=== PATIENT | female | born 1965 | race Asian ===

== ENCOUNTER 2020-08-02 04:48 | Emergency (ER) | payer OTHER, SELFPAY ==
[2020-08-02 05:10] VITALS: BP 95/52; PULSE 69; RESP 16; TEMP 36.6; O2SAT 94; BMI 30.3
--- NOTE | 2020-08-02 05:38 | XR_ITS ---
EXAMINATION: XR SHOULDER, LEFT XR HUMERUS, LEFT CLINICAL INFORMATION: Pain COMPARISON: None TECHNIQUE: Four views of the left shoulder. 2 views of the left humerus. FINDINGS: Left shoulder: No fracture or dislocation. The glenohumeral joint is well aligned. The joint space is maintained. Small osteophyte at the inferior glenoid. The acromioclavicular joint is intact. The visualized ribs are intact. The visualized lung is clear. Left humerus: No fracture or cortical disruption. Alignment is maintained at the elbow. The soft tissues are unremarkable. XR/XR humerus LT IMPRESSION: No acute osseous abnormality. Mild degenerative change of the glenohumeral joint.
--- NOTE | 2020-08-02 05:38 | XR_ITS ---
EXAMINATION: XR SHOULDER, LEFT XR HUMERUS, LEFT CLINICAL INFORMATION: Pain COMPARISON: None TECHNIQUE: Four views of the left shoulder. 2 views of the left humerus. FINDINGS: Left shoulder: No fracture or dislocation. The glenohumeral joint is well aligned. The joint space is maintained. Small osteophyte at the inferior glenoid. The acromioclavicular joint is intact. The visualized ribs are intact. The visualized lung is clear. Left humerus: No fracture or cortical disruption. Alignment is maintained at the elbow. The soft tissues are unremarkable. XR/XR shoulder LT min 2V IMPRESSION: No acute osseous abnormality. Mild degenerative change of the glenohumeral joint.
--- NOTE | 2020-08-02 05:46 | PC.NURSE ---
PT HAS INCREASED PAIN UPON PALPATION AND WHEN LEFT ARM IS LIFTED BY PROVIDER. PT HAS GOOD RADIAL PULSE AND TEMPERATURE TO LEFT UPPER EXTREMITY. PAIN TO LATERAT UPPER LEFT ARM AND LEFT SHOULDER.
--- NOTE | 2020-08-02 06:03 | ED.EXTPRO ---
HPI - Extremity Problem General Chief complaint: Extremity Injury, Upper Stated complaint: ARM PAIN PINCHED NERVE? Time Seen by Provider: 08/02/20 04:57 Source: patient Mode of arrival: ambulatory History of Present Illness HPI Narrative: This is a 54-year-old female who presents with stated that her left arm ?feels like it is broken?. She states that there was an acute onset of left arm pain that started at 4:00 p.m. yesterday without associated trauma, fevers, chills, overuse, or poor position while sleeping. When asked how the patient was able to get dressed into her pajamas she stated that she had helped, but then states that she has been wearing her pajamas for several days now. This left arm pain is not associated with any history of diabetes or thyroid condition and is not associated with redness, swelling, numbness or tingling in the distal extremity. Patient denies any chest pain, cough, difficulty breathing. She states that she is currently in a wheelchair for bilateral plantar fasciitis has right-sided cervical radiculopathy. Related Data Allergies Allergy/AdvReac Type Severity Reaction Status Date / Time pineapple [Pineapple] Allergy Intermediate THROAT Verified 08/02/20 05:09 ITCHES latex [Latex] Allergy Mild RASH Verified 08/02/20 05:09 diphenhydramine Allergy Unknown UNKNOWN Verified 08/02/20 05:09 [From BENADRYL] ayanna Allergy Unknown HIVES Verified 08/02/20 05:09 shellfish Allergy Unknown rash Verified 08/02/20 05:09 Shellfish Allergy Intermediate THROAT Uncoded 04/13/20 17:09 ITCHES Benadryl Allergy Unknown Hives Uncoded 08/02/20 05:09 Latex Allergy Unknown rash Uncoded 10/19/13 00:00 Latex Gloves Allergy Unknown Hives Uncoded 08/02/20 05:09 Ayanna Flavor Allergy Unknown itching Uncoded 10/19/13 00:00 Review of Systems Review of Systems: Pertinent positives and negatives as stated in HPI 10 point review systems is otherwise negative. FOR[facility]LY [facility], [facility] Past Medical History Source: nursing notes reviewed Medical History Asthma Early satiety Social History Social History Advance Directives: No Physical Exam Vital Signs: Vital Signs: Last Vital Signs Temp 97.9 F 08/02/20 05:10 Pulse 69 08/02/20 05:10 Resp 16 08/02/20 05:10 BP 95/52 L 08/02/20 05:10 Pulse Ox 94 08/02/20 05:10 Body Mass Index 30.3 VITAL SIGNS: Reviewed. GENERAL: Well developed, well nourished, in no acute distress. NOSE: Nares patent bilateral OROPHARYNX: no oral lesions noted, posterior pharynx clear NECK: Supple, no adenopathy LUNGS: Normal breath sounds. No adventitious sounds or accessory muscle use. SpO2<94> CARDIOVASCULAR: Regular rate and rhythm without noted murmurs, no JVD or lower extremity edema. ABDOMEN: Soft, non-tender, non-distended with bowel sounds. No rigidity. No guarding. No palpable masses or hernias noted LEFT UPPER EXTREMITY: No pain in palpation from the left paraspinal cervical region across the trapezius, no noted pain on palpation of the AC or biceps tendon insertion point, however patient has significant pain on active as well as passive range of motion at that shoulder in every direction. 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 Patient complains primarily of pain in the humeral region. SKIN: Inspection of the skin reveals no rashes NEUROLOGIC: Alert and oriented x 4. Course Course Course Narrative: This is a 54-year-old female with unclear etiology of left humerus pain will evaluate for inflammatory markers, bony abnormalities and likely finish with ultrasound to evaluate for underlying venous insufficiency although this is highly unlikely. Sign out to Dr. Montaño. MDM - Extremity (Nontraumatic) Lab Data Result diagrams: 08/02/20 06:37 08/02/20 06:37 Labs: Lab Results 08/02/20 Range/Units 06:37 WBC 6.3 (4.8-10.8) X10*3/uL RBC 3.92 L (4.20-5.50) X10*6/uL Hgb 11.7 L (12.0-16.0) g/dl Hct 36.1 L (37-47) % MCV 92.1 (80-98) fL MCH 29.8 (27.0-33.0) pg MCHC 32.4 (31.0-35.0) g/dl RDW 12.9 (11.0-16.0) % Plt Count 218 (160-400) X10*3/uL MPV 9.8 (9.4-12.3) fL Immature Gran % (Auto) 0.5 H (0.0-0.4) % Neut % (Auto) 76.6 H (45-73) % Lymph % (Auto) 15.6 L (20-40) % [place] % (Auto) 6.2 (2-11) % Eos % (Auto) 0.8 (0-4) % Baso % (Auto) 0.3 (0-2) % Lymph # (Auto) 1.0 L (1.2-4.9) X10*3/uL [place] # (Auto) 0.4 (0.1-1.2) X10*3/uL Eos # (Auto) 0.1 (0.0-0.4) X10*3/uL Baso # (Auto) 0.0 (0.0-0.2) X10*3/uL Abs Immat Gran (auto) 0.03 (0.00-0.03) X10*3/uL Absolute Neuts (auto) 4.8 (2.0-8.3) X10*3/uL Absolute Nucleated RBC 0.000 (0.0-0.012) X10*3/uL Nucleated RBC % (auto) 0.0 (0.0-0.2) /100WBC
[2020-08-02] MEDS: Acetaminophen 325 MG TABLET 975 MG PO (06:15)
[2020-08-02] MEDS: Ketorolac Tromethamine 15 MG/ML VIAL IM (06:15)
[2020-08-02] MEDS: Lidocaine 4 % Patch ADH..PATCH 1 PATCH TRANSDERMA (06:15)
[2020-08-02 06:45] LABS: Basophils Percent Auto 0.3 % (0-2); Eosinophils Absolute Auto 0.1 X10*3/uL (0.0-0.4); Eosinophils Percent Auto 0.8 % (0-4); Hematocrit 36.1 % (37-47); Hemoglobin 11.7 g/dl (12.0-16.0); Imm Gran Abs Auto 0.03 X10*3/uL (0.00-0.03); Imm Gran Pct Auto 0.5 % (0.0-0.4); Lymphocytes Percent Auto 15.6 % (20-40); MANUAL DIFF FLAG NO; Mean Corpuscular HGB Conc 32.4 g/dl (31.0-35.0); Mean Corpuscular Hemoglobin 29.8 pg (27.0-33.0); Mean Corpuscular Volume 92.1 fL (80-98); Mean Platelet Volume 9.8 fL (9.4-12.3); Monocytes Absolute Auto 0.4 X10*3/uL (0.1-1.2); Monocytes Percent Auto 6.2 % (2-11); Neutrophils Absolute Auto 4.8 X10*3/uL (2.0-8.3); Neutrophils Percent Auto 76.6 % (45-73); Platelet Count 218 X10*3/uL (160-400); Red Blood Count 3.92 X10*6/uL (4.20-5.50); Red Cell Distribution Width 12.9 % (11.0-16.0); White Blood Count 6.3 X10*3/uL (4.8-10.8)
--- NOTE | 2020-08-02 07:04 | US_ITS ---
EXAMINATION: US VENOUS WITH DOPPLER UPPER EXTREMITY, LEFT CLINICAL INFORMATION: Pain left upper extremity with decreased range of motion and shoulder. Assess for occult DVT. COMPARISON: Radiographs left shoulder and left humerus 08/02/2020; mammography 12/31/2013 TECHNIQUE: Ultrasound of the upper extremity is performed using compression sonography and color and pulse Doppler flow with assessment of augmentation of flow. There is also imaging and Doppler assessment of the jugular and subclavian veins. Spectral analysis with color-flow imaging is performed. FINDINGS: Respiratory variation, normal compression, and augmented flow are noted throughout the upper extremity including the axillary, brachial, cubital, and radial and ulnar veins. There is normal flow in the internal jugular and subclavian veins. There is no visible deep or superficial thrombophlebitis. As expected, there are nodes seen in the left axilla with normal nata architecture and color flow pattern. Largest node measures 1.0 x 2.4 cm. No hyperemia. No cystic nodes. There is no skin thickening or edema tracking in the soft tissue planes. US/US venous duplex UE LT IMPRESSION: No DVT demonstrated in the left upper extremity.
[2020-08-02 07:17] LABS: Alanine Aminotransferase 11 U/L (0-31); Alkaline Phosphatase 69 U/L (39-117); Anion Gap 13 (12-20); Aspartate Amino Transferase 13 U/L (5-31); Bilirubin Total 0.3 mg/dL (0.0-1.0); Blood Urea Nitrogen 18 mg/dL (9-16); Calcium 8.4 mg/dL (8.4-10.2); Carbon Dioxide 28 mmol/L (22-29); Chloride 106 mmol/L (96-108); Creatinine Clr Calc Pharmacy 86.8; Estimated Glomerular Filt Rate > 60; Glucose Random 98 mg/dL (60-115); Magnesium 2.2 mg/dL (1.6-2.6); Potassium 4.5 mmol/l (3.3-5.1); Sodium 142 mmol/L (135-145); Total Protein 6.9 g/dL (6.5-8.0)
[2020-08-02 07:50] LABS: Erythrocyte Sedimentation Rate 25 MM/HR (0-20)
--- NOTE | 2020-08-02 08:48 | PC.NURSE ---
pt returns from [place]. negative findings for dvt she is tolerating po intake awaiting d/c
== END 2020-08-02 09:04 | disposition home or self-care (01) ==
PROVIDERS: Emergency Provider Student in an Organized Health Care Education/Training Program; PCP Internal Medicine
DX: M72.2 Plantar fascial fibromatosis (principal); M79.602 Pain in left arm; R60.0 Localized edema; Z79.899 Other long term (current) drug therapy
CPT/HCPCS: 36415; 73030; 73060; 80053; 82550; 83735; 85025; 85652; 93971; 96372; 99283; 99284; J1885

== ENCOUNTER 2021-04-19 03:15 | Emergency (ER) | payer OTHER, SELFPAY ==
--- NOTE | ~2021-04-19 | XR_ITS ---
EXAMINATION: XR FOOT, RIGHT CLINICAL INFORMATION: Right foot pain COMPARISON: None TECHNIQUE: AP, lateral, and oblique views of the right foot. FINDINGS: There is mild loss of first MTP joint space with periarticular spurring. No visible acute fracture, dislocation or subluxation seen. The ankle mortise and 6 subtalar joints are normal. There is dorsal talonavicular moderate spurring. Moderate-sized calcaneal heel and a small retrocalcaneal enthesophytes are seen. XR/XR foot RT min 3V IMPRESSION: No acute fracture or dislocation. Moderate size calcaneal heel and dorsal talonavicular enthesophytes. There is a small retrocalcaneal right as well.
--- NOTE | 2021-04-19 07:37 | ED.GENADULT ---
HPI - General Adult General Chief complaint: Extremity Injury, Upper Time Seen by Provider: 04/19/21 07:11 Source: patient and old records reviewed Mode of arrival: ambulatory Limitations: no limitations History of Present Illness MD complaint: R foot pain, R neck strain Onset (ago): day(s) (3) Location: neck, right and lower extremity Radiation: non-radiation Severity: mild and moderate Quality: aching Pain Consistency: constant Relieving factors: none Exacerbating factors: movement Associated symptoms: denies other symptoms Treatments prior to arrival: other (tried gabapentin, flexeril without relief) Related Data Previous Rx's Medication Instructions Recorded cyclobenzaprine 10 mg tablet 10 mg PO TID PRN #14 tab 08/02/20 lidocaine 4 % topical patch 1 patch TOPICAL DAILY PRN #10 ea 08/02/20 amoxicillin 875 mg-potassium 1 tab PO BID #20 tab 03/02/21 clavulanate 125 mg tablet (Augmentin) dexamethasone 4 mg tablet 4 mg PO .COMPLEX #18 tab 03/02/21 fluconazole 150 mg tablet 150 mg PO Q OTHER DAY 3 Days #2 tab 03/02/21 hydrocodone 5 mg-acetaminophen 325 1 tab PO Q6H PRN #8 tab 04/19/21 mg tablet Allergies Allergy/AdvReac Type Severity Reaction Status Date / Time pineapple [Pineapple] Allergy Intermediate THROAT Verified 04/19/21 07:56 ITCHES latex [Latex] Allergy Mild RASH Verified 04/19/21 07:56 diphenhydramine Allergy Unknown UNKNOWN Verified 04/19/21 07:56 [From BENADRYL] ayanna Allergy Unknown HIVES Verified 04/19/21 07:56 shellfish Allergy Unknown rash Verified 04/19/21 07:56 Shellfish Allergy Intermediate THROAT Uncoded 04/13/20 17:09 ITCHES Benadryl Allergy Unknown Hives Uncoded 08/02/20 05:09 Latex Allergy Unknown rash Uncoded 10/19/13 00:00 Latex Gloves Allergy Unknown Hives Uncoded 08/02/20 05:09 [place] Flavor Allergy Unknown itching Uncoded 10/19/13 00:00 Review of Systems Review of Systems: Constitutional : No Fever, No Chills ENT/Mouth : No Ear Pain, No Hoarseness, No sore throat, pos neck pain Eyes: No Eye Pain, No Swelling, No Redness, No Foreign Body Cardiovascular : No Chest Pain, No SOB Respiratory : No Cough, No Dyspnea Gastrointestinal : No Nausea, No Vomiting, No Diarrhea, No abdominal Pain Genitourinary : No Dysuria, No Hematuria Musculoskeletal : positive joint pain, No Myalgias, No Joint Swelling Skin : No Skin lacerations, No rash Neuro : No Weakness, No Numbness, No Loss of Consciousness, No Dizziness, No Headache Psych : No Anxiety/Panic, No Depression Heme/Lymph: no easy bruising, no Lymphadenopathy Endocrine : No Polyuria, No Polydipsia All other systems reviewed and are negative [facility] Past Medical History Medical History Asthma Cervical radiculopathy DVT (deep venous thrombosis) Early satiety Social History Social History (Updated 04/19/21 @ 07:40 by Stacey Montaño DO) Patient Tobacco Use Status: Never used Tobacco Use of substances other than those prescribed or required for medical reasons: No Advance Directives: No Advance Directives Information Provided: No Physical Exam Vital Signs: Vital Signs: Last Vital Signs Temp 98.4 F 04/19/21 07:58 Pulse 99 04/19/21 07:58 Resp 18 04/19/21 07:58 BP 166/74 H 04/19/21 07:58 Pulse Ox 96 04/19/21 07:58 Body Mass Index 33.6 Appearance: Alert. Oriented X3. No acute distress. Eyes: Pupils equal, round and reactive to light. ENT: Pharynx normal. Neck: Normal inspection. R trapezius ttp along muscle - distal NV intact, no midline ttp CVS: Normal heart rate and rhythm. Pulses normal. Respiratory: No respiratory distress. Breath sounds normal. Abdomen: Soft and nontender. Skin: Skin warm and dry. Normal skin color. Normal skin turgor. Extremities: No lower extremity edema. R foot on plantar surface c/o pain distal NV intact, no swelling, no erythema no signs of infection, pain is on plantar surface along 1st and 2nd MTPs Neuro: Oriented X 3. No motor deficit. No sensory deficit. Medical Decision Making MDM Narrative Medical decision making narrative: 55 yo female with hx of cervical radiculopathy, recent DVT 1 month ago on eliquis comes in with atraumatic R foot pain - seems like MSK no signs of infection NV intact - xray ordered, also c/o R neck pain after moving and feeling a pop - there is no swelling no mass no fevers suspect trapezius spasm - PO pain control Discharge Plan Discharge Clinical Impression: Trapezius muscle spasm Acute foot pain Qualifiers: Laterality: right Qualified Code(s): M79.671 - Pain in right foot Patient Disposition: Home, Self-Care Instructions: Arthralgia (ED), Muscle Spasm (ED) Additional Instructions: return to ED for any worsening symptoms or concerns BONY SPURS causing pain No acute fracture or dislocation. ? Moderate size calcaneal heel and dorsal talonavicular enthesophytes. There is a small retrocalcaneal right as well. Prescriptions: New hydrocodone-acetaminophen 5-325 mg tablet 1 tab PO Q6H PRN (Reason: pain) Qty: 8 RF: 0 No Action cyclobenzaprine 10 mg tablet 10 mg PO TID PRN (Reason: muscle spasm) Qty: 14 RF: 0 lidocaine 4 % adhesive patch,medicated 1 patch topical DAILY PRN (Reason: pain) Qty: 10 RF: 0 amoxicillin-pot clavulanate [Augmentin] 875-125 mg tablet 1 tab PO BID Qty: 20 RF: 0 dexamethasone 4 mg tablet 4 mg PO .COMPLEX Qty: 18 RF: 0 fluconazole 150 mg tablet 150 mg PO Q OTHER DAY 3 Days Qty: 2 RF: 0 Referrals: Physician,Unknown [Primary Care Provider] - 2 days (if not better)
[2021-04-19 07:58] VITALS: BP 166/74; PULSE 99; RESP 18; TEMP 36.9; O2SAT 96; BMI 33.6
[2021-04-19] MEDS: HYDROcodone Bit/Acetam 5/325 TABLET 1 TAB PO (08:46)
== END 2021-04-19 08:52 | disposition home or self-care (01) ==
PROVIDERS: Emergency Provider Emergency Medicine
DX: M79.671 Pain in right foot (principal); M62.831 Muscle spasm of calf; Z86.718 Personal history of other venous thrombosis and embolism; Z79.01 Long term (current) use of anticoagulants; Z79.899 Other long term (current) drug therapy
CPT/HCPCS: 73630; 99283

== ENCOUNTER 2022-05-29 15:40 | Emergency (ER) | payer OTHER, SELFPAY ==
[2022-05-29 16:19] VITALS: BP 145/91; PULSE 96; RESP 18; TEMP 36.8; O2SAT 96; BMI 27.4
[2022-05-29 16:36] LABS: MANUAL DIFF FLAG NO
[2022-05-29 16:37] LABS: Basophils Percent Auto 0.3 % (0-2); Hematocrit 36.9 % (37.0-47.0); Hemoglobin 12.3 g/dl (12.0-16.0); Imm Gran Abs Auto 0.01 X10*3/uL (0.00-0.03); Imm Gran Pct Auto 0.3 % (0.0-0.4); Lymphocytes Absolute Auto 0.4 X10*3/uL (1.2-4.9); Lymphocytes Percent Auto 10.8 % (20-40); Mean Corpuscular HGB Conc 33.3 g/dl (31.0-35.0); Mean Corpuscular Hemoglobin 29.9 pg (27.0-33.0); Mean Corpuscular Volume 89.6 fL (80.0-98.0); Mean Platelet Volume 9.9 fL (9.4-12.3); Monocytes Absolute Auto 0.5 X10*3/uL (0.1-1.2); Monocytes Percent Auto 13.7 % (2-11); Neutrophils Absolute Auto 2.6 x10*3/uL (2.0-8.3); Neutrophils Percent Auto 74.9 % (45-73); Platelet Count 203 X10*3/uL (160-400); Red Blood Count 4.12 X10*6/uL (4.20-5.50); Red Cell Distribution Width 12.6 % (11.0-16.0); White Blood Count 3.5 X10*3/uL (4.8-10.8)
[2022-05-29 16:51] LABS: Alanine Aminotransferase 12 U/L (0-31); Albumin Level 3.8 g/dL (3.5-5.0); Alkaline Phosphatase 71 U/L (39-117); Anion Gap 14 (12-20); Aspartate Amino Transferase 16 U/L (5-31); Bilirubin Total 0.3 mg/dL (0.0-1.0); Blood Urea Nitrogen 15 mg/dL (9-16); Calcium 8.9 mg/dL (8.4-10.2); Carbon Dioxide 26 mmol/L (22-29); Chloride 108 mmol/L (96-108); Creatinine Clr Calc Pharmacy 61.2; Estimated Glomerular Filt Rate > 60; Glucose Random 89 mg/dL (60-115); Potassium 3.8 mmol/L (3.3-5.1); Sodium 144 mmol/L (135-145)
[2022-05-29 16:55] LABS: Appearance Urine Clear; Color Urine Yellow; Glucose Urine UA Negative (Negative); Leukocyte Esterase Urine Moderate (2+) (Negative); Nitrite Urine Negative (Negative); PH 5.5 (5.0-9.0); UMIC TRIGGER UACC YES; Urine Blood Negative (Negative); Urine Ketones Trace mg/dL (Negative); Urine Protein Trace mg/dL (Neg-Trace)
[2022-05-29 17:03] LABS: Bacteria Urine Trace (None Seen); Granular Casts Urine Present; Hyaline Casts Urine >20 /LPF (0-2); WBC Urine 0-5 /HPF (0-5)
== END 2022-05-29 23:05 | disposition left against medical advice (07) ==
LOC: HO.ED 22:39
PROVIDERS: Emergency Provider Emergency Medicine; PCP Pediatrics
DX: R42 Dizziness and giddiness (principal); Z79.899 Other long term (current) drug therapy
CPT/HCPCS: 36415; 80053; 81001; 85025; 99282; 99283

== ENCOUNTER 2022-08-05 18:00 | Emergency (ER) | payer OTHER, SELFPAY ==
[2022-08-05 18:08] VITALS: BP 131/78; PULSE 82; RESP 18; TEMP 37.1; O2SAT 97; BMI 26.3
--- NOTE | 2022-08-05 18:18 | ED.GENADULT ---
HPI - General Adult General Chief complaint: Allergic Reaction Stated complaint: From home, allergic reac to Toradol per EMS Time Seen by Provider: 08/05/22 18:07 Source: patient and EMS Mode of arrival: EMS Limitations: no limitations History of Present Illness HPI narrative: Patient comes to the emergency room via EMS. Patient had a home visit today, she was given IM injection for the 1st time for pain, indicated by patient's physician and visiting nurse. Patient states that shortly after she thought she was going to pass out. Patient did not have any chest pain or shortness of breath, no rash, no breathing difficulty. EMS gave the patient 0.3 mg of epinephrine, Zofran, and Benadryl IV. On arrival to the emergency room, patient is asymptomatic. Related Data Previous Rx's Medication Instructions Recorded cyclobenzaprine 10 mg tablet 10 mg PO TID PRN muscle spasm #14 08/02/20 tabs lidocaine 4 % topical patch 1 patch topical DAILY PRN pain #10 08/02/20 ea amoxicillin 875 mg-potassium 1 tab PO BID #20 tabs 03/02/21 clavulanate 125 mg tablet (Augmentin) dexamethasone 4 mg tablet 4 mg PO .COMPLEX #18 tabs 03/02/21 fluconazole 150 mg tablet 150 mg PO Q OTHER DAY 3 days #2 03/02/21 tabs hydrocodone 5 mg-acetaminophen 325 1 tab PO Q6H PRN pain #8 tabs 04/19/21 mg tablet Allergies Allergy/AdvReac Type Severity Reaction Status Date / Time pineapple [Pineapple] Allergy Intermediate THROAT Verified 04/19/21 07:56 ITCHES latex [Latex] Allergy Mild RASH Verified 04/19/21 07:56 diphenhydramine Allergy Unknown UNKNOWN Verified 04/19/21 07:56 [From BENADRYL] ayanna Allergy Unknown HIVES Verified 04/19/21 07:56 shellfish Allergy Unknown rash Verified 04/19/21 07:56 Shellfish Allergy Intermediate THROAT Uncoded 04/13/20 17:09 ITCHES Benadryl Allergy Unknown Hives Uncoded 08/02/20 05:09 Latex Allergy Unknown rash Uncoded 10/19/13 00:00 Latex Gloves Allergy Unknown Hives Uncoded 08/02/20 05:09 [place] Flavor Allergy Unknown itching Uncoded 10/19/13 00:00 Review of Systems Review of Systems: Constitutional : No Weight loss, No Fever, No Chills, No Night Sweats, No Fatigue, No Malaise ENT/Mouth : No Hearing loss, No Ear Pain, No Nasal Congestion, No Sinus Pain, No Hoarseness, No sore throat, No Rhinorrhea, No Swallowing Difficulty Eyes: No Eye Pain, No Swelling, No Redness, No Foreign Body, No Discharge, No Vision Changes Cardiovascular : No Chest Pain, No SOB, No Dyspnea on Exertion, No Orthopnea, No Edema, No Palpitations Respiratory : No Cough, No Sputum, No Wheezing, No Smoke Exposure, No Dyspnea Gastrointestinal : No Nausea, No Vomiting, No Diarrhea, No Constipation, No abdominal Pain, No Hematochezia, No Melena Genitourinary : no irregular bleeding, No Dysuria, No Urinary Frequency, No Hematuria, No Urinary Incontinence, No Urgency, No Flank Pain, No Urinary Flow Changes, No Hesitancy Musculoskeletal : No joint pain, No Myalgias, No Joint Swelling Skin : No Skin Lesions, No rash Neuro : No Weakness, No Numbness, No Paresthesias, No Loss of Consciousness, No Dizziness, No Headache, near syncopal episode after an IM injection Psych : No Anxiety/Panic, No Depression, No SI/HI/AH/VH, No Social Issues, Heme/Lymph: No Bruising, No Bleeding,No Lymphadenopathy Endocrine : No Polyuria, No Polydipsia, No Temperature Intolerance PMFSH Past Medical History Medical History Asthma Cervical radiculopathy DVT (deep venous thrombosis) Early satiety Social History Social History (Updated 04/19/21 @ 07:40 by Dulce Montaño DO) Patient Tobacco Use Status: Never used Tobacco Advance Directives: No Advance Directives Information Provided: Yes Patient : No Physical Exam ED Vital Signs: Vital Signs - 24 hr 08/05/22 18:08 Temperature 98.8 F Pulse Rate 82 Respiratory Rate 18 Blood Pressure 131/78 Pulse Oximetry 97 Oxygen Delivery Method Room Air BMI result Body Mass Index 26.3 Course Course Course Narrative: In the emergency room, patient asymptomatic Medical Decision Making Medical Decision Making MDM Narrative: It is likely that patient had a vasovagal reaction to the IM injection, patient did not have any other symptoms that would suggest allergic reaction. However, we will keep patient under observation for the next couple of hours, since she was given IM per paramedics. At this time, on arrival blood pressure 131/78, heart rate 82, respirations 17, temperature 98.8 degrees, oxygen saturation 97% on room air with a normal physical exam. Physician supervision started at 18:30, initial dose of epinephrine was given at 17:45 19:40 patient remains asymptomatic Differential Diagnosis Differential Diagnoses: The differential diagnosis associated with the presentation includes (Allergic reaction, vasovagal near syncope) Admission/Observation Consideration of admission/observation: Escalation of care including admission/observation considered Patient was under observation for 2 hours, patient remains asymptomatic with normal vitals. Unlikely that patient had an allergic reaction, most likely patient had a vasovagal near-syncope secondary to the IM injection Discharge Plan Discharge Clinical Impression: Vasovagal near syncope Patient Disposition: Home, Self-Care Instructions: Syncope (ED) Additional Instructions: Please follow-up with your primary care physician tomorrow. If you have any worsening or new symptoms, please return to the emergency room or call 911 Prescriptions: No Action cyclobenzaprine 10 mg tablet 10 mg PO TID PRN (Reason: muscle spasm) Qty: 14 0RF lidocaine 4 % adhesive patch,medicated 1 patch topical DAILY PRN (Reason: pain) Qty: 10 0RF Rx Instructions: may leave on for up to 12 hrs hydrocodone-acetaminophen 5-325 mg tablet 1 tab PO Q6H PRN (Reason: pain) Qty: 8 0RF amoxicillin-pot clavulanate [Augmentin] 875-125 mg tablet 1 tab PO BID Qty: 20 0RF dexamethasone 4 mg tablet 4 mg PO .COMPLEX Qty: 18 0RF Rx Instructions: 4 mg PO; 1 p.o. t.i.d. x3 days, 1 p.o. b.i.d. x3 days, 1 p.o. daily x3 days fluconazole 150 mg tablet 150 mg PO Q OTHER DAY 3 Days Qty: 2 0RF Rx Instructions: administer on day 1 of therapy
--- NOTE | 2022-08-05 18:27 | MHC.EDTECH ---
Brought patient warm blanket.
--- NOTE | 2022-08-05 19:37 | ECG_ITS ---
Test Reason : POST EPI Blood Pressure : / mmHG Vent. Rate : 086 BPM Atrial Rate : 086 BPM P-R Int : 156 ms QRS Dur : 076 ms QT Int : 374 ms P-R-T Axes : 062 051 052 degrees QTc Int : 447 ms Normal sinus rhythm Normal ECG No previous ECGs available Referred By: Megan Linton Electronically Signed By:Norman Carr
== END 2022-08-05 20:11 | disposition home or self-care (01) ==
PROVIDERS: Emergency Provider Emergency Medicine
DX: R55 Syncope and collapse (principal)
CPT/HCPCS: 93005; 99283; 99284

== ENCOUNTER 2024-04-27 12:37 | Emergency (ER) | payer OTHER, SELFPAY ==
--- NOTE | ~2024-04-27 | XR_ITS ---
EXAMINATION: XR HAND, RIGHT CLINICAL INFORMATION: Pain. Crushed hand moving boxes. COMPARISON: None available. TECHNIQUE: PA, lateral, and oblique views of the right hand. FINDINGS: The clinical history provided does not state exactly where in the right hand pathology is suspected, limiting the study. In addition, the fingers overlap one another on lateral view, further limiting the study. Therefore, clinical correlation is advised. No acute fracture or dislocation is identified. Alignment appears anatomic. Joint spaces appear maintained. No erosions identified. Small vessel arterial calcification suggests diabetic and/or renal calcific atherosclerosis. XR/XR hand RT min 3V IMPRESSION: Findings as above. Electronically signed by: Noe Bal MD 04/27/2024 03:34 PM EDT RP
[2024-04-27 13:08] VITALS: BP 158/74; PULSE 80; RESP 18; TEMP 36.3; O2SAT 96; BMI 24.5
--- NOTE | 2024-04-27 13:09 | ED_ITS ---
HPI - General Adult General Chief complaint: Extremity Injury, Upper Stated complaint: Finger injury Time Seen by Provider: 04/27/24 15:54 Source: patient, RN notes reviewed and old records reviewed Mode of arrival: ambulatory Limitations: no limitations History of Present Illness ED Provider: Juan Carlos GARAY narrative: 58-year-old female presents for evaluation of right hand pain. Patient reports that a few days ago she was moving heavy boxes and furniture. She accidentally dropped a box onto her right hand. The pain goes into her fingertips. The pain is worse with movement. Denies any pain going into the wrist or upper arm She reports her pain is 8/10, stabbing Denies any other injuries Related Data Previous Rx's ?Medication ?Instructions ?Recorded cyclobenzaprine 10 mg tablet 10 mg PO TID PRN muscle spasm #14 08/02/20 tabs lidocaine 4 % topical patch 1 patch topical DAILY PRN pain #10 08/02/20 ea amoxicillin 875 mg-potassium 1 tab PO BID #20 tabs 03/02/21 clavulanate 125 mg tablet (Augmentin) dexamethasone 4 mg tablet 4 mg PO .COMPLEX #18 tabs 03/02/21 fluconazole 150 mg tablet 150 mg PO Q OTHER DAY 3 days #2 03/02/21 tabs hydrocodone 5 mg-acetaminophen 325 1 tab PO Q6H PRN pain #8 tabs 04/19/21 mg tablet Allergies Allergy/AdvReac Type Severity Reaction Status Date / Time pineapple [Pineapple] Allergy Intermediate THROAT Verified 04/27/24 13:10 ITCHES latex [Latex] Allergy Mild Rash, Hives Verified 04/27/24 13:10 diphenhydramine Allergy Unknown UNKNOWN Verified 04/27/24 13:10 [From BENADRYL] ayanna Allergy Unknown HIVES Verified 04/27/24 13:10 ayanna flavor Allergy Unknown Itching Verified 04/27/24 13:10 shellfish derived Allergy Unknown Rash, Verified 04/27/24 13:10 throat itches Review of Systems Musculoskeletal: Musculoskeletal: Reports arthralgias, Reports joint swelling and Reports limited range of motion PMFSH Past Medical History Medical History Asthma Cervical radiculopathy DVT (deep venous thrombosis) Early satiety Social History Social History (Updated 04/19/21 @ 07:40 by Dulce Motnaño DO) Patient Tobacco Use Status: Never used Tobacco Advance Directives: No Advance Directives Information Provided: No Do you have a plan to hurt others: No Plan Physical Exam ED Vital Signs: Vital Signs - 24 hr 04/27/24 13:08 04/27/24 16:14 Temperature 97.4 F 97.4 F Pulse Rate 80 80 Respiratory Rate 18 18 Blood Pressure 158/74 H 158/74 H Pulse Oximetry 96 96 Oxygen Delivery Method Room Air Room Air BMI result Body Mass Index 24.5 Const General: healthy appearing, comfortable, no acute distress, alert and awake Nutritional Appearance: well nourished Orientation/consciousness: patient oriented x3 HENMT Head: Yes normocephalic and Yes atraumatic Eyes Eyelids: Yes eyelids normal Conjunctivae: conjunctivae normal Sclerae: sclerae normal Corneas: corneas normal Pupils: Equal, round and reactive pupils present EOM: EOMs intact bilaterally Neck Neck: Yes full ROM Resp Effort & Inspection: normal respiratory effort, able to speak in complete sentences and not labored Skin General skin exam: elasticity normal Neuro General: patient oriented x3 Cranial nerves: Yes Equal, round and reactive pupils present and Yes Bilaterally intact EOM present Cognition (Neuro): normal cognition Extrem Other: Moving all extremities well without any obvious deformities. The patient is tender to palpation to the 2nd 3rd and 4th metacarpals. There is no significant visual or palpable deformity. Good range of motion to the right hand. No scaphoid tenderness or right wrist tenderness. Course Course Course Narrative: RME, this is a rapid medical exam performed by Masood Rangel please refer to primary provider for complete H&P- 58-year-old female presents for evaluation of right hand pain. She was moving boxes when a box fell onto her right hand. Plan for x-rays. Medical Decision Making Medical Decision Making MDM Narrative: 58-year-old female presents for evaluation of right hand pain. She has a fairly reassuring exam, no obvious deformities. X-ray shows no evidence of fracture. Will discharge the patient is symptomatic care Differential Diagnosis Differential Diagnoses: The differential diagnosis associated with the presentation includes Hand sprain Fracture Dislocation Contusion Independent Interpretation I performed an independent interpretation of an: Plain X-Ray Interpretation: No fracture of the right hand Radiology Impression Discussion of test interpretation with radiology: I have reviewed the r adiologist's reading. Radiologist Impression: FINDINGS: The clinical history provided does not state exactly where in the right hand pathology is suspected, limiting the study. In addition, the fingers overlap one another on lateral view, further limiting the study. Therefore, clinical correlation is advised. No acute fracture or dislocation is identified. Alignment appears anatomic. Joint spaces appear maintained. No erosions identified. Small vessel arterial calcification suggests diabetic and/or renal calcific atherosclerosis. XR/XR hand RT min 3V IMPRESSION: Findings as above. Electronically signed by: Noe Bal MD 04/27/2024 03:34 PM EDT RP Discharge Plan Discharge Clinical Impression: Sprain of hand, right Patient Disposition: Home, Self-Care Instructions: Sprain (ED) Additional Instructions: Your x-ray did not show any evidence of fracture. You have a sprain of your right hand. Use ibuprofen/Tylenol for pain Follow-up with your primary doctor, return for new or worsening symptoms Prescriptions: No Action cyclobenzaprine 10 mg tablet 10 mg PO TID PRN (Reason: muscle spasm) Qty: 14 0RF lidocaine 4 % adhesive patch,medicated 1 patch topical DAILY PRN (Reason: pain) Qty: 10 0RF Rx Instructions: may leave on for up to 12 hrs hydrocodone-acetaminophen 5-325 mg tablet 1 tab PO Q6H PRN (Reason: pain) Qty: 8 0RF amoxicillin-pot clavulanate [Augmentin] 875-125 mg tablet 1 tab PO BID Qty: 20 0RF dexamethasone 4 mg tablet 4 mg PO .COMPLEX Qty: 18 0RF Rx Instructions: 4 mg PO; 1 p.o. t.i.d. x3 days, 1 p.o. b.i.d. x3 days, 1 p.o. daily x3 days fluconazole 150 mg tablet 150 mg PO Q OTHER DAY 3 Days Qty: 2 0RF Rx Instructions: administer on day 1 of therapy Interventions: ED Discharge Assessment Last Done: 04/27/24 16:14 Discharge Date/Time: 04/27/24 16:14 Print Language: Belarusian
[2024-04-27 16:14] VITALS: BP 158/74; PULSE 80; RESP 18; TEMP 36.3; O2SAT 96
== END 2024-04-27 16:14 | disposition home or self-care (01) ==
PROVIDERS: Emergency Provider Emergency Medicine; PCP Student in an Organized Health Care Education/Training Program
DX: S63.91XA Sprain of unspecified part of right wrist and hand, initial encounter (principal); W20.8XXA Other cause of strike by thrown, projected or falling object, initial encounter; Y93.89 Activity, other specified; Y92.009 Unspecified place in unspecified non-institutional (private) residence as the place of occurrence of the external cause; Y99.9 Unspecified external cause status
CPT/HCPCS: 73130; 99282; 99283

== ENCOUNTER 2024-11-25 13:03 | Emergency (ER) | payer MEDICARE, SELFPAY ==
--- NOTE | ~2024-11-25 | XR_ITS ---
EXAMINATION: XR CHEST 1 VIEW HISTORY: fever, coughing, pneumonia? COMPARISON: There are no prior studies for comparison. FINDINGS: A single AP portable view of the chest performed at 2:56 PM is submitted. The lungs are expanded and clear. There is no pleural effusion, pneumothorax, or pulmonary vascular congestion. The heart is normal in size. There is mild degenerative disc disease of the spine. A portion of the fusion plate is seen in the lower cervical spine. XR/XR chest 1V IMPRESSION: Clear lungs. Electronically signed by: Gurvinder Rosenthal MD 11/25/2024 03:07 PM EDT
--- NOTE | 2024-11-25 13:04 | ECG_ITS ---
Test Reason : cp Blood Pressure : */* mmHG Vent. Rate : 94 BPM Atrial Rate : 94 BPM P-R Int : 130 ms QRS Dur : 70 ms QT Int : 348 ms P-R-T Axes : 61 41 50 degrees QTcB Int : 435 ms Sinus rhythm with Premature atrial complexes Cannot rule out Anterior infarct , age undetermined Abnormal ECG When compared with ECG of 05-Aug-2022 19:59, Premature atrial complexes are now Present T wave inversion no longer evident in Anterior leads Referred By: Generic ED Physician Electronically Signed By: Norman Carr
[2024-11-25 13:34] VITALS: BP 146/85; PULSE 99; RESP 16; TEMP 38; O2SAT 98; BMI 24.4
--- NOTE | 2024-11-25 13:43 | ED_ITS ---
HPI - General Adult General Chief complaint: Chest Pain Stated complaint: CP, pain rad down L arm Time Seen by Provider: 11/25/24 17:13 History of Present Illness ED Provider: Domingo Trinidad MD HPI narrative: 59-year-old female who awoke this morning with atraumatic left chest discomfort mostly reports it as pleuritic in directly under the left breast. No bruising in the chest wall no hemoptysis she feels the discomfort even with moving including some radiation in the left arm. Related Data Previous Rx's ?Medication ?Instructions ?Recorded cyclobenzaprine 10 mg tablet 10 mg PO TID PRN muscle spasm #14 08/02/20 tabs lidocaine 4 % topical patch 1 patch topical DAILY PRN pain #10 08/02/20 ea amoxicillin 875 mg-potassium 1 tab PO BID #20 tabs 03/02/21 clavulanate 125 mg tablet (Augmentin) dexamethasone 4 mg tablet 4 mg PO .COMPLEX #18 tabs 03/02/21 fluconazole 150 mg tablet 150 mg PO Q OTHER DAY 3 days #2 03/02/21 tabs hydrocodone 5 mg-acetaminophen 325 1 tab PO Q6H PRN pain #8 tabs 04/19/21 mg tablet doxycycline hyclate 100 mg capsule 100 mg PO BID #19 caps 11/25/24 Allergies Allergy/AdvReac Type Severity Reaction Status Date / Time pineapple [Pineapple] Allergy Intermediate THROAT Verified 11/25/24 13:34 ITCHES latex [Latex] Allergy Mild Rash, Hives Verified 04/27/24 13:10 diphenhydramine Allergy Unknown UNKNOWN Verified 04/27/24 13:10 [From BENADRYL] ayanna Allergy Unknown HIVES Verified 04/27/24 13:10 ayanna flavor Allergy Unknown Itching Verified 04/27/24 13:10 shellfish derived Allergy Unknown Rash, Verified 04/27/24 13:10 throat itches PMFSH Past Medical History Medical History Asthma Cervical radiculopathy DVT (deep venous thrombosis) Early satiety Social History Social History (Updated 04/19/21 @ 07:40 by Dulce Montaño DO) Patient Tobacco Use Status: Never used Tobacco Smoked in Last 30 Days: No Use of substances other than those prescribed or required for medical reasons: No Advance Directives: No Advance Directives Information Provided: Yes Patient : No Physical Exam ED Vital Signs: Vital Signs - 24 hr 11/25/24 13:34 11/25/24 18:52 11/25/24 19:28 Temperature 100.4 F 100.6 F H 100 F Pulse Rate 99 100 100 Respiratory Rate 16 16 16 Blood Pressure 146/85 H 135/68 135/68 Pulse Oximetry 98 97 97 Oxygen Delivery Method Room Air Room Air Room Air BMI result Body Mass Index 24.4 Const Other: EXAM: Gen: Alert, awake, appears uncomfortable from pain Head: Atraumatic Eyes: Anicteric, Normal conjunctiva. ENT: Moist mucosa, no pallor. ? Neck: Supple. Chest wall: No bruising or skin changes no vesicles or rash. Tenderness just in the left anterior axillary line breast margin Respiratory: Breathing comfortably, No distress.Clear to auscultation bilaterally, symmetric chest expansion, No wheeze, rales, ronchi. Splinting with deep inspiration Cardiovascular: Regular rate and rhythm. No murmurs or rub. Well perfused periphery, warm extremities. No edema. ? Abdominal: Soft, no objective distension. No palpable masses or obvious organomegaly. No focal tenderness, no guarding, no rebound tenderness or other peritoneal findings. : No flank tenderness. MSK: No leg edema she reports striking the right knee about a week ago with a fall but there is no bruising she has full range of motion no swelling redness or calf tenderness Neuro: Alert. Gross movement of all extremities intact. ? Vital signs: See flowsheet Course Course Course Narrative: RME: 59 yold female with pmh of asthma and pnuemonia presents to the ED For chest pain, Coughing, fever, chills, and night sweats. Patient states last year she had pneumonia with a similar presentation. Patient states some relief with nebulizer. Negative for lower extremity swelling or calf pain. Lungs are clear. Labs EKG chest x-ray ordered Medications Administered Discontinued Medications Generic Name Dose Route Start Last Admin Trade Name Freq PRN Reason Stop Dose Admin Doxycycline Monohydrate 100 mg 11/25/24 19:20 11/25/24 19:27 Doxycycline Monohydrate 100 Mg Capsule PO 11/25/24 19:21 100 mg ONCE ONE Administration Ketorolac Tromethamine 15 mg 11/25/24 17:55 11/25/24 18:15 Ketorolac Tromethamine 15 Mg/Ml Vial IVPUSH 11/25/24 17:56 15 mg ONCE ONE Administration Lidocaine 1 patch 11/25/24 17:55 11/25/24 18:15 Lidocaine 4 % Patch Adh..Patch TRANSDERMA 11/25/24 17:56 1 patch ONCE ONE Administration Protocol Procedures Procedure Narrative Procedure Narrative: EMERGENCY ULTRASOUND INTERPRETATION-Limited Echocardiography [This study was ordered, performed, and interpreted by myself. The study reveals: Impression: NORMAL LV FUNCTION, NO RV DYSFUNCTION, NO PERICARDIAL EFFUSION] [Emergent Cardiac for Indication: Views Used: PLAX, PSSA, A4, SX, IVC Pericardial Effusion/Tamponade Findings: NONE RV Dilation (> LV diam in 4ch apical): NONE Global LV Fxn: NORMAL IVC Dilation and Resp Variation: NORMAL Performed by: MD Amos CPT:[id number]] Medical Decision Making Medical Decision Making [facility] [place] Narrative: 59-year-old female fall about a week ago no clinical signs of DVT or other injury the presenting complaint just started this morning without trauma no hemoptysis, cough, clinical signs of DVT or history of DVT PE. She has not been ill recently or coughing and is not dyspneic. D-dimer negative Low suspicion P but this was considered a now at this time excluded given low moderate risk presentation. Her pruritus and chest wall pain is most likely musculoskeletal could be pleuritis either way she is not hypoxic ill toxic stable vital signs. We will discharge home. ___ Upon being discharged home the patient expresses concern about ?Lyme disease ?now she tells me that she had a rash of the proximal right thigh and that she hikes a lot. She is worried about ?sepsis?. When she had pneumonia she previously was septic. I tried to reassure her that at this time and we have nothing by reassuring workup and examined her left proximal thigh where she said there was a rash I do not see any certainly nothing suggestive or at the pneumonic of Lyme disease. Patient and I had a shared decision-making discussion to begin doxycycline Lab Data [facility] [place] Lab Attestation statement: I reviewed the patient's lab results. 11/25/24 14:06 11/25/24 14:06 Labs: Lab Results 11/25/24 11/25/24 Range/Units 14:06 18:16 WBC 12.9 H (4.8-10.8) X10*3/uL RBC 3.97 L (4.20-5.50) X10*6/uL Hgb 12.1 (12.0-16.0) g/dl Hct 35.9 L (37.0-47.0) % MCV 90.4 (80.0-98.0) fL MCH 30.5 (27.0-33.0) pg MCHC 33.7 (31.0-35.0) g/dl RDW 13.2 (11.0-16.0) % Plt Count 215 (160-400) X10*3/uL MPV 9.7 (9.4-12.3) fL Immature Gran % (Auto) Cancelled Neut % (Auto) Cancelled Lymph % (Auto) Cancelled Lewis % (Auto) Cancelled Eos % (Auto) Cancelled Baso % (Auto) Cancelled Lymph # (Auto) Cancelled Lewis # (Auto) Cancelled Eos # (Auto) Cancelled Baso # (Auto) Cancelled Abs Immat Gran (auto) Cancelled Absolute Neuts (auto) Cancelled Absolute Nucleated RBC 0.000 (0.0-0.012) X10*3/uL Nucleated RBC % (auto) 0.0 (0.0-0.2) /100WBC Neutrophils % (Manual) 89 H (45-73) % Band Neutrophils % 6 H (3-5) % Lymphocytes % (Manual) 1 L (20-40) % Monocytes % (Manual) 3 (2-11) % Metamyelocytes % 1 % Abs Neuts (Manual) 12.3 H (2.0-8.3) X10*3/uL Lymphocytes # (Manual) 0.1 L (1.2-4.9) X10*3/uL Monocytes # (Manual) 0.4 (0.1-1.2) X10*3/uL Metamyelocytes # 0.1 X10*3/uL Platelet Estimate NORMAL (NORMAL) Plt Morphology Comment NORMAL RBC Morphology NORMAL Smear Tech's Comments MANUAL DIFF D-Dimer High Sensitivty 174 NG/ML Sodium 138 (135-145) mmol/L Potassium 4.0 (3.3-5.1) mmol/L Chloride 104 (96-108) mmol/L Carbon Dioxide 25 (22-29) mmol/L Anion Gap 13 (12-20) BUN 16 (9-16) mg/dL Creatinine 0.60 (0.5-1.4) mg/dL Estim Creat Clear Calc 88.6 Estimated GFR > 60 Random Glucose 87 (60-115) mg/dL Lactic Acid 0.8 (0.5-2.0) mmol/L Calcium 8.9 (8.4-10.2) mg/dL Total Bilirubin 0.5 (0.0-1.0) mg/dL AST 25 (5-31) U/L ALT 16 (0-31) U/L Alkaline Phosphatase 85 (39-117) U/L Troponin I High Sens < 2.7 (<3.5-17.0) ng/L Total Protein 7.4 (6.5-8.0) g/dL Albumin 3.9 (3.5-5.0) g/dL Influenza Type A (PCR) NEGATIVE (Negative) Influenza Type B (PCR) NEGATIVE (Negative) RSV RNA Qual (PCR) NEGATIVE (Negative) SARS-CoV-2 RNA (RT-PCR) NEGATIVE (Negative) S. pyogenes GrpA ABRAHAM Negative (Negative) Independent Interpretation I performed an independent interpretation of an: EKG Interpretation: ECG sinus rhythm rate 94 QTC 435. No RV strain. No acute ischemic changes. Normal intervals and axis Radiology Impression Discussion of test interpretation with radiology: I have reviewed the radiologist's reading. Radiologist Impression: Chest x-ray without pneumothorax obvious rib fractures or chest trauma Discharge Plan Discharge Clinical Impression: Chest pain, Pleuritis Patient Disposition: Home, Self-Care Instructions: Chest Pain (ED), Pleurisy (ED) Additional Instructions: _ DISCHARGE DIAGNOSES: Pleuritic chest pain No evidence of collapsed lung, pneumonia, rib fracture or other serious findings as a cause of your pain this is reassuring HISTORY OF PRESENTATION: ?Pain upon waking this morning in the left lower anterior chest EMERGENCY DEPARTMENT COURSE,TESTS, TREATMENTS: While in the ED today you had blood work that was reassuring we have excluded heart attack, collapsed lung or other serious cardiac or pulmonary causes of your pain DISCHARGE MEDICATIONS: ?[We have made no changes to your regular medication regimen] FOLLOW-UP: ?Call your primary or general physician soon as possible to discuss your symptoms, your ED visit and to discuss follow up plans Call your primary doctor for follow up INSTRUCTIONS ?& RETURN PRECAUTIONS: If any symptoms change first call your primary physician, if it is after-hours your primary doctors office should have a provider auction block clerk you can speak with. If the symptoms are severe or very concerning to you then call 911 or return to the ED. We recommend trying oral [id number] pain medications such as ibuprofen you can take up to 800 mg every 6 hours as needed for severe pain you can try topical analgesics to your chest wall where it hurts such as [id number] lidocaine patches or eudg-nla-iratyty diclofenac gel if you develop severe pain that is worsening or shortness of breath coughing up blood swelling in her legs return Domingo Trinidad MD Emergency Physician [facility] Prescriptions: New doxycycline hyclate 100 mg capsule 100 mg PO BID Qty: 19 0RF No Action cyclobenzaprine 10 mg tablet 10 mg PO TID PRN (Reason: muscle spasm) Qty: 14 0RF lidocaine 4 % adhesive patch,medicated 1 patch topical DAILY PRN (Reason: pain) Qty: 10 0RF Rx Instructions: may leave on for up to 12 hrs hydrocodone-acetaminophen 5-325 mg tablet 1 tab PO Q6H PRN (Reason: pain) Qty: 8 0RF amoxicillin-pot clavulanate [Augmentin] 875-125 mg tablet 1 tab PO BID Qty: 20 0RF dexamethasone 4 mg tablet 4 mg PO .COMPLEX Qty: 18 0RF Rx Instructions: 4 mg PO; 1 p.o. t.i.d. x3 days, 1 p.o. b.i.d. x3 days, 1 p.o. daily x3 days fluconazole 150 mg tablet 150 mg PO Q OTHER DAY 3 Days Qty: 2 0RF Rx Instructions: administer on day 1 of therapy Interventions: ED Discharge Assessment Last Done: 11/25/24 19:28 Discharge Date/Time: 11/25/24 19:38 Print Language: Armenian
[2024-11-25 14:20] LABS: Hematocrit 35.9 % (37.0-47.0); Hemoglobin 12.1 g/dl (12.0-16.0); Mean Corpuscular HGB Conc 33.7 g/dl (31.0-35.0); Mean Corpuscular Hemoglobin 30.5 pg (27.0-33.0); Mean Corpuscular Volume 90.4 fL (80.0-98.0); Mean Platelet Volume 9.7 fL (9.4-12.3); Platelet Count 215 X10*3/uL (160-400); Red Blood Count 3.97 X10*6/uL (4.20-5.50); Red Cell Distribution Width 13.2 % (11.0-16.0); White Blood Count 12.9 X10*3/uL (4.8-10.8)
[2024-11-25 14:27] LABS: IDNOW Serial# 55D5AD1C; Strep A Nucleic Acid Negative (Negative)
[2024-11-25 14:36] LABS: Alanine Aminotransferase 16 U/L (0-31); Albumin Level 3.9 g/dL (3.5-5.0); Alkaline Phosphatase 85 U/L (39-117); Anion Gap 13 (12-20); Aspartate Amino Transferase 25 U/L (5-31); Bilirubin Total 0.5 mg/dL (0.0-1.0); Blood Urea Nitrogen 16 mg/dL (9-16); Calcium 8.9 mg/dL (8.4-10.2); Carbon Dioxide 25 mmol/L (22-29); Chloride 104 mmol/L (96-108); Creatinine Clr Calc Pharmacy 88.6; Estimated Glomerular Filt Rate > 60; Glucose Random 87 mg/dL (60-115); Sodium 138 mmol/L (135-145); Total Protein 7.4 g/dL (6.5-8.0)
[2024-11-25 14:38] LABS: Lactic Acid 0.8 mmol/L (0.5-2.0)
[2024-11-25 14:40] LABS: SLIDE REVIEW MANUAL DIFF
[2024-11-25 14:45] LABS: Troponin-I High Sensitivity < 2.7 ng/L (<3.5-17.0)
[2024-11-25 14:54] LABS: Influenza A PCR NEGATIVE (Negative); Influenza B PCR NEGATIVE (Negative); Resp Syncy Virus RNA Qual PCR NEGATIVE (Negative); SARS COV2 PCR INHOUSE NEGATIVE (Negative)
[2024-11-25 15:01] LABS: Band Neutrophils Percent 6 % (3-5); Lymphocytes Absolute Manual 0.1 X10*3/uL (1.2-4.9); Lymphocytes Percent Manual 1 % (20-40); Metamyelocytes Absolute 0.1 X10*3/uL; Metamyelocytes Percent 1 %; Monocytes Absolute Manual 0.4 X10*3/uL (0.1-1.2); Monocytes Percent Manual 3 % (2-11); Neutrophils Absolute Manual 12.3 X10*3/uL (2.0-8.3); Neutrophils Percent Manual 89 % (45-73); Platelet Estimate NORMAL (NORMAL); Platelet Morphology Comment NORMAL; RBC Morphology NORMAL
[2024-11-25] MEDS: Lidocaine 4 % Patch ADH..PATCH 1 PATCH TRANSDERMA (18:15)
[2024-11-25] MEDS: Ketorolac Tromethamine 15 MG/ML VIAL IVPUSH (18:15)
[2024-11-25 18:28] LABS: D Dimer High Sensitivity 174 NG/ML
[2024-11-25 18:52] VITALS: BP 135/68; PULSE 100; RESP 16; TEMP 38.1; O2SAT 97
[2024-11-25] MEDS: Doxycycline Monohydrate 100 MG CAPSULE PO (19:27)
[2024-11-25 19:28] VITALS: BP 135/68; PULSE 100; RESP 16; TEMP 37.7; O2SAT 97
== END 2024-11-25 19:38 | disposition home or self-care (01) ==
PROVIDERS: Physician Assistant; Emergency Provider Emergency Medicine; PCP Internal Medicine
DX: R07.89 Other chest pain (principal); M79.602 Pain in left arm; R09.1 Pleurisy; R50.9 Fever, unspecified; Z03.818 Encounter for observation for suspected exposure to other biological agents ruled out; Z79.899 Other long term (current) drug therapy
CPT/HCPCS: 0241U; 36415; 71045; 80053; 83605; 84484; 85007; 85027; 85379; 87040; 87651; 93005; 99284; 99285; J1885

== ENCOUNTER → 2024-11-25 13:04 | Outpatient (BNV) | payer OTHER, SELFPAY | PROVIDERS: Emergency Provider Emergency Medicine; PCP Internal Medicine; Visit Provider Internal Medicine Cardiovascular Disease | DX: I49.1 Atrial premature depolarization (principal) | CPT/HCPCS: 93010 ==

== ENCOUNTER → 2024-11-25 13:40 | Outpatient (BNV) | payer OTHER, SELFPAY | PROVIDERS: PCP Internal Medicine; Visit Provider Radiology Diagnostic Radiology | DX: R05.9 Cough, unspecified (principal); R50.9 Fever, unspecified | CPT/HCPCS: 71045 ==

== ENCOUNTER 2024-12-01 12:44 | Outpatient (REF) | payer MEDICARE, SELFPAY ==
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
--- OUTSIDE RECORDS SUMMARY | 2024-12-01 13:46 | XMS_ITS | Clinical Summary ---
Author Organization Patient Business Ser [facility] Address [address] [place] [address] Care Team Providers Care Community Relations Advisor Name Role Phone Marisol Pablo MD Primary Care Prov ider Allergies Active Allergy Reactions Criticality Noted Date Comments Diphenhydramine Hcl Hives 07/14/2024 Reaction: Urticaria Diphenhydramine Hives Medium 03/15/2015 Capsules (ok to take liquid) No capsules. ??Can take Liquid Capsules (ok to take liquid) Latex Itching Medium 03/17/2014 Lind Flavor 03/15/2015 Oral itching with fresh form Any tropical fruit Pineapple Itching 03/17/2014 Oral itching with fresh form Shellfish Derived 02/14/2020 Itching, rash, worsening eczema Medications predniSONE (DELTASONE) 50 mg tablet Take 1 tablet (50 mg total) by mouth 1 (one) time each day. 4 Active mirabegron (Myrbetriq) 50 mg tablet extended release 24 hr 24 hr tablet Take 1 tablet (50 mg total) by mouth 1 (one) time each day. 3 Active mirabegron (MYRBETRIQ) 25 mg 24 hr tablet Take by mouth. Active hydrocortisone 1 % topical cream 4 Active fluconazole (DIFLUCAN) 150 mg tablet Take by mouth. 3 Active cyclobenzaprine (FLEXERIL) 10 mg tablet 4 Active cyanocobalamin (VITAMIN B-12) 500 mcg tablet 4 Active benzonatate (TESSALON) 100 mg capsule Take 1 capsule (100 mg total) by mouth. Active albuterol HFA (PROAIR HFA ; PROVENTIL HFA ; VENTOLIN HFA) 90 mcg/actuation inhaler 3 Active fluticasone propionate (Flovent Diskus) 50 mcg/actuation diskus inhaler TAKE 1 INHALATION 2 TIMES DAILY 3 Active peg 400-hypromellos e-glycerin 1-0.2-0.2 % drops 3 Active ketotifen fumarate (ZADITOR) 0.035 % ophthalmic solution 3 Active multivitamin with iron Take by mouth 1 (one) time each day. 3 Active triamcinolone (KENALOG) 0.025 % cream 3 Active omeprazole (PriLOSEC) [address] capsule TAKE 1 CAPSULE BY MOUTH ONCE A DAY^1R1 3 Active cholecalciferol (VITAMIN D-3) 50 mcg (2,000 unit) tablet 3 Active montelukast (SINGULAIR) 10 mg tablet TAKE 1 TABLET BY MOUTH AT BEDTIME^1R1 3 Active cetirizine (ZyrTEC) 10 mg tablet Take 1 tablet (10 mg total) by mouth 1 (one) time each day. 3 Active azelastine (ASTELIN) 137 mcg (0.1 %) nasal spray Administer 1 spray into affected nostril(s). Active EPINEPHrine (EpiPen 2-Reynaldo) 0.3 mg/0.3 mL injection 0.3 mL (0.3 mg total). 2 Active nystatin, bulk, 10 billion unit powder Apply daily to affected 2 Active trospium 60 mg capsule,extende d release 24hr 1 Active Active Problems Problem Noted Date Diagnosed Date Stress response 05/22/2023 Fatigue 05/22/2023 Dizziness 05/22/2023 Nausea 05/22/2023 Syncope 08/14/2022 Overview (07/13/2024): Last Assessment & Plan: The patient has now reported approximately 4 episodes of syncope, at least 2 of which appear to be vasovagal in nature. Her most recent episode in January and this new episode in early April appear little different from the previous 2. He does report that just prior to the episode in January, she started to undergo a lot of stress regarding the end of a romantic relationship and the need to relocate; she is still having issues with finding stable housing and is working on this. She does have a history of anxiety and depression, and is tearful during today's visit when talking about this. Reports a history of vertigo with a head injury in the past. She reports that with the episode in January and in the episode in April she had a lot of dizziness, weakness and feeling like she could not keep her eyes open because it would just make the dizziness worse, nausea, and generalized feeling of malaise; with the episode in April she was unable to get out of bed for about 3 days. During these episodes she adamantly denies any chest pain or pressure, shortness of breath, palpitations, headaches, peripheral edema, orthopnea or PND. There is also lack of clarity as to whether she may have simply fallen asleep with her most recent episode versus actually having a syncopal episode. I sense that these episodes of syncope are real in nature. She declines repeat labs stating she has had normal CBC, TSH, lipid panel, and metabolic panel. It does appear that she has had some vasovagal responses, and with an exacerbation in her recent stress level this may have contributed. Asked her to speak with her PCP regarding improved management of her stress, and possibly obtaining a therapist. I will also have her wear a 30-day ROCT monitor to evaluate for any underlying arrhythmias, but I have low suspicion for this. During her exam, she did have a positive Fukuda step test indicating that there may be some vestibular function involved in this as well; she did describe having a feeling as though she was being pulled to the left, and her step test showed a 45 degree turn to the left indicating left-sided vestibular involvement. For this I will refer her to ENT for further evaluation which she is agreeable with. I advised her to remain very well-hydrated, well rested wearing her CPAP with sleep, change positions slowly, avoid too hot showers, and contain proper self-care. We will see her back in 3 months when she has completed her 30-day ROCT. 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 02/2021 Polysomnogram did not reveal sleep apnea or nocturnal hypoxia. Ocular migraine 08/21/2020 [facility]07/13/2024[facility] with sandeep toconjunctivitis sicca ([facility] V24) 07/05/2020 Chronic rhinitis 02/14/2020 Osteoarthritis of spine with radiculopathy, cerv ical region 03/23/2019 Overview (07/13/2024): Last Assessment & Plan: Ms. Garnett is here for 1 year follow-up since her C4-5, C5-6 ACDF with plating on 11/21/2022. She says that her neck is fine though she is still limited in rotation and turns her whole body to avoid a blind spot when driving. She is followed by orthopedics for her right shoulder and residual arm symptoms. She describes spasms in the right arm if lifting and overhead and will experience numbness and tingling in all fingers of the right hand. She underwent an EMG at [facility] on 05/20/2023 which showed chronic denervation changes in the right arm muscles within the C5-6 myotome . Though the study did not show evidence of median neuropathy, she was told that they felt there is an element of carpal tunnel syndrome. She is not currently wearing wrist splints. Unfortunately, she was recently hospitalized for pneumonia and just completed her second course of antibiotics. She feels tired and rundown. Her incision is well-healed, cervical rotation is 30 degrees to the left, 45 degrees to the right. Strength is 5/5 though she describes radiating right lateral arm pain with resistance testing at the deltoid. Gait is steady. Review of the cervical AP/lateral and flexion/extension x-rays from today shows a solid arthrodesis across C4-5 and C5-6 with an intact plate and screws. There is no instability at the other levels. Ms. Garnett recovered well from the surgery. There are some chronic radicular symptoms and possibly, the double crush phenomenon with carpal tunnel syndrome. She is followed by orthopedics but is welcome to contact us if she has any questions or concerns. There are no restrictions in her activity from my standpoint. Cervical spinal stenosis 03/23/2019 Incontinence of feces 12/03/2018 KIMMY (obstructive sleep apnea) 08/19/2015 Overview (07/13/2024): Last Assessment & Plan: We reviewed the importance of maintaining compliance with CPAP use; the patient reports she uses her CPAP regularly. Endometriosis 08/01/2015 Human papilloma virus 08/01/2015 Asthma 03/22/2014 Allergic conjunctivitis 03/17/2014 Allergic rhinitis 03/17/2014 Anxiety and depression 03/17/2014 Bipolar disorder ([facility] V24, [facility] V28) 02/26 GERD (gastroesophageal reflux disease) 4 DDD (degenerative disc disease), lumbar 03/17/20 14 Insomnia 03/17/2014 Stress incontinence 03/17/2014 Overview (07/13/2024): Since childbirth 1992, had a bad episiotomy Plantar fasciitis 03/17/2014 Panic attacks 03/17/2014 Immunizations Name Administration Dates Next Due Hepatitis B (Zoledxm-E-Zltxk , Recombivax HB-Adult) 19yo and older 11/05/2005,07/02/2005,05/31/2005 MMR, measles mumps and rubel la Live (Priorix; M-M-R II) 12mo and older 11/11/2018 Moderna SARS-CoV-2 COVID-19, mRNA, LNP-S, preservative free 05/08/2021,04/10/2021 Pneumococcal conjugate 13 [facility] (Prevnar 13, PCV13) 2mo and older 02/28/2016 Td Tetanus diptheria (Tdvax) 7yo and older 02/13 Tdap Tetanus diptheria acell ular pertussis (Boostrix; Adacel) 7yo and older 02/28/2016 Zoster recombinant (Shingrix ) 19yo and older 04/14/2018,02/13/2018 Surgical History Surgery Date Site/Laterality Comments VAGINOSCOPY 2003 PROCEDURE: DE COLPOSCOPY CERVIX VAG LOOP ELTRD BX CERVIX OTHER SURGICAL HISTORY 11/07/2010 PROCEDURE: DE OPEN TX METACARPAL FRACTURE SINGLE EA BONE; COMMENT: left 5th metatarsal, treated nonsurgically OTHER SURGICAL HISTORY 01/31/2010 PROCEDURE: DE OPEN TREATMENT RADIAL SHAFT FRACTURE; COMMENT: right dital radial fracture, no surgery, casted/splint OTHER SURGICAL HISTORY 03/07/2011 PROCEDURE: OUTSIDE MAMMO; COMMENT: mammo, US, MRI breast/BI_RADS 3 6 mo f/u BREAST REDUCTION 2012 Bilateral PROCEDURE: DE BREAST REDUCTION NECK SURGERY 11/21/2022 PROCEDURE: HISTORICAL NECK SURGERY; COMMENT: C4-5, C5-6 ACDF, Dr. Delacruz Medical History Medical History Date Comments DDD (degenerative disc disea se), lumbar 03/17/2014 DX:DDD (degenerative disc di sease), lumbar Panic attacks 03/17/2014 DX:Panic attacks ; COMMENT: psychiatric hospital Bipolar disorder ([facility] V2 4, [facility] V28) 03/17/2014 DX:Bipolar disorder ([facility]) Anxiety and depression 03/17/2014 DX:Anxiet y and depression Allergic rhinitis 03/17/2014 DX:Allergic rh initis Insomnia 03/17/2014 DX:Insomnia GERD (gastroesophageal reflu x disease) 03/17/2014 DX:GERD (gastroesophageal re flux disease) Stress incontinence 03/17/2014 DX:Stress in continence; COMMENT: + nocturia Allergic conjunctivitis 03/17/2014 DX:Aller gic conjunctivitis Plantar fasciitis 03/17/2014 DX:Plantar fas ciitis Historical Medical DX 03/22/2014 DX:History of abnormal Pap smear; COMMENT: LEEP LARY III 02/01/04 Asthma 03/22/2014 DX:Asthma Elevated LFTs DX:Elevated LFTs ; COMMENT: pt stopped Tylenol, labs improved. +fatty liver Endometriosis 08/01/2015 DX:Endometriosis Human papilloma virus 08/01/2015 DX:Human p apilloma virus KIMMY (obstructive sleep apnea) 08/19/2015 DX :KIMMY (obstructive sleep apnea) Frequent UTI DX:Frequent UTI; COMMENT: [facility] urogynocology Arthritis DX:Arthritis; CO MMENT: in neck and a pinched nerve H/O endoscopy 04/2019 DX:H/O endoscopy ; COMMENT: taco; dr Luna. mild gastritis HSV-2 infection DX:HSV-2 infecti on History of DVT (deep vein thrombosis) 11/21/2021 DX:History of DVT (deep vein thrombosis); COMMENT: Completed course of anticoagulation Family History Medical History Relation Name Comments Breast cancer Aunt pat aunt paternal, dx i n her late 40s Colon cancer Maternal Grandfather bronchi tis Other: seasonal allergies Maternal Grandfather Pancreatic cancer Mother Cancer of Small Bowel Neg Hx Kidney cancer Neg Hx Ovarian cancer Neg Hx Pancreatic cancer Neg Hx Uterine cancer Neg Hx Relation Name Status Comments Aunt pat aunt Alive Father Maternal Grandfather Mother Social History Tobacco Use Types Packs/Day Years Used Date Smoking Tobacco: Former Cigarettes 0.3 10.7 0 11/09/1981 - 07/28/1992 Smokeless Tobacco: Never Alcohol Use Standard Drinks/Week Comments No 0 (1 standard drink = 0.6 oz pur e alcohol) Comments Unknown Sex and Gender Information Value Date Recorded Sex Assigned at Not on file Legal Sex Female 3:34 PM EDT Gender Identity Not on file Sexual Orientation Not on file Obstetrics History Last Filed Vital Signs Vital Sign Reading Time Taken Comments Blood Pressure 124/70 05/22/2023 9:54 AM EDT Sit ting R Arm Pulse 99 05/22/2023 9:54 AM EDT Temperature - - Respiratory Rate - - Oxygen Saturation - - Inhaled Oxygen Concentration - - Weight 64.9 kg (143 lb) 05/22/2023 9:54 AM EDT Height 157.5 cm (5' 2 ) 12/20/2022 1:42 PM EDT Body Mass Index 26.15 12/20/2022 1:42 PM EDT Plan of Treatment Upcoming Encounters Date Type Department Care Team (Late st Contact Info) Description 12/17/2024 2:20 PM EDT Appointment Radiology [address] [address] Health Maintenance Due Date Last Done Comments Pneumococcal Vaccine: 50+ Years (2 of 2 - PPSV23) 04/24/2016 02/28/2016 Pneumococcal Vaccine: Pediatrics (0 to 5 Years) and At-Risk Patients (6 to 64 Years) (2 of 2 - PPSV23) 04/24/2016 02/28/2016 Depression Screening 04/30/2021 Medicare Annual Wellness Visit 04/30/2021 Social Influencers of Health Screening 04/30/2021 Cervical Cancer Screening: Pap Smear 06/24/2021 06/24/2018, 06/24/2018, 06/24/2018 COVID-19 Vaccine ( season) 2024 05/08/2021, 04/10/2021 Influenza Vaccine (Season Ended) 2025 DTaP,Tdap,and Td Vaccines (3 - Td or Tdap) 02/27/2026 02/28/2016, 02/13/2010 Breast Cancer Screening 04/20/2026 04/20/20, 04/20/2024, 03/18/2023, Additional history exists Cholesterol Screening (Lipid Panel) 07/11/2026 07/11/2021 Colorectal Cancer Screening: Colonoscopy 05/13/2029 05/13/2019 Hepatitis B Vaccines Completed 11/05/2005, 07/02/2005, 05/31/2005 Zoster Vaccines Completed 04/14/2018, 02/13/2018 MMR Vaccines Aged Out 11/11/2018 No longer eligi ble based on patient's age to complete this topic HIV Screening Completed 07/15/2022 Hepatitis C Screening Completed 07/15/2022 HIB Vaccines Aged Out No longer eligi ble based on patient's age to complete this topic HPV Vaccines Aged Out No longer eligi ble based on patient's age to complete this topic Hepatitis A Vaccines Aged Out No long er eligible based on patient's age to complete this topic IPV Vaccines Aged Out No longer eligi ble based on patient's age to complete this topic Meningococcal ACWY Vaccine Aged Out N o longer eligible based on patient's age to complete this topic Meningococcal B Vaccine Aged Out No l onger eligible based on patient's age to complete this topic RSV Immunization Patients Under 20 months Aged Out No longer eligible based on patient's age to complete this topic Varicella Vaccines Aged Out No longer eligible based on patient's age to complete this topic Procedures Procedure Name Priority Date/Time Associated Diagnosis Comments SCREENING MAMMOGRAPHY BI 2-VIEW BREAST INC CAD Routine 04/20/2024 2:50 PM EDT Encounter for screening mammogram for malignant neoplasm of breast HEPATITIS C SCREENING Routine 07/15/2022 HIV SCREENING Routine 07/15/2022 LIPID PANEL Routine 07/11/2021 COLONOSCOPY Routine 05/13/2019 PAP SMEAR Routine 06/24/2018 from Last 3 Months or Most Recently Relevant to Health Maintenance Results * SCREENING MAMMOGRAPHY BI 2-VIEW BREAST INC CAD (04/20/2024 2:50 PM EDT) Anatomical Region Laterality Modality Radiographic Jennifer ging 03/18/2023 2:21 PM EDT Narrative 04/21/2024 11:14 AM EDT This is a summary report. The complete report is available in the patient's medical record. If you cannot access the medical record, please contact the sending organization for a detailed fax or copy. BILATERAL 3D DIGITAL SCREENING MAMMOGRAM History: Routine screening. ??No current breast complaints. ??Family history of breast cancer in aunt Comparison: Multiple priors dating back to 03/08/2020 Technique: Bilateral full-field digital 3D mammography was performed using standard CC and MLO projections CAD was used to evaluate this mammogram. Findings: Density: ??There are scattered areas of fibroglandular density-B RIGHT: No suspicious masses, groups of microcalcification or areas of architectural distortion identified. Stable typically benign parenchymal asymmetries LEFT: No suspicious masses, groups of microcalcifications or areas of architectural distortion identified. Stable typically benign parenchymal asymmetries IMPRESSION: : 1. ??No mammographic evidence of malignancy. BI-RADS Category 2 benign findings Recommendation: Routine annual screening mammography is recommended [facility] [address] [address] Procedure Note Juliana Stevenson MD - 05/12/2024 This is a summary report. The complete report is available in thepatient's medical record. If you cannot access the medical record, pleasecontact the sending organization for a detailed fax or copy. BILATERAL 3D DIGITAL SCREENING MAMMOGRAM History: Routine screening. No current breast complaints. Family historyof breast cancer in aunt Comparison: Multiple priors dating back to 03/08/2020 Technique: Bilateral full-field digital 3D mammography was performed usingstandard CC and MLO projections CAD was used to evaluate this mammogram. Findings: Density: There are scattered areas of fibroglandular density-B RIGHT: No suspicious masses, groups of microcalcification or areas ofarchitectural distortion identified. Stable typically benign parenchymalasymmetries LEFT: No suspicious masses, groups of microcalcifications or areas ofarchitectural distortion identified. Stable typically benign parenchymalasymmetries IMPRESSION: : 1. No mammographic evidence of malignancy. BI-RADS Category 2 benign findings Recommendation: Routine annual screening mammography is recommended [facility] [address] [place] [address] Lindsey Dyer MD IMG XR PROCEDURES Final Result * HIV Screening (07/15/2022) Pathologist [facility] HIV Screening abstracted Historical Provider HEALTH MAINTENANCE Final Result * Hepatitis C Screening (07/15/2022) Pathologist [facility] Hepatitis C Screening abstracted Historical Provider HEALTH MAINTENANCE Final Result * (ABNORMAL) Lipid panel (07/11/2021) Pathologist [facility] LDL/HDL Ratio 3 0 - 4 Triglycerides 73 0 - 150 mg/dL Cholesterol 171 0 - 200 mg/dL HDL 56 >=39 mg/dL LDL Cholesterol 101(A) 0 - 100 mg/dL Blood Venous blood specimen / Unknown Result [facility] Historical Provider LAB BLOOD ORDERABLES Edit ed Result - Final * Colonoscopy (05/13/2019) Colonoscopy no interpretation , abstracted Anatomical Region Laterality Modality Other us Historical Provider HEALTH MAINTENANCE Final Result * Pap smear (06/24/2018) 06/24/2018 Narrative HISTORICAL TESTING LAB RESULTING AGENCY - 07/02/2018 1:06 PM EST [id number] THINPREP PAP, IMAGED: NEGATIVE FOR SQUAMOUS INTRAEPITHELIAL LESION AND MALIGNANCY . REACTIVE CELLULAR CHANGES. JONNATHAN BACK , YON(ASCP) (CASE SCREENED 06 26 2018) NOAM BURROUGHS M.D. , PATHOLOGIST (CASE ELECTRONICALLY SIGNED 06 30 2018) RESULT OF APTIMA HIGH RISK HPV ASSAY: HIGH RISK HPV: ??NEGATIVE (SEROTYPES 16,18,31,33,35,39,45,51,52,56,58,59,66,68) COMPLETED ON 2018-06-26 ADEQUACY: SATISFACTORY ENDOCERVICAL/TRANSFORMATION ZONE COMPONENT PRESENT. SOURCE: THINPREP PAP HPV ANY DX: ??REFLEX 16 AND 18, CERVICAL, IMAGED: CLINICAL INFORMATION: HPV ANY DIAGNOSIS. Z12.4, Z01.419, PAP HX:NEGATIVE Ela VALDEZ LAB CYTOLOGY ORDERABLES Final R esult HISTORICAL TESTING LAB RESULTING AGENCY from Last 3 Months or Most Recently Relevant to Health Maintenance Insurance [employer] MEDICARE [employer]ICAID Advance Directives Documents on File Type Date Recorded Patient Car Sander Expl anation Health Care Decision (hx) 11/27/2022 BRIDGETTE ROLAND DIRECTIVE Care Teams Community Relations Advisor Relationship Specialty Start Date End Date Marisol Pablo MD PCP - General Internal Medicine 05/06/22
--- OUTSIDE RECORDS SUMMARY | 2024-12-01 13:46 | XMS_ITS | Data Portability ---
Author Organization [employer] [employer] Address [address] [place] [id number] Care Team Providers Care Tobacco Cloth Reclaimer Name Role Phone [facility] Referring Provider Assessment No assessment recorded. Plan of Treatment Reminders Order Date Submit Date Provider Last Modified By Organization Details Last Modified Time Details Appointments None recorded. Lab None recorded. Referral None recorded. Procedures None recorded. Surgeries None recorded. Imaging None recorded. Medication Orders ketorolac 30 mg/mL (1 mL) injection solution 2022 023 atilhou Not available 3 17:15:49 lactated Ringers intravenous solution 2022 023 atilhou Not available 3 17:39:09 epinephrine 0.3 mg/0.3 mL injection, auto-inject or 2022 023 atil[facility] Not available 3 17:39:09 diphenhydra mine 50 mg/mL injection solution 2022 023 atil[facility] Not available 3 17:39:09 ondansetron 4 mg disintegrat ing tablet 2022 023 at[facility] Not available 3 17:39:44 Patient TargetsNo targets recorded. Patient InstructionsNo instructions recorded. Reason for Referral None Reported. Medical Equipment None Reported. Allergies Allergen ID Allergen Name Allergen Category Reaction Reaction Severity Criticality Documentation Date Start Date Code Code System Note Provider Name and Address Organization Details Recorded Time 1735 ketorolac medicatio n anaphylax is severe high 08/05/20222022 53101 RxNorm Josey perez MTPV JEREMIAH 3 17:33:38 Medications Name Sig Start Date Stop Date Status Note LastModified by Organization Details LastModified Time amoxicillin 500 mg capsule TAKE 1 CAPSULE BY MOUTH EVERY 6 HOURS UNTIL GONE active Not Available Not Available N ot Available cetirizine 10 mg tablet TAKE 1 TABLET BY MOUTH EVERY DAY active Not Available Not Available No t Available ibuprofen 800 mg tablet TAKE 1 TABLET BY MOUTH EVERY 8 HOURS NEEDED FOR PAIN active Not Available Not Available No t Available fluconazole 150 mg tablet TAKE 1 TABLET BY MOUTH 1 TIME FOR 1 DOSE active Not Available Not Available No t Available spironolacto ne 100 mg tablet TAKE 1 TABLET BY MOUTH TWICE DAILY active Not Available Not Available No t Available metronidazol e 500 mg tablet TAKE 1 TABLET BY MOUTH TWICE A DAY FOR 7 DAYS active Not Available Not Available No t Available acetaminophe n 300 mg-codeine 30 mg tablet TAKE 1 TABLET BY MOUTH EVERY 6 HOURS NEEDED FOR PAIN active Not Available Not Available No t Available minoxidil 2.5 mg tablet TAKE 1 TABLET BY MOUTH DAILY FOR HAIR LOSS active Not Available Not Available No t Available phenazopyrid ine 100 mg tablet TAKE 2 TABLETS BY MOUTH 3 TIMES DAILY NEEDED FOR PAIN FOR UP TO 3 DAYS. TAKE WITH FOOD. active Not Available Not Available N ot Available nystatin 100,000 unit/gram topical cream APPLY TOPICALLY TO THE AFFECTED AREA TWICE DAILY active Not Available Not Available No t Available clotrimazole -betamethaso ne 1 %-0.05 % topical cream APPLY TOPICALLY TO THE AFFECTED AREA TWICE DAILY SPARINGLY FOR UP TO 2 WEEKS active Not Available Not Available No t Available omeprazole 20 mg capsule,roman yed release TAKE 1 CAPSULE BY MOUTH DAILY active Not Available Not Available Not Available montelukast 10 mg tablet TAKE 1 TABLET BY MOUTH EVERY DAY active Not Available Not Available No t Available nystatin 100,000 unit/gram topical powder APPLY TOPICALLY TO TO THE AFFECTED AREA DAILY active Not Available Not Available N ot Available azelastine 137 mcg (0.1 %) nasal spray USE 1 TO 2 SPRAYS IN EACH NOSTRIL TWICE DAILY DIRECTED active Not Available Not Available Not Available doxycycline hyclate 100 mg tablet TAKE 1 TABLET BY MOUTH TWICE DAILY FOR 7 DAYS active Not Available Not Available No t Available spironolacto ne 50 mg tablet TAKE 1 TABLET BY MOUTH TWICE DAILY active Not Available Not Available No t Available azithromycin 500 mg tablet TAKE 2 TABLETS BY MOUTH 1 TIME FOR 1 DOSE active Not Available Not Available No t Available Vitamin D3 25 mcg (1,000 unit) capsule TAKE 2 CAPSULES BY MOUTH EVERY DAY active Not Available Not Available No t Available clobetasol 0.05 % shampoo APPLY EXTERNALLY 3 TIMES A WEEK active Not Available Not Available No t Available nitrofuranto in monohydrate/ macrocrystal s 100 mg capsule TAKE 1 CAPSULE BY MOUTH TWICE A DAY FOR 5 DAYS active Not Available Not Available No t Available trospium ER 60 mg capsule,exte nded release 24 hr TAKE 1 CAPSULE BY MOUTH DAILY IN THE MORNING active Not Available Not Available No t Available cholecalcife rol (vitamin D3) 50 mcg (2,000 unit) capsule TAKE 1 CAPSULE BY MOUTH DAILY active Not Available Not Available Not Available Myrbetriq 25 mg tablet,exten ded release TAKE 1 TABLET BY MOUTH DAILY active Not Available Not Available Not Available Vitals Date Recorded Body weight Body temperature Oxygen saturation Oxygen saturation in Arterial blood by Pulse oximetry Respiratory rate Heart rate Systolic blood pressure Diastolic blood pressure Provider Name and Address Organization Details Last Updated DateTime 3 71610.2 48 g 98.9 [degF] 95 % 95 % 16 /min 98 /min 147 mm[Hg] 96 mm[Hg] Not Available [facility] - production 3 17:09:40 Social History None recorded. Functional Status None recorded. Mental Status None recorded. Family History Nothing Reported. Medical History No medical history recorded. Gynecological HistoryNo gynecological history recorded. Obstetrics History GPAL:G 0 P 0 0 0 0 Past Encounters Encounter ID Performer Location Encounter Start Date Encounter Closed Date Diagnosis/Indication Diagnosis SNOMED-CT Code Diagnosis ICD10 Code Diagnosis Note [id number] Yenny Jansen MD [facility] - [facility] [address] [place] [phone] 08/05/2022 17:09:38 08/07/2022 10:33:29 Neck pain 24556941 M54.2 56y F with chornic neck pain and recent flare without red flag sxs. Interested in pain management . Cannot take APAP. Will order ketorolac 30mg (she reports normal kidney function and regularly recommende d use of nsaids by her care team). Encourage f/u with neurosurge on and return to PT. ADDENDUM:P atient developed diaphoresi s, nausea, hypotensio n within minutes after receiving IM ketorolac. Anaphylact ic reaction immediatel y noted. IM epinephrin e administer ed. BP improved from 70/44 to 99/50 and then to 111/67. No respirator y distress. Peripheral line started with LR. 25mg benadryl and 4mg of zofran administer ed. Patient stabilized . Able to speak in complete sentences without any respirator y distress. Transferre d via ambulance to [facility] Anaphylaxis [id number] T78 .2XXA Health Concerns Section Related Observation LastModified by Organization Detai ls LastModified Time None Recorded Concern Status LastModified by Organization Details LastModified Time None Recorded Advance Directives Directive None Recorded Payers Insurance Date Sequence Insurance Name Policy Number Policy Sarabia Covered Member ID Sarabia Member ID Guarantor Name 08/05/2022 1 [facility] - DOS PRIOR TO 2022 - DUAL ELIGIBLE (MEDICARE REPLACEMENT/ADV ANTAGE - HMO) Phoebe Garnett [id number] Phoebe Garnett Notes Date Note Type Note Provider Name and Address Organization Details Recorded Time 08/05/2022 text/html [facility] Nursing Assessment: Reason For Request: Pain radiating back of neck to right shoulder due to pinched nerve. Sharp pain, 1-10 scale is 12. Using soft collar, not alleviating any pain. Going on a week. Chief Complaints: Pain PMH: COPD/Asthma Allergies: No Known Comments: Member with years of ongoing neck and shoulder pain. Member is awaiting a PCP. No ortho involved at this time. Member received a cortisone injection 2 years ago and an epidural last year. Seen by a neurosurg, rec a fusion, but member trying nonsurgical intervention, has had PT, accupuncture and chiropractics. She used to take gabapentin but didn't help, was on pain medication but it was damaging her kidneys, member use to be prescribed 800mg of IBU. Member currently wearing a soft collar, would like a hard collar, [employer] working on getting an approval for collar to be covered. Member looking for pain management. [facility] HPI: long standing neck and should erpain s/p various interventions interested in pain management. takes ibuprofen without issues. reports no kidney issues, rather has liver issues and has been told not to take acetaminophen. reports no issues with new onset weakness, numbness, urinary issues, fever or chlils. Yenny Jansen MD [address] [facility],[address], [place], [phone], [employer] 08/05/2022 17:58:17 OBGyn Episode No OBEpisode recorded.
--- OUTSIDE RECORDS SUMMARY | 2024-12-01 13:47 | XMS_ITS | Encounter Summary ---
Author Organization [employer] Address [address] [place] [address] Care Team Providers Care Fixed Wing Aircraft Flight Engineer Name Role Phone Harsha Wang MD Primary Care Prov ider Reason for Visit * Reason Onset Date Comments med request 11/26/2024 Encounter Details Date Type Department Care Team (Late st Contact Info) Description 11/26/2024 Telephone [facility] [address] [place] [address] Harsha Wang MD [address] [place] [address] med request Social History Tobacco Use Types Packs/Day Years Used Date Smoking Tobacco: Never Smokeless Tobacco: Never Alcohol Use Standard Drinks/Week Comments Never 0 (1 standard drink = 0.6 oz pur e alcohol) Depression Answer Date Recorded Patient Health Questionnaire-9 Score 0 11/05/2024 Patient Health Questionnaire-9 Score 0 11/05/2024 Last PHQ-9: Questionnaire Data Not on file 0 11/05/2024 Depression Answer Date Recorded Patient Health Questionnaire-2 Score 0 11/05/2024 Comments Unknown Sex and Gender Information Value Date Recorded Sex Assigned at Female 05/27/2022 10:17 AM EDT Legal Sex Female 10:17 AM EDT Gender Identity Female 09/28/2024 2:43 PM EST Sexual Orientation Straight 11/04/2024 2: 39 PM EDT documented as of this encounter Miscellaneous Notes * Telephone Encounter - Marah Hernandez RN - 11/26/2024 10:53 AM EDT Request sent ot provider to renew prescription. * Telephone Encounter - Alfonso Liz - 11/26/2024 10:38 AM EDT Tc from pt requesting medication ibuprofen 400 MG tablet , pt inform RX as needs medicationto be sent to preferred pharmacy. documented in this encounter Plan of Treatment Upcoming Encounters Date Type Department Care Team (Late st Contact Info) Description 02/28/2025 1:45 PM EDT Office Visit [facility] [address] [place] [address] Harsha Wang MD [address] [place] [address] documented as of this encounter Visit Diagnoses Diagnosis Mild pain documented in this encounter Additional Health Concerns Assessment Noted Time PHQ-9 Depression Total Score: 0 11/06/19 9:58 AM EDT documented as of this encounter Care Teams Fixed Wing Aircraft Flight Engineer Relationship Specialty Start Date End Date Harsha Wang MD [address] [place] [address] PCP - General Internal Medicine 11/11/24 documented as of this encounter
--- OUTSIDE RECORDS SUMMARY | 2024-12-01 13:47 | XMS_ITS | Encounter Summary ---
Author Organization [employer] Address [address] [place] [address] Care Team Providers Care Poultry Trimmer Name Role Phone Harsha Wang MD Primary Care Prov ider Reason for Visit * Reason Onset Date Comments Nurse Triage 11/26/2024 Encounter Details Date Type Department Care Team (Late st Contact Info) Description 11/26/2024 Telephone [facility] [address] [place] [address] Harsha Wang MD [address] [place], [place] [phone] Nurse Triage Social History Tobacco Use Types Packs/Day Years [...] encounter Miscellaneous Notes * Telephone Encounter - Munira Gonzalez RN - 11/26/2024 11:17 AM EDT called pt to triage, spoke to pt. pt states seen ER at [facility] yesterday and diagnosed with Pleurisy. reviewed the notes that are already scanned into the chart. pt put on antibiotics and advised to follow up with PCP. pt states chest pain that radiates into the left arm and mild sob with mild congestion and cough. pt tested in ER for RSV, Covid, and Flu, all negative. pt denies severe or sustained sob, severe pain, vomiting, or other associated symptoms. pt states fever to 101.6 and advised Tylenol or Motrin, but pt states has neither and asked for script. advised no current script to refill andadvised can purchase for now in the drug store. pt also requesting Lidocaine patches as the ER did n ot send these to the pharmacy. advised to call the pharmacy later to check if it was received, and if not to speak to provider at time of her follow up appt. given appt Thursday 11/30 with [facility] provider at 3:15 for exam. advised home care: rest, fluids, ice, heat, OTC pain reliever as needed, and call back if worsening or new concerns. pt understands and agrees with plan. insurance verified. Protocol Used: Chest Pain (Adult) Protocol-Based Disposition: See in Office for follow up appt. Video visit offer not recorded Positive Triage Question: * Patient wants to be seen * All higher-acuity triage questions were negative Care Advice Discussed: * Reasons To Call Back - You become worse * Telephone Encounter - Alfonso Liz - 11/26/2024 10:35 AM EDT Patient calling to report ED visit on : Date: 11/25/2024 Hospital: [facility] Seen for: Pleurisy Symptomatic Yes *if yes message should go to Triage Patient advised will forward to team nurse for follow up Symptom: Cough Outcome: Talk to a nurse or provider within 15 minutes Reason: Any trouble breathing through the mouth The caller accepted this outcome. documented in this encounter Plan of Treatment Upcoming Encounters Date Type Department Care Team ([facility] st Contact Info) Description 02/28/2025 1:45 PM EDT Office Visit [facility] [address] [place] [address] Harsha Wang MD [address] [place] [address] documented as of this encounter Visit Diagnoses Not on filedocumented in this encounter Additional Health Concerns Assessment Noted Time PHQ-9 Depression Total Score: 0 11/06/19 9:58 AM EDT documented as of this encounter Care Teams Poultry Trimmer Relationship Specialty Start Date End Date Levy Harsha Peace MD [address] [place] [address] PCP - General Internal Medicine 11/11/24 documented as of this encounter
--- OUTSIDE RECORDS SUMMARY | 2024-12-01 13:47 | XMS_ITS | Clinical Summary ---
Author Organization [facility] Address [address] [place] [address] Care Team Providers Care Corporate Legal Secretary Name Role Phone Rey Galvan MD Primary Care Provider [phone] Allergies Active Allergy Reactions Criticality Noted Date Comments Diphenhydramine 07/18/2021 Capsules (ok to take liquid) Latex 07/18/2021 Medications Medication Sig Dispensed Refills Start Date End Date Status cetirizine (ZyrTEC) 10 MG tablet Take 10 mg by mouth daily. 0 Active nystatin (MYCOSTATIN) powder Apply topically 4 (four) times a day. 0 Active Albuterol Sulfate 108 (90 Base) MCG/ACT AEPB Inhale into the lungs. 0 Active clonazePAM (KlonoPIN) 0.25 mg split tablet Take 0.5 mg by mouth 2 (two) times a day as needed for anxiety. 0 Active gabapentin (NEURONTIN) 600 MG tablet Take 600 mg by mouth 3 (three) times a day. 0 Active Cholecalciferol (Vitamin D3) 50 MCG (2000 UT) capsule Take 2,000 Units by mouth daily. 0 Active fluticasone (FLONASE) 50 MCG/ACT nasal spray spray/apply 1 spray in each nostril daily. 0 Active ketotifen (KP Ketotifen Fumarate) 0.025 % ophthalmic solution Place 1 drop into both eyes 2 (two) times a day. 0 Active norethindrone (MICRONOR) 0.35 MG tablet Take 1 tablet by mouth daily. 0 Active Mirabegron ER (Myrbetriq) 25 MG TB24 24 hr tablet Take 25 mg by mouth daily. 0 Active minoxidil (LONITEN) 2.5 MG tablet Take 2.5 mg by mouth daily. 0 Active omeprazole (PriLOSEC) 20 MG capsule Take 20 mg by mouth daily. 0 Active hydrOXYzine (ATARAX) 10 MG tablet Take 10 mg by mouth 3 (three) times a day as needed for itching. 0 Active Clobetasol Propionate 0.05 % shampoo Apply topically 2 (two) times a day. 0 Active betamethasone dipropionate (DIPROSONE) 0.05 % lotion Apply topically 2 (two) times a day. 0 Active EPINEPHrine (EpiPen Jr 2-Reynaldo) 0.15 MG/0.3ML SOAJ Auto-injector Inject 0.15 mg into the muscle once. 0 Active trospium ER (SANTURA XR) 60 MG CP24 Take 60 mg by mouth daily. 0 Active FLUoxetine (PROzac) 20 MG capsule Take 20 mg by mouth daily. 0 Active montelukast (SINGULAIR) 10 MG tablet Take 10 mg by mouth every night at bedtime. 0 Active fluconazole (DIFLUCAN) 150 MG tablet Take 150 mg by mouth once. 0 Active Apixaban Starter Pack 5 MG TBPK Take by mouth. 0 Active QUEtiapine (SEROquel) 400 MG tablet Take 400 mg by mouth every night at bedtime. 0 Active azelastine (ASTELIN) 0.1 % nasal spray spray or apply 1 spray inside Nose 2 (two) times a day. Use in each nostril as directed 0 Active lidocaine (LIDODERM) 5 % Place 1 patch onto the skin daily. Remove & Discard patch within 12 hours or as directed by MD 0 Active Active Problems No known active problems Family History Medical History Relation Name Comments Cancer Mother Cancer Paternal Aunt Relation Name Status Comments Mother Paternal Aunt Social History Tobacco Use Types Packs/Day Years Used Date Smoking Tobacco: Former Cigarettes Smokeless Tobacco: Never Comments:quit 1999 Alcohol Use Standard Drinks/Week Comments Yes 1 (1 standard drink = 0.6 oz pur e alcohol) Sex and Gender Information Value Date Recorded Sex Assigned at Not on file Gender Identity Not on file Sexual Orientation Not on file Job Start Date Occupation Industry Not on file Not on file Not on file Last Filed Vital Signs Vital Sign Reading Time Taken Comments Blood Pressure 131/74 07/18/2021 2:58 PM EST Pulse 92 07/18/2021 2:58 PM EST Temperature 36.8 ??C (98.3 ??F) 07/18/2021 2:58 PM ES T Respiratory Rate - - Oxygen Saturation 98% 07/18/2021 2:58 PM EST Inhaled Oxygen Concentration - - Weight 83.3 kg (183 lb 9.6 oz) 07/18/2021 2:58 P M EST Height 160 cm (5' 3 ) 07/18/2021 2:58 PM EST Body Mass Index 32.52 07/18/2021 2:58 PM EST Plan of Treatment Health Maintenance Due Date Last Done Comments Hepatitis B Vaccines (1 of 3 - 3-dose series) 1967 Hepatitis C Screening 1965 COVID-19 Vaccine (#1) 05/11/1968 Depression Screening 1979 Preventative Health Evaluation 11/09/1985 Cervical Cancer Screening (Pap Smear) 11/09/1988 Colon Cancer Screening (Colonoscopy) 11/09/2012 Breast Cancer Screening (Mammogram) 11/09/2017 Influenza Vaccine (#1) 2024 DTap / Tdap / Td (2 - Td or Tdap) 02/27/2026 02/28/2016 Pneumococcal Vaccine Aged Out 02/28/2016 No long er eligible based on patient's age to complete this topic Shingrix-Zoster Vaccine Completed 04/14/20 18, 02/13/2018 RSV Ped < 20 months Aged Out No longe r eligible based on patient's age to complete this topic Care Teams Corporate Legal Secretary Relationship Specialty Start Date End Date Rey Galvan MD PCP - General Internal Medicine 06/04/21
--- OUTSIDE RECORDS SUMMARY | 2024-12-01 13:47 | XMS_ITS | Clinical Summary ---
Author Organization [employer] Address [address] [facility] [address] [place] [address] Care Team Providers Care Salon Sales Consultant Name Role Phone Harsha Wang MD Primary Care Prov ider Allergies Active Allergy Reactions Criticality Noted Date Comments Latex Rash Low 11/05/2024 Shellfish Allergy 11/05/2024 Medications multivitamin with minerals (Centrum) 9-200 mg-mcg tablet split tablet Take 1 tablet by mouth Once per day. Active albuterol 108 (90 Base) MCG/ACT inhaler Inhale 1 puff every 6 (six) hours if needed for shortness of breath or wheezing. 01/03/20 23 Active Azelastine HCl 137 MCG/SPRAY solution Administer 1 spray into affected nostril(s) Once per day. Active calcium citrate 315 mg + D2 6.25 mcg tablet Take 2 tablets by mouth 2 times daily. Active cetirizine (ZyrTEC) 10 MG tablet Take 1 tablet by mouth Once per day. 10/30/19 23 Active cholecalcifero l (Vitamin D-3) 125 MCG (5000 UT) capsule Take 1 capsule by mouth Once per day. Active cyclobenzaprin e (Flexeril) 10 MG tablet Take 10 mg by mouth if needed in the morning, at noon, and at bedtime for muscle spasms. 09/18/19 24 Active cyclobenzaprin e (Flexeril) 5 MG tablet Take 5 mg by mouth at bedtime. Active Fluticasone Propionate, Inhal, (Flovent Diskus) 50 MCG/ACT aerosol powder Inhale 1 Act 2 times daily. 01/01/20 23 Active montelukast (Singulair) 10 MG tablet Take 1 tablet by mouth Once per day. 11/05/19 23 Active omeprazole (PriLOSEC) [address] capsule Take 20 mg by mouth Once per day. Active pilocarpine (Salagen) 5 MG tablet Take 1 tablet by mouth 2 times daily. Active mirabegron ER (Myrbetriq) 50 MG 24 hr tablet Take 1 tablet (50 mg) by mouth Once per day. 90 tablet 3 11/06/19 25 026 Active Vibegron (Gemtesa) 75 MG tablet Take 1 tablet (75 mg) by mouth Once per day. 90 tablet 3 11/06/19 25 026 Active ibuprofen 400 MG tabletIndicati ons:Mild pain Take 1 tablet (400 mg) by mouth every 4 (four) hours if needed for mild pain or moderate pain. 60 tablet 3 11/27/19 25 Active benzonatate (Tessalon Perles) 100 MG capsuleIndicat ions:Acute cough,Viral syndrome Take 1 capsule (100 mg) by mouth if needed in the morning, at noon, and at bedtime for cough for up to 7 days. Do not crush or chew. 20 capsule 12/01/19 25 025 Active lidocaine (Lidoderm) 5 % patchIndicatio ns:Chest wall pain Apply 1 patch topically Once per day. Remove & discard patch within 12 hours or as directed by MD. 30 patch 2 12/01/19 25 Active benzonatate (Tessalon Perles) 100 MG capsuleIndicat ions:Acute cough Take 1 capsule (100 mg) by mouth if needed in the morning, at noon, and at bedtime for cough for up to 7 days. Do not crush or chew. 20 capsule 12/02/19 25 025 Active ibuprofen 400 MG tablet Take 1 tablet by mouth every 4 (four) hours if needed. 025 Discontinued(Re order (will not trigger notification to Pharmacy)) mirabegron ER (Myrbetriq) 50 MG 24 hr tablet Take 1 tablet by mouth Once per day. 05/08/20 23 025 Discontinued(Re order (will not trigger notification to Pharmacy)) Vibegron (Gemtesa) 75 MG tablet Take 1 tablet by mouth Once per day. 025 Discontinued(Re order (will not trigger notification to Pharmacy)) Active Problems Problem Noted Date Diagnosed Date Encounter for medical examination to establish c are 11/05/2024 Assessment & Plan (11/05/2024 10:25 AM EDT): Last pcp visit 1 year ER: pneumonia/sepsis October 2023 Hospitalization: October 2023 PMHX: sjrogren, SLE( followed at [facility]), asthma, bipolar disorder, RA, GERD PSHX: cervical neck surgery 2021, breast reduction 2012, LIP 2004, bowel obstruction 2017 All: Latex, Crustacean, Fruits Meds: aztelacin, cetirizine, multivitamin, ibuprofen 400mg PRN, cyclobenzaprine 5mg/10mg, montelukast, myrbectic, omeprazole, pilocarpine, vitamin d3, A0 LMP 10/2023 Sjogren's syndrome with keratoconjunctivitis sic ca 11/05/2024 Assessment & Plan (11/05/2024 10:36 AM EDT): Patient refer used to be followed by rheumatology , will place consult, she is n pilocarpine SLE (systemic lupus erythematosus related syndro me) 11/05/2024 Assessment & Plan (11/05/2024 10:36 AM EDT): Refers used to be followed by rheumatology, not on treatment, will place referral Rectal bleeding 11/05/2024 Assessment & Plan (11/05/2024 10:37 AM EDT): Had colonoscopy on 2018, refers having bright blood when wiping, most likely hemorrhoids,will plce referral Seasonal allergic rhinitis due to pollen 025 Assessment & Plan (11/05/2024 10:39 AM EDT): Patient wants to see cook fry, she is on multiple medications without improvement in symptoms Flexural eczema 11/05/2024 Assessment & Plan (11/05/2024 10:40 AM EDT): Hx of eczema, wants to see a research nurse, will place referral 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 11/05/2024 Assessment & Plan (11/05/2024 10:41 AM EDT): With left side imbalance, saw a ENT that recommended MRI, but since she changed insurance process was not completed Screening for colon cancer 11/05/2024 Assessment & Plan (11/05/2024 10:41 AM EDT): Colonoscopy done on 2018, no polyps were resected as per patient Encounter for screening mamm ogram for malignant neoplasm of breast 11/05/2024 Assessment & Plan (11/05/2024 10:42 AM EDT): Will place order for mammogram Screening for cervical cancer 11/05/2024 Assessment & Plan (11/05/2024 10:43 AM EDT): Done on 2023, refers study was normal to be repeated in 5 years Mixed stress and urge urinary incontinence 11/05 Assessment & Plan (11/05/2024 10:43 AM EDT): Will refer to urology, Encounters Date Type Department Care Team Description 12/01/2024 Orders Only [facility] [address] [place] [address] Nikolas Frost MD Sjogren's syndrome with keratoconjunctivitis sicca (CMS/HCC) (Primary Dx); Seasonal allergic rhinitis due to other allergic trigger; Other specified glaucoma, unspecified laterality; Decreased hearing of left ear; Acute cough 11/30/2024 3:15 PM EDT Office Visit [facility] [address] [place] [address] Nikolas Frost MD Acute cough (Primary Dx); Viral syndrome; Chest wall pain 11/30/2024 Travel 11/26/2024 Telephone [facility] [address] [place] [phone] Harsha Wang MD med request 11/26/[address] [address] Harsha Wang MD Nurse Triage 11/25/2024 Orders Only GENERIC EXTERNAL DATA DEPARTMENT Provider, Generic External Data 11/12/2024 Telephone [facility] [address] [place] [address] Harsha Wang MD DERM RECALL APPT 11/05/2024 10:45 AM EDT Telemedicine [facility] [address] [place] [address] Harsha Wang MD Encounter for medical examination to establish care (Primary Dx); Sjogren's syndrome with keratoconjunctivitis sicca (CMS/HCC); SLE (systemic lupus erythematosus related syndrome) (CMS/HCC); Rectal bleeding; Seasonal allergic rhinitis due to pollen; Flexural eczema; Mixed conductive and sensorineural hearing loss of left ear with unrestricted hearing of right ear; Screening for colon cancer; Encounter for screening mammogram for malignant neoplasm of breast; Screening for cervical cancer; Mixed stress and urge urinary incontinence 11/05/2024 Travel 11/03/2024 Travel 10/26/2024 Telephone [facility] [address] [place] [phone] Harshil Fields MD new pt appt 09/28/2024 Telephone [facility] [address] [place] [address] Harsha Wang MD New patient appointment from Last 3 Months Family History Medical History Relation Name Comments Pancreatic cancer Mother Schizophrenia Mother Relation Name Status Comments Mother Social History Tobacco Use Types Packs/Day Years Used Date Smoking Tobacco: Never Smokeless Tobacco: Never Tobacco Cessation:Counseling Given: Not Answered Alcohol Use Standard Drinks/Week Comments Never 0 [...] Orientation Straight 11/04/2024 2: 39 PM EDT Last Filed Vital Signs Vital Sign Reading Time Taken Comments Blood Pressure 124/70 11/30/2024 3:28 PM EDT Pulse 86 11/30/2024 3:28 PM EDT Temperature 36.7 ??C (98 ??F) 11/30/2024 3:28 PM EDT Respiratory Rate 20 11/30/2024 3:28 PM EDT Oxygen Saturation 97% 11/30/2024 3:28 PM EDT Inhaled Oxygen Concentration - - Weight 60.3 kg (133 lb) 11/30/2024 3:28 PM EDT Height - - Body Mass Index - - Plan of Treatment Upcoming Encounters Date Type Department Care Team (Late st Contact Info) Description 02/28/2025 1:45 PM EDT Office Visit [facility] [address], [place] [phone] Harsha Wang MD [address] [place], [place] [phone] Health Maintenance Due Date Last Done Comments CT Colonography 1967 Colonoscopy 1967 Colorectal Cancer Screening 1967 FIT DNA/Cologuard 1967 FIT 1965 FOBT 1965 HIV Screening 1965 SDOH Screening 1965 Sigmoidoscopy 1965 Alcohol/Substance Use Screening 1979 Hepatitis C Screening 11/09/1985 Pap Smear 11/09/1988 Cervical Cancer Screening 11/09/1997 HPV/Cotest 11/09/1997 Mammogram 2007 Pneumococcal Vaccine: 50+ Years (2 of 2 - PPSV23) 04/24/2016 02/28/2016 COVID-19 Vaccine (3 - 2023-2 5 season) 2024 05/08/2021, 04/10/2021 Influenza Vaccine (#1) 2024 Depression Screening 11/05/2025 11/05/2024, 11/05/2024 Tobacco Screening 12/01/2025 12/01/2024 DTaP/Tdap/Td Vaccines (2 - T d or Tdap) 02/27/2026 02/28/2016, 02/13/2010 RSV Patients and Patients Aged 60 years or older (1 - 1-dose 75+ series) 11/09/2042 Hepatitis B Vaccines Completed 11/05/2005, 07/02/2005, 05/31/2005 Zoster Vaccines Completed 04/14/2018, 02/13/2018 HIB Vaccines Aged Out No longer eligi [...] patient's age to complete this topic Meningococcal Vaccine Aged Out No nadia awa eligible based on patient's age to complete this topic RSV under 20 months Aged Out No longe r eligible based on patient's age to complete this topic Rotavirus Vaccines Aged Out No longer eligible based on patient's age to complete this topic Procedures Procedure Name Priority Date/Time Associated Diagnosis Comments D DIMER HIGH SENSITIVITY Routine 11/25/2024 6:16 PM EDT BLOOD CULTURE (SECOND) Routine 2:08 PM EDT COMPLETE BLOOD COUNT MAN DIF Routine 11/25/2024 2:06 PM EDT HIGH SENSITIVITY TROPONIN I Routine 11/25/2024 2:06 PM EDT SLIDE REVIEW Routine 11/25/2024 2:06 PM EDT LACTIC ACID Routine 11/25/2024 2:06 PM EDT COMPREHENSIVE METABOLIC PANEL Routine 11/25/2024 2:06 PM EDT CBC WITH AUTO DIFFERENTIAL Routine 11/25/2024 2:06 PM EDT BLOOD CULTURE (FIRST) Routine 11/25/2024 2:06 PM EDT SARS COV2/INFLUENZA A/B AND RSV RNA QL NAAT Routine 11/25/2024 2:06 PM EDT STREP A NUCLEIC ACID Routine 11/25/2024 2:06 PM EDT XR CHEST 1 VIEW Routine 11/25/2024 1:40 PM EDT from Last 3 Months Results * D Dimer High Sensitivity (11/25/2024 6:16 PM EDT) D Dimer High Sensitivity 174 NG/ML [facility] Comment:D-DIMER HS REFERENCE RANGENote: Our assay reports D-Dimer Units (D- DU).The cut-off value for venous thromboembolic (VTE) disease is230 ng/mL. This value has a very high negative predictivevalue when the patient has a low to moderate clinicalprobability of VTE.The upper limit of normal is 243 ng/mL. 11/25/2024 6:16 PM EDT 11/25/2024 6:19 PM EDT Generic External Data Provider LAB BLOOD ORDERAB LES Final Result Performing Organization Address [facility]/ZIP Co de Phone Number [facility] [address] [place] [address] [phone] * Blood Culture (Second) (11/25/2024 2:08 PM EDT) Blood Venous blood specimen / Unknown 11/25/2024 2:08 PM EDT 11/25/2024 2:14 PM EDT Comment:Blood Narrative [facility] - 11/30/2024 2:48 PM EDT Blood Culture (Second) No growth after 5 days. Specimen Source: Blood Generic External Data Provider LAB MICROBIOLOGY - GENERAL ORDERABLES Final Result Performing Organization Address [facility] Co de Phone Number [facility] [address] [place] [phone] * Slide Review (11/25/2024 2:06 PM EDT) Slide Review MANUAL DIFF [facility] 11/25/2024 2:06 PM EDT 11/25/2024 2:14 PM EDT Generic External Data Provider LAB BLOOD ORDERAB LES Final Result Performing Organization Address [facility]/ZIP Co de Phone Number [facility] [address] [place] [phone] * Blood Culture (First) (11/25/2024 2:06 PM EDT) Blood Venous blood specimen / Unknown 11/25/2024 2:06 PM EDT 11/25/2024 2:14 PM EDT Comment:Blood Narrative [facility] - 11/30/2024 2:48 PM EDT Blood Culture (First) No growth after 5 days. Specimen Source: Blood Generic External Data Provider LAB MICROBIOLOGY - GENERAL ORDERABLES Final Result Performing Organization Address [facility] Phone Number [facility] [address] [place] [phone] * Strep A Nucleic Acid (11/25/2024 2:06 PM EDT) Pathologist [facility] IDNOW SERIAL# [id number] [facility] Strep A Nucleic Acid Negative Negative [facility] Comment:All test results mus t be correlated with clinical findings.This test has not been evaluated for monitoring treatment ofinfection.Additional follow-up testing using the culture method isrequired if the result is negative and clinical symptomspersist, or in the event of an acute rheumatic feveroutbreak. 11/25/2024 2:06 PM EDT 11/25/2024 2:14 PM EDT Generic External Data Provider LAB MICROBIOLOGY - GENERAL ORDERABLES Final Result Performing Organization Address [facility] Co de Phone Number [facility] [address] [place] [phone] * High Sensitivity Troponin I (11/25/2024 2:06 PM EDT) [facility] TROPONIN I HIGH SENSITIVITY <2.7 <3.5 - 17.0 ng/L [facility] Comment:The [place] high sens itivity Troponin-I results should beused in conjunction with other diagnostic information suchas ECG, clinical observations and information, and patientsymptoms to aid in the diagnosis of [place]. 11/25/2024 2:06 PM EDT 11/25/2024 2:14 PM EDT us Generic External Data Provider LAB BLOOD ORDERAB LES Final Result [facility] [address] [place] [phone] * (ABNORMAL) Complete Blood Count Manual Diff (11/25/2024 2:06 PM EDT) [facility] White Blood Count 12.9(H) 4.8 - 10.8 X10*3/uL [facility] Red Blood Count 3.97(L) 4.20 - 5.50 X10*6/uL [facility] Hemoglobin 12.1 12.0 - 16.0 g/dl [facility] Hematocrit 35.9(L) 37.0 - 47.0 % [facility] Mean Corpuscular Volume 90.4 80.0 - 98.0 fL [facility] Mean Corpuscular Hemoglobin 30.5 27.0 - 33.0 pg [facility] Mean Corpuscular HGB Conc 33.7 31.0 - 35.0 g/dl [facility] Red Cell Distribution Width 13.2 11.0 - 16.0 % [facility] Platelet Count 215 160 - 400 X10*3/uL [facility] Mean Platelet Volume 9.7 9.4 - 12.3 fL [facility] NRBC Pct Auto 0.0 0.0 - 0.2 /100WBC [facility] NRBC Abs Auto 0.000 0.0 - 0.012 X10*3/uL [facility] Neutrophils % Manual 89(H) 45 - 73 % [facility] Band Neutrophils Percent 6(H) 3 - 5 % [facility] Lymphocytes Percent Manual 1(L) 20 - 40 % [facility] Monocytes Percent Manual 3 2 - 11 % [facility] Metamyelocytes % (Manual) 1 % [facility] NEUTROPHILS ABSOLUTE MANUAL 12.3(H) 2.0 - 8.3 X10*3/uL [facility] LYMPHOCYTES ABSOLUTE MANUAL 0.1(L) 1.2 - 4.9 X10*3/uL [facility] MONOCYTES ABSOLUTE MANUAL 0.4 0.1 - 1.2 X10*3/uL [facility] Absolute Metamyelocytes 0.1 X10*3/uL [facility] Platelet Estimate NORMAL NORMAL [facility] Platelet Morphology Comment NORMAL [facility] RBC Morphology NORMAL [facility] 11/25/2024 2:06 PM EDT 11/25/2024 2:14 PM EDT us Generic External Data Provider LAB BLOOD ORDERAB LES Final Result [facility] [address] [place] [phone] * SARS-CoV-2 RNA, Influenza A/B, and RSV RNA, Ql NAAT (11/25/2024 2:06 PM EDT) Influenza A PCR NEGATIVE Negative [facility] Influenza B PCR NEGATIVE Negative [facility] Resp Syncy Virus RNA Qual PCR NEGATIVE Negative [facility] SARS COV2 PCR NEGATIVE Negative [facility] Comment:All test results mus t be correlated with clinical findings.Negative results do not preclude SARS-CoV2, influenza Avirus, influenza B virus and/or RSV infectionand should not be used as the sole basis for treatment orother patient management decisions. Negative results must becombined with clinical observations, patient history, andepidemiological information.This test has not been evaluated for monitoring treatment ofinfection.This test has been authorized by the FDA under an EmergencyUse Authorization (EUA) for use by authorized laboratories.Testing performed on the Cepheid GeneXpert utilizingreal-time RT-PCR.All SARS CoV2 and positive influenza A/B results arereported to [facility]. 11/25/2024 2:06 PM EDT 11/25/2024 2:14 PM EDT us Generic External Data Provider LAB MICROBIOLOGY - GENERAL ORDERABLES Final Result [facility] [address] [place] [phone] * (ABNORMAL) CBC auto differential (11/25/2024 2:06 PM EDT) White Blood Count 12.9(H) 4.8 - 10.8 X10*3/uL [facility] Red Blood Count 3.97(L) 4.20 - 5.50 X10*6/uL [facility] Hemoglobin 12.1 12.0 - 16.0 g/dl [facility] Hematocrit 35.9(L) 37.0 - 47.0 % [facility] Mean Corpuscular Volume 90.4 80.0 - 98.0 fL [facility] Mean Corpuscular Hemoglobin 30.5 27.0 - 33.0 pg [facility] Mean Corpuscular HGB Conc 33.7 31.0 - 35.0 g/dl [facility] Red Cell Distribution Width 13.2 11.0 - 16.0 % [facility] Platelet Count 215 160 - 400 X10*3/uL [facility] Mean Platelet Volume 9.7 9.4 - 12.3 fL [facility] Neutrophils Percent Auto 90.7(H) 45 - 73 % [facility] Imm Gran Pct Auto 0.4 0.0 - 0.4 % [facility] Lymphocytes Percent Auto 3.6(L) 20 - 40 % [facility] Monocytes Percent Auto 5.0 2 - 11 % [facility] Eosinophils Percent Auto 0.1 0 - 4 % [facility] Basophils Percent Auto 0.2 0 - 2 % [facility] NRBC Pct Auto 0.0 0.0 - 0.2 /100WBC [facility] Neutrophils Absolute Auto 11.7(H) 2.0 - 8.3 x10*3/uL [facility] Imm Gran Abs Auto 0.05(H) 0.00 - 0.03 X10*3/uL [facility] Lymphocytes Absolute Auto 0.5(L) 1.2 - 4.9 X10*3/uL [facility] Monocytes Absolute Auto 0.6 0.1 - 1.2 X10*3/uL [facility] Eosinophils Absolute Auto 0.0 0.0 - 0.4 X10*3/uL [facility] Basophils Absolute Auto 0.0 0.0 - 0.2 X10*3/uL [facility] NRBC Abs Auto 0.000 0.0 - 0.012 X10*3/uL [facility] 11/25/2024 2:06 PM EDT 11/25/2024 2:14 PM EDT Generic External Data Provider LAB BLOOD ORDERAB LES Edited Result - Final Performing Organization Address [facility] Co de Phone Number [facility] [address] [place] [phone] * Lactic Acid (11/25/2024 2:06 PM EDT) Lactic Acid 0.8 0.5 - 2.0 mmol/L [facility] 11/25/2024 2:06 PM EDT 11/25/2024 2:14 PM EDT Generic External Data Provider LAB BLOOD ORDERAB LES Final Result Performing Organization Address [facility] Co de Phone Number [facility] [address] [place] [phone] * Comprehensive Metabolic Panel (11/25/2024 2:06 PM EDT) Sodium 138 135 - 145 mmol/L [facility] Potassium 4.0 3.3 - 5.1 mmol/L [facility] Chloride 104 96 - 108 mmol/L [facility] Carbon Dioxide 25 22 - 29 mmol/L [facility] Anion Gap 13 12 - 20 [facility] Urea Nitrogen (BUN) 16 9 - 16 mg/dL [facility] Creatinine, Serum 0.60 0.5 - 1.4 mg/dL [facility] Creatinine Clr Calc Pharmacy 88.6 [facility] Comment:Provided height and weight: 157.48 cm,60.5 kg.eGFR (calculated from the MDRD study equation) and eCrCl(calculated from the Cockcroft-Gault equation) are based ondifferent parameters and may not yield comparable results.If eCrCl result is absurd, please check patient'sheight/weight. Estimated Glomerular Filt Rate >60 [facility] Comment:Chronic Kidney Disea se: Estimated GFR < 60 mL/min/1.82n6Rncehm Kidney Disease: Estimated GFR < 15 mL/min/1.73m2 Glucose 87 60 - 115 mg/dL [facility] Calcium 8.9 8.4 - 10.2 mg/dL [facility] Bilirubin, Total 0.5 0.0 - 1.0 mg/dL [facility] Aspartate Amino Transferase 25 5 - 31 U/L [facility] Alanine Aminotransferase 16 0 - 31 U/L [facility] Total Protein 7.4 6.5 - 8.0 g/dL [facility] Albumin Level 3.9 3.5 - 5.0 g/dL [facility] Alkaline Phosphatase 85 39 - 117 U/L [facility] 11/25/2024 2:06 PM EDT 11/25/2024 2:14 PM EDT us Generic External Data Provider LAB BLOOD ORDERAB LES Final Result [facility] [address] [place] [phone] * XR Chest 1 View (11/25/2024 1:40 PM EDT) Anatomical Region Laterality Modality Chest Radiographic Jennifer ging 11/25/2024 1:40 PM EDT Narrative 11/25/2024 3:10 PM EDT ? [facility] ?[address] ?[place] [address] ?XRay Report ? Signed ? Patient: Dygon,Phoebe ?MR#: [id number] ? : 1965 ?Acct:[id number] ? Age/Sex: 59 / F ?ADM Date: 11/25/24 ? Loc: HO.ED ? Attending Dr: ? Ordering Physician: Ko Manuel ?? Date of Service: 11/25/24 ?? Procedure(s): XR chest 1V ?? Accession Number(s): [id number] ? cc: Ko Manuel; Harsha Wang MD ? EXAMINATION: ??XR CHEST 1 VIEW ? HISTORY: fever, coughing, pneumonia? COMPARISON: There are no prior studies for comparison. ? FINDINGS: ??A single AP portable view of the chest performed at 2:56 PM ?? is submitted. The lungs are expanded and clear. ??There is no pleural ?? effusion, pneumothorax, or pulmonary vascular congestion. ??The heart is ?? normal in size. ??There is mild degenerative disc disease of the spine. ?? A portion of the fusion plate is seen in the lower cervical spine. ? XR/XR chest 1V ?? IMPRESSION: ?? Clear lungs. ? Electronically signed by: ??Gurvinder Rosenthal MD ??11/25/2024 03:07 PM EDT ? Dictated By: ?Gurvinder Rosenthal MD ? Signed By: ?<Electronically signed by Gurvinder Rosenthal MD in OV> ?11/25/24 1507 ? DD/ 1340 ? TD/TT: 11/25/24 1500 ? Photocopy Operator: ? Procedure Note Coretta Chaves - 11/25/[address] [address] XRay Report Signed Patient: Noemi GarnettClaudia#: [id number] : 1965Acct:[id number] Age/Sex: 59 / FADM Date: 11/25/24 Loc: HO.ED Attending Dr: Ordering Physician: Ko Manuel Date of Service: 11/25/24 Procedure(s): XR chest 1V Accession Number(s): [id number] cc: Ko Manuel; Harsha Wang MD EXAMINATION: XR CHEST 1 VIEW HISTORY: fever, coughing, pneumonia? COMPARISON: There are no prior studies for comparison. FINDINGS: A single AP portable view of the chest performed at 2:56 PM is submitted. The lungs are expanded and clear. There is no pleural effusion, pneumothorax, or pulmonary vascular congestion. The heart is normal in size. There is mild degenerative disc disease of the spine. A portion of the fusion plate is seen in the lower cervical spine. XR/XR chest 1V IMPRESSION: Clear lungs. Electronically signed by: Gurvinder Rosenthal MD 11/25/2024 03:07 PM EDT Dictated By: Gurvinder Rosenthal MD Signed By: <Electronically signed by Gurvinder Rosenthal MD in OV> 11/25/24 1507 DD/ 1340 TD/TT: 11/25/24 1500 Photocopy Operator: [facility] External Provider IMG XR PROCEDURES Final Result from Last 3 Months Insurance [facility] DUAL COMPLETE Care Teams Salon Sales Consultant Relationship Specialty Start Date End Date Harsha Wang MD [address] [place] [id number] PCP - General Internal Medicine 11/11/24
--- OUTSIDE RECORDS SUMMARY | 2024-12-01 13:47 | XMS_ITS | Encounter Summary ---
Author Organization [employer] Address [address] [facility] [address] [place] [address] Care Team Providers Care Operation Supervisor Name Role Phone Harsha Wang MD Primary Care Prov ider Encounter Details Date Type Department Care Team (Latest Contact Info) Description 11/30/2024 Travel Social History Tobacco Use Types Packs/Day Years [...] PM EDT documented as of this encounter Plan of Treatment Upcoming Encounters Date Type Department Care Team (Late st Contact Info) Description 02/28/2025 1:45 PM EDT Office Visit [facility] MED & PEDS [address] [place] [address] Harsha Wang MD [address] [place] [address] documented as of this encounter Visit Diagnoses Not on filedocumented in this encounter Additional Health Concerns Assessment Noted Time PHQ-9 Depression Total Score: 0 11/06/19 25 9:58 AM EDT documented as of this encounter Care Teams Operation Supervisor Relationship Specialty Start Date End Date Harsha Wang MD [address] [place] [phone] PCP - General Internal Medicine 11/11/24 documented as of this encounter
--- OUTSIDE RECORDS SUMMARY | 2024-12-01 13:47 | XMS_ITS | Encounter Summary ---
Author Organization [employer] Address [address] [facility] 7[address] [place] [address] Care Team Providers Care Broker Assistant Name Role Phone Harsha Wang MD Primary Care Prov ider Reason for Referral * Medications - Closed Specialty Diagnoses / Procedures Referred By Contac t Referred To Contact Diagnoses Chest wall pain Nikolas Frost MD [address] [place] [address] Phone: tel: fax: Referral ID Status Reason Start Date Expiration Date Visits Re quested Visits Authorized [id number] Closed 11/30/2024 11/30/2025 1 1 Encounter Details Date Type Department Care Team (Late st Contact Info) Description 11/30/2024 3:15 PM EDT Office Visit [facility] CH[facility] MED & PEDS [address] [place] [address] Nikolas Frost MD [address] [place] [address] [phone] Acute cough (Primary Dx); Viral syndrome; Chest wall pain Social History Tobacco Use Types Packs/Day Years [...] PM EDT documented as of this encounter Last Filed Vital Signs Vital Sign Reading [...] - - Body Mass Index - - documented in this encounter Plan of Treatment Upcoming Encounters Date Type Department Care Team (Late st Contact Info) Description 02/28/2025 1:45 PM EDT Office Visit [facility] MED & PEDS [address] [place] [address] Harsha Wang MD [address] [place] [address] documented as of this encounter Visit Diagnoses Diagnosis Acute cough- Primary Viral syndrome Unspecified viral infection, in conditions classified elsewhere and of unspecified site Chest wall pain Painful respiration documented in this encounter Additional Health Concerns Assessment Noted Time PHQ-9 Depression Total Score: 0 11/06/19 9:58 AM EDT documented as of this encounter Care Teams Broker Assistant Relationship Specialty Start Date End Date Harsha Wang MD [address] [place] [address] PCP - General Internal Medicine 11/11/24 documented as of this encounter
--- OUTSIDE RECORDS SUMMARY | 2024-12-01 13:47 | XMS_ITS | Encounter Summary ---
Author Organization [employer] Address [address] [facility] [address] [place] [address] Care Team Providers Care User Support Analyst Name Role Phone Harsha Wang MD Primary Care Prov ider Reason for Referral * Consultation (Routine) - Pending Review Specialty Diagnoses / Procedures Referred By Jayla aragon Referred To Contact Ophthalmology Diagnoses Other specified glaucoma, unspecified laterality Nikolas Frost MD [address] [place] [address] Phone: tel: fax: Referral ID Status Reason Start Date Expiration Date Visits Requested Visits Authorized [id number] Pending Review Specialty Services Required 12/01/2024 12/01/2025 1 1 * Consultation (Routine) - Canceled Specialty Diagnoses / Procedures Referred By Jayla aragon Referred To Contact Otolaryngology Diagnoses Decreased hearing of left ear Nikolas Frost MD [address] [place] [address] Phone: tel: fax: Referral ID Status Reason Start Date Expiration Date Visits Requested Visits Authorized [id number] Canceled Specialty Services Required 12/01/2024 12/01/2025 1 1 * Consultation (Routine) - Canceled Specialty Diagnoses / Procedures Referred By Jayla aragon Referred To Contact Allergy Diagnoses Seasonal allergic rhinitis due to other allergic trigger Nikolas Frost MD [address] [place] [address] Phone: tel: fax: Referral ID Status Reason Start Date Expiration Date Visits Requested Visits Authorized [id number] Canceled Specialty Services Required 12/01/2024 12/01/2025 1 1 Encounter Details Date Type Department Care Team (Latest Contact Info) Description 12/01/2024 Orders Only [facility] MED & PEDS [address] [place] [address] Nikolas Frost MD [address] [place] [address] Sjogren's syndrome with keratoconjunctivitis sicca (CMS/HCC) (Primary Dx); Seasonal allergic rhinitis due to other allergic trigger; Other specified glaucoma, unspecified laterality; Decreased hearing of left ear; Acute cough Social History Tobacco Use Types Packs/Day Years [...] PM EDT documented as of this encounter Progress Notes * Nikolas Frost MD - 12/01/2024 12:42 PM EDT aSUBJECTIVE Phoebe Garnett is a 59 y.o. female who presents for No chief complaint on file.. HPI Patient is here for hospital discharge follow-up. Was evaluated at [facility] emergencydepartment on November 25, 2024 for an atraumatic left chest discomfort. D-dimer was negative Chest x-ray: Clear lungs. Discharge with the impression of pleuritis on doxycycline. Since discharge patient has been feeling mildly better. Denies any fever. Still coughing.. Mrs. Phoebe Garnett also came with a list of request: 1) history of residual brain syndrome. Patient was diagnosed at some point with lupus and rheumatoid arthritis. Diagnosis made at [facility]. She reports no joint pain at the present time. She would like to get some blood test to confirm if she has lupus and or rheumatoid arthritis.Her BMI was 44 when she was diagnosed and she has lost weight since then. Her weight was 249 and now it is 133. Only on pilocarpine for her dry eye. 2) history of glaucoma. Patient is requesting a referral to ophthalmology. 3) history of allergic rhinitis. Patient is requesting a referral to plant specialist. 4) history of decreased hearing of the left ear. Patient is requesting a referral to ENT. Allergies Allergen Reactions Seafood [Shellfish Allergy] Latex Rash Current Outpatient Medications on File Prior to Visit Medication Sig Dispense Refill albuterol 108 (90 Base) MCG/ACT inhaler Inhale 1 puff every 6 (six) hours if needed for shortness of breath or wheezing. Azelastine HCl 137 MCG/SPRAY solution Administer 1 spray into affected nostril(s) Once per day. benzonatate (Tessalon Perles) 100 MG capsule Take 1 capsule (100 mg) by mouth if needed in the morning, at noon, and at bedtime for cough for up to 7 days. Do not crush or chew. 20 capsule 0 calcium citrate 315 mg + D2 6.25 mcg tablet Take 2 tablets by mouth 2 times daily. cetirizine (ZyrTEC) 10 MG tablet Take 1 tablet by mouth Once per day. cholecalciferol (Vitamin D-3) 125 MCG (5000 UT) capsule Take 1 capsule by mouth Once per day. cyclobenzaprine (Flexeril) 10 MG tablet Take 10 mg by mouth if needed in the morning, at noon, and at bedtime for muscle spasms. cyclobenzaprine (Flexeril) 5 MG tablet Take 5 mg by mouth at bedtime. Fluticasone Propionate, Inhal, (Flovent Diskus) 50 MCG/ACT aerosol powder Inhale 1 Act 2 times daily. ibuprofen 400 MG tablet Take 1 tablet (400 mg) by mouth every 4 (four) hours if needed for mild pain or moderate pain. 60 tablet 3 lidocaine (Lidoderm) 5 % patch Apply 1 patch topically Once per day. Remove & discard patch within 12 hours or as directed by MD. 30 patch 2 mirabegron ER (Myrbetriq) 50 MG 24 hr tablet Take 1 tablet (50 mg) by mouth Once per day. 90 tablet3 montelukast (Singulair) 10 MG tablet Take 1 tablet by mouth Once per day. multivitamin with minerals (Centrum) 9-200 mg-mcg tablet split tablet Take 1 tablet by mouth Once per day. omeprazole (PriLOSEC) [address] capsule Take 20 mg by mouth Once per day. pilocarpine (Salagen) 5 MG tablet Take 1 tablet by mouth 2 times daily. Vibegron (Gemtesa) 75 MG tablet Take 1 tablet (75 mg) by mouth Once per day. 90 tablet 3 [DISCONTINUED] ibuprofen 400 MG tablet Take 1 tablet by mouth every 4 (four) hours if needed. No current facility-administered medications on file prior to visit. Review of Systems Constitutional: Positive for unexpected weight change. Negative for activity change, appetite change, chills and fever. Respiratory: Positive for cough. Cardiovascular: Negative for palpitations and leg swelling. Musculoskeletal: Negative for arthralgias and joint swelling. Skin: Negative for rash. OBJECTIVE There were no vitals filed for this visit. Physical Exam Constitutional: General: She is not in acute distress. Appearance: Normal appearance. She is not ill-appearing, toxic-appearing or diaphoretic. Cardiovascular: Rate and Rhythm: Normal rate. Heart sounds: No murmur heard. Pulmonary: Effort: Pulmonary effort is normal. No respiratory distress. Breath sounds: No stridor. No wheezing. Neurological: General: No focal deficit present. Mental Status: She is alert. Psychiatric: Mood and Affect: Mood normal. Assessment/Plan Assessment/Plan Diagnoses and all orders for this visit: Sjogren's syndrome with keratoconjunctivitis sicca (CMS/HCC) - KEITH Screen,IFA, with Reflex to Titer and Pattern; Future - Rheumatoid Factor; Future - Sed Rate by Modified Westergren; Future - C-reactive Protein; Future - SCL-70 Antibody; Future - Cyclic Citrullinated Peptide (CCP) Antibody (IgG); Future - Comprehensive Metabolic Panel; Future - Lipid Panel, Standard; Future - CBC auto differential; Future - TSH W/Reflex to FT4; Future Seasonal allergic rhinitis due to other allergic trigger - Referral to Allergy; Future Other specified glaucoma, unspecified laterality - Referral to Ophthalmology; Future Decreased hearing of left ear Comments: All requested referrals generated. Orders: - Referral to ENT; Future Acute cough Comments: Improving Symptomatic treatment recommended for now documented in this encounter Plan of Treatment Upcoming Encounters Date Type Department Care Team (Late st Contact Info) Description 02/28/2025 1:45 PM EDT Office Visit [facility] CHC MED & PEDS [address] [place], [place] [phone] Harsha Wang MD [address] [place], [place] [phone] Scheduled Orders Name Type Priority Associated Diagnoses Orde r Schedule KEITH Screen,IFA, with Reflex to Titer and Pattern Lab Routine Sjogren's syndrome with keratoconjunctivitis sicca ([facility]) Expected: 12/01/2024 (Approximate), Expires: 12/01/2025 Rheumatoid Factor Lab Routine Sjogren's syndrome with keratoconjunctivitis sicca ([facility]) Expected: 12/01/2024, Expires: 12/01/2025 Sed Rate by Modified Westergren Lab Routine Sjogren's syndrome with keratoconjunctivitis sicca ([facility]) Expected: 12/01/2024, Expires: 12/01/2025 C-reactive Protein Lab Routine Sjogren's syndrome with keratoconjunctivitis sicca ([facility]) Expected: 12/01/2024 (Approximate), Expires: 12/01/2025 SCL-70 Antibody Lab Routine Sjogren's syndrome with keratoconjunctivitis sicca ([facility]) Expected: 12/01/2024 (Approximate), Expires: 12/01/2025 Cyclic Citrullinated Peptide (CCP) Antibody (IgG) Lab Routine Sjogren's syndrome with keratoconjunctivitis sicca ([facility]) Expected: 12/01/2024 (Approximate), Expires: 12/01/2025 Comprehensive Metabolic Panel Lab Routine Sjogren's syndrome with keratoconjunctivitis sicca ([facility]) Expected: 12/01/2024 (Approximate), Expires: 12/01/2025 Lipid Panel, Standard Lab Routine Sjogren's syndrome with keratoconjunctivitis sicca ([facility]/HCC) Expected: 12/01/2024 (Approximate), Expires: 12/01/2025 CBC auto differential Lab Routine Sjogren's syndrome with keratoconjunctivitis sicca ([facility]) Expected: 12/01/2024 (Approximate), Expires: 12/01/2025 TSH W/Reflex to FT4 Lab Routine Sjogren's syndrome with keratoconjunctivitis sicca ([facility]) Expected: 12/01/2024 (Approximate), Expires: 12/01/2025 Scheduled Referrals Name Type Priority Associated Diagnoses Order Schedule Referral to Allergy Outpatient Referral Routine Seasonal allergic rhinitis due to other allergic trigger Expected: 12/01/2024 (Approximate), Expires: 12/01/2025 Referral to ENT Outpatient Referral Routine Decreased hearing of left ear Expected: 12/01/2024 (Approximate), Expires: 12/01/2025 Referral to Ophthalmology Outpatient Referral Routine Other specified glaucoma, unspecified laterality Expected: 12/01/2024 (Approximate), Expires: 12/01/2025 documented as of this encounter Visit Diagnoses Diagnosis Sjogren's syndrome with keratoconjunctivitis sicca ([facility])- Primary Seasonal allergic rhinitis due to other allergic trigger Other specified glaucoma, unspecified laterality Decreased hearing of left ear Acute cough documented in this encounter Additional Health Concerns Assessment Noted Time PHQ-9 Depression Total Score: 0 11/06/19 9:58 AM EDT documented as of this encounter Care Teams User Support Analyst Relationship Specialty Start Date End Date Harsha Wang MD [address] [place] [phone] PCP - General Internal Medicine 11/11/24 documented as of this encounter
[2024-12-01 14:23] LABS: Rheumatoid Factor 16.5 IU/mL (<15.0)
[2024-12-01 15:32] LABS: Erythrocyte Sedimentation Rate 86 MM/HR (0-20)
[2024-12-02 13:58] LABS: Scleroderma 70 Antibody <1.0 NEG AI (<1.0 NEG)
[2024-12-02 21:54] LABS: Cyclic Citrullinated Peptide <16 UNITS
[2024-12-03 08:28] LABS: Anti Nuclear Antibody Screen POSITIVE (NEGATIVE)
== END 2024-12-01 12:45 | disposition home or self-care (01) ==
LOC: HO.CHCLDS 12:44
PROVIDERS: Visit Provider Internal Medicine
DX: M35.01 Sjogren syndrome with keratoconjunctivitis (principal)
CPT/HCPCS: 36415; 85652; 86038; 86039; 86140; 86200; 86235; 86431

== ENCOUNTER 2025-02-21 09:29 | Outpatient (REF) | payer MEDICARE, SELFPAY ==
--- NOTE | ~2025-02-21 | XR_ITS ---
EXAMINATION: XR CHEST CLINICAL INFORMATION: Chronic cough COMPARISON: November 25, 2024 TECHNIQUE: 2 views of the chest were obtained. FINDINGS: No significant abnormality is noted involving the heart, lungs, mediastinum, bony thorax or soft tissues. XR/XR chest 2V IMPRESSION: No acute disease Electronically signed by: Abimael Hicks MD 02/21/2025 10:00 AM EDT
--- NOTE | ~2025-02-21 | XR_ITS ---
EXAMINATION: XR SHOULDER, RIGHT CLINICAL INFORMATION: right shoulder pain COMPARISON: None available. TECHNIQUE: AP external rotation, Grashey, scapular Y, and axillary views of the right shoulder. FINDINGS: Somewhat linear low density calcification is present in the supraspinatus tendon at the footprint likely representing hydroxyapatite deposition. There is subtle elevation of distal clavicle. There is no dislocation. XR/XR shoulder RT min 2V IMPRESSION: Calcific tendinitis involving supraspinatus tendon. 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 Electronically signed by: Abimael Hicks MD 02/21/2025 09:58 AM EDT
--- OUTSIDE RECORDS SUMMARY | 2025-02-21 10:18 | XMS_ITS | Encounter Summary ---
Author Organization [employer] Address [address] [facility] [address] [place] [address] Care Team Providers Care Director Regulatory Agency Name Role Phone Harsha Wang MD Primary Care Prov ider Reason for Referral * Consultation (Routine) - Closed Specialty Diagnoses / Procedures Referred By Jayla aragon Referred To Contact Rheumatology Diagnoses SLE (systemic lupus erythematosus related syndrome) (CMS/HCC) Nikolas Frost MD [address] [place] [address] Phone: tel: fax: [facility] [address] [place] [address] Phone: tel: fax: Referral ID Status Reason Start Date Expiration Date V isits Requested Visits Authorized [id number] Closed Specialty Services Required 12/03/2024 12/03/2025 1 1 Encounter Details Date Type Department Care Team ([facility] st Contact Info) Description 12/03/2024 Orders Only [facility] CH[facility] MED & PEDS [address] [place] [address] Nikolas Frost MD [address] [place] [address] SLE (systemic lupus erythematosus related syndrome) (CMS/HCC) (Primary Dx) Social History Tobacco Use Types Packs/Day Years [...] Description 02/28/2025 1:45 PM EDT Office Visit [facility] MED & PEDS [address] [place] [address] Harsha Wang MD [address] [place] [address] Scheduled Referrals Name Type Priority Associated Diagnoses Orde r Schedule Referral to Rheumatology Outpatient Referral Routine SLE (systemic lupus erythematosus related syndrome) (CMS/HCC) Expected: 12/03/2024 (Approximate), Expires: 12/03/2025 documented as of this encounter Visit Diagnoses Diagnosis SLE (systemic lupus erythematosus related syndrome) (CMS/HCC)- Primary Systemic lupus erythematosus documented in this encounter Additional Health Concerns Assessment Noted Time PHQ-9 Depression Total Score: 0 11/06/19 9:58 AM EDT documented as of this encounter Care Teams Director Regulatory Agency Relationship Specialty Start Date End Date Harsha Wang MD [address] [place] [address] PCP - General Internal Medicine 11/11/24 documented as of this encounter
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
--- OUTSIDE RECORDS SUMMARY | 2025-02-21 10:19 | XMS_ITS | Data Portability ---
Author Organization [place] - [facility], Allergy Address [address] [place] [id number] Care Team Providers Care Wet End Helper Name Role Phone CHERI JARA Primary Care Provider [phone] Assessment Encounter Date Assessment Date Assessment LastModified by Organization Details LastModified Time 12/27/2024 12/27/2024 59-year-old female presents for follow-up of asymmetric hearing loss. On exam, bilateral tympanic membranes are intact with well aerated middle ear spaces. Audiometric testing demonstrates an essentially stable high-frequency sensorineural hearing loss on the left and normal hearing on the right. MRI brain without contrast 12/09/2024 at [facility] demonstrated nonspecific white matter likely sequela of mild chronic microvascular ischemic disease and unremarkable internal auditory canals. As symptoms have resolved and auditory thresholds are stable, we discussed observation. We discussed the risk of missing a small tumor with lack contrast. Patient is highly motivated to proceed with imaging and would like to proceed with a contrasted MRI. She will follow-up to review the results. [email or web address] Not available 12/27/2024 15:16:48 Plan of Treatment Reminders Order Date Submit Date Provider Last Modified By Organization Details Last Modified Time Details Appointments None recorded. Lab None recorded. Referral None recorded. Procedures None recorded. Surgeries None recorded. Imaging MRI, brain + internal auditory canal, w/wo contrast - next available ....IAC protocol 2024 025 [facility] Mri Department, [address] [place] [address], [place], [address], 16:14:50 Medication Orders None recorded. Patient TargetsNo targets recorded. Patient InstructionsNo instructions recorded. Reason for Referral None Reported. Results Created Date Observation Date Name Description Value Unit Range Abnormal Flag Note LastModifiedBy Organization Detail LastModifiedTime 12/28/19 audio gram No observ ation record ed. BARCODE Not Available 2024 15:53:43 12/28/19 25 11/17/2023 audio gram No observ ation record ed. [email or web address] Not Available 2024 15:45:19 12/29/19 25 12/09/2024 MRI, brain , w/o contr ast No observ ation record ed. [email or web address] Not Available 09/2024 13:58:53 01/25/20 25 01/24/2025 MR brain wo and W contr ast See Note [facility] , a [facility] of [facility] Name: CHRIS QUINN Date of : 1965 Reason for Exam: snhl Exam Date: 2024 [id number] EST Report Status : Final Orderi ng Provid er: PETE CARABALLO PCP: DO HOLLIS PROCED URE: Brain MRI INDICA TION: Mat e ureal hearin g loss TECHNI QUE: Multip lanar, multis equenc e MRI of the brain withou t and with contra st. 12 mL Dotare m inject ed intrav enousl y from a 15 mL vial with the remain yung discar ded. COMPAR STACI: 2024 FINDIN GS: No acute infarc t, mass effect , or intrac ranial hemorr abran. Mild chroni c small vessel ischem ic change throug hout the suprat entori al white matter is simila r compar ed to the prior exam. No abnorm al intrac ranial enhanc ement or suscep tibili ty artifa ct. Thin images perfor med throug h the software intern al audito ry canals bilate rally demons trate no mass or abnorm al enhanc ement along the 7th or 8th crania l nerves . T2 signal of the inner ear struct ures is normal . Sella and forame n magnum are normal . Ventri cles, sulci, and cister ns are normal in size and config uratio n. No hydroc ephalu s. Major intrac ranial arteri al flow voids are normal . Scatte red mucosa l thicke filiberto seen throug hout the sinuse s. Mastoi d air cells are clear. Orbits and extra crania l soft tissue s are normal . Calvar ium is normal . IMPRES MINDY: No acute findin gs or abnorm al intrac ranial enhanc ement. No mass or abnorm al enhanc ement along the 7th or 8th crania l nerves . ------ -- FINAL REPORT ------ -- Dictat ed By: JYOTI LEROY Dictat ed Date: 2024 15:21 ET Assign ed Physic brandi: JYOTI ELROY Review ed and Electr onical ly Signed By: JYOTI LEROY Signed Date: 2024 15:33 ET Workst ation ID: [id number] Transc ribed By: Self Edit Transc ribed Date: 2024 15:21 ET [id number] [facility]/S Dept [address] [place], [address], 01/24/2025 15:56:59 Result Notes None recorded. Problems Name Problem SNOMED Code Status Onset Date Resolution Date Notes Provider Name and Address Organization Details Recorded Time Hypertrop hy of nasal turbinate s 43819952 Active 2016 Hypertrop hy of nasal turbinate s; Note: Date Diagnosed : 12/25/2016 9:15 AM (J34.3) Not Available [facility] 4 02:48:53 Bleeding from nose 737328288 Active 2016 Epistaxis ; Note: Date Diagnosed : 12/25/2016 8:59 AM (R04.0) Not Available [facility] 4 02:48:55 Mild intermitt ent asthma 295394301 Active 2016 Mild intermitt ent asthma, uncomplic ated; Note: Date Diagnosed : 12/25/2016 9:27 AM (J45.20) Not Available [facility] 4 02:48:56 Deviated nasal septum 024713002 Active 2016 Deviated nasal septum; Note: Date Diagnosed : 12/25/2016 9:15 AM (J34.2) Not Available [facility] 4 02:48:57 Allergic rhinitis 12070911 Active 2016 Other allergic rhinitis; Note: Date Diagnosed : 12/25/2016 9:12 AM (J30.89) Erica tobias allergic rhinitis; Note: Date Diagnosed : 12/25/2016 9:12 AM (J30.89) Not Available [facility] 4 02:48:56 Bilateral disorder of Eustachia n tubes 07400993158 39050 Active 2019 Other specified disorders of Eustachia n tube, bilateral ; Note: Date Diagnosed : 09/20/2019 1:57 PM (H69.83) Not Available [facility] 4 02:48:57 Abnormal auditory perceptio n 23807342 Active 2019 Other abnormal auditory perceptio ns, bilateral ; Note: Date Diagnosed : 09/20/2019 5:10 PM (H93.293) Not Available [facility] 4 02:48:55 Sj gren's syndrome 97056469 Active 2019 Sicca syndrome [Sjogren] ; Note: Date Diagnosed : 03/01/2020 2:13 PM (M35.0) Not Available [facility] 4 02:48:52 Sensorine ural hearing loss 06941214 Active 2023 Sensorine ural hearing loss, unilatera l, left ear, with unrestric everardo hearing on the contralat eral side; Note: Date Diagnosed : 11/17/2023 12:47 PM (H90.42) Not Available [facility] 4 02:48:54 Dizziness and giddiness 902259249 Active 2023 Dizziness and giddiness ; Note: Date Diagnosed : 11/17/2023 12:49 PM (R42) Not Available [facility] 4 02:48:57 Bilateral tinnitus 85094337138 02 Active 2024 PETE LARA PA-C [address] [place] [address], [place], [address] , [facility] - [facility] 5 15:15:08 Problem Notes None recorded. Procedures Surgical History Date Name Laterality Status Provider Name and Address Organization Details Recorded Time 12/27/2024 Air & Speech Audio with Tymps - 14726, 01092 & 47732 completed CINDY MEJÍA, AUD [address] [facility],[place] [address], [place], [address], [facility] - [facility] 12/27/2024 14:05:20 Imaging Results None recorded. Procedure Notes None recorded. Medical Equipment None Reported. Allergies Allergen ID Allergen Name Allergen Category Reaction Reaction Severity Criticality Documentation Date Start Date Code Code System Note Provider Name and Address Organization Details Recorded Time 936653 Benadryl medicatio n hives Not available Not available 02/27/2024 25170 7 RxNorm React ion: hives ; Not Available [facility] 4 00:31:35 01655 latex environme nt,medica tion other Not available Not available 12/09/2023 87998 91 RxNorm React ion: unkno wn, unspe cifie d;; Not Available [facility] 4 01:04:17 Medications Name Sig Start Date Stop Date Status Note LastModified by Organization Details LastModified Time cyclobenz aprine 10 mg tablet 1 TABLET BY MOUTH 3 TIMES A DAY, NEEDED SPASM FOR SPASM 12/27 completed Not Available Not Available Not Available pilocarpi ne 5 mg tablet TAKE 1 TABLET BY MOUTH TWICE A DAY active Not Available Not Available No t Available doxycycli ne hyclate 100 mg capsule TAKE 1 CAPSULE BY MOUTH 2 TIMES A DAY *NEED INSURANC E* 12/27 completed Not Available Not Available Not Available quetiapin e 300 mg tablet 11/16 completed Medicati on ID: [id number] D uration Value: 30 Brand Name: quetiapi ne Send Method: E-Prescr ibed Sub s Allowed: subs OK Speci al Instruct ion: TK 1 T PO Q NIGHT Me dication GenericN anay: quetiapi ne Not Available Not Available Not Available cetirizin e 10 mg tablet TAKE 1 TABLET BY MOUTH EVERY DAY active Not Available Not Available No t Available ketotifen 0.025 % (0.035 %) eye drops PLACE 1 DROP IN BOTH EYES 4 TIMES DAILY NEEDED FOR ITCH active Not Available Not Available No t Available quetiapin e 100 mg tablet 03/01 completed Medicati on ID: [id number] D uration Value: 30 Reason: () Brand Name: quetiapi ne Send Method: E-Prescr ibed Sub s Allowed: subs OK Speci al Instruct ion: TK 1 T PO Q NIGHT Me dication GenericN anay: quetiapi ne Not Available Not Available Not Available Nortrel (28) 1 mg-35 mcg tablet 03/01 completed Medicati on ID: [id number] D uration Value: 28 Reason: () Brand Name: Nortrel 35 (28) Sen d Method: E-Prescr ibed Sub s Allowed: subs OK Speci al Instruct ion: TK 1 T PO D Medica tionGene ricName: Nortrel (28) Not Available Not Available Not Available trazodone 100 mg tablet 03/01 completed Medicati on ID: [id number] D uration Value: 30 Reason: () Brand Name: trazodon e Send Method: E-Prescr ibed Sub s Allowed: subs OK Speci al Instruct ion: TK 3 TS PO QHS Medi cationGe nericNam e: trazodon e Not Available Not Available Not Available benzonata te 100 mg capsule 12/27 completed Medicati on ID: [id number] B rand Name: benzonat ate Send Method: E-Prescr ibed Sub s Allowed: subs OK Speci al Instruct ion: TAKE 1 CAPSULE BY MOUTH THREE TIMES A DAY FOR 7 DAYS NEEDED FOR COUGH Me dication GenericN anay: benzonat ate Not Available Not Available Not Available lansopraz ole 30 mg capsule,d elayed release 03/01 completed Medicati on ID: [id number] D uration Value: 30 Reason: () Brand Name: lansopra zole Sen d Method: E-Prescr ibed Sub s Allowed: subs OK Speci al Instruct ion: TK 1 C PO D Medica tionGene ricName: lansopra zole Not Available Not Available Not Available prednison e 50 mg tablet 12/27 completed Medicati on ID: [id number] B rand Name: predniso ne Send Method: E-Prescr ibed Sub s Allowed: subs OK Medic ationGen ericName : predniso ne Not Available Not Available Not Available lidocaine 5 % topical patch APPLY 1 PATCH TOPICALL Y ONCE PER DAY. REMOVE & DISCARD PATCH WITHIN 12 HOURS OR DIRECTED BY . active Not Available Not Available No t Available ibuprofen 400 mg tablet TAKE 1 TABLET BY MOUTH EVERY 4 HOURS NEEDED FOR PAIN active Not Available Not Available No t Available gabapenti n 300 mg capsule 11/16 completed Medicati on ID: [id number] D uration Value: 35 Brand Name: gabapent in Send Method: E-Prescr ibed Sub s Allowed: subs OK Medic ationGen ericName : gabapent in Not Available Not Available Not Available omeprazol e 20 mg capsule,d elayed release TAKE 1 CAPSULE BY MOUTH EVERY DAY active Not Available Not Available No t Available hydrocort isone 2.5 % topical cream APPLY TO SKIN FOLDS TWICE A DAY NEEDED FOR FLARES, DECREASE USE SYMPTOMS IMPROVE active Not Available Not Available No t Available monteluka st 10 mg tablet TAKE 1 TABLET BY MOUTH EVERY DAY active Not Available Not Available No t Available cyanocoba kathryn (vit B-12) ER 2,000 mcg tablet,ex tended release 11/16 completed Medicati on ID: [id number] D uration Value: 30 Brand Name: cyanocob alamin (vitamin B-12) Se nd Method: E-Prescr ibed Sub s Allowed: subs OK Medic ationGen ericName : cyanocob alamin (vitamin B-12) Not Available Not Available Not Available azelastin e 137 mcg (0.1 %) nasal spray TAKE 2 SPRAYS INTO EACH NOSTRIL EVERY DAY NEEDED active Not Available Not Available No t Available epinephri ne 0.3 mg/0.3 mL injection , auto-inje ctor 11/16 completed Medicati on ID: [id number] D uration Value: 2 Brand Name: epinephr ine Send Method: E-Prescr ibed Sub s Allowed: subs OK Medic ationGen ericName : epinephr ine Not Available Not Available Not Available levofloxa eve 750 mg tablet 12/27 completed Medicati on ID: [id number] B rand Name: levoflox acin Sen d Method: E-Prescr ibed Sub s Allowed: subs OK Medic ationGen ericName : levoflox acin Not Available Not Available Not Available norethind james (contrace ptive) 0.35 mg tablet 11/16 completed Medicati on ID: [id number] D uration Value: 28 Brand Name: norethin drone (contrac eptive) Send Method: E-Prescr ibed Sub s Allowed: subs OK Speci al Instruct ion: TK 1 T PO AT THE SAME TIME QD Medic ationGen ericName : norethin drone (contrac eptive) Not Available Not Available Not Available fluoxetin e 20 mg capsule 03/01 completed Medicati on ID: [id number] D uration Value: 30 Reason: () Brand Name: fluoxeti ne Send Method: E-Prescr ibed Sub s Allowed: subs OK Speci al Instruct ion: TK 3 CS PO QAM Medi cationGe nericNam e: fluoxeti ne Not Available Not Available Not Available fluticaso ne propionat e 50 mcg/actua tion nasal spray,mana pension 11/16 completed Medicati on ID: [id number] D uration Value: 90 Brand Name: fluticas one propiona te Send Method: E-Prescr ibed Sub s Allowed: subs OK Speci al Instruct ion: SHAKE LQ AND U 2 SPRAYS IEN D PRN Medi cationGe nericNam e: fluticas one propiona te Not Available Not Available Not Available cholecalc iferol (vitamin D3) 125 mcg (5,000 unit) capsule TAKE 1 CAPSULE BY MOUTH EVERY DAY WITH FOOD active Not Available Not Available No t Available loratadin e 10 mg tablet 11/16 completed Medicati on ID: [id number] D uration Value: 30 Brand Name: loratadi ne Send Method: E-Prescr ibed Sub s Allowed: subs OK Speci al Instruct ion: TK 1 T PO D Medica tionGene ricName: loratadi ne Not Available Not Available Not Available Daily-Vit e tablet TAKE 1 TABLET BY MOUTH EVERY DAY active Not Available Not Available No t Available Vitamin D3 25 mcg (1,000 unit) capsule 11/16 completed Medicati on ID: [id number] D uration Value: 30 Brand Name: Vitamin D3 Send Method: E-Prescr ibed Sub s Allowed: subs OK Speci al Instruct ion: TK 2 CS PO QD Medic ationGen ericName : Vitamin D3 Not Available Not Available Not Available cyclobenz aprine 5 mg tablet TAKE 1 TABLET BY MOUTH 3 TIMES A DAY NEEDED FOR SEVERE PAIN FOR 14 DAYS 12/27 completed Not Available Not Available Not Available Vesicare 5 mg tablet 03/01 completed Medicati on ID: [id number] D uration Value: 30 Reason: () Brand Name: Vesicare Send Method: E-Prescr ibed Sub s Allowed: subs OK Speci al Instruct ion: TK 1 T PO D Medica tionGene ricName: Vesicare Not Available Not Available Not Available Vesicare 10 mg tablet 03/01 completed Medicati on ID: [id number] D uration Value: 30 Reason: () Brand Name: Vesicare Send Method: E-Prescr ibed Sub s Allowed: subs OK Speci al Instruct ion: TK 1 T PO D Medica tionGene ricName: Vesicare Not Available Not Available Not Available ProAir HFA 90 mcg/actua tion aerosol inhaler 2016 active Medicati on ID: [id number] D uration Value: 16 Brand Name: ProAir HFA Send Method: E-Prescr ibed Sub s Allowed: subs OK Speci al Instruct ion: INL 2 PUFFS PO Q 4 H PRF COUGH OR WHEEZING Medicat ionGener icName: ProAir HFA Medi cation ID: [id number] D uration Value: 16 Brand Name: ProAir HFA Send Method: E-Prescr ibed Sub s Allowed: subs OK Speci al Instruct ion: INL 2 PUFFS PO Q 4 H PRF COUGH OR WHEEZING Medicat ionGener icName: ProAir HFA Not Available Not Available Not Available quetiapin e 400 mg tablet 03/01 completed Medicati on ID: [id number] D uration Value: 30 Reason: () Brand Name: quetiapi ne Send Method: E-Prescr ibed Sub s Allowed: subs OK Speci al Instruct ion: TK 1 T PO Q NIGHT Me dication GenericN anay: quetiapi ne Not Available Not Available Not Available ProAir HFA 11/16 completed Medicati on ID: [id number] D uration Value: 16 Brand Name: Rivera HFA Send Method: E-Prescr ibed Sub s Allowed: subs OK Speci al Instruct ion: INL 2 PUFFS PO Q 4 H PRF COUGH OR WHEEZING Medicat ionGener icName: ProAir HFA Not Available Not Available Not Available trospium ER 60 mg capsule,e xtended release 24 hr TAKE 1 CAPSULE BY MOUTH EVERY DAY active Not Available Not Available No t Available Myrbetriq 50 mg tablet,ex tended release TAKE 1 TABLET BY MOUTH EVERY DAY active Not Available Not Available No t Available Digestive Advantage Probiotic 2 billion cell-140 mg capsule TAKE 1 CAPSULE BY MOUTH EVERY DAY active Not Available Not Available No t Available Gemtesa 75 mg tablet TAKE 1 TABLET (75 MG) BY MOUTH ONCE PER DAY. active Not Available Not Available No t Available Vitals Date Recorded Body height Body mass index (BMI) Body weight Provider Name and Address Organization Details Last Updated DateTime 12/27/2024 157.48 cm 24.5 kg/m2 02071.38 g Bridget Tinoco [place] - [facility] 12/27/2024 14:17:39 Social History None recorded. Functional Status None recorded. Mental Status None recorded. Family History Nothing Reported. Medical History No medical history recorded. Gynecological HistoryNo gynecological history recorded. Obstetrics History GPAL:G 0 P 0 0 0 0 Past Encounters Encounter ID Performer Location Encounter Start Date Encounter Closed Date Diagnosis/Indication Diagnosis SNOMED-CT Code Diagnosis ICD10 Code Diagnosis Note [id number] PETE LARA PA-C [facility] [address] [address] 12/27/2024 13:37:11 12/27/2024 15:46:54 Sensorineural hearing loss 48925091 H90.42 Audiologic al evaluation results: Right ear: Normal hearing with excellent word recognitio n. Left ear: Normal hearing with the exception of a moderate SNHL at 8000Hz with excellent word recognitio n. Tympanomet ry: Right Ear:Type A Left Ear:Type As Bilateral tinnitus 25515 98647 102 H93.13 Health Concerns Section Related Observation LastModified by Organization Detai ls LastModified Time None Recorded Concern Status LastModified by Organization Details LastModified Time None Recorded Advance Directives Directive None Recorded Payers Insurance Date Sequence Insurance Name Policy Number Policy Sarabia Covered Member ID Sarabia Member ID Guarantor Name 12/27/2024 1 [facility] (MEDICARE REPLACEMENT/A DVANTAGE - HMO) [employer] Chris Dygon [id number] Chris Dygon 12/27/2024 1 [facility] (MEDICARE REPLACEMENT/A DVANTAGE - POS) [employer]AM[employer] Chris Dygon [id number] Chris Dygon OBGyn Episode No OBEpisode recorded.
--- OUTSIDE RECORDS SUMMARY | 2025-02-21 10:19 | XMS_ITS | Clinical Summary ---
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 Name Role Phone Rey Galvan MD Primary Care Provider [phone] Allergies Active Allergy Reactions Criticality Noted Date [...] 92 07/18/2021 2:58 PM EST Temperature 36.8 C (98.3 F) 07/18/2021 2:58 PM EST Respiratory Rate - - Oxygen Saturation 98% [...] Cancer Screening (Mammogram) 11/09/2017 Influenza Vaccine (#1) 2025 DTap / Tdap / Td (2 - Td or Tdap) 02/27/2026 02/28/2016 Pneumococcal Vaccine Aged Out 02/28/2016 No long er eligible based on patient's age to complete this topic Shingrix-Zoster Vaccine Completed 04/14/20 18, 02/13/2018 RSV Ped < 20 months Aged Out No longe r eligible based on patient's age to complete this topic Care Teams Reinforcing Steel Machine Operator Relationship Specialty Start Date End Date Rey Galvan MD PCP - General Internal Medicine 06/04/21
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
== END 2025-02-21 09:30 | disposition home or self-care (01) ==
LOC: HO.HHCX 09:29
PROVIDERS: PCP Family Medicine; Visit Provider Family Medicine
DX: M25.511 Pain in right shoulder (principal); R05.3 Chronic cough; G89.29 Other chronic pain
CPT/HCPCS: 71046; 73030

== ENCOUNTER → 2025-02-21 09:35 | Outpatient (BNV) | payer MEDICARE, SELFPAY | PROVIDERS: PCP Family Medicine; Visit Provider Radiology Diagnostic Radiology | DX: R05.3 Chronic cough (principal); M75.31 Calcific tendinitis of right shoulder | CPT/HCPCS: 71046; 73030 ==

== ENCOUNTER 2025-04-19 13:16 | Outpatient (AMB) | payer MEDICARE, SELFPAY ==
--- NOTE | 2025-04-19 13:20 | MHC.OFFVIS ---
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 The patient states that her symptoms began approximately 2 years ago after she underwent cervical spine surgery in [place]. She has failed the last 6 weeks of conservative treatment which has included Tylenol, anti-inflammatory medicines, a home exercise program and physical therapy exercises. The patient states that she is due to have an nerve conduction study of her right upper extremity in the near future. She has not had an MRI of her right shoulder. She reports weakness when lifting her right hand above shoulder height. Know: No HX: Yes Allergies pineapple (Pineapple) Allergy (Intermediate, Verified 04/19/25 13:25) THROAT ITCHES latex (Latex) Allergy (Mild, Verified 04/19/25 13:25) Rash, Hives diphenhydramine (From BENADRYL) Allergy (Unknown, Verified 04/19/25 13:25) UNKNOWN ayanna Allergy (Unknown, Verified 04/19/25 13:25) HIVES ayanna flavor Allergy (Unknown, Verified 04/19/25 13:25) Itching shellfish derived Allergy (Unknown, Verified 04/19/25 13:25) Rash, throat itches Medication List - Last Reconciled 04/19/25 by Michael Huang MD amoxicillin-pot clavulanate 875-125 mg (Augmentin) 1 tab PO BID cyclobenzaprine 10 mg PO TID PRN dexamethasone 4 mg PO; 1 p.o. t.i.d. x3 days, 1 p.o. b.i.d. x3 days, 1 p.o. daily x3 days doxycycline hyclate 100 mg PO BID fluconazole 150 mg PO Q OTHER DAY 3 days hydrocodone-acetaminophen 5-325 mg 1 tab PO Q6H PRN lidocaine 4% 1 patch topical DAILY PRN PFSH Medical History Asthma Cervical radiculopathy DVT (deep venous thrombosis) Early satiety Social History (Updated 04/19/21 @ 07:40 by Dulce Montaño DO) Patient Tobacco Use Status: Never used Tobacco Physical Exam Const Other: Well-nourished well-developed very friendly female awake alert and oriented x3 in no acute distress Extrem Other: Right shoulder examination shows slightly decreased range of motion when compared to her left shoulder, 4+ out of 5 strength with supraspinatus testing, positive impingement signs, tenderness over her acromioclavicular joint, no instability Results Reviewed Results Reviewed: X-rays of the patient's right shoulder show severe acromioclavicular joint narrowing, a type 2 acromion, no acute bony abnormalities Assessment & Plan Assessment & Plan (1) Rotator cuff insufficiency of right shoulder: Code(s): M25.311 - Other instability, right shoulder Category: Medical Plan Ms. Garnett presents with right shoulder pain and weakness due to impingement syndrome and possible rotator cuff tearing. Thus, I will send the patient for an MRI of her right shoulder for further evaluation. I will see her back once the MRI is completed to discuss the findings and treatment options. Feel free to call me at any time should questions regarding her orthopedic management arise. Thank you very much for asking me to see this very friendly patient. I spent 21 minutes in reviewing the patient's records and imaging studies, seeing the patient and documenting in the medical record. Orders: Orders MR shoulder RT wo con 04/20/25 M25.311 - Other instability, right shoulder Coding Level of Care Code New Pt Level 3 (43725) Complex EM visit Add On G2211 Diagnoses Rotator cuff insufficiency of right shoulder M25.311
[2025-04-19 13:25] VITALS: BMI 23.8
--- OUTSIDE RECORDS SUMMARY | 2025-04-19 16:19 | XMS_ITS | Clinical Summary ---
Author Organization [facility] Address [address] [place] [address] Care Team Providers Care Stationary Boiler Fireman Name Role Phone Rey Galvan MD Primary Care Provider [phone] Allergies Active Allergy Reactions Criticality Noted Date [...] age to complete this topic Care Teams Stationary Boiler Fireman Relationship Specialty Start Date End Date Rey Galvan MD PCP - General Internal Medicine 06/04/21
--- OUTSIDE RECORDS SUMMARY | 2025-04-19 16:19 | XMS_ITS | Encounter Summary ---
Author Organization Address [address] [place] [address] Care Team Providers Care Supervisor Concrete Pipe Plant Name Role Phone Marisol Pablo MD Primary Care Prov ider Encounter Details Date Type Department Care Team (Late Contact Info) Description 03/14/2025 Lab Requisition [facility] - Main Lab [address] [facility] [place] [address] Patrick Basilio MD [address] [facility] [address] [place] [phone] Urinary tract infection, site not specified Social History Tobacco Use Types Packs/Day Years [...] on file Sexual Orientation Not on file documented as of this encounter Plan of Treatment Upcoming Encounters Date Type Department Care Team (Late st Contact Info) Description 05/13/2025 9:00 AM EDT Ancillary Procedure [facility] - [address] [place] [phone] 12/20/2025 4:00 PM EDT Appointment Radiology Department - [address] [address] documented as of this encounter Procedures Procedure Name Priority Date/Time Associated Diagnosis Comments URINALYSIS WITH REFLEX MICROSCOPIC Routine 03/14/2025 1:42 PM EDT Urinary tract infection, site not specified URINALYSIS WITH REFLEX MICROSCOPIC Routine 03/14/2025 1:42 PM EDT Urinary tract infection, site not specified CULTURE URINE Routine 03/14/2025 1:42 PM EDT Urinary tract infection, site not specified documented in this encounter Results * Urinalysis with reflex microscopic (03/14/2025 1:42 PM EDT) Specific [place] Urine 1.029 1.003 - 1.030 LAB URINALYSIS - AUTOMATED METHOD 03/14/2025 6:26 PM [facility] pH, Urine 5.5 5.0 - 8.0 pH LAB URINALYSIS - AUTOMATED METHOD 03/14/2025 6:26 PM [facility] Leukocytes, Urine Negative Negative LAB URINALYSIS - AUTOMATED METHOD 03/14/2025 6:26 PM [facility] Nitrite, Urine Negative Negative LAB URINALYSIS - AUTOMATED METHOD 03/14/2025 6:26 PM [facility] Protein, Urine Negative <=Trace mg/dL LAB URINALYSIS - AUTOMATED METHOD 03/14/2025 6:26 PM [facility] Glucose, Urine Negative Negative mg/dL LAB URINALYSIS - AUTOMATED METHOD 03/14/2025 6:26 PM [facility] Ketones, Urine Negative Negative mg/dL LAB URINALYSIS - AUTOMATED METHOD 03/14/2025 6:26 PM [facility] Urobilinogen, Urine 1.0 0.2 - 1.0 mg/dL LAB URINALYSIS - AUTOMATED METHOD 03/14/2025 6:26 PM [facility] Bilirubin, Urine Negative Negative LAB URINALYSIS - AUTOMATED METHOD 03/14/2025 6:26 PM [facility] Blood, Urine Negative Negative LAB URINALYSIS - AUTOMATED METHOD 03/14/2025 6:26 PM EDT [facility] Urine Urine specimen from urethra / Unknown 03/14/2025 1:42 PM EDT 03/14/2025 6:02 PM EDT Patrick Basilio MD LAB URINE ORDERABLES Sybil l Result Performing Organization Address [facility] Co de Phone Number [facility] [address] [place] [address], [place] [phone] * Culture urine (03/14/2025 1:42 PM EDT) Culture, Urine 10,000-49,000 CFU/mL Mixed urogenital marilynn, no uropathogens present. Suggest repeat specimen if clinically indicated. 03/15/2025 1:14 PM EDT [facility] Urine Urine specimen from urethra / Unknown 03/14/2025 1:42 PM EDT 03/14/2025 6:02 PM EDT Patrick Basilio MD LAB MICROBIOLOGY - GENERA L ORDERABLES Final Result Performing Organization Address [facility] Co de Phone Number [facility] [address] [place] [address], [place] [phone] documented in this encounter Visit Diagnoses Diagnosis Urinary tract infection, site not specified documented in this encounter Care Teams Supervisor Concrete Pipe Plant Relationship Specialty Start Date End Date Marisol Pablo MD [address] [place] [phone] PCP - General Internal Medicine 05/06/22 documented as of this encounter
--- OUTSIDE RECORDS SUMMARY | 2025-04-19 16:19 | XMS_ITS | Encounter Summary ---
Author Organization [employer] Address [address] [facility] 7t [place] [address] Care Team Providers Care Tender Coordinator Name Role Phone Harsha Wang MD Primary Care Prov ider Nikolas Frost MD Primary Care Provider [phone]- [phone] Reason for Referral * Consultation (Routine) - Closed Specialty Diagnoses / Procedures Referred By Contac t Referred To Contact Rheumatology Diagnoses SLE (systemic lupus erythematosus related syndrome) (CMS/HCC) Nikolas Frost MD [address] [place] [address] Phone: tel: fax: [facility] [address] [facility] 1st Floor [place], [place] Phone: tel: fax: Referral ID Status Reason Start Date Expiration Date V isits Requested Visits Authorized [id number] Closed Specialty Services Required 12/03/2024 12/03/2025 1 1 Encounter Details Date Type Department Care Team ([facility] st Contact Info) Description 12/03/2024 Orders Only [facility] [address] [place], [place] [phone] Nikolas Frost MD [address] [place], [place] [phone] SLE (systemic lupus erythematosus related syndrome) (CMS/HCC) [...] as of this encounter Plan of Treatment Scheduled Referrals Name Type Priority Associated Diagnoses Orde r Schedule Referral to Rheumatology Outpatient Referral Routine SLE (systemic lupus erythematosus related syndrome) ([facility]) Expected: 12/03/2024 (Approximate), Expires: 12/03/2025 documented as of this encounter Visit Diagnoses Diagnosis SLE (systemic lupus erythematosus related syndrome) ([facility])- Primary Systemic lupus erythematosus documented in this encounter Additional Health Concerns Assessment Noted Time PHQ-9 Depression Total Score: 0 11/06/19 9:58 AM EDT documented as of this encounter Care Teams Tender Coordinator Relationship Specialty Start Date End Date Harsha Wang MD [address] [place] [address] PCP - General Internal Medicine 11/11/24 04/10/25 Nikolas Frost MD [address] [place] [address] PCP - General Internal Medicine 04/11/25 documented as of this encounter
--- OUTSIDE RECORDS SUMMARY | 2025-04-19 16:19 | XMS_ITS | Encounter Summary ---
Author Organization [facility] Address [address] [place] [address] Care Team Providers Care Carpenter Helper Hardwood Flooring Name Role Phone Marisol Pablo MD Primary Care Prov ider Encounter Details Date Type Department Care Team (Late Contact Info) Description 03/17/2025 Lab Requisition [facility] - Main Lab [address] [facility] [place] [phone] Soto Reddy, JOANNE [address] [place] [phone] Urge incontinence Social History Tobacco Use Types Packs/Day Years [...] Description 05/13/2025 9:00 AM EDT Ancillary Procedure [facility] - [address] [place] [phone] 12/20/2025 4:00 PM EDT Appointment Radiology Department - [address] [address] documented as of this encounter Procedures Procedure Name Priority Date/Time Associated Diagnosis Comments CULTURE URINE Routine 03/17/2025 12:00 AM EDT Urge incontinence documented in this encounter Results * Culture urine (03/17/2025 12:00 AM EDT) Culture, Urine 10,000-49,000 CFU/mL Mixed urogenital marilynn, no uropathogens present. Suggest repeat specimen if clinically indicated. 03/18/2025 1:24 PM EDT [facility] Urine Urine specimen obtained by clean catch procedure / Unknown 03/17/2025 03/17/2025 6:09 PM EDT us Soto R Barry RUBIO LAB MICROBIOLOGY - GENERAL ORD ERABLES Final Result [facility] [address] [place] [address], documented in this encounter Visit Diagnoses Diagnosis Urge incontinence documented in this encounter Care Teams Carpenter Helper [employer]wood Flooring Relationship Specialty Start Date End Date Marisol Pablo MD [address] [place] [address] PCP - General Internal Medicine 05/06/22 documented as of this encounter
--- OUTSIDE RECORDS SUMMARY | 2025-04-19 16:19 | XMS_ITS | Encounter Summary ---
Author Organization [employer] Address [address] [facility] 7t [place] [address] Care Team Providers Care Ocean Forwarder Name Role Phone Harsha Wang MD Primary Care Prov ider Nikolas Frost MD Primary Care Provider [phone]- [phone] Reason for Visit * Reason Onset Date Comments Results 12/23/2024 Encounter Details Date Type Department Care Team (Late st Contact Info) Description 12/23/2024 Telephone [facility] [address] [place] [address] Harsha Wang MD [address] [place] [address] Results Social History Tobacco Use Types Packs/Day Years [...] encounter Miscellaneous Notes * Telephone Encounter - Ray Sundeep - 12/23/2024 10:04 AM EDT Jose from [facility] with [facility] calling in regards to MR Brain results. She was informed pt is unable to receive results until February. Emmy is requesting a call back with results to clearher for TMS and or to deny if pcp feels necessary. Please contact Emmy at [phone]. documented in this encounter Plan of Treatment Not on file documented as of this encounter Visit Diagnoses Not on filedocumented in this encounter Additional Health Concerns Assessment Noted Time PHQ-9 Depression Total Score: 0 11/06/19 9:58 AM EDT documented as of this encounter Care Teams Ocean Forwarder Relationship Specialty Start Date End Date Harsha Wang MD [address] [place] [address] PCP - General Internal Medicine 11/11/24 04/10/25 Nikolas Frost MD [address] [place] [address] PCP - General Internal Medicine 04/11/25 documented as of this encounter
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
--- OUTSIDE RECORDS SUMMARY | 2025-04-19 16:19 | XMS_ITS | Encounter Summary ---
Author Organization [employer] Address [address] [place] [address] 7t [place] [address] Care Team Providers Care R D Manager Name Role Phone Harsha Wang MD Primary Care Prov ider Nikolas Frost MD Primary Care Provider [phone] Encounter Details Date Type Department Care Team ([facility] Contact Info) Description 02/10/2025 Orders Only [facility] [address] [place] [address] Provider, Julianne, Social History Tobacco Use Types Packs/Day Years [...] as of this encounter Plan of Treatment Not on file documented as of this encounter Procedures Procedure Name Priority Date/Time Associated Diagnosis Comments HM MAMMOGRAPHY Routine 12/17/2024 4:03 PM EDT documented in this encounter Results * Hm Mammography (12/17/2024 4:03 PM EDT) Anatomical Region Laterality Modality Other Historical Provider HEALTH MAINTENANCE Final Result documented in this encounter Visit Diagnoses Not on filedocumented in this encounter Additional Health Concerns Assessment Noted Time PHQ-9 Depression Total Score: 0 11/06/19 9:58 AM EDT documented as of this encounter Care Teams R D Manager Relationship Specialty Start Date End Date Harsha Wang MD [address] [place] [address] PCP - General Internal Medicine 11/11/24 04/10/25 Nikolas Frost MD [address] [place] [address] PCP - General Internal Medicine 04/11/25 documented as of this encounter
--- OUTSIDE RECORDS SUMMARY | 2025-04-19 16:19 | XMS_ITS | Encounter Summary ---
Author Organization [employer] Address [address] [facility] 7 [place] [address] Care Team Providers Care Group Home Manager Name Role Phone Harsha Wang MD Primary Care Prov ider Nikolas Frost MD Primary Care Provider [phone] Reason for Visit * Reason Comments Med Refill Encounter Details Date Type Department Care Team ([facility] Contact Info) Description 02/21/[address] [facility] [address] [place], [place] [id number] Harsha Wang MD [address] [place] [address] Social History Tobacco Use Types Packs/Day Years Used Date Smoking Tobacco: Never Smokeless Tobacco: Never Alcohol Use Standard Drinks/Week Comments Never 0 (1 standard drink = 0.6 oz pur e alcohol) Depression Answer Date Recorded Patient Health Questionnaire-9 Score 0 11/05/2024 Patient Health Questionnaire-9 Score 0 11/05/2024 Last PHQ-9: Questionnaire Data Not on file 0 11/05/2024 Housing Stability Answer Date Recorded What is your housing situation today? I do not have housing (Staying with others, in a hotel, in a detention, living outside on the street, on a beach, in a car, or in a park 02/21/[address] you li ve. Do you have problems with any of the following? None of the above 02/21/2025 Food Insecurity Answer Date Recorded Within the past 12 months, y ou worried that your food would run out before you got money to buy more: Sometimes True 2024 Within the past 12 months,th e food you bought just didn't last and you didn't have enough money to get more: Sometimes True 02/21/2025 Transportation Answer Date Recorded In the past 12 months, has l ack of transportation kept you from medical appts, meetings, work or from getting things needed for daily living? No 02/21/2025 Utilities Answer Date Recorded In the past 12 months, has t he electric, gas, oil or water company threatened to shut off services in your home? No 02/21/2025 Depression Answer Date Recorded Patient Health Questionnaire-2 Score 0 11/05/2024 Internet Access Answer Date Recorded Internet Access Q1 Yes 02/21/2025 Internet Access Q2 Not on file 02/21/2025 Comments Unknown Sex and Gender Information Value [...] documented as of this encounter Care Teams Group Home Manager Relationship Specialty Start Date End Date Harsha Wang MD [address] [place] [address] PCP - General Internal Medicine 11/11/24 04/10/25 Nikolas Frost MD [address] [place] [address] PCP - General Internal Medicine 04/11/25 documented as of this encounter
--- OUTSIDE RECORDS SUMMARY | 2025-04-19 16:19 | XMS_ITS | Encounter Summary ---
Author Organization [employer] Address [address] [place] [address] 7t [place] [address] Care Team Providers Care Executive Director Sheltered Workshop Name Role Phone Harsha Wang MD Primary Care Prov ider Nikolas Frost MD Primary Care Provider [phone] Encounter Details Date Type Department Care Team (Late Contact Info) Description 01/24/2025 Orders Only [facility] [address] [place] [address] Provider, MD Julianne Social History Tobacco Use Types Packs/Day Years [...] Name Priority Date/Time Associated Diagnosis Comments MR CERVICAL SPINE WO CONTRAST Routine 08/21/2022 4:02 PM EST MR SHOULDER WO CONTRAST RIGHT Routine 08/21/2022 3:59 PM EST MR CERVICAL SPINE WO CONTRAST Routine 08/21/2022 11:52 AM EST documented in this encounter Results * MR Cervical Spine w/o Contrast (08/21/2022 4:02 PM EST) Anatomical Region Laterality Modality Spine, C-spine Magnetic Resonan ce us Historical Provider MD DIXON MRI PROCEDURES Final Result * MR Shoulder w/o Contrast Right (08/21/2022 3:59 PM EST) Anatomical Region Laterality Modality Upper Extremities, Shoulder Right Magn etic Resonance us Historical Provider MD [facility]ON MRI PROCEDURES Final Result * MR Cervical Spine w/o Contrast (08/21/2022 11:52 AM EST) Anatomical Region Laterality Modality Spine, C-spine Magnetic Resonan ce Historical Provider MD [facility]ON MRI PROCEDURES Final Result documented in this encounter Visit Diagnoses Not on filedocumented in this encounter Additional Health Concerns Assessment Noted Time PHQ-9 Depression Total Score: 0 11/06/19 9:58 AM EDT documented as of this encounter Care Teams Executive Director Sheltered Workshop Relationship Specialty Start Date End Date Harsha Wang MD [address] [place] [address] PCP - General Internal Medicine 11/11/24 04/10/25 Nikolas Frost MD [address] [place] [address] PCP - General Internal Medicine 04/11/25 documented as of this encounter
--- OUTSIDE RECORDS SUMMARY | 2025-04-19 16:19 | XMS_ITS | Clinical Summary ---
Author Organization [employer] Address [address] [facility] 7t [place] [address] Care Team Providers Care Photo Lab Manager Name Role Phone Nikolas Frost MD Primary Care Provider Allergies Active Allergy Reactions Criticality Noted Date Comments Latex Rash Low 11/05/2024 Shellfish Allergy 11/05/2024 Medications albuterol 108 (90 Base) MCG/ACT inhaler Inhale 1 puff every 6 (six) hours if needed for shortness of breath or wheezing. 3 Active calcium citrate 315 mg + D2 6.25 mcg tablet Take 2 tablets by mouth 2 times daily. Active cyclobenzaprine (Flexeril) 10 MG tablet Take 10 mg by mouth if needed in the morning, at noon, and at bedtime for muscle spasms. 4 Active cyclobenzaprine (Flexeril) 5 MG tablet Take 5 mg by mouth at bedtime. Active Fluticasone Propionate, Inhal, (Flovent Diskus) 50 MCG/ACT aerosol powder Inhale 1 Act 2 times daily. 3 Active pilocarpine (Salagen) 5 MG tablet Take 1 tablet by mouth 2 times daily. Active mirabegron ER (Myrbetriq) 50 MG 24 hr tablet Take 1 tablet (50 mg) by mouth Once per day. 90 tablet 3 5 11/06/19 26 Active Vibegron (Gemtesa) 75 MG tablet Take 1 tablet (75 mg) by mouth Once per day. 90 tablet 3 5 11/06/19 26 Active ibuprofen 400 MG tabletIndication s:Mild pain Take 1 tablet (400 mg) by mouth every 4 (four) hours if needed for mild pain or moderate pain. 60 tablet 3 5 Active lidocaine (Lidoderm) 5 % patchIndications :Chest wall pain Apply 1 patch topically Once per day. Remove & discard patch within 12 hours or as directed by MD. 30 patch 2 5 Active guaiFENesin-dext romethorphan (Robitussin DM) 100-10 MG/5ML syrupIndications :Cough, unspecified type Take 5ml po at bedtime prn cough 118 mL 5 Active Azelastine HCl 137 MCG/SPRAY solution SPRAY 1 SPRAY INTO THE AFFECTED NOSTRIL(S) ONCE A DAY 30 mL 5 Active cetirizine (ZyrTEC) 10 MG tablet Take 1 tablet (10 mg) by mouth Once per day. 90 tablet 3 5 Active Multiple Vitamin (multivitamin) tablet TAKE 1 TABLET BY MOUTH EVERY DAY 90 tablet 3 5 Active montelukast (Singulair) 10 MG tablet TAKE 1 TABLET BY MOUTH EVERY DAY 90 tablet 3 5 Active cholecalciferol (Vitamin D-3) 125 MCG (5000 UT) capsule Take 1 capsule (125 mcg) by mouth Once per day. 90 capsule 3 5 03/18/20 26 Active omeprazole (PriLOSEC) [address] capsule TAKE 1 CAPSULE BY MOUTH EVERY DAY 90 capsule 3 5 Active Ketotifen Fumarate 0.035 % solution Administer 1 drop into affected eye(s) 2 times daily. 10 mL 3 5 Active Active Problems Problem Noted Date Diagnosed Date Chronic cough 03/31/2025 Assessment & Plan (03/31/2025 10:31 AM EDT): Patient complains of a chronic dry cough, denied currently having shortness of breath, will order pft for evaluation Heart murmur 03/31/2025 Assessment & Plan (03/31/2025 10:32 AM EDT): Will order a echocardiogram, denied chest pain, Abdominal panniculus 03/31/2025 Assessment & Plan (03/31/2025 10:32 AM EDT): Will refer to plastic surgery for evaluation Sjogren's syndrome with keratoconjunctivitis sic ca 11/05/2024 [...] 10:39 AM EDT): Patient wants to see blueprinting and photocopy supervisor, she is on multiple medications without improvement in symptoms Flexural eczema 11/05/2024 Assessment & Plan (11/05/2024 10:40 AM EDT): Hx of eczema, wants to see a hr shared services consultant, will place referral 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 11/05/2024 Assessment & Plan (11/05/2024 10:41 AM EDT): With left side imbalance, saw a ENT that recommended MRI, but since she changed insurance process was not completed Mixed stress and urge urinary incontinence 11/05 Assessment & Plan (11/05/2024 10:43 AM EDT): Will refer to urology, Resolved Problems Problem Noted Date Diagnosed Date Resolved Date [facility] 11/05/2024 02/19/2025 Assessment & Plan (11/05/2024 10:25 AM EDT): Last pcp visit 1 year ER: pneumonia/sepsis October 2023 Hospitalization: October 2023 PMHX: sjrogren, SLE( followed at [facility]), asthma, bipolar disorder, RA, GERD PSHX: cervical neck surgery 2021, breast reduction 2012, LIP 2004, bowel obstruction 2017 All: Latex, Crustacean, Fruits Meds: aztelacin, cetirizine, multivitamin, ibuprofen 400mg PRN, cyclobenzaprine 5mg/10mg, montelukast, myrbectic, omeprazole, pilocarpine, vitamin d3, A0 LMP 10/2023 Screening for colon cancer 11/05/2024 0 02/19/2025 Assessment & Plan (11/05/2024 10:41 AM EDT): Colonoscopy done on 2018, no polyps were resected as per patient Encounter for screening mamm ogram for malignant neoplasm of breast 11/05/2024 02/19/2025 Assessment & Plan (11/05/2024 10:42 AM EDT): Will place order for mammogram Screening for cervical cancer 11/05/2024 02/19/2025 Assessment & Plan (11/05/2024 10:43 AM EDT): Done on 2023, refers study was normal to be repeated in 5 years Encounters Date Type Department Care Team Description 04/08/2025 Telephone [facility] [address] [place] [address] Harsha Wang MD Chart Prep 04/04/2025 Patient Outreach [facility] [address] [place] [address] Harsha Wang MD Pre-visit Planning (Pre visit planning unable to LVM ) 03/18/2025 Orders Only [facility] [address] [place] [address] Harsha Wang MD 02/28/2025 1:45 PM EDT Office Visit [facility] [address] [place] [address] Harsha Wang MD Chronic cough (Primary Dx); Heart murmur; Abdominal panniculus 02/28/2025 Travel 02/21/2025 Patient Outreach [facility] [address] [place] [address] Harsha Wang MD Care Coordination (CHW outreach for SDOH housing search-referral completed ) 02/21/2025 Patient Outreach [facility] [address] [place] [address] Harsha Wang MD Pre-visit Planning (SDOH screening positive and Tobacco screening negative) 02/21/2025 Results Follow-Up [facility] [address] [place] [address] Carline Fregoso MD XR Shoulder 2+ Views Right 02/21/2025 Refill [facility] [address] [place] [address] Harsha Wang MD 02/19/2025 9:00 AM EDT Office Visit [facility] [address] [place] [address] Carline Fregoso MD Cough, unspecified type (Primary Dx); Chronic right shoulder pain; Costochondritis 02/19/2025 Travel 02/18/2025 Telephone [facility] [address] [place] [address] Harsha Wang MD Change PCP 02/11/2025 Telephone [facility] [address] [place] [address] Harsha Wang MD LAB inccomplete? 02/11/2025 Refill [facility] [address] [place] [address] Harsha Wang MD 02/10/2025 Orders Only [facility] [address] [place] [address] Julianne Oconnell MD 02/02/2025 Telephone [facility] [address] [place] [address] Harsha Wang MD Referral 01/24/2025 Orders Only [facility] [address] [place] [address] Julianne Oconnell MD 01/24/2025 Telephone [facility] [address] [place] [address] Harsha Wang MD Referral from Last 3 Months Immunizations Immunization Administration Dates Next Due Hep B, adult 11/05/2005,07/02/2005,05/31/2005 MMR 11/11/2018 Pneumococcal Conjugate PCV 13 02/28/2016 TD (adult), 2 Lf tetanus tox oid, preservative free, adsorbed 02/13/2010 Tdap 02/28/2016 Zoster, Recombinant 04/14/2018,02/13/2018 Family History Medical History Relation Name Comments [...] with others, in a hotel, in a long-term, living outside on the street, on a [...] Sign Reading Time Taken Comments Blood Pressure 114/68 02/28/2025 1:50 PM EDT Pulse 68 02/28/2025 1:50 PM EDT Temperature 37.1 C (98.7 F) 02/28/2025 1:50 PM EDT Respiratory Rate 16 02/28/2025 1:50 PM EDT Oxygen Saturation 98% 02/19/2025 8:57 AM EDT Inhaled Oxygen Concentration - - Weight 63 kg (139 lb) 02/28/2025 1:50 PM EDT Height 157.5 cm (5' 2 ) 02/28/2025 1:50 PM EDT Body Mass Index 25.42 02/28/2025 1:50 PM EDT Plan of Treatment Health Maintenance Due Date Last Done Comments CT Colonography 1967 Colonoscopy 1967 Colorectal Cancer Screening 1967 FIT DNA/Cologuard 1967 FIT 1967 FOBT 1967 HIV Screening 1967 Lipid Panel 1967 Sigmoidoscopy 1967 Disability Screening 1967 Alcohol/Substance Use Screening 1979 Hepatitis C Screening 11/09/1985 Pap Smear 11/09/1988 Cervical Cancer Screening 11/09/1997 HPV/Cotest 11/09/1997 Pneumococcal Vaccine: 50+ Years (2 of 2 - PPSV23) 04/24/2016 02/28/2016 COVID-19 Vaccine ( - 2024-2 6 season) 2025 05/08/2021, 04/10/2021 Influenza Vaccine (#1) 2025 Depression Screening 11/05/2025 11/05/2024, 11/05/2024 Mammogram 12/17/2025 12/17/2024, 12/17/2024, 12/17/2024 Tobacco Screening 02/19/2026 02/19/2025 SDOH Screening 02/21/2026 02/21/2025 DTaP/Tdap/Td Vaccines (2 - T d or [...] Procedure Name Priority Date/Time Associated Diagnosis Comments AMB REFERRAL TO ORTHOPAEDIC SURGERY Routine 04/01/2025 Chronic right shoulder pain PULMONARY FUNCTION TESTING Routine 03/17/2025 Chronic cough XR SHOULDER 2+ VIEWS RIGHT Routine 02/21/2025 9:01 AM EDT Chronic right shoulder pain XR CHEST 2 VIEWS Routine 02/21/2025 8:58 AM EDT Cough, unspecified type HM MAMMOGRAPHY Routine 12/17/2024 4:03 PM EDT from Last 3 Months or Most Recently Relevant to Health Maintenance Results * Referral to Orthopaedic Surgery (04/01/2025) Carline Fregoso MD OUTPATIENT REFERRAL ORDERA BLES Final Result * Pulmonary Function Test (03/17/2025) Harsha Peaec MD PFT ORDERABLES Fi nal Result * XR Shoulder 2+ Views Right (02/21/2025 9:01 AM EDT) Anatomical Region Laterality Modality Upper Extremities, Shoulder Right Radi ographic Imaging 02/21/2025 9:01 AM EDT Narrative 02/21/2025 10:01 AM EDT [address] [address] XRay Report Signed Patient: Phoebe Garnett MR#: [id number] : 1965 Acct:[id number] Age/Sex: 59 / F ADM Date: 02/21/25 Loc: HO.HHCX Attending Dr: Carline Fregoso MD Ordering Physician: Carline Fregoso MD Date of Service: 02/21/25 Procedure(s): XR shoulder RT min 2V Accession Number(s): [id number] cc: Carline Fregoso MD EXAMINATION: XR SHOULDER, RIGHT CLINICAL INFORMATION: right shoulder pain COMPARISON: None available. TECHNIQUE: AP external rotation, Grashey, scapular Y, and axillary views of the right shoulder. FINDINGS: Somewhat linear low density calcification is present in the supraspinatus tendon at the footprint likely representing hydroxyapatite deposition. There is subtle elevation of distal clavicle. There is no dislocation. XR/XR shoulder RT min 2V IMPRESSION: Calcific tendinitis involving supraspinatus tendon. 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 Electronically signed by: Abimael Hicks MD 02/21/2025 09:58 AM EDT Dictated By: Abimael Hicks MD Signed By: <Electronically signed by Abimael Hicks MD in OV> 02/21/25 0958 DD/ 09 TD/TT: 02/21/25 0953 Chemical Processing Equipment Repairer: Procedure Note Donotuseinterpreter, Image - 02/21/[address] [address] XRay Report Signed Patient: Noemi GarnettR#: [id number] : 1965Acct:[id number] Age/Sex: 59 / FADM Date: 02/21/25 Loc: DANI Attending Dr: Carline Fregoso MD Ordering Physician: Carline Fregoso MD Date of Service: 02/21/25 Procedure(s): XR shoulder RT min 2V Accession Number(s): [id number] cc: Carline Fregoso MD EXAMINATION: XR SHOULDER, RIGHT CLINICAL INFORMATION: right shoulder pain COMPARISON: None available. TECHNIQUE: AP external rotation, Grashey, scapular Y, and axillary views of the right shoulder. FINDINGS: Somewhat linear low density calcification is present in the supraspinatus tendon at the footprint likely representing hydroxyapatite deposition. There is subtle elevation of distal clavicle. There is no dislocation. XR/XR shoulder RT min 2V IMPRESSION: Calcific tendinitis involving supraspinatus tendon. 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 Electronically signed by: Abimael Hciks MD 02/21/2025 09:58 AM EDT Dictated By: Abimael Hicks MD Signed By: <Electronically signed by Abimael Hicks MD in OV> 02/21/25 0958 DD/ 0901 TD/TT: 02/21/25 0953 Chemical Processing Equipment Repairer: Carline Fregoso MD IMG XR PROCEDURES Final Re sult * XR Chest 2 Views (02/21/2025 8:58 AM EDT) Anatomical Region Laterality Modality Chest Radiographic Jennifer ging 02/21/2025 8:58 AM EDT Narrative 02/21/2025 10:03 AM EDT [address] [address] XRay Report Signed Patient: Phoebe Garnett MR#: [id number] : 1965 Acct:[id number] Age/Sex: 59 / F ADM Date: 02/21/25 Loc: DANI Attending Dr: Carline Fregoso MD Ordering Physician: Carline Fregoso MD Date of Service: 02/21/25 Procedure(s): XR chest 2V Accession Number(s): [id number] cc: Carline Fregoso MD EXAMINATION: XR CHEST CLINICAL INFORMATION: Chronic cough COMPARISON: November 25, 2024 TECHNIQUE: 2 views of the chest were obtained. FINDINGS: No significant abnormality is noted involving the heart, lungs, mediastinum, bony thorax or soft tissues. XR/XR chest 2V IMPRESSION: No acute disease Electronically signed by: Abimael Hicks MD 02/21/2025 10:00 AM EDT RP Dictated By: Abimael Hicks MD Signed By: <Electronically signed by Abimael Hicks MD in OV> 02/21/25 1000 DD/ 0858 TD/TT: 02/21/25 0900 Chemical Processing Equipment Repairer: Procedure Note Donotuseinterpreter, Image - 02/21/[address] [address] XRay Report Signed Patient: Sage Garnett#: [id number] : 1965Acct:[id number] Age/Sex: 59 / FADM Date: 02/21/25 Loc: ANAHIX Attending Dr: Carline Fregoso MD Ordering Physician: Carline Fregoso MD Date of Service: 02/21/25 Procedure(s): XR chest 2V Accession Number(s): [id number] cc: Carline Fregoso MD EXAMINATION: XR CHEST CLINICAL INFORMATION: Chronic cough COMPARISON: November 25, 2024 TECHNIQUE: 2 views of the chest were obtained. FINDINGS: No significant abnormality is noted involving the heart, lungs, mediastinum, bony thorax or soft tissues. XR/XR chest 2V IMPRESSION: No acute disease Electronically signed by: Abimael Hicks MD 02/21/2025 10:00 AM EDT RP Dictated By: Abimael Hicks MD Signed By: <Electronically signed by Abimael Hicks MD in OV> 02/21/25 1000 DD/ 0858 TD/TT: 02/21/25 0900 Chemical Processing Equipment Repairer: Carline Fregoso MD IMG XR PROCEDURES Final Re sult * Hm Mammography (12/17/2024 4:03 PM EDT) Anatomical Region Laterality Modality Other Historical Provider HEALTH MAINTENANCE Final Result from Last 3 Months or Most Recently Relevant to Health Maintenance Insurance [facility] [employer] [place] [id number] Care Teams Photo Lab Manager Relationship Specialty Start Date End Date Nikolas Frost MD [address] [place] [address] [place] [id number] PCP - General Internal Medicine 04/11/25
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
== END 2025-04-19 13:35 | disposition home or self-care (01) ==
LOC: HO.HOS 13:17
PROVIDERS: PCP Family Medicine; Visit Provider Orthopaedic Surgery
DX: M25.311 Other instability, right shoulder (principal)
CPT/HCPCS: 99203; G2211

== ENCOUNTER → 2025-04-19 13:16 | Outpatient (BNVA) | payer MEDICARE, SELFPAY | PROVIDERS: PCP Family Medicine; Visit Provider Orthopaedic Surgery | DX: M25.311 Other instability, right shoulder (principal) | CPT/HCPCS: 99202 ==

== ENCOUNTER 2025-05-11 13:23 | Outpatient (AMB) | payer MEDICARE, SELFPAY ==
--- NOTE | 2025-05-11 13:30 | MHC.OFFVIS ---
Vital Signs 05/11/25 13:34 Height 5 ft 2 in Weight 138 lb 14.259 oz BMI 25.4 BP not taken reason Patient Refused Intake Visit Reasons: Rectal Bleeding Intake Note: Phoebe presents in the office as a new patient for rectal bleeding. CC: States that her hemorrhoids are off and on and states that she is not sure what is causing it. Photoresist Contact Printer Required: No Allergies pineapple (Pineapple) Allergy (Intermediate, Verified 05/11/25 13:35) THROAT ITCHES latex (Latex) Allergy (Mild, Verified 05/11/25 13:35) Rash, Hives diphenhydramine (From BENADRYL) Allergy (Unknown, Verified 05/11/25 13:35) UNKNOWN ayanna Allergy (Unknown, Verified 05/11/25 13:35) HIVES ayanna flavor Allergy (Unknown, Verified 05/11/25 13:35) Itching shellfish derived Allergy (Unknown, Verified 05/11/25 13:35) Rash, throat itches HPI Comments Details: The patient is a 59-year-old female presenting with rectal bleeding. She reports a history of longstanding hemorrhoidal bleeding, initially occurring in 1992, and has occured a few times since then intermittently. The rectal bleeding began a few months ago and has been intermittent. The patient notes the presence of blood on stool and toilet tissue, often associated with bowel movements that are either too hard or due to a sense of constipation. Pain and discomfort sometimes accompany these bowel movements. She reports a history of sigmoid colitis in 2019 when she presented with LLQ pain and LGIB. Follow up colonoscopy done (Dr Luna) was normal. (Likely had self limiting infectious colitis). An EGD was also done at the same time: mild gastritis. Pt has been on PPI since then. Of note - pt also reports being diagnosed with emphysema recently as well as a heart murmur she is awaiting an echo - krystle for next month. --- Pt was informed and consented to the use of ambient scribe for this encounter. --- [facility] Medical History (Updated 05/11/25 @ 15:51 by Carla Hernandez MD) DVT (deep venous thrombosis) Cervical radiculopathy Early satiety Asthma Surgical History (Updated 05/11/25 @ 13:34 by BRADLEY Ware) Hx of colonoscopy History of esophagogastroduodenoscopy (EGD) Family History (Updated 05/11/25 @ 13:35 by BRADLEY Ware) Mother Pancreatic cancer Social History Patient Tobacco Use Status: Never used Tobacco Review of Systems Const All systems reviewed & are unremarkable except as noted in HPI and below Physical Exam Exam Exam: No apparent distress Nonicteric Abdomen soft, nondistended Anorectal Estrella Soares MA present to change control analyst - small ext hemorrhoids, no anal tag or fissure noted. Small internal hemorrhoids on digital exam. Good pelvic descent on bear down. Limited anal sphincter squeeze. Alert and oriented x3, normal gait Vital Signs: BMI result Body Mass Index 25.4 Assessment & Plan Assessment & Plan (1) Bright red rectal bleeding: Code(s): K62.5 - Hemorrhage of anus and rectum Category: Medical (2) Change in bowel habit: Code(s): R19.4 - Change in bowel habit Category: Medical Plan Has fluctuating bowels with intermittent rectal bleeding. Needs diagnostic colo. However this will be krystle after echocardiogram results. Plan: - PEG prep given and instructions reviewed - Handout provided as well - Pt aware that will need to a ride to and from the procedure which she will arrange Orders: Referrals GI Procedure Notification K62.5 - Hemorrhage of anus and rectum Medications: New peg 3350-electrolytes 236-22.74-6.74 -5.86 gram (Golytely) as per split prep instructions, until fecal effluent is clear 240 mL PO Q10M 4,000 mL 0RF colonoscopy Coding Level of Care Code New Pt Level 4 (35735) Complex EM visit Add On G2211 Diagnoses Bright red rectal bleeding K62.5 Change in bowel habit R19.4
[2025-05-11 13:34] VITALS: BMI 25.4
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
--- OUTSIDE RECORDS SUMMARY | 2025-05-11 17:03 | XMS_ITS | Clinical Summary ---
Author Organization [employer] Address [address] [facility] 7t [place] [address] Care Team Providers Care Blankbook Stitching Machine Operator Name Role Phone Nikolas Frost MD Primary [...] she is n pilocarpine SLE (systemic lupus erythema tosus related syndrome) ([facility]) 11/05/2024 Assessment & Plan (11/05/2024 10:36 AM [...] 10:39 AM EDT): Patient wants to see yarn bleaching machine operator, she is on multiple medications without improvement in symptoms Flexural eczema 11/05/2024 Assessment & Plan (11/05/2024 10:40 AM EDT): Hx of eczema, wants to see a visiting housekeeper, will place referral Mixed conductive and sensori [...] Date Resolved Date Encounter for medical examin [facility] to establish care 11/05/2024 02/19/2025 Assessment & Plan (11/05/2024 10:25 AM EDT): Last pcp visit 1 year ER: pneumonia/sepsis October 2023 Hospitalization: October 2023 PMHX: sjrogren, SLE( followed at [facility]), asthma, bipolar disorder, RA, GERD PSHX: cervical [...] Type Department Care Team Description 04/08/2025 Telephone [facility] MED & PEDS [address] [place] [address] Harsha Wang MD Chart Prep 04/04/2025 Patient Outreach [facility] MEDICINE [address] [place], [place] [phone] Harsha Wang MD Pre-visit Planning (Pre visit planning unable to LVM ) 03/18/2025 Orders Only [facility] MED & PEDS [address] [place] [address] Harsha Wang MD 02/28/2025 1:45 PM EDT Office Visit [facility] [address] [place] [address] Harsha Wang MD Chronic cough (Primary Dx); Heart murmur; Abdominal panniculus 02/28/2025 Travel 02/21/2025 Patient Outreach [facility] MEDICINE [address] [place] [address] Harsha Wang MD Care Coordination (CHW outreach for SDOH housing search-referral completed ) 02/21/2025 Patient Outreach [facility] MEDICINE [address] [place] [address] Harsha Wang MD Pre-visit Planning (SDOH screening positive and Tobacco screening negative) 02/21/2025 Results Follow-Up [facility] MEDICINE [address] [place] [address] Carline Fregoso MD XR Shoulder 2+ Views Right 02/21/2025 Refill [facility] MED & PEDS [address] [place], [place] [phone] Harsha Wang MD 02/19/2025 9:00 AM EDT Office Visit [facility] [address] [place] [address] Carline Fregoso MD Cough, unspecified type (Primary Dx); Chronic right shoulder pain; Costochondritis 02/19/2025 Travel 02/18/2025 Telephone [facility] MED & PEDS [address] [place], [place] [phone] Harsha Wang MD Change PCP 02/11/2025 Telephone [facility] MEDICINE [address] [place] [address] Harsha Wang MD LAB inccomplete? 02/11/2025 Refill [facility]INE [address] [place] [phone] Harsha Wang MD 02/10/2025 Orders Only [facility] [address] [place] [address] Provider, MD Julianne from Last 3 Months Immunizations Immunization Administration [...] with others, in a hotel, in a fci, living outside on the street, on a [...] 02/28/2025 1:50 PM EDT Plan of Treatment Upcoming Encounters Date Type Department Care Team ([facility] st Contact Info) Description 05/24/2025 10:15 AM EDT Office Visit [facility]C MED & PEDS [address] [place], [place] [phone] Nikolas Frost MD [address] [place], [place] [phone] Health Maintenance Due Date Last Done Comments CT Colonography 1967 Colonoscopy 1967 Colorectal Cancer Screening 1967 FIT DNA/Cologuard 1967 FIT 1967 FOBT 1967 HIV Screening 1967 Lipid Panel 1967 Sigmoidoscopy 1967 Disability Screening 1967 Alcohol/Substance Use Screening 1979 Hepatitis C Screening 11/09/1985 Pneumococcal Vaccine: 50+ Years (2 of 2 - PPSV23) 04/24/2016 02/28/2016 Cervical Cancer Screening 03/18/2024 HPV/Cotest 03/18/2024 03/18/2023 Pap Smear 03/18/2024 03/18/2023 COVID-19 Vaccine (3 - 2024-2 6 season) 2025 05/08/2021, 04/10/2021 [...] HM MAMMOGRAPHY Routine 12/17/2024 4:03 PM EDT HM PAP/HPV Routine 03/18/2023 from Last 3 Months or Most Recently Relevant to Health Maintenance Results * Referral to Orthopaedic Surgery (04/01/2025) Carline Fregoso MD OUTPATIENT REFERRAL ORDERA BLES Final Result * Pulmonary Function Test (03/17/2025) Harsha Peace MD PFT ORDERABLES Fi nal Result * XR Shoulder 2+ Views Right (02/21/2025 9:01 AM EDT) Anatomical Region Laterality Modality Upper Extremities, Shoulder Right Radi ographic Imaging 02/21/2025 9:01 AM EDT Narrative 02/21/2025 10:01 AM EDT [address] [address] XRay Report Signed Patient: Phoebe Garnett MR#: [id number] : 1965 Acct:[id number] Age/Sex: 59 / F ADM Date: 02/21/25 Loc: HO.HHCX Attending Dr: Carline Fregoso MD Ordering Physician: Carline Fregoso MD Date of Service: 02/21/25 Procedure(s): XR shoulder RT min 2V Accession Number(s): [id number] cc: Carline Fregoso MD EXAMINATION: XR SHOULDER, [...] Hicks MD in OV> 02/21/25 0958 DD/ 0 TD/TT: 02/21/25 0953 Delinquent Tax Collector Assistant: Procedure Note Donotuseinterpreter, Image - 02/21/[address] [place] [address] XRay Report Signed Patient: Noemi GarnettR#: [id number] : 1965Acct:[id number] Age/Sex: 59 / FADM Date: 02/21/25 Loc: HO.HHCX Attending Dr: Carline Fregoso MD Ordering Physician: Carline Fregoso MD Date of Service: 02/21/25 Procedure(s): XR shoulder RT min 2V Accession Number(s): [id number] cc: Carline Fregoso MD EXAMINATION: XR SHOULDER, [...] MD Signed By: <Electronically signed by Abimael Hicsk MD in OV> 02/21/25 0958 DD/ 0901 TD/TT: 02/21/25 0953 Delinquent Tax Collector Assistant: Carline Fregoso MD IMG XR PROCEDURES Final Re sult * XR Chest 2 Views (02/21/2025 8:58 AM EDT) Anatomical Region Laterality Modality Chest Radiographic Jennifer ging 02/21/2025 8:5 8 AM EDT Narrative 02/21/2025 10:03 AM EDT [address] [address] XRay Report Signed Patient: Phoebe Garnett MR#: [id number] : 1965 Acct:[id number] Age/Sex: 59 / F ADM Date: 02/21/25 Loc: ANAHIX Attending Dr: Carline Fregoso MD Ordering Physician: Carline Fregoso MD Date of Service: 02/21/25 Procedure(s): XR chest 2V Accession Number(s): [id number] cc: Carline Fregoso MD EXAMINATION: XR CHEST [...] 02/21/25 1000 DD/ 0858 TD/TT: 02/21/25 0900 Delinquent Tax Collector Assistant: Procedure Note Donotuseinterpreter, Image - 02/21/2025 [place] [address] XRay Report Signed Patient: Sage Garnett#: [id number] : 1965Acct:[id number] Age/Sex: 59 / FADM Date: 02/21/25 Loc: ANAHIX Attending Dr: Carline Fregoso MD Ordering Physician: Carline Fregoso MD Date of Service: 02/21/25 Procedure(s): XR chest 2V Accession Number(s): [id number] cc: Carline Fregoso MD EXAMINATION: XR CHEST [...] 02/21/25 1000 DD/ 0858 TD/TT: 02/21/25 0900 Delinquent Tax Collector Assistant: Carline Fregoso MD IMG XR PROCEDURES Final Re sult * Hm Mammography (12/17/2024 4:03 PM EDT) Anatomical Region Laterality Modality Other Historical Provider HEALTH MAINTENANCE Final Result * (ABNORMAL) PAP/HPV (03/18/2023) Pap Smear 1. NILM 1. NILM HPV Detected(A ) Undetected, Indeterminate , Quantitative, Not Detected Historical Provider HEALTH MAINTENANCE Final Result from Last 3 Months or Most Recently Relevant to Health Maintenance Insurance ([place]) [address] [address] [facility] DUAL COMPLETE Care Teams Blankbook Stitching Machine Operator Relationship Specialty Start Date End Date Nikolas Frost MD [address] [place], [place] [address] [address] PCP - General Internal Medicine 04/11/25
--- OUTSIDE RECORDS SUMMARY | 2025-05-11 17:03 | XMS_ITS | Encounter Summary ---
Author Organization [employer] Address [address] [facility] 7 [place] [address] Care Team Providers Care Human Capital Analyst Name Role Phone Harsha Wang MD Primary Care Prov ider Nikolas Frost MD Primary Care Provider [phone] Reason for Visit * Reason Comments Med Refill Encounter Details Date Type Department Care Team ([facility] Contact Info) Description 02/21/2025 Refill [facility] MED & PEDS [address] [place], [place] [phone] Harsha Wang MD [address] [place] [address] Social History Tobacco Use Types Packs/Day Years [...] with others, in a hotel, in a prison, living outside on the street, on a [...] Care Team (Late st Contact Info) Description 05/24/2025 10:15 AM EDT Office Visit [facility] MED & PEDS [address] [place] [address] Nikolas Frost MD [address] [place] [address] documented as of this encounter Visit Diagnoses Not on filedocumented in this encounter Additional Health Concerns Assessment Noted Time PHQ-9 Depression Total Score: 0 11/06/19 9:58 AM EDT documented as of this encounter Care Teams Human Capital Analyst Relationship Specialty Start Date End Date Harsha Wang MD [address] [place] [address] PCP - General Internal Medicine 11/11/24 04/10/25 Nikolas Frost MD [address] [place] [address] PCP - General Internal Medicine 04/11/25 documented as of this encounter
--- OUTSIDE RECORDS SUMMARY | 2025-05-11 17:03 | XMS_ITS | Encounter Summary ---
Author Organization [employer] Address [address] [facility] [address], [place] [address] Care Team Providers Care Asbestos Surveyor Name Role Phone Harsha Wang MD Primary Care Prov ider Nikolas Frost MD Primary Care Provider [phone]- [phone] Reason for Referral * Consultation (Routine) - Closed Specialty Diagnoses / Procedures Referred By Contac t Referred To Contact Rheumatology Diagnoses SLE (systemic lupus erythematosus related syndrome) (CMS/HCC) (HCC) Nikolas Frost MD [address] [place] [address] Phone: tel: fax: [facility] [address] [facility] [address] [place], [place] Phone: tel: fax: Referral ID Status Reason Start Date Expiration Date V isits Requested Visits Authorized [id number] Closed Specialty Services Required 12/03/2024 12/03/2025 1 1 Encounter Details Date Type Department Care Team (Late st Contact Info) Description 12/03/2024 Orders Only [facility] CH[facility] MED & PEDS [address] [place], [place] [phone] Nikolas Frost MD [address] [place], [place] [phone] SLE (systemic lupus erythematosus related syndrome) (CMS/HCC) [...] Upcoming Encounters Date Type Department Care Team ([facility] st Contact Info) Description 05/24/2025 10:15 AM EDT Office Visit [facility] MED & PEDS [address] [place] [address] Nikolas Frost MD [address] [place] [address] Scheduled Referrals Name Type Priority Associated Diagnoses Orde r Schedule Referral to Rheumatology Outpatient Referral Routine SLE (systemic lupus erythematosus related syndrome) ([facility]) Expected: 12/03/2024 (Approximate), Expires: 12/03/2025 documented as of this encounter Visit Diagnoses Diagnosis SLE (systemic lupus erythematosus related syndrome) (CMS/HCC) (HCC)- Primary Systemic lupus erythematosus documented in this encounter Additional Health Concerns Assessment Noted Time PHQ-9 Depression Total Score: 0 11/06/19 25 9:58 AM EDT documented as of this encounter Care Teams Asbestos Surveyor Relationship Specialty Start Date End Date Harsha Wang MD [address] [place] [address] PCP - General Internal Medicine 11/11/24 04/10/25 Nikolas Frost MD [address] [place] [address] PCP - General Internal Medicine 04/11/25 documented as of this encounter
--- OUTSIDE RECORDS SUMMARY | 2025-05-11 17:03 | XMS_ITS | Encounter Summary ---
Author Organization [employer] Address [address] [place] [address] Care Team Providers Care It Solutions Architect Name Role Phone Harsha Wang MD Primary Care Prov ider Nikolas Frost MD Primary Care Provider [phone]- [phone] Encounter Details Date Type Department Care Team (Late Contact Info) Description 02/10/2025 Orders Only [facility] [address] [place] [address] Provider, MD Julianne Social History Tobacco Use [...] Upcoming Encounters Date Type Department Care Team ([facility] Contact Info) Description 05/24/2025 10:15 AM EDT Office Visit [facility] CHC MED & PEDS [address] [place], [place] [phone] Nikolas Frost MD [address] [place], [place] [phone] documented as of this encounter Procedures Procedure Name Priority Date/Time Associated Diagnosis Comments MAMMOGRAPHY Routine 12/17/2024 4:03 PM EDT documented in this encounter Results * Hm Mammography (12/17/2024 4:03 PM EDT) Anatomical Region Laterality Modality Other us Historical Provider HEALTH MAINTENANCE Final Result documented in this encounter Visit Diagnoses Not on filedocumented in this encounter Additional Health Concerns Assessment Noted Time PHQ-9 Depression Total Score: 0 11/06/19 9:58 AM EDT documented as of this encounter Care Teams It Solutions Architect Relationship Specialty Start Date End Date Levy Harsha Peace MD [address] [place] [id number] PCP - General Internal Medicine 11/11/24 04/10/25 Nikolas Frost MD [address] [place] [id number] PCP - General Internal Medicine 04/11/25 documented as of this encounter
--- OUTSIDE RECORDS SUMMARY | 2025-05-11 17:03 | XMS_ITS | Encounter Summary ---
Author Organization [employer] Address [address] [facility] 7t [place] [address] Care Team Providers Care Water Conservation Specialist Name Role Phone Harsha Wang MD Primary Care Prov ider Nikolas Frost MD Primary Care Provider [phone] Reason for Visit * Reason Onset Date Comments Results 12/23/2024 Encounter Details Date Type Department Care Team (Late st Contact Info) Description 12/23/2024 Telephone [facility] MEDICINE [address] [place] [address] Harsha Wang MD [address] [place] [address] Results Social History Tobacco Use Types Packs/Day [...] Miscellaneous Notes * Telephone Encounter - Ray Urbano - 12/23/2024 10:04 AM EDT Jose from [facility] with [facility] calling in regards to MR Brain results. She was informed pt is unable to receive results until February. Emmy is requesting a call back with results to clearher for TMS and or to deny if pcp feels necessary. Please contact Emmy at [phone]. documented in this encounter Plan of Treatment Upcoming Encounters Date Type Department Care Team ([facility] st Contact Info) Description 05/24/2025 10:15 AM EDT Office Visit [facility] MED & PEDS [address] [place] [address] Nikolas Frost MD [address] [place] [address] documented as of this encounter Visit Diagnoses Not on filedocumented in this encounter Additional Health Concerns Assessment Noted Time PHQ-9 Depression Total Score: 0 11/06/19 9:58 AM EDT documented as of this encounter Care Teams Water Conservation Specialist Relationship Specialty Start Date End Date Harsha Wang MD [address] [place] [address] PCP - General Internal Medicine 11/11/24 04/10/25 Nikolas Frost MD [address] [place] [address] PCP - General Internal Medicine 04/11/25 documented as of this encounter
--- OUTSIDE RECORDS SUMMARY | 2025-05-11 17:03 | XMS_ITS | Encounter Summary ---
Author Organization [employer] Address [address] [place] [address] Care Team Providers Care Blister Pack Operator Name Role Phone Harsha Wang MD Primary Care Prov ider Nikolas Frost MD Primary Care Provider [phone] Encounter Details Date Type Department Care Team ([facility] Contact Info) Description 01/24/2025 Orders Only [facility] [address] [place] [address] Provider, MD Julianne Social History Tobacco Use [...] Upcoming Encounters Date Type Department Care Team ([facility] Contact Info) Description 05/24/2025 10:15 AM EDT Office Visit [facility] CHC MED & PEDS [address] [place], [place] [phone] Nikolas Frost MD [address] [place], [place] [phone] documented as of this encounter Procedures Procedure [...] Upper Extremities, Shoulder Right Magn etic Resonance Historical Provider MD [facility] MRI PROCEDURES Final [...] documented as of this encounter Care Teams Blister Pack Operator Relationship Specialty Start Date End Date Harsha Wang MD [address] [place] [address] PCP - General Internal Medicine 11/11/24 04/10/25 Nikolas Frost MD [address] [place] [address] PCP - General Internal Medicine 04/11/25 documented as of this encounter
--- OUTSIDE RECORDS SUMMARY | 2025-05-11 17:04 | XMS_ITS | Clinical Summary ---
Author Organization [facility] Address [address] [place] [address] Care Team Providers Care Torpedo Shooter Name Role Phone Rey Galvan MD Primary Care Provider [phone] Allergies Active Allergy Reactions Criticality Noted Date [...] age to complete this topic Care Teams Torpedo Shooter Relationship Specialty Start Date End Date Rey Galvan MD PCP - General Internal Medicine 06/04/21
--- OUTSIDE RECORDS SUMMARY | 2025-05-11 17:04 | XMS_ITS | Data Portability ---
Author Organization [place] - [facility], Allergy Address [address] [place] [address] Care Team Providers Care Roofing Laborer Name Role Phone CHERI JARA Primary Care Provider Assessment Encounter Date Assessment Date Assessment LastModified by Organization Details LastModified Time 12/27/2024 12/27/2024 59-year-old female presents for follow-up of asymmetric hearing loss. On exam, bilateral tympanic membranes are intact with well aerated middle ear spaces. Audiometric testing demonstrates an essentially stable high-frequency sensorineural hearing loss on the left and normal hearing on the right. MRI brain without contrast 12/09/2024 at [facility] demonstrated nonspecific white matter likely sequela of [...] She will follow-up to review the results. matt Not available 12/27/2024 15:16:48 Plan of Treatment Reminders Order Date Submit Date Provider Last Modified By Organization Details Last Modified Time Details Appointments None recorded. Lab None recorded. Referral None recorded. Procedures None recorded. Surgeries None recorded. Imaging MRI, brain + internal auditory canal, w/wo contrast - next available ....IAC protocol 2024 025 [facility] Mri Department, [address] [place] [address], [place], [address], 16:14:50 Medication Orders None recorded. Patient TargetsNo targets recorded. Patient InstructionsNo instructions recorded. Reason for Referral None Reported. Results Created Date Observation Date Name Description Value Unit Range Abnormal Flag Note LastModifiedBy Organization Detail LastModifiedTime 12/28/19 audio gram No observ ation record ed. BARCODE Not Available 2024 15:53:43 12/28/19 25 11/17/2023 audio gram No observ ation record ed. [email or web address] Not Available 2024 15:45:19 12/29/19 25 12/09/2024 MRI, brain , w/o contr ast No observ ation record ed. [email or web address] Not Available 09/2024 13:58:53 01/25/20 25 01/24/2025 MR brain wo and W contr ast See Note [facility] , a member of [employer] [facility] Name: CHRIS QUINN Date of : 1965 Reason for Exam: snhl Exam Date: 2024 [id number] EST Report Status : Final Orderi ng [...] Thin images perfor med throug h the industrial design intern al audito ry canals bilate rally [...] 15:21 ET Assign ed Physic brandi: JYOTI LEROY Review ed and Electr onical ly Signed By: JYOTI LEROY Signed Date: 2024 15:33 ET Workst ation ID: [id number] Transc ribed By: Self Edit Transc ribed Date: 2024 15:21 ET [email or web address] [facility] U/S Dept [address] [place], [address], 01/24/2025 15:56:59 Result Notes None recorded. Problems Name Problem SNOMED Code Status Onset Date Resolution Date Notes Provider Name and Address Organization Details Recorded Time Hypertrop hy of nasal turbinate s 63637400 Active 2016 Hypertrop hy of nasal turbinate s; Note: Date Diagnosed : 12/25/2016 9:15 AM (J34.3) Not Available [facility] 4 02:48:53 Bleeding from nose 466875315 Active 2016 Epistaxis ; Note: Date Diagnosed : 12/25/2016 8:59 AM (R04.0) Not Available [facility] 4 02:48:55 Mild intermitt ent asthma 533818616 Active 2016 Mild intermitt ent asthma, uncomplic ated; Note: Date Diagnosed : 12/25/2016 9:27 AM (J45.20) Not Available [facility] 4 02:48:56 Deviated nasal septum 072981334 Active 2016 Deviated nasal septum; Note: Date Diagnosed : 12/25/2016 9:15 AM (J34.2) Not Available [facility] 4 02:48:57 Allergic rhinitis 99991493 Active 2016 Other allergic rhinitis; Note: Date Diagnosed : 12/25/2016 9:12 AM (J30.89) Erica tobias allergic rhinitis; Note: Date Diagnosed : 12/25/2016 9:12 AM (J30.89) Not Available [facility] 4 02:48:56 Bilateral disorder of Eustachia n tubes 19820632793 61979 Active 2019 Other specified disorders of Eustachia n tube, bilateral ; Note: Date Diagnosed : 09/20/2019 1:57 PM (H69.83) Not Available [facility] 4 02:48:57 Abnormal auditory perceptio n 88024336 Active 2019 Other abnormal auditory perceptio ns, bilateral ; Note: Date Diagnosed : 09/20/2019 5:10 PM (H93.293) Not Available [facility] 4 02:48:55 Sj gren's syndrome 69835654 Active 2019 Sicca syndrome [Sjogren] ; Note: Date Diagnosed : 03/01/2020 2:13 PM (M35.0) Not Available [facility] 4 02:48:52 Sensorine ural hearing loss 85933574 Active 2023 Sensorine ural hearing loss, unilatera l, left ear, with unrestric everardo hearing on the contralat eral side; Note: Date Diagnosed : 11/17/2023 12:47 PM (H90.42) Not Available [facility] 4 02:48:54 Dizziness and giddiness 594867795 Active 2023 Dizziness and giddiness ; Note: Date Diagnosed : 11/17/2023 12:49 PM (R42) Not Available [facility] 4 02:48:57 Bilateral tinnitus 82601650507 02 Active 2024 PETE LARA PA-C [address] [place] [address], [place], [address] , [facility] - [facility] 5 15:15:08 Problem Notes None recorded. Procedures Surgical History Date Name Laterality Status Provider Name and Address Organization Details Recorded Time 12/27/2024 Air & Speech Audio with Tymps - 41415, 23311 & 07922 completed CINDY EMJÍA, AUD [address] [facility],[place] [address], [place], [address], [facility] - [facility] 12/27/2024 14:05:20 Imaging Results None recorded. Procedure Notes None recorded. Medical Equipment None Reported. Allergies Allergen ID Allergen Name Allergen Category Reaction Reaction Severity Criticality Documentation Date Start Date Code Code System Note Provider Name and Address Organization Details Recorded Time 153272 Benadryl medicatio n hives Not available Not available 02/27/2024 69764 7 RxNorm React ion: hives ; Not Available [facility] 4 00:31:35 43934 latex environme nt,medica tion other Not available Not available 12/09/2023 66462 91 RxNorm React ion: unkno wn, unspe cifie d;; Not Available [facility] 4 01:04:17 Medications Name Sig Start Date [...] mg tablet 11/16 completed Medicati on ID: [id number] D uration Value: 30 Brand Name: quetiapi ne Send Method: E-Prescr ibed Sub s Allowed: subs OK Speci al Instruct ion: TK 1 T PO Q NIGHT Me dication GenericN aany: quetiapi ne Not Available Not Available Not [...] mg tablet 03/01 completed Medicati on ID: [id number] D uration Value: 30 Reason: () Brand Name: quetiapi ne Send Method: E-Prescr ibed Sub s Allowed: subs OK Speci al Instruct ion: TK 1 T PO Q NIGHT Me dication GenericN anay: quetiapi ne Not Available Not Available Not Available Nortrel (28) 1 mg-35 mcg tablet 03/01 completed Medicati on ID: [id number] D uration Value: 28 Reason: () Brand Name: Nortrel 35 (28) Sen d Method: E-Prescr ibed Sub s Allowed: subs OK Speci al Instruct ion: TK 1 T PO D Medica tionGene ricName: Nortrel (28) Not Available Not Available Not Available trazodone 100 mg tablet 03/01 completed Medicati on ID: [id number] D uration Value: 30 Reason: () Brand Name: trazodon e Send Method: E-Prescr ibed Sub s Allowed: subs OK Speci al Instruct ion: TK 3 TS PO QHS Medi cationGe nericNam e: trazodon e Not Available Not Available Not Available benzonata te 100 mg capsule 12/27 completed Medicati on ID: [id number] B rand Name: benzonat ate Send Method: E-Prescr ibed Sub s Allowed: subs OK Speci al Instruct ion: TAKE 1 CAPSULE BY MOUTH THREE TIMES A DAY FOR 7 DAYS NEEDED FOR COUGH Me dication GenericN anay: benzonat ate Not Available Not Available Not Available lansopraz ole 30 mg capsule,d elayed release 03/01 completed Medicati on ID: [id number] D uration Value: 30 Reason: () Brand Name: lansopra zole Sen d Method: E-Prescr ibed Sub s Allowed: subs OK Speci al Instruct ion: TK 1 C PO D Medica tionGene ricName: lansopra zole Not Available Not Available Not Available prednison e 50 mg tablet 12/27 completed Medicati on ID: [id number] B rand Name: predniso ne Send Method: [...] mg capsule 11/16 completed Medicati on ID: [id number] D uration Value: 35 Brand Name: gabapent [...] tended release 11/16 completed Medicati on ID: [id number] D uration Value: 30 Brand Name: cyanocob [...] auto-inje ctor 11/16 completed Medicati on ID: [id number] D uration Value: 2 Brand Name: epinephr ine Send Method: E-Prescr ibed Sub s Allowed: subs OK Medic ationGen ericName : epinephr ine Not Available Not Available Not Available levofloxa eve 750 mg tablet 12/27 completed Medicati on ID: [id number] B rand Name: levoflox acin Sen d Method: E-Prescr ibed Sub s Allowed: subs OK Medic ationGen ericName : levoflox acin Not Available Not Available Not Available norethind james (contrace ptive) 0.35 mg tablet 11/16 completed Medicati on ID: [id number] D uration Value: 28 Brand Name: norethin drone (contrac eptive) Send Method: E-Prescr ibed Sub s Allowed: subs OK Speci al Instruct ion: TK 1 T PO AT THE SAME TIME QD Medic ationGen ericName : norethin drone (contrac eptive) Not Available Not Available Not Available fluoxetin e 20 mg capsule 03/01 completed Medicati on ID: [id number] D uration Value: 30 Reason: () Brand Name: fluoxeti ne Send Method: E-Prescr ibed Sub s Allowed: subs OK Speci al Instruct ion: TK 3 CS PO QAM Medi cationGe nericNam e: fluoxeti ne Not Available Not Available Not Available fluticaso ne propionat e 50 mcg/actua tion nasal spray,mana pension 11/16 completed Medicati on ID: [id number] D uration Value: 90 Brand Name: fluticas [...] mg tablet 11/16 completed Medicati on ID: [id number] D uration Value: 30 Brand Name: loratadi [...] unit) capsule 11/16 completed Medicati on ID: [id number] D uration Value: 30 Brand Name: Vitamin [...] mg tablet 03/01 completed Medicati on ID: [id number] D uration Value: 30 Reason: () Brand Name: Vesicare Send Method: E-Prescr ibed Sub s Allowed: subs OK Speci al Instruct ion: TK 1 T PO D Medica tionGene ricName: Vesicare Not Available Not Available Not Available Vesicare 10 mg tablet 03/01 completed Medicati on ID: [id number] D uration Value: 30 Reason: () Brand Name: Vesicare Send Method: E-Prescr ibed Sub s Allowed: subs OK Speci al Instruct ion: TK 1 T PO D Medica tionGene ricName: Vesicare Not Available Not Available Not Available ProAir HFA 90 mcg/actua tion aerosol inhaler 2016 active Medicati on ID: [id number] D uration Value: 16 Brand Name: ProAir HFA Send Method: E-Prescr ibed Sub s Allowed: subs OK Speci al Instruct ion: INL 2 PUFFS PO Q 4 H PRF COUGH OR WHEEZING Medicat ionGener icName: ProAir HFA Medi cation ID: [id number] D uration Value: 16 Brand Name: ProAir HFA Send Method: E-Prescr ibed Sub s Allowed: subs OK Speci al Instruct ion: INL 2 PUFFS PO Q 4 H PRF COUGH OR WHEEZING Medicat ionGener icName: ProAir HFA Not Available Not Available Not Available quetiapin e 400 mg tablet 03/01 completed Medicati on ID: [id number] D uration Value: 30 Reason: () Brand Name: quetiapi ne Send Method: E-Prescr ibed Sub s Allowed: subs OK Speci al Instruct ion: TK 1 T PO Q NIGHT Me dication GenericN anay: quetiapi ne Not Available Not Available Not Available ProAir HFA 11/16 completed Medicati on ID: [id number] D uration Value: 16 Brand Name: Rivera [...] Updated DateTime 12/27/2024 157.48 cm 24.5 kg/m2 53548.38 g Bridget Tinoco [place] - [facility] 12/27/2024 14:17:39 Social History None recorded. Functional Status None recorded. Mental Status None recorded. Family History Nothing Reported. Medical History No medical history recorded. Gynecological HistoryNo gynecological history recorded. Obstetrics History GPAL:G 0 P 0 0 0 0 Past Encounters Encounter ID Performer Location Encounter Start Date Encounter Closed Date Diagnosis/Indication Diagnosis SNOMED-CT Code Diagnosis ICD10 Code Diagnosis IMO Codes Diagnosis Note [id number] PETE LARA PA-C [facility] [address] [address] 12/27/2024 13:37:11 12/27/2024 15:46:54 Sensorineural hearing loss 49013841 H90.42 Audiologic al evaluation results: Right ear: Normal hearing with excellent word recognitio n. Left ear: Normal hearing with the exception of a moderate SNHL at 8000Hz with excellent word recognitio n. Tympanomet ry: Right Ear:Type A Left Ear:Type As Bilateral tinnitus 19967 58198 102 H93.13 192880 Health Concerns Section Related Observation LastModified by Organization Detai ls LastModified Time None Recorded Concern Status LastModified by Organization Details LastModified Time None Recorded Advance Directives Directive None Recorded Payers Insurance Date Sequence Insurance Name Policy Number Policy Sarabia Covered Member ID Sarabia Member ID Guarantor Name 12/27/2024 1 [facility] (MEDICARE REPLACEMENT/A DVANTAGE - HMO) MAMMP Chris Dygon [id number] Chris Dygon 12/27/2024 1 [facility] (MEDICARE REPLACEMENT/A DVANTAGE - POS) MAMMP Chris Dygon [id number] Chris Dygon Notes Date Note Type Note Provider Name and Address Organization Details Recorded Time 12/27/2024 text/html ROS as noted in the HPI 59-year-old female presents for reevaluation of left sided hearing loss. She was last evaluated a year ago for intermittent episodes of lightheadedness and syncope. She was following up with cardiology, neurology, and ophthalmology. Otologic exam was benign. Audiometric testing demonstrated a mild asymmetric hearing loss on the left. MRI was discussed given asymmetric hearing loss and episodes of dizziness. Patient had MRI brain without contrast ordered by her PCP as the original order from our office . Reports syncope and lightheadedness resolved. Denies otalgia, otorrhea, vertigo, and changes in her hearing. Reports intermittent tinnitus. ADELINA SENA MD [address] [place] [address], [place], [address], [facility] - [facility] 12/27/2024 15:30:27 OBGyn Episode No OBEpisode recorded.
== END 2025-05-11 14:47 | disposition home or self-care (01) ==
LOC: HO.HGI 13:23
PROVIDERS: PCP Internal Medicine; Visit Provider Internal Medicine
DX: K62.5 Hemorrhage of anus and rectum (principal); R19.4 Change in bowel habit
CPT/HCPCS: 99204; G2211

== ENCOUNTER → 2025-05-11 13:23 | Outpatient (BNVA) | payer MEDICARE, SELFPAY | PROVIDERS: PCP Internal Medicine; Visit Provider Internal Medicine | DX: K62.5 Hemorrhage of anus and rectum (principal); R19.4 Change in bowel habit | CPT/HCPCS: 99202 ==

== ENCOUNTER 2025-05-14 08:46 | Outpatient (REF) | payer MEDICARE, SELFPAY ==
--- OUTSIDE RECORDS SUMMARY | 2025-05-13 09:00 | XMS_ITS | Encounter Summary ---
Author Organization [facility] Address [address] [place] [address] Care Team Providers Care Sales And Marketing Manager Name Role Phone Harsha Wang Primary Care Provide r Reason for Visit * Imaging (Routine) - Authorized Specialty Diagnoses / Procedures Referred By Contac t Referred To Contact Cardiology Diagnoses Heart murmur Procedures Transthoracic echocardiogram (TTE) complete with PRN contrast, bubble, strain, and 3D order panel TN TTE W 2D IMAGE COMPLETE W DOPPLER ECHO & COLOR FLOW DOPPLER ECHO TN JAKY 2D COMPLETE W/CONTRAST OR W & WO CONTRAST WITH DOPPLER Harsha Wang [address] [place], [place] Phone: tel: fax: [facility] Referral ID Status Reason Start Date Expiration Date V isits Requested Visits Authorized [id number] Authorized 03/02/2025 03/02/2026 1 1 Encounter Details Date Type Department Care Team (Late st Contact Info) Description 05/13/2025 9:00 AM EDT Ancillary Procedure [facility] - [address] [place] [address] Heart murmur Social History Tobacco Use Types Packs/Day Years [...] on file documented as of this encounter Last Filed Vital Signs Vital Sign Reading Time Taken Comments Blood Pressure 160/95 05/13/2025 9:10 AM EDT Pulse - - Temperature - - Respiratory Rate - - Oxygen Saturation - - Inhaled Oxygen Concentration - - Weight 65.3 kg (144 lb) 05/13/2025 9:10 AM EDT Height 157.5 cm (5' 2 ) 05/13/2025 9:10 AM EDT Body Mass Index 26.34 05/13/2025 9:10 AM EDT documented in this encounter Plan of Treatment Upcoming Encounters Date Type Department Care Team (Late st Contact Info) Description 12/20/2025 4:00 PM EDT Appointment Radiology Department [address] [address] documented as of this encounter Procedures Procedure Name Priority Date/Time Associated Diagnosis Comments TRANSTHORACIC ECHOCARDIOGRAM (TTE) COMPLETE Routine 05/13/2025 9:44 AM EDT Heart murmur documented in this encounter Results * TRANSTHORACIC ECHOCARDIOGRAM (TTE) COMPLETE (05/13/2025 9:44 AM EDT) Left Atrium Minor [place] 5.2 cm CV PACS Left Atrium Major [place] 5.1 cm CV PACS LA Area Sys (A2C) 16 cm2 CV PACS LA Area Sys (A4C) 11 cm2 CV PACS LA Volume (BP) 28 mL CV PACS LA Size 4.3 cm CV PACS RA Area 10.3 cm2 CV PACS RA 2D Volume 19 mL CV PACS AV Mean Gradient 4 mmHg CV PACS Ao VTI 29.1 cm CV PACS AV Peak Vivek 1.4 m/s CV PACS AV Peak Gradient 7 mmHg CV PACS AV Area Continuity Equation 1.8 cm2 CV PACS AV Area Peak Velocity 1.9 cm2 CV PACS Aortic Arch 2.3 cm CV PACS Ascending Aorta 3.0 cm CV PACS Aortic Sinus Valsalva 2.8 cm CV PACS IVC Proximal 1.7 cm CV PACS IVSD 0.9 0.6 - 0.9 cm CV PACS LVIDD 4.3 3.8 - 5.2 cm CV PACS LVIDS 3.1 2.2 - 3.5 cm CV PACS LVOT Diameter 1.8 cm CV PACS LVOT Mean Vivek 0.6 m/s CV PACS LVOT Mean Grad 2 mmHg CV PACS LVOT Mean Grad 2 mmHg CV PACS LVOT Peak VTI 20.7 cm CV PACS LVOT Peak Vivek 1.0 m/s CV PACS LVOT Peak Gradient 4 mmHg CV PACS LVPWD 0.9 0.6 - 0.9 cm CV PACS MV E' Tissue Velocity Lateral 11 cm/s CV PACS MV E' Tissue Velocity Septal 8 cm/s CV PACS LVOT Area 2.5 cm2 CV PACS LVOT Stroke Volume 53 mL CV PACS MV Deceleration [place] 5.5 m/s2 CV PACS E Wave Deceleration Time 178 119 - 242 ms CV PACS MV PHT 52 ms CV PACS MV Peak A Vivek 1.03 m/s CV PACS MV Peak E Vivek 0.89 m/s CV PACS MV Mean Gradient 2 mmHg CV PACS MV Mean Gradient 2 mmHg CV PACS MV VTI 28.7 cm CV PACS Mitral Valve Max Velocity 1.2 m/s CV PACS MV Peak Gradient 6 mmHg CV PACS MV Area PHT 4.2 cm2 CV PACS MV Area Continuity Equation 1.8 cm2 CV PACS PV Acceleration Time 204 ms CV PACS PV Acceleration Time 204 ms CV PACS PV Mean Gradient 1 mmHg CV PACS PV VTI 18.2 cm CV PACS PV Peak Velocity 0.8 m/s CV PACS PV Peak Gradient 3 mmHg CV PACS RV Diastolic Basal Dimension 3.2 2.5 - 4.1 cm CV PACS RV S' 10 cm/s CV PACS TAPSE 30 mm CV PACS E/E' Ratio Septal 11 CV PACS E/E' Ratio Averaged 10 CV PACS LVOT Stroke Index 32 mL/m2 CV PACS LA Dimension Index 2D 2.6 cm/m2 CV PACS Relative Wall Thickness ratio 0.42 CV PACS LVOT:AV VTI Index 0.71 CV PACS FS 28 % CV PACS LV Mass 2D 123 g CV PACS Ascending Aorta Index 1.81 cm/m2 CV PACS MV VTI:LVOT VTI ratio 1.4 CV PACS LVOT flow 153 mL/s CV PACS RA 2D Volume Index 11 mL/m2 CV PACS SWAPNIL Index (VTI) 1.09 cm2/m2 CV PACS SWAPNIL Index (Pk Vivek) 1.14 cm2/m2 CV PACS LVIDD Index 2.59 cm/m2 CV PACS LVIDS Index 1.87 cm/m2 CV PACS AV Velocity Ratio 0.71 CV PACS E/A Ratio 0.9 CV PACS E/E' Ratio Lateral 8 CV PACS LA Volume Index (BP) 17 mL/m2 CV PACS LV Mass Index 2D 74 g/m2 CV PACS BSA 1.69 m2 CV PACS Est. RA Pressure 3 mmHg CV PACS Anatomical Region Laterality Modality Ultrasound Narrative 05/13/2025 2:24 PM EDT Left ventricle cavity size is normal. Wall thickness is normal. Systolic function is normal with an ejection fraction of 55-60%. There are no regional LV wall motion abnormalities. There is no diastolic dysfunction. Right ventricle cavity is normal. Right ventricular systolic function is normal. No hemodynamically significant valvular abnormalities. There are no significant changes compared to the previous study of 06/19/2022. Left Ventricle Left ventricle cavity size is normal. Wall thickness is normal. Systolic function is normal with an ejection fraction of 55-60%. There are no regional LV wall motion abnormalities. There is no diastolic dysfunction. Right Ventricle Right ventricle cavity appears normal. Systolic function is normal. Left Atrium Left atrium cavity size is normal. Right Atrium Right atrium cavity is normal. IVC/SVC Inferior vena cava structure is normal. RA pressures is estimated to be 3 mmHg (IVC diameter <21 mm and decreases >50% during inspiration). Mitral Valve The leaflets are mildly thickened. There is mild annular calcification. There is no significant mitral valve regurgitation. There is no evidence of mitral valve stenosis. Tricuspid Valve Tricuspid valve structure is normal. There is no regurgitation or stenosis. Cannot assess RVSP. Aortic Valve The aortic valve is trileaflet. The leaflets are mildly thickened. There is no regurgitation or stenosis. Pulmonic Valve The pulmonic valve was not well visualized. There is no regurgitation or stenosis. Ascending Aorta The aorta appears normal in size. Pericardium Pericardium appears normal. There is no pericardial effusion. Study Details Overall the study quality was adequate. Harsha Peace CV ECHO PROCEDURES Fi nal Result documented in this encounter Visit Diagnoses Diagnosis Heart murmur Undiagnosed cardiac murmurs documented in this encounter Care Teams Sales And Marketing Manager Relationship Specialty Start Date End Date Harsha Wang [address] [place] [address] PCP - General Internal Medicine 05/13/25 documented as of this encounter
--- NOTE | ~2025-05-14 | MR_ITS ---
EXAMINATION: MR SHOULDER WITHOUT CONTRAST, RIGHT CLINICAL INFORMATION: Instability COMPARISON: X-rays 02/21/2025 TECHNIQUE: MRI of the shoulder without contrast was performed on a high-field scanner. FINDINGS: ROTATOR CUFF: Supraspinatus: Mild tendinosis. Low T1/T2 signal focus in the distal anterior fibers measuring 0.7 cm medial-lateral, suspicious for focus of calcific tendinitis, correlating with the prior x-ray findings. Infraspinatus: Mild tendinosis. Possible small linear intrasubstance tear in the distal anterior fibers. Teres minor: Intact. Subscapularis: Mild tendinosis No muscle atrophy or fatty infiltration. BICEPS: Intact CORACOACROMIAL ARCH: The undersurface of the acromion is flat with no subacromial spur. Mild acromioclavicular arthritis. Mild subacromial subdeltoid bursitis. LABRUM/CAPSULE: No displaced labral tear Inferior capsule is intact GLENOHUMERAL JOINT/MARROW: No fracture. No aggressive marrow replacing lesion. No significant effusion. No axillary lymphadenopathy. MR/MR shoulder RT wo con IMPRESSION: * Mild supraspinatus tendinosis. 0.7 cm focus of calcific tendinitis, correlating with the x-ray findings. No transverse tear or retraction.. *Mild subscapularis tendinosis. * Mild infraspinatus tendinosis. Possible small linear intrasubstance tear in the distal anterior fibers. * Mild acromioclavicular arthritis. Mild subacromial subdeltoid bursitis. Electronically signed by: Mason Hill MD 05/16/2025 08:31 AM EDT
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
--- OUTSIDE RECORDS SUMMARY | 2025-05-14 08:51 | XMS_ITS | Data Portability ---
Author Organization [place] [facility], [facility] Address [address] [place] [address] Care Team Providers Care Measurement Psychologist Name Role Phone CHERI JARA Primary Care [...] right. MRI brain without contrast 12/09/2024 at [facility] demonstrated nonspecific white matter likely sequela of [...] - next available ....IAC protocol 2024 025 [facility] Mri Department, [address] [place] [address], [place], [address], 16:14:50 Medication Orders None recorded. Patient TargetsNo targets recorded. Patient InstructionsNo instructions recorded. Reason for Referral None Reported. Results Created Date Observation Date Name Description Value Unit Range Abnormal Flag Note LastModifiedBy Organization Detail LastModifiedTime 12/28/19 audio gram No observ ation record ed. BARCODE Not Available 2024 15:53:43 12/28/19 25 11/17/2023 audio gram No observ ation record ed. [email or web address] Not Available 2024 15:45:19 12/29/19 25 12/09/2024 MRI, brain , w/o contr ast No observ ation record ed. [email or web address] Not Available 09/2024 13:58:53 01/25/20 25 01/24/2025 MR brain wo and W contr ast See Note [facility] , [facility]RIS [facility]INN Date of : 1965 Reason for Exam: snhl Exam Date: 2024 [id number] EST Report Status : Final Orderi ng [...] Thin images perfor med throug h the application support intern al audito ry canals bilate rally [...] Edit Transc ribed Date: 2024 15:21 ET [email or web address] [facility] [address] [place], [address], 01/24/2025 15:56:59 Result Notes None recorded. Problems Name Problem SNOMED Code Status Onset Date Resolution Date Notes Provider Name and Address Organization Details Recorded Time Hypertrop hy of nasal turbinate s 13086374 Active 2016 Hypertrop hy of nasal turbinate s; Note: Date Diagnosed : 12/25/2016 9:15 AM (J34.3) Not Available [facility] 4 02:48:53 Bleeding from nose 433631875 Active 2016 Epistaxis ; Note: Date Diagnosed : 12/25/2016 8:59 AM (R04.0) Not Available [facility] 4 02:48:55 Mild intermitt ent asthma 634768244 Active 2016 Mild intermitt ent asthma, uncomplic ated; Note: Date Diagnosed : 12/25/2016 9:27 AM (J45.20) Not Available [facility] 4 02:48:56 Deviated nasal septum 455715489 Active 2016 Deviated nasal septum; Note: Date Diagnosed : 12/25/2016 9:15 AM (J34.2) Not Available [facility] 4 02:48:57 Allergic rhinitis 98492988 Active 2016 Other allergic rhinitis; Note: Date Diagnosed : 12/25/2016 9:12 AM (J30.89) Erica tobias allergic rhinitis; Note: Date Diagnosed : 12/25/2016 9:12 AM (J30.89) Not Available [facility] 4 02:48:56 Bilateral disorder of Eustachia n tubes 79441382829 72459 Active 2019 Other specified disorders of Eustachia n tube, bilateral ; Note: Date Diagnosed : 09/20/2019 1:57 PM (H69.83) Not Available [facility] 4 02:48:57 Abnormal auditory perceptio n 63862489 Active 2019 Other abnormal auditory perceptio ns, bilateral ; Note: Date Diagnosed : 09/20/2019 5:10 PM (H93.293) Not Available [facility] 4 02:48:55 Sj gren's syndrome 05517491 Active 2019 Sicca syndrome [Sjogren] ; Note: Date Diagnosed : 03/01/2020 2:13 PM (M35.0) Not Available [facility] 4 02:48:52 Sensorine ural hearing loss 35583117 Active 2023 Sensorine ural hearing loss, unilatera l, left ear, with unrestric everardo hearing on the contralat eral side; Note: Date Diagnosed : 11/17/2023 12:47 PM (H90.42) Not Available [facility] 4 02:48:54 Dizziness and giddiness 021236294 Active 2023 Dizziness and giddiness ; Note: Date Diagnosed : 11/17/2023 12:49 PM (R42) Not Available [facility] 4 02:48:57 Bilateral tinnitus 74684474740 02 Active 2024 PETE LARA PA-C [address] [place] [address], [place], [address] , [facility] - [facility] 5 15:15:08 Problem Notes None recorded. Procedures Surgical History Date Name Laterality Status Provider Name and Address Organization Details Recorded Time 12/27/2024 Air & Speech Audio with Tymps - 56828, 20999 & 66360 completed CINDY MEJÍA, AUD [address] [facility],[place] [address], [place], [address], [facility] - [facility] 12/27/2024 14:05:20 Imaging Results None recorded. Procedure Notes None recorded. Medical Equipment None Reported. Allergies Allergen ID Allergen Name Allergen Category Reaction Reaction Severity Criticality Documentation Date Start Date Code Code System Note Provider Name and Address Organization Details Recorded Time 734804 Benadryl medicatio n hives Not available Not available 02/27/2024 91279 7 RxNorm React ion: hives ; Not Available [facility] 4 00:31:35 69514 latex environme nt,medica tion other Not available Not available 12/09/2023 76828 91 RxNorm React ion: unkno wn, unspe cifie d;; Not Available [facility] 4 01:04:17 Medications Name Sig Start Date [...] mg tablet 11/16 completed Medicati on ID: [id number] D uration Value: 30 Brand Name: quetiapi [...] mg tablet 03/01 completed Medicati on ID: [id number] D uration Value: 30 Reason: () Brand Name: quetiapi ne Send Method: E-Prescr ibed Sub s Allowed: subs OK Speci al Instruct ion: TK 1 T PO Q NIGHT Me dication GenericN anay: quetiapi ne Not Available Not Available Not Available Nortrel (28) 1 mg-35 mcg tablet 03/01 completed Medicati on ID: [id number] D uration Value: 28 Reason: () Brand Name: Nortrel 35 (28) Sen d Method: E-Prescr ibed Sub s Allowed: subs OK Speci al Instruct ion: TK 1 T PO D Medica tionGene ricName: Nortrel (28) Not Available Not Available Not Available trazodone 100 mg tablet 03/01 completed Medicati on ID: [id number] D uration Value: 30 Reason: () Brand Name: trazodon e Send Method: E-Prescr ibed Sub s Allowed: subs OK Speci al Instruct ion: TK 3 TS PO QHS Medi cationGe nericNam e: trazodon e Not Available Not Available Not Available benzonata te 100 mg capsule 12/27 completed Medicati on ID: [id number] B rand Name: benzonat ate Send Method: E-Prescr ibed Sub s Allowed: subs OK Speci al Instruct ion: TAKE 1 CAPSULE BY MOUTH THREE TIMES A DAY FOR 7 DAYS NEEDED FOR COUGH Me dication GenericN anay: benzonat ate Not Available Not Available Not Available lansopraz ole 30 mg capsule,d elayed release 03/01 completed Medicati on ID: [id number] D uration Value: 30 Reason: () Brand Name: lansopra zole Sen d Method: E-Prescr ibed Sub s Allowed: subs OK Speci al Instruct ion: TK 1 C PO D Medica tionGene ricName: lansopra zole Not Available Not Available Not Available prednison e 50 mg tablet 12/27 completed Medicati on ID: [id number] B rand Name: predniso ne Send Method: [...] mg capsule 11/16 completed Medicati on ID: [id number] D uration Value: 35 Brand Name: gabapent [...] tended release 11/16 completed Medicati on ID: [id number] D uration Value: 30 Brand Name: cyanocob [...] auto-inje ctor 11/16 completed Medicati on ID: [id number] D uration Value: 2 Brand Name: epinephr ine Send Method: E-Prescr ibed Sub s Allowed: subs OK Medic ationGen ericName : epinephr ine Not Available Not Available Not Available levofloxa eve 750 mg tablet 12/27 completed Medicati on ID: [id number] B rand Name: levoflox acin Sen d Method: E-Prescr ibed Sub s Allowed: subs OK Medic ationGen ericName : levoflox acin Not Available Not Available Not Available norethind james (contrace ptive) 0.35 mg tablet 11/16 completed Medicati on ID: [id number] D uration Value: 28 Brand Name: norethin drone (contrac eptive) Send Method: E-Prescr ibed Sub s Allowed: subs OK Speci al Instruct ion: TK 1 T PO AT THE SAME TIME QD Medic ationGen ericName : norethin drone (contrac eptive) Not Available Not Available Not Available fluoxetin e 20 mg capsule 03/01 completed Medicati on ID: [id number] D uration Value: 30 Reason: () Brand Name: fluoxeti ne Send Method: E-Prescr ibed Sub s Allowed: subs OK Speci al Instruct ion: TK 3 CS PO QAM Medi cationGe nericNam e: fluoxeti ne Not Available Not Available Not Available fluticaso ne propionat e 50 mcg/actua tion nasal spray,mana pension 11/16 completed Medicati on ID: [id number] D uration Value: 90 Brand Name: fluticas [...] mg tablet 11/16 completed Medicati on ID: [id number] D uration Value: 30 Brand Name: loratadi [...] unit) capsule 11/16 completed Medicati on ID: [id number] D uration Value: 30 Brand Name: Vitamin [...] mg tablet 03/01 completed Medicati on ID: [id number] D uration Value: 30 Reason: () Brand Name: Vesicare Send Method: E-Prescr ibed Sub s Allowed: subs OK Speci al Instruct ion: TK 1 T PO D Medica tionGene ricName: Vesicare Not Available Not Available Not Available Vesicare 10 mg tablet 03/01 completed Medicati on ID: [id number] D uration Value: 30 Reason: () Brand Name: Vesicare Send Method: E-Prescr ibed Sub s Allowed: subs OK Speci al Instruct ion: TK 1 T PO D Medica tionGene ricName: Vesicare Not Available Not Available Not Available ProAir HFA 90 mcg/actua tion aerosol inhaler 2016 active Medicati on ID: [id number] D uration Value: 16 Brand Name: ProAir HFA Send Method: E-Prescr ibed Sub s Allowed: subs OK Speci al Instruct ion: INL 2 PUFFS PO Q 4 H PRF COUGH OR WHEEZING Medicat ionGener icName: ProAir HFA Medi cation ID: [id number] D uration Value: 16 Brand Name: ProAir HFA Send Method: E-Prescr ibed Sub s Allowed: subs OK Speci al Instruct ion: INL 2 PUFFS PO Q 4 H PRF COUGH OR WHEEZING Medicat ionGener icName: ProAir HFA Not Available Not Available Not Available quetiapin e 400 mg tablet 03/01 completed Medicati on ID: [id number] D uration Value: 30 Reason: () Brand Name: quetiapi ne Send Method: E-Prescr ibed Sub s Allowed: subs OK Speci al Instruct ion: TK 1 T PO Q NIGHT Me dication GenericN anay: quetiapi ne Not Available Not Available Not Available ProAir HFA 11/16 completed Medicati on ID: [id number] D uration Value: 16 Brand Name: Rivera [...] Updated DateTime 12/27/2024 157.48 cm 24.5 kg/m2 38899.38 g Bridget Tinoco [place] [facility] 12/27/2024 14:17:39 Social History None recorded. Functional Status None recorded. Mental Status None recorded. Family History Nothing Reported. Medical History No medical history recorded. Gynecological HistoryNo gynecological history recorded. Obstetrics History GPAL:G 0 P 0 0 0 0 Past Encounters Encounter ID Performer Location Encounter Start Date Encounter Closed Date Diagnosis/Indication Diagnosis SNOMED-CT Code Diagnosis ICD10 Code Diagnosis IMO Codes Diagnosis Note [id number] PETE LARA PA-C [facility] [address] [address] 12/27/2024 13:37:11 12/27/2024 15:46:54 Sensorineural hearing loss 05717062 H90.42 Audiologic al evaluation results: Right ear: Normal hearing with excellent word recognitio n. Left ear: Normal hearing with the exception of a moderate SNHL at 8000Hz with excellent word recognitio n. Tympanomet ry: Right Ear:Type A Left Ear:Type As Bilateral tinnitus 48889 30259 102 H93.13 021339 Health Concerns Section Related Observation LastModified by Organization Detai ls LastModified Time None Recorded Concern Status LastModified by Organization Details LastModified Time None Recorded Advance Directives Directive None Recorded Payers Insurance Date Sequence Insurance Name Policy Number Policy Sarabia Covered Member ID Sarabia Member ID Guarantor Name 12/27/2024 1 [facility] (MEDICARE REPLACEMENT/A DVANTAGE - HMO) MAMMP Chris Dygon [id number] Chris Dygon 12/27/2024 1 [facility] (MEDICARE REPLACEMENT/A DVANTAGE - POS) MAMMP Chris Dygon [id number] Chris Dygon Notes Date Note Type Note [...] hearing. Reports intermittent tinnitus. ADELINA SENA MD [address] [place] [address], [place], [address], [facility] - [facility] 12/27/2024 15:30:27 OBGyn Episode No OBEpisode recorded.
--- OUTSIDE RECORDS SUMMARY | 2025-05-14 08:51 | XMS_ITS | Clinical Summary ---
Author Organization [employer] Address 75 [facility] 7t [place] [address] Care Team Providers Care Monorail Hooker Name Role Phone Nikolas Frost MD Primary Care Provider [phone] Allergies Active Allergy Reactions Criticality Noted Date [...] SLE (systemic lupus erythema tosus related syndrome) ([facility]) 11/05/2024 Assessment & Plan (11/05/2024 10:36 AM [...] 10:39 AM EDT): Patient wants to see wafer substrate tester, she is on multiple medications without improvement in symptoms Flexural eczema 11/05/2024 Assessment & Plan (11/05/2024 10:40 AM EDT): Hx of eczema, wants to see a campground hand, will place referral Mixed conductive and sensori [...] Date Resolved Date Encounter for medical examin [facility] [place] to establish care 11/05/2024 02/19/2025 Assessment & Plan (11/05/2024 10:25 AM EDT): Last pcp visit 1 year ER: pneumonia/sepsis October 2023 Hospitalization: October 2023 PMHX: sjrogren, SLE( followed at [facility]), asthma, bipolar disorder, RA, GERD PSHX: cervical [...] Encounters Date Type Department Care Team Description 05/13/2025 Patient Outreach [facility] MEDICINE [address] [place] [address] Nikolas Frost MD 04/08/2025 Telephone [facility] MED & PEDS [address] [place] [address] Harsha Wang MD Chart Prep 04/04/2025 Patient Outreach [facility] MEDICINE [address] [place] [address] Harsha Wang MD Pre-visit Planning (Pre visit planning unable to LVM ) 03/18/2025 Orders Only [facility] MED & PEDS [address] [place] [address] Harsha Wang MD 02/28/2025 1:45 PM EDT Office Visit [facility] MED & PEDS [address] [place] [address] Harsha Wang MD Chronic cough (Primary Dx); Heart murmur; Abdominal panniculus 02/28/2025 Travel 02/21/2025 Patient Outreach [facility] MEDICINE [address] [place] [address] Harsha Wang MD Care Coordination (CHW outreach for SDOH housing search-referral completed ) 02/21/2025 Patient Outreach [facility] MEDICINE [address] [place] [address] Harsha Wang MD Pre-visit Planning (SDOH screening positive and Tobacco screening negative) 02/21/2025 Results Follow-Up [address] [address] Carline Fregoso MD XR Shoulder 2+ Views Right 02/21/2025 Refill [facility] MED & PEDS [address] [place] [address] Harsha Wang MD 02/19/2025 9:00 AM EDT Office Visit [facility] WALK-IN CENTER [address] [place] [address] Carline Fregoso MD Cough, unspecified type (Primary Dx); Chronic right shoulder pain; Costochondritis 02/19/2025 Travel 02/18/2025 Telephone [facility] MED & PEDS [address] [place] [address] Harsha Wang MD Change PCP 02/11/2025 Telephone [facility] MEDICINE [address] [place] [address] Harsha Wang MD LAB inccomplete? 02/11/2025 Refill [facility] MEDICINE [address] [place] [address] [phone] Harsha Wang MD from Last 3 Months Immunizations Immunization Administration [...] with others, in a hotel, in a longterm, living outside on the street, on a [...] Upcoming Encounters Date Type Department Care Team ([facility] st Contact Info) Description 05/24/2025 10:15 AM EDT Office Visit [facility] CHC MED & PEDS [address] [place] [address] Nikolas Frost MD [address] [place] [address] Health Maintenance Due Date Last Done Comments [...] AM EDT Narrative 02/21/2025 10:01 AM EDT [address] [address] XRay Report Signed Patient: Phoebe Garnett MR#: [id number] : 1965 Acct:[id number] Age/Sex: 59 / F ADM Date: 02/21/25 Loc: HO.HHCX Attending Dr: Carline Fregoso MD Ordering Physician: Carline Fregoso MD Date of Service: 02/21/25 Procedure(s): XR shoulder RT min 2V Accession Number(s): [id number] cc: Carline Fregoso MD EXAMINATION: XR SHOULDER, [...] 02/21/25 0958 DD/ 0901 TD/TT: 02/21/25 0953 Manager Floor: Procedure Note Donotuseinterpreter, Image - 02/21/[address] [address] XRay Report Signed Patient: Noemi GarnettR#: [id number] : 1965Acct:[id number] Age/Sex: 59 / FADM Date: 02/21/25 Loc: HO.HHCX Attending Dr: Carline Fregoso MD Ordering Physician: Carline Fregoso MD Date of Service: 02/21/25 Procedure(s): XR shoulder RT min 2V Accession Number(s): [id number] cc: Carline Fregoso MD EXAMINATION: XR SHOULDER, [...] 02/21/2025 09:58 AM EDT Dictated By: Abimael iHcks MD Signed By: <Electronically signed by Abimael Hicks MD in OV> 02/21/25 0958 DD/ 0901 TD/TT: 02/21/25 0953 Manager Floor: Carline Fregoso MD IMG XR PROCEDURES Final Re sult * XR Chest 2 Views (02/21/2025 8:58 AM EDT) Anatomical Region Laterality Modality Chest Radiographic Jennifer ging 02/21/2025 8:58 AM EDT Narrative 02/21/2025 10:03 AM EDT [address] [address] XRay Report Signed Patient: Phoebe Garnett MR#: [id number] : 1965 Acct:[id number] Age/Sex: 59 / F ADM Date: 02/21/25 Loc: ANAHIX Attending Dr: Carline Fregoso MD Ordering Physician: Carline Fregoso MD Date of Service: 02/21/25 Procedure(s): XR chest 2V Accession Number(s): [id number] cc: Carline Fregoso MD EXAMINATION: XR CHEST [...] 02/21/25 1000 DD/ 0858 TD/TT: 02/21/25 0900 Manager Floor: Procedure Note Donotuseinterpreter, Image - 02/21/2025 [place] [address] XRay Report Signed Patient: Sage Garnett#: [id number] : 1965Acct:[id number] Age/Sex: 59 / FADM Date: 02/21/25 Loc: ANAHIX Attending Dr: Carline Fregoso MD Ordering Physician: Carline Fregoso MD Date of Service: 02/21/25 Procedure(s): XR chest 2V Accession Number(s): [id number] cc: Carline Fregoso MD EXAMINATION: XR CHEST [...] 02/21/25 1000 DD/ 0858 TD/TT: 02/21/25 0900 Manager Floor: Carline Fregoso MD IMG XR PROCEDURES Final Re sult * Hm Mammography (12/17/2024 4:03 PM EDT) Anatomical Region Laterality Modality Other Historical Provider HEALTH MAINTENANCE Final Result * (ABNORMAL) HM PAP/HPV (03/18/2023) Pap Smear 1. NILM 1. NILM HPV Detected(A ) Undetected, Indeterminate , Quantitative, Not Detected Historical Provider HEALTH MAINTENANCE Final Result from Last 3 Months or Most Recently Relevant to Health Maintenance Insurance [facility] DUAL COMPLETE Care Teams Monorail Hooker Relationship Specialty Start Date End Date Nikolas Frost MD [address] [place] [address] PCP - General Internal Medicine 04/11/25
--- OUTSIDE RECORDS SUMMARY | 2025-05-14 08:51 | XMS_ITS | Encounter Summary ---
Author Organization [employer] Address 75 [facility] [address], [place] [address] Care Team Providers Care Energy Assistant Name Role Phone Harsha Wang MD Primary Care Prov ider Nikolas Frost MD Primary Care Provider [phone] Reason for Referral * Consultation (Routine) - Closed Specialty Diagnoses / Procedures Referred By Contac t Referred To Contact Rheumatology Diagnoses SLE (systemic lupus erythematosus related syndrome) (CMS/HCC) (HCC) Nikolas Frost MD [address] [place] [address] Phone: tel: fax: [facility] [address] [facility] 1st [place], [place] Phone: tel: fax: Referral ID Status Reason Start Date Expiration Date V isits Requested Visits Authorized [id number] Closed Specialty Services Required 12/03/2024 12/03/2025 1 1 Encounter Details Date Type Department Care Team (Late st Contact Info) Description 12/03/2024 Orders Only [facility] CHC MED & PEDS [address] [place], [place] [phone] Nikolas Frost MD [address] [place], [place] [phone] SLE (systemic lupus erythematosus related syndrome) (CMS/HCC) [...] Upcoming Encounters Date Type Department Care Team ([facility] st Contact Info) Description 05/24/2025 10:15 AM EDT Office Visit [facility] MED & PEDS [address] [place] [address] Nikolas Frost MD [address] [place] [address] Scheduled Referrals Name Type Priority Associated Diagnoses Orde r Schedule Referral to Rheumatology Outpatient Referral Routine SLE (systemic lupus erythematosus related syndrome) ([facility]) Expected: 12/03/2024 (Approximate), Expires: 12/03/2025 documented as of this encounter Visit Diagnoses Diagnosis SLE (systemic lupus erythematosus related syndrome) (CMS/HCC) (HCC)- Primary Systemic lupus erythematosus documented in this encounter Additional Health Concerns Assessment Noted Time PHQ-9 Depression Total Score: 0 11/06/19 25 9:58 AM EDT documented as of this encounter Care Teams Energy Assistant Relationship Specialty Start Date End Date Harsha Wang MD [address] [place] [address] PCP - General Internal Medicine 11/11/24 04/10/25 Nikolas Frost MD [address] [place] [address] PCP - General Internal Medicine 04/11/25 documented as of this encounter
--- OUTSIDE RECORDS SUMMARY | 2025-05-14 08:51 | XMS_ITS | Encounter Summary ---
Author Organization [employer] Address [address] [place] [address] Care Team Providers Care Vehicle Technician Name Role Phone Harsha Wang MD Primary Care Prov ider Nikolas Frost MD Primary Care Provider [phone]- [phone] Encounter Details Date Type Department Care Team ([facility] Contact Info) Description 01/24/2025 Orders Only [facility] [address] [place] [address] Provider, MD Julianne Social History Tobacco Use [...] Upcoming Encounters Date Type Department Care Team ([facility] Contact Info) Description 05/24/2025 10:15 AM EDT Office Visit [facility] CHC MED & PEDS [address] [place], [place] [phone] Nikolas Frost MD [address] [place], [place] [phone] documented as of this encounter Procedures Procedure [...] C-spine Magnetic Resonan ce Historical Provider MD DIXNO MRI PROCEDURES Final Result documented in this encounter Visit Diagnoses Not on filedocumented in this encounter Additional Health Concerns Assessment Noted Time PHQ-9 Depression Total Score: 0 11/06/19 9:58 AM EDT documented as of this encounter Care Teams Vehicle Technician Relationship Specialty Start Date End Date Harsha Wang MD [address] [place] [address] PCP - General Internal Medicine 11/11/24 04/10/25 Nikolas Frost MD [address] [place] [address] PCP - General Internal Medicine 04/11/25 documented as of this encounter
--- OUTSIDE RECORDS SUMMARY | 2025-05-14 08:51 | XMS_ITS | Encounter Summary ---
Author Organization [employer] Address 75 [facility] 7t [place] [address] Care Team Providers Care Bounty Trapper Name Role Phone Harsha Wang MD Primary Care Prov ider Nikolas Frost MD Primary Care Provider [phone]- [phone] Reason for Visit * Reason Onset Date Comments Results 12/23/2024 Encounter Details Date Type Department Care Team (Late st Contact Info) Description 12/23/2024 Telephone [facility] MEDICINE [address] [place] [address] Harsha Wang MD [address] [place] [address] Results Social History Tobacco Use Types Packs/Day [...] 10:04 AM EDT Jose from [facility] calling in regards to MR Brain results. She was informed pt is unable to receive results until February. Emmy is requesting a call back with results to clearher for TMS and or to deny if pcp feels necessary. Please contact Emmy at [phone]. documented in this encounter Plan of Treatment Upcoming Encounters Date Type Department Care Team ([facility] st Contact Info) Description 05/24/2025 10:15 AM EDT Office Visit [facility] MED & PEDS [address] [place] [address] Nikolas Frost MD [address] [place] [address] documented as of this encounter Visit Diagnoses Not on filedocumented in this encounter Additional Health Concerns Assessment Noted Time PHQ-9 Depression Total Score: 0 11/06/19 9:58 AM EDT documented as of this encounter Care Teams Bounty Trapper Relationship Specialty Start Date End Date Harsha Wang MD [address] [place] [address] PCP - General Internal Medicine 11/11/24 04/10/25 Nikolas Frost MD [address] [place] [address] PCP - General Internal Medicine 04/11/25 documented as of this encounter
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
--- OUTSIDE RECORDS SUMMARY | 2025-05-14 08:51 | XMS_ITS | Encounter Summary ---
Author Organization [employer] Address 75 [facility] 7 [place] [address] Care Team Providers Care Photo Mask Cleaner Name Role Phone Harsha Wang MD Primary Care Prov ider Nikolas Frost MD Primary Care Provider [phone]- [phone] Reason for Visit * Reason Comments Med Refill Encounter Details Date Type Department Care Team ([facility] Contact Info) Description 02/21/2025 Refill [facility] MED & PEDS [address] [employer], [place] [phone] Harsha Wang MD [address] [place] [address] Social History Tobacco Use Types Packs/Day Years [...] Description 05/24/2025 10:15 AM EDT Office Visit [facility] MED & PEDS [address] [place] [address] Nikolas Frost MD [address] [place] [address] documented as of this encounter Visit Diagnoses Not on filedocumented in this encounter Additional Health Concerns Assessment Noted Time PHQ-9 Depression Total Score: 0 11/06/19 9:58 AM EDT documented as of this encounter Care Teams Photo Mask Cleaner Relationship Specialty Start Date End Date Harsha Wang MD [address] [place] [address] PCP - General Internal Medicine 11/11/24 04/10/25 Nikolas Frost MD [address] [place] [address] PCP - General Internal Medicine 04/11/25 documented as of this encounter
--- OUTSIDE RECORDS SUMMARY | 2025-05-14 08:51 | XMS_ITS | Encounter Summary ---
Author Organization [facility] Address [address] [place] [address] Care Team Providers Care Fermenting Cellars Receiver Name Role Phone Levy Harsha Peace Primary Care Provide r Encounter Details Date Type Department Care Team ([facility] Contact Info) Description 03/17/2025 Lab Requisition [facility] - Main Lab [address] [facility] [place] [address] Soto Reddy PA [address] [place] [address] Urge incontinence Social History Tobacco Use Types [...] Encounters Date Type Department Care Team (Late Contact Info) Description 12/20/2025 4:00 PM EDT Appointment Radiology Department - [address] [phone] documented as of this encounter Procedures Procedure Name Priority Date/Time Associated Diagnosis Comments CULTURE URINE Routine 03/17/2025 12:00 AM EDT Urge incontinence documented in this encounter Results * Culture urine (03/17/2025 12:00 AM EDT) Culture, Urine 10,000-49,000 CFU/mL Mixed urogenital marilynn, no uropathogens present. Suggest repeat specimen if clinically indicated. 03/18/2025 1:[address] [facility] Urine Urine specimen obtained by clean catch procedure / Unknown 03/17/2025 03/17/2025 6:09 PM EDT us Soto RUBIO LAB MICROBIOLOGY - GENERAL ORD ERABLES Final Result [facility] [address] [place] [address], documented in this encounter Visit Diagnoses Diagnosis Urge incontinence documented in this encounter Care Teams Fermenting Cellars Receiver Relationship Specialty Start Date End Date Harsha Wang [address] [place] [address] PCP - General Internal Medicine 05/13/25 documented as of this encounter
--- OUTSIDE RECORDS SUMMARY | 2025-05-14 08:51 | XMS_ITS | Encounter Summary ---
Author Organization [facility] Address [address] [place] [address] Care Team Providers Care Health Informatics Specialist Name Role Phone Levy Harsha Peace Primary Care Provide r Encounter Details Date Type Department Care Team ([facility] Contact Info) Description 03/14/2025 Lab Requisition [facility] - Main Lab 299 [facility] [place] [address] Patrick Basilio MD [address] [place] [address] Urinary tract infection, site not specified Social [...] Upcoming Encounters Date Type Department Care Team ([facility] Contact Info) Description 12/20/2025 4:00 PM EDT Appointment Radiology Department - [address] [phone] documented as of this encounter Procedures Procedure [...] reflex microscopic (03/14/2025 1:42 PM EDT) Specific [place] Urine 1.029 1.003 - 1.030 LAB URINALYSIS - AUTOMATED METHOD 03/14/2025 6:26 PM [facility] pH, Urine 5.5 5.0 - 8.0 pH LAB URINALYSIS - AUTOMATED METHOD 03/14/2025 6:26 PM [facility] Leukocytes, Urine Negative Negative LAB URINALYSIS - AUTOMATED METHOD 03/14/2025 6:26 PM [facility] Nitrite, Urine Negative Negative LAB URINALYSIS - AUTOMATED METHOD 03/14/2025 6:26 PM [facility] Protein, Urine Negative <=Trace mg/dL LAB URINALYSIS - AUTOMATED METHOD 03/14/2025 6:26 PM [facility] Glucose, Urine Negative Negative mg/dL LAB URINALYSIS - AUTOMATED METHOD 03/14/2025 6:26 PM [facility] Ketones, Urine Negative Negative mg/dL LAB URINALYSIS - AUTOMATED METHOD 03/14/2025 6:26 PM [facility] Urobilinogen, Urine 1.0 0.2 - 1.0 mg/dL LAB URINALYSIS - AUTOMATED METHOD 03/14/2025 6:26 PM [facility] Bilirubin, Urine Negative Negative LAB URINALYSIS - AUTOMATED METHOD 03/14/2025 6:26 PM [facility] Blood, Urine Negative Negative LAB URINALYSIS - AUTOMATED METHOD 03/14/2025 6:26 PM [facility] Urine Urine specimen from urethra / Unknown 03/14/2025 1:42 PM EDT 03/14/2025 6:02 PM EDT Patrick Basilio MD LAB URINE ORDERABLES Sybil l Result Performing Organization Address [facility] Co de Phone Number [facility] [address] [place] [address], [place] [phone] * Culture urine (03/14/2025 1:42 PM EDT) Culture, Urine 10,000-49,000 CFU/mL Mixed urogenital marilynn, no uropathogens present. Suggest repeat specimen if clinically indicated. 03/15/2025 1:14 PM EDT [facility] Urine Urine specimen from urethra / Unknown 03/14/2025 1:42 PM EDT 03/14/2025 6:02 PM EDT Patrick Basilio MD LAB MICROBIOLOGY - GENERA L ORDERABLES Final Result Performing Organization Address [facility] Co de Phone Number [facility] [address] [place] [address], [place] [phone] documented in this encounter Visit Diagnoses Diagnosis Urinary tract infection, site not specified documented in this encounter Care Teams Health Informatics Specialist Relationship Specialty Start Date End Date Harsha Wang [address] [place] [address] PCP - General Internal Medicine 05/13/25 documented as of this encounter
--- OUTSIDE RECORDS SUMMARY | 2025-05-14 08:51 | XMS_ITS | Encounter Summary ---
Author Organization [employer] Address [address] [place] [address] Care Team Providers Care Back Tender Paper Machine Name Role Phone Harsha Wang MD Primary Care Prov ider Nikolas Frost MD Primary Care Provider [phone] Encounter Details Date Type Department Care Team ([facility] Contact Info) Description 02/10/2025 Orders Only [facility] [address] [place] [address] Provider, MD Julianne Social History Tobacco Use [...] Upcoming Encounters Date Type Department Care Team ([facility] Contact Info) Description 05/24/2025 10:15 AM EDT Office Visit [facility] CHC MED & PEDS [address] [place], [place] [phone] Nikolas Frost MD [address] [place], [place] [phone] documented as of this encounter Procedures Procedure [...] documented as of this encounter Care Teams Back Tender Paper Machine Relationship Specialty Start Date End Date Levy Harsha Peace MD 505 [facility] [place] [place] [address] PCP - General Internal Medicine 11/11/24 04/10/25 Nikolas Frost MD 505 [facility] [place] [place] [address] PCP - General Internal Medicine 04/11/25 documented as of this encounter
--- OUTSIDE RECORDS SUMMARY | 2025-05-14 08:51 | XMS_ITS | Encounter Summary ---
Author Organization [employer] Address [address] [facility] 7t [place] [address] Care Team Providers Care Lens Blank Gauger Name Role Phone Nikolas Frost MD Primary Care Provider [phone] Encounter Details Date Type Department Care Team (Late st Contact Info) Description 05/13/2025 Patient Outreach [facility] [address] [place] [address] Nikolas Frost MD [address] [place], [place] [phone] Social History Tobacco Use Types Packs/Day Years [...] with others, in a hotel, in a snf, living outside on the street, on a [...] as of this encounter Progress Notes * Dejuan Dao - 05/13/2025 3:04 PM EDT CC Dejuan ortega successful outbound call to patient for pre-visit planning. Patient name and confirmed. Patient confirms appt date and time, and has transportation arrangements. Biggest concern for appointment at this time is no concerns. Patient advised to bring to appointment a photo id and insurance card. Appropriate screenings completed in anticipation of appointment. documented in this encounter Plan of Treatment Upcoming Encounters Date Type Department Care Team ([facility] st Contact Info) Description 05/24/2025 10:15 AM EDT Office Visit [facility] CHC MED & PEDS [address] [place] [address] Nikolas Frost MD [address] [place] [address] documented as of this encounter Visit Diagnoses Not on filedocumented in this encounter Additional Health Concerns Assessment Noted Time PHQ-9 Depression Total Score: 0 11/06/19 25 9:58 AM EDT documented as of this encounter Care Teams Lens Blank Gauger Relationship Specialty Start Date End Date Nikolas Frost MD [address] [place] [address] PCP - General Internal Medicine 04/11/25 documented as of this encounter
--- OUTSIDE RECORDS SUMMARY | 2025-05-14 08:52 | XMS_ITS | Clinical Summary ---
Author Organization [facility] Address [address] [place] [address] Care Team Providers Care Principle Industrial Hygienist Name Role Phone Rey Galvan MD Primary Care Provider [phone] Allergies Active Allergy Reactions Criticality Noted Date [...] age to complete this topic Care Teams Principle Industrial Hygienist Relationship Specialty Start Date End Date Rey Galvan MD PCP - General Internal Medicine 06/04/21
== END 2025-05-14 08:47 | disposition home or self-care (01) ==
LOC: HO.MRI 08:46
PROVIDERS: PCP Internal Medicine; Visit Provider Orthopaedic Surgery
DX: M25.311 Other instability, right shoulder (principal)
CPT/HCPCS: 73221

== ENCOUNTER → 2025-05-14 08:56 | Outpatient (BNV) | payer MEDICARE, SELFPAY | PROVIDERS: PCP Internal Medicine; Visit Provider Radiology Diagnostic Ultrasound | DX: M67.813 Other specified disorders of tendon, right shoulder (principal); M19.011 Primary osteoarthritis, right shoulder; M75.31 Calcific tendinitis of right shoulder | CPT/HCPCS: 73221 ==

== ENCOUNTER 2025-05-16 20:05 | Emergency (ER) | payer MEDICARE, SELFPAY ==
--- OUTSIDE RECORDS SUMMARY | 2025-05-13 09:00 | XMS_ITS | Encounter Summary ---
Author Organization [facility] Address [address] [place] [address] Care Team Providers Care Public Policy Analyst Name Role Phone Harsha Wang Primary Care Provide r Reason for Visit * Imaging (Routine) - Authorized Specialty Diagnoses / Procedures Referred By Contac t Referred To Contact Cardiology Diagnoses Heart murmur Procedures Transthoracic echocardiogram (TTE) complete with PRN contrast, bubble, strain, and 3D order panel RI TTE W 2D IMAGE COMPLETE W DOPPLER ECHO & COLOR FLOW DOPPLER ECHO RI JAKY 2D COMPLETE W/CONTRAST OR W & WO CONTRAST WITH DOPPLER Harsha Wang [address] [place], [place] Phone: tel: fax: [facility] Referral ID Status Reason Start Date Expiration Date V isits Requested Visits Authorized [id number] Authorized 03/02/2025 03/02/2026 1 1 Encounter Details Date Type Department Care Team (Late st Contact Info) Description 05/13/2025 9:00 AM EDT Ancillary Procedure [facility] - [address] [place] [address] Heart murmur Social History Tobacco [...] 12/20/2025 4:00 PM EDT Appointment Radiology Department [address] [address] documented as of this encounter Procedures Procedure Name Priority Date/Time Associated Diagnosis Comments TRANSTHORACIC ECHOCARDIOGRAM (TTE) COMPLETE Routine 05/13/2025 9:44 AM EDT Heart murmur documented in this encounter Results * TRANSTHORACIC ECHOCARDIOGRAM (TTE) COMPLETE (05/13/2025 9:44 AM EDT) Left Atrium Minor [place] 5.2 cm CV PACS Left Atrium Major [place] 5.1 cm CV PACS LA Area Sys [...] Volume 53 mL CV PACS MV Deceleration [place] 5.5 m/s2 CV PACS E Wave Deceleration [...] murmurs documented in this encounter Care Teams Public Policy Analyst Relationship Specialty Start Date End Date Harsha Wang [address] [place] [phone] PCP - General Internal Medicine 05/13/25 documented as of this encounter
--- NOTE | ~2025-05-16 | CT_ITS ---
CLINICAL HISTORY: bloody stools, abd pain, hx colitis CT abdomen and pelvis with contrast Comparison: CT - CT ABDOMEN PELVIS W IV CON - 05/16/25 21:39 EDT Findings: The lung bases are clear. The liver, gallbladder, spleen, adrenal glands and pancreas are unremarkable. Kidneys, ureters and bladder demonstrate no acute process. No bowel obstruction. No free air, free fluid, pneumatosis or abscess. Mild edema involving the descending and sigmoid colon. No acute osseous finding. Impression: Mild colitis involving the descending and sigmoid colon. No pneumatosis, free air or abscess. This document has been electronically signed by: Michael Elizabeth MD on 05/16/2025 22:43:45
[2025-05-16 20:23] VITALS: BP 126/66; PULSE 88; RESP 16; TEMP 36.7; O2SAT 96; BMI 24.8
[2025-05-16 20:49] LABS: MANUAL DIFF FLAG NO
[2025-05-16 20:51] LABS: Hematocrit 36.0 % (37.0-47.0); Hemoglobin 12.0 g/dl (12.0-16.0); Imm Gran Abs Auto 0.01 X10*3/uL (0.00-0.03); Imm Gran Pct Auto 0.2 % (0.0-0.4); Lymphocytes Absolute Auto 1.6 X10*3/uL (1.2-4.9); Mean Corpuscular HGB Conc 33.3 g/dl (31.0-35.0); Mean Corpuscular Hemoglobin 29.6 pg (27.0-33.0); Mean Corpuscular Volume 88.9 fL (80.0-98.0); NRBC Abs Auto 0.000 X10*3/uL (0.0-0.012); NRBC Pct Auto 0.0 /100WBC (0.0-0.2); Platelet Count 204 X10*3/uL (160-400); Red Blood Count 4.05 X10*6/uL (4.20-5.50); White Blood Count 4.6 X10*3/uL (4.8-10.8)
[2025-05-16 20:52] LABS: Appearance Urine Clear; Glucose Urine UA Negative (Negative); PH 5.5 (5.0-9.0); Specific Gravity - Urine 1.025 (1.005-1.025); UMIC TRIGGER UACC YES
[2025-05-16 20:57] LABS: UACC Culture Trigger YES
[2025-05-16 21:03] VITALS: BP 127/92; PULSE 72; RESP 14; TEMP 36.6; O2SAT 98
[2025-05-16 21:05] LABS: Alanine Aminotransferase 13 U/L (0-31); Albumin Level 4.1 g/dL (3.5-5.0); Alkaline Phosphatase 76 U/L (39-117); Anion Gap 11 (12-20); Aspartate Amino Transferase 19 U/L (5-31); Blood Urea Nitrogen 20 mg/dL (9-16); Calcium 8.8 mg/dL (8.4-10.2); Carbon Dioxide 27 mmol/L (22-29); Chloride 110 mmol/L (96-108); Creatinine Clr Calc Pharmacy 96.4; Estimated Glomerular Filt Rate > 60; Lipase 20 U/L (8-78); Magnesium 2.0 mg/dL (1.6-2.6); Potassium 3.7 mmol/L (3.3-5.1); Sodium 144 mmol/L (135-145); Total Protein 7.1 g/dL (6.5-8.0)
--- OUTSIDE RECORDS SUMMARY | 2025-05-16 21:15 | XMS_ITS | Encounter Summary ---
Author Organization [employer] Address [address] [place] [address] Care Team Providers Care Bilingual Teacher Assistant Name Role Phone Harsha Wang MD Primary Care Prov ider Nikolas Frost MD Primary Care Provider [phone] Encounter Details Date Type Department Care Team ([facility] Contact Info) Description 01/24/2025 Orders Only [facility] [address] [place] [address] Provider, MD Julianne Social History Tobacco Use [...] Upcoming Encounters Date Type Department Care Team ([facility] Contact Info) Description 05/24/2025 10:15 AM EDT Office Visit [facility] CHC MED & PEDS [address] [place], [place] [phone] Nikolas Frost MD [address] [place], [place] [phone] documented as of this encounter Procedures Procedure [...] documented as of this encounter Care Teams Bilingual Teacher Assistant Relationship Specialty Start Date End Date Harsha Wang MD [address] [place] [address] PCP - General Internal Medicine 11/11/24 04/10/25 Nikolas Frost MD [address] [place] [address] PCP - General Internal Medicine 04/11/25 documented as of this encounter
--- OUTSIDE RECORDS SUMMARY | 2025-05-16 21:15 | XMS_ITS | Encounter Summary ---
Author Organization [employer] Address [address] [facility] 7 [place] [address] Care Team Providers Care Education Analyst Name Role Phone Nikolas Frost MD Primary Care Provider Encounter Details Date Type Department Care Team (Late Contact Info) Description 05/16/2025 Orders Only GENERIC EXTERNAL DATA DEPARTMENT Provider, Generic External Data Social History Tobacco Use Types Packs/Day Years [...] with others, in a hotel, in a nursing home, living outside on the street, on a [...] Upcoming Encounters Date Type Department Care Team ([facility] st Contact Info) Description 05/24/2025 10:15 AM EDT Office Visit [facility] CHC MED & PEDS [address] [place], [place] [phone] Nikolas Frost MD [address] [place] [address] documented as of this encounter Procedures Procedure Name Priority Date/Time Associated Diagnosis Comments URINALYSIS, COMPLETE, WITH REFLEX TO CULTURE Routine 05/16/2025 8:41 PM EDT CBC WITH AUTO DIFFERENTIAL Routine 05/16/2025 8:41 PM EDT MAGNESIUM Routine 05/16/2025 8:41 PM EDT LIPASE Routine 05/16/2025 8:41 PM EDT COMPREHENSIVE METABOLIC PANEL Routine 05/16/2025 8:41 PM EDT documented in this encounter Results * Lipase (05/16/2025 8:41 PM EDT) Lipase 20 8 - 78 U/L [facility] 05/16/2025 8:41 PM EDT 05/16/2025 8:48 PM EDT us Generic External Data Provider LAB BLOOD ORDERAB LES Final Result [facility] [address] [place] [address] [phone] * Magnesium (05/16/2025 8:41 PM EDT) Magnesium 2.0 1.6 - 2.6 mg/dL [facility] 05/16/2025 8:41 PM EDT 05/16/2025 8:48 PM EDT us Generic External Data Provider LAB BLOOD ORDERAB LES Final Result [facility] [address] [place] [address] [phone] * (ABNORMAL) Comprehensive Metabolic Panel (05/16/2025 8:41 PM EDT) Pathologist [facility] Sodium 144 135 - 145 mmol/L [facility] Potassium 3.7 3.3 - 5.1 mmol/L [facility] Chloride 110(H) 96 - 108 mmol/L [facility] Carbon Dioxide 27 22 - 29 mmol/L [facility] Anion Gap 11(L) 12 - 20 [facility] Urea Nitrogen (BUN) 20(H) 9 - 16 mg/dL [facility] Creatinine, Serum 0.56 0.5 - 1.4 mg/dL [facility] Creatinine Clr Calc Pharmacy 96.4 [facility] Comment:Provided height and weight: 158.75 cm,62.596 kg.eGFR (calculated from the MDRD study equation) and eCrCl(calculated from the Cockcroft-Gault equation) are based ondifferent parameters and may not yield comparable results.If eCrCl result is absurd, please check patient'sheight/weight. Estimated Glomerular Filt Rate >60 [facility] Comment:Chronic Kidney Disea se: Estimated GFR < 60 mL/min/[id number] Kidney Disease: Estimated GFR < 15 mL/min/1.73m2 Glucose 101 60 - 115 mg/dL [facility] Calcium 8.8 8.4 - 10.2 mg/dL [facility] Bilirubin, Total 0.2 0.0 - 1.0 mg/dL [facility] Aspartate Amino Transferase 19 5 - 31 U/L [facility] Alanine Aminotransferase 13 0 - 31 U/L [facility] Total Protein 7.1 6.5 - 8.0 g/dL [facility] Albumin Level 4.1 3.5 - 5.0 g/dL [facility] Alkaline Phosphatase 76 39 - 117 U/L [facility] 05/16/2025 8:41 PM EDT 05/16/2025 8:48 PM EDT us Generic External Data Provider LAB BLOOD ORDERAB LES Final Result [facility] [address] [place] [address] [phone] * (ABNORMAL) Urinalysis, Complete, with Reflex to Culture (05/16/2025 8:41 PM EDT) Color Urine Yellow [facility] Appearance Urine Clear [facility] PH 5.5 5.0 - 9.0 [facility] Glucose Urine UA Negative Negative mg/dL [facility] Urine Blood Negative Negative [facility] Specific [place] - Urine 1.025 1.005 - 1.025 [facility] Urine Protein Negative Neg-Trace mg/dL [facility] Urine Ketones Negative Negative mg/dL [facility] Nitrite Urine Negative Negative [facility] Leukocyte Esterase Urine Small (1+)(A) Negative [facility] RBC Urine 0-2 0 - 2 /HPF [facility] Urine WBC 6-10(A) 0 - 5 /HPF [facility] Urine Squamous Epithelial Cell 0-2 0 - 2 /HPF [facility] Urine Bacteria None Seen None Seen [facility] Hyaline Casts, Urine 0-2 0 - 2 /LPF [facility] 05/16/2025 8:41 PM EDT 05/16/2025 8:48 PM EDT Narrative [facility] - 05/16/2025 8:57 PM EDT 2037Urine, Clean Catch us Generic External Data Provider LAB URINE ORDERAB LES Final Result [facility] [address] [place] [address] [phone] * (ABNORMAL) CBC auto differential (05/16/2025 8:41 PM EDT) White Blood Count 4.6(L) 4.8 - 10.8 X10*3/uL [facility] Red Blood Count 4.05(L) 4.20 - 5.50 X10*6/uL [facility] Hemoglobin 12.0 12.0 - 16.0 g/dl [facility] Hematocrit 36.0(L) 37.0 - 47.0 % [facility] Mean Corpuscular Volume 88.9 80.0 - 98.0 fL [facility] Mean Corpuscular Hemoglobin 29.6 27.0 - 33.0 pg [facility] Mean Corpuscular HGB Conc 33.3 31.0 - 35.0 g/dl [facility] Red Cell Distribution Width 13.3 11.0 - 16.0 % [facility] Platelet Count 204 160 - 400 X10*3/uL [facility] Mean Platelet Volume 9.7 9.4 - 12.3 fL [facility] Neutrophils Percent Auto 54.0 45 - 73 % [facility] Imm Gran Pct Auto 0.2 0.0 - 0.4 % [facility] Lymphocytes Percent Auto 35.0 20 - 40 % [facility] Monocytes Percent Auto 9.2 2 - 11 % [facility] Eosinophils Percent Auto 0.9 0 - 4 % [facility] Basophils Percent Auto 0.7 0 - 2 % [facility] NRBC Pct Auto 0.0 0.0 - 0.2 /100WBC [facility] Neutrophils Absolute Auto 2.5 2.0 - 8.3 x10*3/uL [facility] Imm Gran Abs Auto 0.01 0.00 - 0.03 X10*3/uL [facility] Lymphocytes Absolute Auto 1.6 1.2 - 4.9 X10*3/uL [facility] Monocytes Absolute Auto 0.4 0.1 - 1.2 X10*3/uL [facility] Eosinophils Absolute Auto 0.0 0.0 - 0.4 X10*3/uL [facility] Basophils Absolute Auto 0.0 0.0 - 0.2 X10*3/uL [facility] NRBC Abs Auto 0.000 0.0 - 0.012 X10*3/uL [facility] 05/16/2025 8:41 PM EDT 05/16/2025 8:48 PM EDT us Generic External Data Provider LAB BLOOD ORDERAB LES Final Result [facility] [address] [place] [address] [phone] documented in this encounter Visit Diagnoses Not on filedocumented in this encounter Additional Health Concerns Assessment Noted Time PHQ-9 Depression Total Score: 0 11/06/19 9:58 AM EDT documented as of this encounter Care Teams Education Analyst Relationship Specialty Start Date End Date Nikolas Frost MD [address] [place] [address] PCP - General Internal Medicine 04/11/25 documented as of this encounter
--- OUTSIDE RECORDS SUMMARY | 2025-05-16 21:15 | XMS_ITS | Encounter Summary ---
Author Organization [employer] Address [address] [facility] 7t [place] [address] Care Team Providers Care Waste Recycler Name Role Phone Nikolas Frost MD Primary Care Provider [phone] Encounter Details Date Type Department Care Team (Late st Contact Info) Description 05/13/2025 Patient Outreach [facility] [address] [place] [address] Nikolas Frost MD [address] [place], [place] [phone] Social History Tobacco Use Types Packs/Day Years [...] with others, in a hotel, in a intermediate, living outside on the street, on a [...] Upcoming Encounters Date Type Department Care Team ([facility] st Contact Info) Description 05/24/2025 10:15 AM EDT Office Visit [facility] MED & PEDS [address] [place] [address] Nikolas Frost MD [address] [place] [address] documented as of this encounter Visit Diagnoses Not on filedocumented in this encounter Additional Health Concerns Assessment Noted Time PHQ-9 Depression Total Score: 0 11/06/19 25 9:58 AM EDT documented as of this encounter Care Teams Waste Recycler Relationship Specialty Start Date End Date Nikolas Frost MD [address] [place] [address] PCP - General Internal Medicine 04/11/25 documented as of this encounter
--- OUTSIDE RECORDS SUMMARY | 2025-05-16 21:15 | XMS_ITS | Encounter Summary ---
Author Organization [employer] Address [address] [facility] 7 [place] [address] Care Team Providers Care Precision Dyer Name Role Phone Harsha Wang MD Primary Care Prov ider Nikolas Frost MD Primary Care Provider [phone]- [phone] Reason for Visit * Reason Comments Med Refill Encounter Details Date Type Department Care Team ([facility] Contact Info) Description 02/21/2025 Refill [facility] CHC MED & PEDS [address] [place], [place] [phone] Harsha Wang MD [address] [place] [address] Social History Tobacco Use Types Packs/Day Years [...] Description 05/24/2025 10:15 AM EDT Office Visit [facility] MED & PEDS [address] [place] [address] Nikolas Frost MD [address] [place] [address] documented as of this encounter Visit Diagnoses Not on filedocumented in this encounter Additional Health Concerns Assessment Noted Time PHQ-9 Depression Total Score: 0 11/06/19 9:58 AM EDT documented as of this encounter Care Teams Precision Dyer Relationship Specialty Start Date End Date Harsha Wang MD [address] [place] [address] PCP - General Internal Medicine 11/11/24 04/10/25 Nikolas Frost MD [address] [place] [address] PCP - General Internal Medicine 04/11/25 documented as of this encounter
--- OUTSIDE RECORDS SUMMARY | 2025-05-16 21:15 | XMS_ITS | Encounter Summary ---
Author Organization [employer] Address [address] [facility] 7t [place] [address] Care Team Providers Care Automobile Racer Name Role Phone Harsha Wang MD Primary Care Prov ider Nikolas Frost MD Primary Care Provider [phone] Reason for Visit * Reason Onset Date Comments Results 12/23/2024 Encounter Details Date Type Department Care Team (Late st Contact Info) Description 12/23/2024 Telephone [facility] [address] [place] [address] Harsha Wang MD [address] [place] [address] Results Social History Tobacco Use Types Packs/Day [...] - 12/23/2024 10:04 AM EDT Jose from [facility] calling in regards to MR Brain results. She was informed pt is unable to receive results until February. Emmy is requesting a call back with results to clearher for TMS and or to deny if pcp feels necessary. Please contact Emmy at [phone]. documented in this encounter Plan of Treatment Upcoming Encounters Date Type Department Care Team ([facility] st Contact Info) Description 05/24/2025 10:15 AM EDT Office Visit [facility] MED & PEDS [address] [place] [address] Nikolas Frost MD [address] [place] [address] documented as of this encounter Visit Diagnoses Not on filedocumented in this encounter Additional Health Concerns Assessment Noted Time PHQ-9 Depression Total Score: 0 11/06/19 9:58 AM EDT documented as of this encounter Care Teams Automobile Racer Relationship Specialty Start Date End Date Harsha Wang MD [address] [place] [address] PCP - General Internal Medicine 11/11/24 04/10/25 Nikolas Frost MD [address] [place] [address] PCP - General Internal Medicine 04/11/25 documented as of this encounter
--- OUTSIDE RECORDS SUMMARY | 2025-05-16 21:15 | XMS_ITS | Encounter Summary ---
Author Organization [employer] Address [address] [facility] [address], [place] [address] Care Team Providers Care Odd Jobs Day Worker Name Role Phone Harsha Wang MD Primary Care Prov ider Nikolas Frost MD Primary Care Provider [phone] Reason for Referral * Consultation (Routine) - Closed Specialty Diagnoses / Procedures Referred By Contac t Referred To Contact Rheumatology Diagnoses SLE (systemic lupus erythematosus related syndrome) (CMS/HCC) (HCC) Nikolas Frost MD [address] [place] [address] Phone: tel: fax: [facility] [address] [facility] [address] [place], [place] Phone: tel: fax: Referral ID Status Reason Start Date Expiration Date V isits Requested Visits Authorized [id number] Closed Specialty Services Required 12/03/2024 12/03/2025 1 1 Encounter Details Date Type Department Care Team (Late st Contact Info) Description 12/03/2024 Orders Only [facility] [address] [place], [place] [phone] Nikolas Frost MD [address] [place], [place] [phone] SLE (systemic lupus erythematosus related syndrome) (CMS/HCC) [...] Description 05/24/2025 10:15 AM EDT Office Visit [facility] [address] [place] [address] Nikolas Frost MD [address] [place] [address] Scheduled Referrals Name Type Priority Associated Diagnoses Orde r Schedule Referral to Rheumatology Outpatient Referral Routine SLE (systemic lupus erythematosus related syndrome) ([facility]) Expected: 12/03/2024 (Approximate), Expires: 12/03/2025 documented as of this encounter Visit Diagnoses Diagnosis SLE (systemic lupus erythematosus related syndrome) (CMS/HCC) (HCC)- Primary Systemic lupus erythematosus documented in this encounter Additional Health Concerns Assessment Noted Time PHQ-9 Depression Total Score: 0 11/06/19 25 9:58 AM EDT documented as of this encounter Care Teams Odd Jobs Day Worker Relationship Specialty Start Date End Date Harsha Wang MD [address] [place] [address] PCP - General Internal Medicine 11/11/24 04/10/25 Nikolas Frost MD [address] [place] [address] PCP - General Internal Medicine 04/11/25 documented as of this encounter
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
--- OUTSIDE RECORDS SUMMARY | 2025-05-16 21:15 | XMS_ITS | Encounter Summary ---
Author Organization [facility] Address [address] [place] [address] Care Team Providers Care Nephrologist Name Role Phone Levy Harsha Peace Primary Care Provide r Encounter Details Date Type Department Care Team ([facility] Contact Info) Description 03/17/2025 Lab Requisition [facility] - Main Lab [address] [facility] [place] [address] Soto Reddy PA [address] [place] [address] Urge incontinence Social History Tobacco [...] 4:00 PM EDT Appointment Radiology Department - [address] [phone] documented as of this encounter Procedures Procedure Name Priority Date/Time Associated Diagnosis Comments CULTURE URINE Routine 03/17/2025 12:00 AM EDT Urge incontinence documented in this encounter Results * Culture urine (03/17/2025 12:00 AM EDT) Culture, Urine 10,000-49,000 CFU/mL Mixed urogenital marilynn, no uropathogens present. Suggest repeat specimen if clinically indicated. 03/18/2025 1:24 PM EDT [facility] Urine Urine specimen obtained by clean catch procedure / Unknown 03/17/2025 03/17/2025 6:09 PM EDT us Soto RUBIO [facility] MICROBIOLOGY - GENERAL ORD ERABLES Final Result [facility] [address] [place] [address], documented in this encounter Visit Diagnoses Diagnosis Urge incontinence documented in this encounter Care Teams Nephrologist Relationship Specialty Start Date End Date Harsha Wang [address] [place] [address] PCP - General Internal Medicine 05/13/25 documented as of this encounter
--- OUTSIDE RECORDS SUMMARY | 2025-05-16 21:15 | XMS_ITS | Encounter Summary ---
Author Organization [facility] Address [address] [place] [address] Care Team Providers Care Warp Changer Name Role Phone Harsha Wang Primary Care Provide r Reason for Visit * Reason Onset Date Comments Results 05/16/2025 Encounter Details Date Type Department Care Team (Late st Contact Info) Description 05/16/2025 Telephone [facility] [address] [place] [address] [place] [address] Davina Perez MD [address] [place] [address] [address] [place] [address] Social History Tobacco Use Types Packs/Day Years [...] on file documented as of this encounter Progress Notes * Maureen Jiang RN - 05/16/2025 10:54 AM EDT Phoebe Garnett is a 59 y.o. female, followed by Dr. Perez/ PENNY Ne Mike with a history of syncope, cervical spondylosis, and DVT of the LLE in 2021. She was last seen in the office on 05/22/23. Echo ordered by PCP 02/28/25. The patient completed the ECHO on 05/13/25- EF was noted to be 55-60% and was previously 60-65% on 06/19/22 ECHO. The patient was advised during her last visit to follow up around 08/22/23. Access, please assist with scheduling overdue office visit. Dr. Perez/ PENNY Mike Care Team. Thank you. * Harper Eli - 05/16/2025 9:59 AM EDT Patient looking for ECHO results and sooner appointment. please advise. Best call number is [phone] documented in this encounter Plan of Treatment Upcoming Encounters Date Type Department Care Team (Late st Contact Info) Description 12/20/2025 4:00 PM EDT Appointment Radiology Department - [address] [address] documented as of this encounter Visit Diagnoses Not on filedocumented in this encounter Care Teams Warp Changer Relationship Specialty Start Date End Date Harsha Wang [address] [place] [address] PCP - General Internal Medicine 05/13/25 documented as of this encounter
--- OUTSIDE RECORDS SUMMARY | 2025-05-16 21:15 | XMS_ITS | Encounter Summary ---
Author Organization [employer] Address [address] [facility] [address] [place] [address] Care Team Providers Care Lot Attendant Name Role Phone Nikolas Frost MD Primary Care Provider Encounter Details Date Type Department Care Team ([facility] Contact Info) Description 05/14/2025 Orders Only [facility] External Provider, [facility] Social History Tobacco Use Types Packs/Day Years [...] with others, in a hotel, in a mcc, living outside on the street, on a [...] Description 05/24/2025 10:15 AM EDT Office Visit [facility] PEDS [address] [place] [address] Nikolas Frost MD [address] [place] [address] documented as of this encounter Procedures Procedure Name Priority Date/Time Associated Diagnosis Comments MR SHOULDER WO CONTRAST RIGHT Routine 05/14/2025 8:55 AM EDT documented in this encounter Results * MR Shoulder w/o Contrast Right (05/14/2025 8:55 AM EDT) Anatomical Region Laterality Modality Upper Extremities, Shoulder Right Magn etic Resonance 05/14/2025 8:55 AM EDT Narrative 05/16/2025 8:34 AM EDT [address] [address] Magnetic Resonance Report Signed Patient: Phoebe Garnett MR#: [id number] : 1965 Acct:[id number] Age/Sex: 59 / F ADM Date: 05/14/25 Loc: HO.MRI Attending Dr: Michael Huang MD Ordering Physician: Michael Huang MD Date of Service: 05/14/25 Procedure(s): MR shoulder RT wo con Accession Number(s): [id number] cc: Harsha Wang MD; Michael Huang MD Reason for Exam: M25.311 - Other instability, right shoulder EXAMINATION: MR SHOULDER WITHOUT CONTRAST, RIGHT CLINICAL INFORMATION: Instability COMPARISON: X-rays 02/21/2025 TECHNIQUE: MRI of the shoulder without contrast was performed on a high-field scanner. FINDINGS: ROTATOR CUFF: Supraspinatus: Mild tendinosis. Low T1/T2 signal focus in the distal anterior fibers measuring 0.7 cm medial-lateral, suspicious for focus of calcific tendinitis, correlating with the prior x-ray findings. Infraspinatus: Mild tendinosis. Possible small linear intrasubstance tear in the distal anterior fibers. Teres minor: Intact. Subscapularis: Mild tendinosis No muscle atrophy or fatty infiltration. BICEPS: Intact CORACOACROMIAL ARCH: The undersurface of the acromion is flat with no subacromial spur. Mild acromioclavicular arthritis. Mild subacromial subdeltoid bursitis. LABRUM/CAPSULE: No displaced labral tear Inferior capsule is intact GLENOHUMERAL JOINT/MARROW: No fracture. No aggressive marrow replacing lesion. No significant effusion. No axillary lymphadenopathy. MR/MR shoulder RT wo con IMPRESSION: * Mild supraspinatus tendinosis. 0.7 cm focus of calcific tendinitis, correlating with the x-ray findings. No transverse tear or retraction.. *Mild subscapularis tendinosis. * Mild infraspinatus tendinosis. Possible small linear intrasubstance tear in the distal anterior fibers. * Mild acromioclavicular arthritis. Mild subacromial subdeltoid bursitis. Electronically signed by: Mason Hill MD 05/16/2025 08:31 AM EDT Dictated By: Mason Hill MD Signed By: <Electronically signed by Mason Hill MD in OV> 05/16/25 0831 DD/ 4 TD/TT: 05/14/25 0911 Supply Clerk: LB Procedure Note Donotuseinterpreter, Image - 05/16/2025 [place] [address] Magnetic Resonance Report Signed Patient: Sage Garnett#: [id number] : 1965Acct:[id number] Age/Sex: 59 / FADM Date: 05/14/25 Loc: HO.MRI Attending Dr: Michael Huang MD Ordering Physician: Michael Huang MD Date of Service: 05/14/25 Procedure(s): MR shoulder RT wo con Accession Number(s): [id number] cc: Harsha Wang MD; Michael Huang MD Reason for Exam: M25.311 - Other instability, right shoulder EXAMINATION: MR SHOULDER WITHOUT CONTRAST, RIGHT CLINICAL INFORMATION: Instability COMPARISON: X-rays 02/21/2025 TECHNIQUE: MRI of the shoulder without contrast was performed on a high-field scanner. FINDINGS: ROTATOR CUFF: Supraspinatus: Mild tendinosis. Low T1/T2 signal focus in the distal anterior fibers measuring 0.7 cm medial-lateral, suspicious for focus of calcific tendinitis, correlating with the prior x-ray findings. Infraspinatus: Mild tendinosis. Possible small linear intrasubstance tear in the distal anterior fibers. Teres minor: Intact. Subscapularis: Mild tendinosis No muscle atrophy or fatty infiltration. BICEPS: Intact CORACOACROMIAL ARCH: The undersurface of the acromion is flat with no subacromial spur. Mild acromioclavicular arthritis. Mild subacromial subdeltoid bursitis. LABRUM/CAPSULE: No displaced labral tear Inferior capsule is intact GLENOHUMERAL JOINT/MARROW: No fracture. No aggressive marrow replacing lesion. No significant effusion. No axillary lymphadenopathy. MR/MR shoulder RT wo con IMPRESSION: * Mild supraspinatus tendinosis. 0.7 cm focus of calcific tendinitis, correlating with the x-ray findings. No transverse tear or retraction.. *Mild subscapularis tendinosis. * Mild infraspinatus tendinosis. Possible small linear intrasubstance tear in the distal anterior fibers. * Mild acromioclavicular arthritis. Mild subacromial subdeltoid bursitis. Electronically signed by: Mason Hill MD 05/16/2025 08:31 AM EDT Dictated By: Mason Hill MD Signed By: <Electronically signed by Mason Hill MD in OV> 05/16/25 0831 DD/ 0855 TD/TT: 05/14/25 0911 Supply Clerk: LB [facility] External Provider IMG MRI PROCEDURES Edited Result - Final documented in this encounter Visit Diagnoses Not on filedocumented in this encounter Additional Health Concerns Assessment Noted Time PHQ-9 Depression Total Score: 0 11/06/19 9:58 AM EDT documented as of this encounter Care Teams Lot Attendant Relationship Specialty Start Date End Date Nikolas Frost MD [address] [place] [address] PCP - General Internal Medicine 04/11/25 documented as of this encounter
--- OUTSIDE RECORDS SUMMARY | 2025-05-16 21:15 | XMS_ITS | Encounter Summary ---
Author Organization [employer] Address [address] [place] [address] Care Team Providers Care Health Care Facility Administrator Name Role Phone Harsha Wang MD Primary Care Prov ider Nikolas Frost MD Primary Care Provider [phone] Encounter Details Date Type Department Care Team ([facility] Contact Info) Description 02/10/2025 Orders Only [facility] [address] [place] [address] Provider, MD Julianne Social History Tobacco Use [...] Upcoming Encounters Date Type Department Care Team ([facility] [address] [facility] Contact Info) Description 05/24/2025 10:15 AM EDT Office Visit [facility] MED [facility] PEDS [address] [place], [place] [phone] Nikolas Frost MD [address] [place], [place] [phone] documented as of this encounter Procedures Procedure [...] documented as of this encounter Care Teams Health Care Facility Administrator Relationship Specialty Start Date End Date Levy Harsha Peace MD [address] [place] [address] PCP - General Internal Medicine 11/11/24 04/10/25 Nikolas Frost MD [address] [place] [address] PCP - General Internal Medicine 04/11/25 documented as of this encounter
--- OUTSIDE RECORDS SUMMARY | 2025-05-16 21:15 | XMS_ITS | Encounter Summary ---
Author Organization [facility] Address [address] [place] [address] Care Team Providers Care Chief Port Director Name Role Phone Levy Harsha Peace Primary Care Provide r Encounter Details Date Type Department Care Team ([facility] Contact Info) Description 03/14/2025 Lab Requisition [facility] - Main Lab [address] [facility] [place] [address] Patrick Basilio MD [address] [place] [address] Urinary tract infection, site not [...] Upcoming Encounters Date Type Department Care Team ([facility] Contact Info) Description 12/20/2025 4:00 PM EDT Appointment Radiology Department - [address] [phone] documented as of this encounter Procedures Procedure [...] reflex microscopic (03/14/2025 1:42 PM EDT) Specific [place] Urine 1.029 1.003 - 1.030 LAB URINALYSIS - AUTOMATED METHOD 03/14/2025 6:26 PM [facility] LAB pH, Urine 5.5 5.0 - 8.0 pH LAB URINALYSIS - AUTOMATED METHOD 03/14/2025 6:26 PM [facility] Leukocytes, Urine Negative Negative LAB URINALYSIS - AUTOMATED METHOD 03/14/2025 6:26 PM [facility] Nitrite, Urine Negative Negative LAB URINALYSIS - AUTOMATED METHOD 03/14/2025 6:26 PM [facility] Protein, Urine Negative <=Trace mg/dL LAB URINALYSIS - AUTOMATED METHOD 03/14/2025 6:26 PM [facility] Glucose, Urine Negative Negative mg/dL LAB URINALYSIS - AUTOMATED METHOD 03/14/2025 6:26 PM [facility] Ketones, Urine Negative Negative mg/dL LAB URINALYSIS - AUTOMATED METHOD 03/14/2025 6:26 PM [facility] Urobilinogen, Urine 1.0 0.2 - 1.0 mg/dL LAB URINALYSIS - AUTOMATED METHOD 03/14/2025 6:26 PM [facility] Bilirubin, Urine Negative Negative LAB URINALYSIS - AUTOMATED METHOD 03/14/2025 6:26 PM [facility] Blood, Urine Negative Negative LAB URINALYSIS - AUTOMATED METHOD 03/14/2025 6:26 PM [facility] Urine Urine specimen from urethra / Unknown 03/14/2025 1:42 PM EDT 03/14/2025 6:02 PM EDT Patrick Basilio MD LAB URINE ORDERABLES Sybil l Result Performing Organization Address [facility] Co de Phone Number [facility] [address] [place] [address], [place] [phone] * Culture urine (03/14/2025 1:42 PM EDT) Culture, Urine 10,000-49,000 CFU/mL Mixed urogenital marilynn, no uropathogens present. Suggest repeat specimen if clinically indicated. 03/15/2025 1:14 PM EDT [facility] Urine Urine specimen from urethra / Unknown 03/14/2025 1:42 PM EDT 03/14/2025 6:02 PM EDT Patrick Basilio MD LAB MICROBIOLOGY - GENERA L ORDERABLES Final Result Performing Organization Address [facility] Co de Phone Number [facility] [address] [place] [address], [place] [phone] documented in this encounter Visit Diagnoses Diagnosis Urinary tract infection, site not specified documented in this encounter Care Teams Chief Port Director Relationship Specialty Start Date End Date Harsha Wang [address] [place] [address] PCP - General Internal Medicine 05/13/25 documented as of this encounter
--- OUTSIDE RECORDS SUMMARY | 2025-05-16 21:16 | XMS_ITS | Clinical Summary ---
Author Organization [facility] Address [address] [place] [address] Care Team Providers Care Tenter Feeder Name Role Phone Rey Galvan MD Primary Care Provider [phone] Allergies Active Allergy Reactions Criticality Noted Date [...] age to complete this topic Care Teams Tenter Feeder Relationship Specialty Start Date End Date Rey Galvan MD PCP - General Internal Medicine 06/04/21
--- OUTSIDE RECORDS SUMMARY | 2025-05-16 21:16 | XMS_ITS | Clinical Summary ---
Author Organization [employer] Address [address] [facility] [address] [place] [address] Care Team Providers Care Income Tax Adjuster Name Role Phone Nikolas Frost MD Primary [...] SLE (systemic lupus erythema tosus related syndrome) ([facility]) 11/05/2024 Assessment & Plan (11/05/2024 10:36 AM [...] 10:39 AM EDT): Patient wants to see it auditor, she is on multiple medications without improvement in symptoms Flexural eczema 11/05/2024 Assessment & Plan (11/05/2024 10:40 AM EDT): Hx of eczema, wants to see a die storage clerk, will place referral Mixed conductive and sensori [...] Date Resolved Date Encounter for medical examin [facility] to establish care 11/05/2024 02/19/2025 Assessment & Plan (11/05/2024 10:25 AM EDT): Last pcp visit 1 year ER: pneumonia/sepsis October 2023 Hospitalization: October 2023 PMHX: sjrogren, SLE( followed at [place]), asthma, bipolar disorder, RA, GERD PSHX: cervical [...] Date Type Department Care Team Description 05/16/2025 Orders Only GENERIC EXTERNAL DATA DEPARTMENT Provider, Generic External Data 05/14/2025 Orders Only [facility] External Provider, [facility] 05/13/2025 Patient Outreach [facility] [address] [place] [phone] Nikolas Frost MD 04/08/2025 Telephone [facility] [address] [place] [address] Harsha Wang MD Chart Prep 04/04/2025 Patient Outreach [address] [address] Harsha Wang MD Pre-visit Planning (Pre visit planning unable to LVM ) 03/18/2025 Orders Only [facility] [address] [place] [address] Harsha Wang MD 02/28/2025 1:45 PM EDT Office Visit [facility] [address] [place] [address] Harsha Wang MD Chronic cough (Primary Dx); Heart murmur; Abdominal panniculus 02/28/2025 Travel 02/21/2025 Patient Outreach [facility] [address] [place] [phone] Harsha Wang MD Care Coordination ([facility] outreach for SDOH housing search-referral completed ) 02/21/2025 Patient Outreach [facility] [address] [place] [phone] Harsha Wang MD Pre-visit Planning (SDOH screening positive and Tobacco screening negative) 02/21/2025 Results Follow-Up [facility] [address] [place] [phone] Carline Fregoso MD XR Shoulder 2+ Views Right 02/21/2025 Refill [facility] [address] [place] [address] Harsha Wang MD 02/19/2025 9:00 AM EDT Office Visit [facility] [address] [place] [phone] Carline Fregoso MD Cough, unspecified type (Primary Dx); Chronic right shoulder pain; Costochondritis 02/19/2025 Travel 02/18/2025 Telephone [facility] [address] [place] [address] Harsha Wang MD Change PCP from Last 3 Months Immunizations Immunization Administration [...] with others, in a hotel, in a [place] [facility] [place], living outside on the street, on a [...] Upcoming Encounters Date Type Department Care Team ([facility] st Contact Info) Description 05/24/2025 10:15 AM EDT Office Visit [facility] [address] [place] [address] Nikolas Frost MD [address] [place] [address] Health Maintenance Due Date Last Done Comments [...] Procedure Name Priority Date/Time Associated Diagnosis Comments LIPASE Routine 05/16/2025 8:41 PM EDT MAGNESIUM Routine 05/16/2025 8:41 PM EDT COMPREHENSIVE METABOLIC PANEL Routine 05/16/2025 8:41 PM EDT URINALYSIS, COMPLETE, WITH REFLEX TO CULTURE Routine 05/16/2025 8:41 PM EDT CBC WITH AUTO DIFFERENTIAL Routine 05/16/2025 8:41 PM EDT MR SHOULDER WO CONTRAST RIGHT Routine 05/14/2025 8:55 AM EDT AMB REFERRAL TO ORTHOPAEDIC SURGERY Routine 04/01/2025 Chronic right shoulder pain PULMONARY FUNCTION TESTING Routine 03/17/2025 Chronic cough XR SHOULDER 2+ VIEWS RIGHT Routine 02/21/2025 9:01 AM EDT Chronic right shoulder pain XR CHEST 2 VIEWS Routine 02/21/2025 8:58 AM EDT Cough, unspecified type MAMMOGRAPHY Routine 12/17/2024 4:03 PM EDT PAP/HPV Routine 03/18/2023 from Last 3 Months or Most Recently Relevant to Health Maintenance Results * (ABNORMAL) Urinalysis, Complete, with Reflex to Culture (05/16/2025 8:41 PM EDT) Color Urine Yellow [facility] Appearance Urine Clear [facility] PH 5.5 5.0 - 9.0 [facility] Glucose Urine UA Negative Negative mg/dL [facility] Urine Blood Negative Negative [facility] Specific Hugo - Urine 1.025 1.005 - 1.025 [facility] Urine Protein Negative Neg-Trace mg/dL [facility] Urine Ketones Negative Negative mg/dL [facility] Nitrite Urine Negative Negative [facility] Leukocyte Esterase Urine Small (1+)(A) Negative [facility] RBC Urine 0-2 0 - 2 /HPF [facility] Urine WBC 6-10(A) 0 - 5 /HPF [facility] Urine Squamous Epithelial Cell 0-2 0 - 2 /HPF [facility] Urine Bacteria None Seen None Seen [facility] Hyaline Casts, Urine 0-2 0 - 2 /LPF [facility] 05/16/2025 8:41 PM EDT 05/16/2025 8:48 PM EDT Narrative [facility] - 05/16/2025 8:57 PM EDT 2037Urine, Clean Catch us Generic External Data Provider LAB URINE ORDERAB LES Final Result [facility] [address] [place] [phone] * (ABNORMAL) CBC auto differential (05/16/2025 8:41 PM EDT) White Blood Count 4.6(L) 4.8 - 10.8 X10*3/uL [facility] Red Blood Count 4.05(L) 4.20 - 5.50 X10*6/uL [facility] Hemoglobin 12.0 12.0 - 16.0 g/dl [facility] Hematocrit 36.0(L) 37.0 - 47.0 % [facility] Mean Corpuscular Volume 88.9 80.0 - 98.0 fL [facility] Mean Corpuscular Hemoglobin 29.6 27.0 - 33.0 pg [facility] Mean Corpuscular HGB Conc 33.3 31.0 - 35.0 g/dl [facility] Red Cell Distribution Width 13.3 11.0 - 16.0 % [facility] Platelet Count 204 160 - 400 X10*3/uL [facility] Mean Platelet Volume 9.7 9.4 - 12.3 fL [facility] Neutrophils Percent Auto 54.0 45 - 73 % [facility] Imm Gran Pct Auto 0.2 0.0 - 0.4 % [facility] Lymphocytes Percent Auto 35.0 20 - 40 % [facility] Monocytes Percent Auto 9.2 2 - 11 % [facility] Eosinophils Percent Auto 0.9 0 - 4 % [facility] Basophils Percent Auto 0.7 0 - 2 % [facility] NRBC Pct Auto 0.0 0.0 - 0.2 /100WBC [facility] Neutrophils Absolute Auto 2.5 2.0 - 8.3 x10*3/uL [facility] Imm Gran Abs Auto 0.01 0.00 - 0.03 X10*3/uL [facility] Lymphocytes Absolute Auto 1.6 1.2 - 4.9 X10*3/uL [facility] Monocytes Absolute Auto 0.4 0.1 - 1.2 X10*3/uL [facility] Eosinophils Absolute Auto 0.0 0.0 - 0.4 X10*3/uL [facility] Basophils Absolute Auto 0.0 0.0 - 0.2 X10*3/uL [facility] NRBC Abs Auto 0.000 0.0 - 0.012 X10*3/uL [facility] 05/16/2025 8:41 PM EDT 05/16/2025 8:48 PM EDT Generic External Data Provider LAB BLOOD ORDERAB LES Final Result Performing Organization Address [facility] Co de Phone Number [facility] [address] [place] [phone] * Magnesium (05/16/2025 8:41 PM EDT) Pathologist [facility] Magnesium 2.0 1.6 - 2.6 mg/dL [facility] 05/16/2025 8:41 PM EDT 05/16/2025 8:48 PM EDT Generic External Data Provider LAB BLOOD ORDERAB LES Final Result Performing Organization Address [facility] Phone Number [facility] [address] [place] [phone] * Lipase (05/16/2025 8:41 PM EDT) Pathologist [facility] Lipase 20 8 - 78 U/L [facility] 05/16/2025 8:41 PM EDT 05/16/2025 8:48 PM EDT Generic External Data Provider LAB BLOOD ORDERAB LES Final Result Performing Organization Address [facility] de Phone Number [facility] [address] [place] [phone] * (ABNORMAL) Comprehensive Metabolic Panel (05/16/2025 8:41 PM EDT) Pathologist [facility] Sodium 144 135 - 145 mmol/L [facility] Potassium 3.7 3.3 - 5.1 mmol/L [facility] Chloride 110(H) 96 - 108 mmol/L [facility] Carbon Dioxide 27 22 - 29 mmol/L [facility] Anion Gap 11(L) 12 - 20 [facility] Urea Nitrogen (BUN) 20(H) 9 - 16 mg/dL [facility] Creatinine, Serum 0.56 0.5 - 1.4 mg/dL [facility] Creatinine Clr Calc Pharmacy 96.4 [facility] Comment:Provided height and weight: 158.75 cm,62.596 kg.eGFR (calculated from the MDRD study equation) and eCrCl(calculated from the Cockcroft-Gault equation) are based ondifferent parameters and may not yield comparable results.If eCrCl result is absurd, please check patient'sheight/weight. Estimated Glomerular Filt Rate >60 [facility] Comment:Chronic Kidney Disea se: Estimated GFR < 60 mL/min/1.07m4Gacqfg Kidney Disease: Estimated GFR < 15 mL/min/1.73m2 Glucose 101 60 - 115 mg/dL [facility] Calcium 8.8 8.4 - 10.2 mg/dL [facility] Bilirubin, Total 0.2 0.0 - 1.0 mg/dL [facility] Aspartate Amino Transferase 19 5 - 31 U/L [facility] Alanine Aminotransferase 13 0 - 31 U/L [facility] Total Protein 7.1 6.5 - 8.0 g/dL [facility] Albumin Level 4.1 3.5 - 5.0 g/dL [facility] Alkaline Phosphatase 76 39 - 117 U/L [facility] 05/16/2025 8:41 PM EDT 05/16/2025 8:48 PM EDT us Generic External Data Provider LAB BLOOD ORDERAB LES Final Result [facility] [address] [place] [address] [phone] * MR Shoulder w/o Contrast Right (05/14/2025 8:55 AM EDT) Anatomical Region Laterality Modality Upper Extremities, Shoulder Right Magn etic Resonance 05/14/2025 8:55 AM EDT Narrative 05/16/2025 8:34 AM EDT [place] [address] Magnetic Resonance Report Signed Patient: Phoebe Garnett MR#: [id number] : 1965 Acct:[id number] Age/Sex: 59 / F ADM Date: 05/14/25 Loc: HO.MRI Attending Dr: Michael Huang MD Ordering Physician: Michael Huang MD Date of Service: 05/14/25 Procedure(s): MR shoulder RT wo con Accession Number(s): [id number] cc: Harsha Wang MD; Michael Huang MD [...] 05/16/25 0831 DD/ 0855 TD/TT: 05/14/25 0911 Liner Machine Operator Helper: Procedure Note Donotuseinterpreter, Image - 05/16/2025 [place] [address] Magnetic Resonance Report Signed Patient: Sage Garnett#: [id number] : 1965Acct:[id number] Age/Sex: 59 / FADM Date: 05/14/25 Loc: HO.MRI Attending Dr: Michael Huang MD Ordering Physician: Michael Huang MD Date of Service: 05/14/25 Procedure(s): MR shoulder RT wo con Accession Number(s): [id number] cc: Harsha Wang MD; Michael Huang MD [...] 05/16/25 0831 DD/ 0855 TD/TT: 05/14/25 0911 Liner Machine Operator Helper: [facility] External Provider IMG MRI PROCEDURES Edited Result - Final * Referral to Orthopaedic Surgery (04/01/2025) Carline Fregoso MD OUTPATIENT REFERRAL ORDERA BLES Final Result * Pulmonary Function Test (03/17/2025) Harsha Peace MD PFT ORDERABLES Fi nal Result * XR Shoulder 2+ Views Right (02/21/2025 9:01 AM EDT) Anatomical Region Laterality Modality Upper Extremities, Shoulder Right Radi ographic Imaging 02/21/2025 9:01 AM EDT Narrative 02/21/2025 10:01 AM EDT [facility] [address] [place] [address] XRay Report Signed Patient: Phoebe Garnett MR#: [id number] : 1965 Acct:[id number] Age/Sex: 59 / F ADM Date: 02/21/25 [facility]: Carline Fregoso MD Ordering Physician: Carline Fregoso MD Date of Service: 02/21/25 Procedure(s): XR shoulder RT min 2V Accession Number(s): [id number] cc: Carline Fregoso MD EXAMINATION: XR SHOULDER, [...] Abimael Hicks MD 02/21/2025 09:58 AM EDT RP Dictated By: Abimael Hicks MD Signed By: <Electronically signed by Abimael Hicks MD in OV> 02/21/25 0958 DD/ 0901 TD/TT: 02/21/25 0953 Liner Machine Operator Helper: Procedure Note Donotuseinterpreter, Image - 02/21/[address] [address] XRay Report Signed Patient: Sage Garnett#: [id number] : 1965Acct:[id number] Age/Sex: 59 / FADM Date: 02/21/25 Loc: HO.HHCX Attending Dr: Carline Fregoso MD Ordering Physician: Carline Fregoso MD Date of Service: 02/21/25 Procedure(s): XR shoulder RT min 2V Accession Number(s): [id number] cc: Carline Fregoso MD EXAMINATION: XR SHOULDER, [...] Abimael Hicks MD 02/21/2025 09:58 AM EDT RP Dictated By: Abimael Hicks MD Signed By: <Electronically signed by Abimael Hicks MD in OV> 02/21/25 0958 DD/ 09 TD/TT: 02/21/25 0953 Liner Machine Operator Helper: Carline Fregoso MD IMG XR PROCEDURES Final Re sult * XR Chest 2 Views (02/21/2025 8:58 AM EDT) Anatomical Region Laterality Modality Chest Radiographic Jennifer ging 02/21/2025 8:58 AM EDT Narrative 02/21/2025 10:03 [place] [address] XRay Report Signed Patient: Phoebe Garnett MR#: [id number] : 1965 Acct:[id number] Age/Sex: 59 / F ADM Date: 02/21/25 Loc: HO.HHCX Attending Dr: Carline Fregoso MD Ordering Physician: Carline Fregoso MD Date of Service: 02/21/25 Procedure(s): XR chest 2V Accession Number(s): [id number] cc: Carline Fregoso MD EXAMINATION: XR CHEST [...] 02/21/25 1000 DD/ 0858 TD/TT: 02/21/25 0900 Liner Machine Operator Helper: Procedure Note Donotuseinterpreter, Image - 02/21/[address] [address] XRay Report Signed Patient: Sage Garnett#: [id number] : 1965Acct:[id number] Age/Sex: 59 / FADM Date: 02/21/25 [facility]: Carline Fregoso MD Ordering Physician: Carline Fregoso MD Date of Service: 02/21/25 Procedure(s): XR chest 2V Accession Number(s): [id number] cc: Carline Fregoso MD EXAMINATION: XR CHEST [...] 02/21/25 1000 DD/ 0858 TD/TT: 02/21/25 0900 Liner Machine Operator Helper: Carline Fregoso MD IMG XR PROCEDURES Final Re sult * Hm Mammography (12/17/2024 4:03 PM EDT) Anatomical Region Laterality Modality Other Historical Provider HEALTH MAINTENANCE Final Result * (ABNORMAL) HM PAP/HPV (03/18/2023) Pap Smear 1. NILM 1. NILM HPV Detected(A ) Undetected, Indeterminate , Quantitative, Not Detected us Historical Provider HEALTH MAINTENANCE Final Result from Last 3 Months or Most Recently Relevant to Health Maintenance Insurance [facility] DUAL [employer]PLETE [address] Care Teams Income Tax Adjuster Relationship Specialty Start Date End Date Nikolas Frost MD [address] [place] [phone] PCP - General Internal Medicine 04/11/25
[2025-05-16] MEDS: iohexoL 350 MG/ML 100 ML INFUS..BTL 85 ML IV (21:57)
--- NOTE | 2025-05-16 21:57 | ED.ABDPAIN ---
HPI - Abdominal Pain General Chief Complaint: Abdominal Pain Stated Complaint: colon pain Time Seen by Provider: 05/16/25 21:13 Source: patient, RN notes reviewed and old records reviewed Mode of arrival: ambulatory Limitations: no limitations History of Present Illness ED Provider: Dr. Ivonne Ng HPI narrative: 59-year-old female with a history of colitis presenting with lower abdominal pain, bloody stools ongoing for the last 3 days or so. States that she started having cramping abdominal pain and frequent bowel movements but did not start having severe pain or bloody stools until this morning. Has had 3 episodes today. Cramping is constant. Describes as similar to previous episodes of colitis. Denies associated fever. Feels nauseous but has not vomited. Normal oral intake. Denies history of abdominal surgery. She has had Botox injections into the bladder for overactive bladder though. That was about a month ago. Otherwise denies chest pain, difficulty breathing, urinary complaints, vaginal bleeding or discharge. Related Data Home Medications ?Medication ?Instructions ?Recorded ?Confirmed Bacillus coagulans 2 billion 1 cap PO DAILY 05/11/25 cell-calcium 140 mg capsule (Digestive Advantage Probiotic) azelastine 137 mcg (0.1 %) nasal 2 spray intranasal DAILY PRN 05/11/25 spray cetirizine 10 mg tablet 10 mg PO DAILY 05/11/25 cholecalciferol (vitamin D3) 125 125 mcg PO DAILY 05/11/25 mcg (5,000 unit) capsule cyclobenzaprine 5 mg tablet 5 mg PO TID PRN severe pain 05/11/25 ibuprofen 400 mg tablet 400 mg PO Q4H PRN pain 05/11/25 mirabegron 50 mg tablet,extended 50 mg PO DAILY 05/11/25 release 24 hr (Myrbetriq) montelukast 10 mg tablet 10 mg PO DAILY 05/11/25 multivitamin (Daily-Amanuel tablet) 1 tab PO DAILY 05/11/25 omeprazole 20 mg capsule,delayed 20 mg PO DAILY 05/11/25 release pilocarpine HCl 5 mg tablet 5 mg PO BID 05/11/25 trospium 60 mg capsule,extended 60 mg PO DAILY 05/11/25 release 24 hr Previous Rx's ?Medication ?Instructions ?Recorded peg 3350-electrolytes 236 240 ml PO Q10M colonoscopy #4,000 05/11/25 gram-22.74 gram-6.74 gram-5.86 mL gram solution (Golytely) amoxicillin 875 mg-potassium 1 tab PO BID 10 days #20 tabs 05/17/25 clavulanate 125 mg tablet dicyclomine 20 mg tablet 20 mg PO TID #10 tabs 05/17/25 ondansetron 4 mg disintegrating 4 mg PO Q8H PRN nausea and 05/17/25 tablet vomiting #10 tabs Allergies Allergy/AdvReac Type Severity Reaction Status Date / Time pineapple (Pineapple) Allergy Intermediate THROAT Verified 05/16/25 20:30 ITCHES latex (Latex) Allergy Mild Rash, Hives Verified 05/16/25 20:30 diphenhydramine (From Allergy Unknown UNKNOWN Verified 05/16/25 20:30 BENADRYL) ayanna Allergy Unknown HIVES Verified 05/16/25 20:30 ayanna flavor Allergy Unknown Itching Verified 05/16/25 20:30 shellfish derived Allergy Unknown Rash, Verified 05/16/25 20:30 throat itches Review of Systems Review of Systems as per HPI, full review of systems performed and negative but for the above mentioned pertinent positives and negatives. [facility] Past Medical History Medical History DVT (deep venous thrombosis) Cervical radiculopathy Early satiety Asthma Surgical History Hx of colonoscopy History of esophagogastroduodenoscopy (EGD) Family History Family History Mother Pancreatic cancer Social History Social History Patient Tobacco Use Status: Never used Tobacco Smoked in Last 30 Days: No Use of substances other than those prescribed or required for medical reasons: No Advance Directives: No Advance Directives Information Provided: Yes Do you have a plan to hurt others: No Plan Patient : No Physical Exam ED Exam Exam: GENERAL: Ill-Appearing, appears uncomfortable. SKIN: Normal skin color for ethnicity, warm, dry, no rashes noted. HEENT: Normocephalic, atraumatic, no stridor, dry mucous membranes, dentition intact, EOMI, PERRLA. NECK: Soft, supple, full ROM, midline structures nontender, no step-offs, no deformities, no lymphadenopathy. CHEST: Heart regular rhythm, no murmurs, symmetric chest rise and fall. PULMONARY: Clear to auscultation bilaterally, diminished at the bases, no labored breathing, no wheezes/rhales/rhonchi. ABDOMINAL: Soft, nondistended, diffusely tender to palpation with voluntary guarding, positive bowel sounds in all quadrants. : Deferred. MUSCULOSKELETAL: Normal tone, full range of motion, no deformities, no peripheral edema. NEURO: Alert and oriented x3, CN II through XII intact, equal strength and sensation bilateral upper and lower extremities, no focal neurologic deficits. PSYCHIATRIC: Flat affect, fluid speech, good eye contact and appropriate demeanor. Vital Signs: Vital Signs - 24 hr 05/16/25 20:23 05/16/25 21:03 05/16/25 22:00 Temperature 98.1 F 97.9 F 97.6 F Pulse Rate 88 72 87 Respiratory Rate 16 14 18 Blood Pressure 126/66 127/92 H 124/63 Pulse Oximetry 96 98 98 Oxygen Delivery Method Room Air Room Air Room Air BMI result Body Mass Index 24.8 Medical Decision Making Medical Decision Making [facility] Narrative: This patient presents today with a chief complaint of abdominal pain. Differential diagnosis for this patient is broad. It includes colitis or diverticulitis, appendicitis, cholecystitis, bowel obstruction, peptic ulcer disease, pyelonephritis, vascular pathology, among many others. A broad-based workup based on history and physical examination was obtained. CT showing evidence of colitis. Uncomplicated. Patient feeling improved after Tylenol and fluids. Will plan for Augmentin, Bentyl and Zofran outpatient. Using shared decision making, plan for discharge home to follow-up with primary care and/or specialist. Patient understands and agrees with plan for discharge. Discharged home in stable condition. Differential Diagnosis Differential Diagnoses: The differential diagnosis associated with the presentation includes (As above) Admission/Observation Consideration of admission/observation: Escalation of care including admission/observation considered Lab Data [facility] Lab Attestation statement: I reviewed the patient's lab results. 05/16/25 20:41 05/16/25 20:41 Labs: Lab Results 05/16/25 Range/Units 20:41 WBC 4.6 L (4.8-10.8) X10*3/uL RBC 4.05 L (4.20-5.50) X10*6/uL Hgb 12.0 (12.0-16.0) g/dl Hct 36.0 L (37.0-47.0) % MCV 88.9 (80.0-98.0) fL MCH 29.6 (27.0-33.0) pg MCHC 33.3 (31.0-35.0) g/dl RDW 13.3 (11.0-16.0) % Plt Count 204 (160-400) X10*3/uL MPV 9.7 (9.4-12.3) fL Immature Gran % (Auto) 0.2 (0.0-0.4) % Neut % (Auto) 54.0 (45-73) % Lymph % (Auto) 35.0 (20-40) % Angelina % (Auto) 9.2 (2-11) % Eos % (Auto) 0.9 (0-4) % Baso % (Auto) 0.7 (0-2) % Lymph # (Auto) 1.6 (1.2-4.9) X10*3/uL Angelina # (Auto) 0.4 (0.1-1.2) X10*3/uL Eos # (Auto) 0.0 (0.0-0.4) X10*3/uL Baso # (Auto) 0.0 (0.0-0.2) X10*3/uL Abs Immat Gran (auto) 0.01 (0.00-0.03) X10*3/uL Absolute Neuts (auto) 2.5 (2.0-8.3) x10*3/uL Absolute Nucleated RBC 0.000 (0.0-0.012) X10*3/uL Nucleated RBC % (auto) 0.0 (0.0-0.2) /100WBC Sodium 144 (135-145) mmol/L Potassium 3.7 (3.3-5.1) mmol/L Chloride 110 H (96-108) mmol/L Carbon Dioxide 27 (22-29) mmol/L Anion Gap 11 L (12-20) BUN 20 H (9-16) mg/dL Creatinine 0.56 (0.5-1.4) mg/dL Estim Creat Clear Calc 96.4 Estimated GFR > 60 Random Glucose 101 (60-115) mg/dL Calcium 8.8 (8.4-10.2) mg/dL Magnesium 2.0 (1.6-2.6) mg/dL Total Bilirubin 0.2 (0.0-1.0) mg/dL AST 19 (5-31) U/L ALT 13 (0-31) U/L Alkaline Phosphatase 76 (39-117) U/L Total Protein 7.1 (6.5-8.0) g/dL Albumin 4.1 (3.5-5.0) g/dL Lipase 20 (8-78) U/L Urine Color Yellow Urine Appearance Clear Urine pH 5.5 (5.0-9.0) Ur Specific Vale 1.025 (1.005-1.025) Urine Protein Negative (Neg-Trace) mg/dL Urine Glucose (UA) Negative (Negative) mg/dL Urine Ketones Negative (Negative) mg/dL Urine Blood Negative (Negative) Urine Nitrite Negative (Negative) Ur Leukocyte Esterase Small (1+) H (Negative) Urine RBC 0-2 (0-2) /HPF Urine WBC 6-10 H (0-5) /HPF Ur Squamous Epith Cells 0-2 (0-2) /HPF Urine Bacteria None Seen (None Seen) Hyaline Casts 0-2 (0-2) /LPF Radiology Impression Discussion of test interpretation with radiology: I have reviewed the radiologist's reading. Radiologist Impression: CT abdomen and pelvis with IV contrast: Uncomplicated colitis, no perforation or abscess External Record Review External record reviewed: Inpatient record Prescription Management I considered prescription management with: Pain Medication, Antibiotic and Other (Antiemetic) Chronic Conditions Patient?s care impacted by: Other (Colitis, IBS) Medications Administered Discontinued Medications Generic Name Dose Route Start Last Admin Trade Name Freq PRN Reason Stop Dose Admin Lactated Ringer's 1,000 mls @ 999 mls/hr 05/16/25 21:44 05/16/25 23:09 Lr IV 05/16/25 22:44 Infused .Q1H1M ONE Infusion Acetaminophen 1,000 mg in 100 mls @ 400 mls/hr 05/16/25 21:44 05/16/25 22:28 Ofirmev IV 05/16/25 21:58 Infused ONCE ONE Infusion Iohexol 85 ml 05/16/25 21:57 05/16/25 21:57 Iohexol 350 Mg/Ml 100 Ml Infus..Btl IV 05/16/25 21:58 85 ml ONCE ONE Administration Ondansetron HCl 4 mg 05/16/25 21:44 05/16/25 22:05 Ondansetron Hcl 4 Mg/2 Ml Vial IVPUSH 05/16/25 21:45 4 mg ONCE ONE Administration Discharge Plan Discharge Clinical Impression: Colitis, Abdominal pain, acute, Bloody stools Patient Disposition: Home, Self-Care Instructions: Colitis (ED) Additional Instructions: Take your antibiotic as prescribed until the course is completed. Do not stop this medication early if you start to feel better. Use dicyclomine for abdominal cramping. Use ondansetron for nausea and vomiting. Return to the emergency department with any new or worsening symptoms including: Fevers greater than 100?, inability to tolerate your antibiotic despite Zofran, any new symptom that concerns you. Call 911 with any medical emergency. Continue to eat a bland diet to help with abdominal pain symptoms. Prescriptions: New dicyclomine 20 mg tablet 20 mg PO TID Qty: 10 0RF ondansetron 4 mg tablet,disintegrating 4 mg PO Q8H PRN (Reason: nausea and vomiting) Qty: 10 0RF amoxicillin-pot clavulanate 875-125 mg tablet 1 tab PO BID 10 Days Qty: 20 0RF No Action multivitamin [Daily-Amanuel] Tablet 1 tab PO DAILY pilocarpine HCl 5 mg tablet 5 mg PO BID cetirizine 10 mg tablet 10 mg PO DAILY ibuprofen 400 mg tablet 400 mg PO Q4H PRN (Reason: pain) omeprazole 20 mg capsule,delayed release(DR/EC) 20 mg PO DAILY montelukast 10 mg tablet 10 mg PO DAILY azelastine 137 mcg (0.1 %) spray,non-aerosol 2 spray intranasal DAILY PRN cholecalciferol (vitamin D3) 125 mcg (5,000 unit) capsule 125 mcg PO DAILY cyclobenzaprine 5 mg tablet 5 mg PO TID PRN (Reason: severe pain) trospium 60 mg capsule,extended release 24hr 60 mg PO DAILY mirabegron [Myrbetriq] 50 mg tablet extended release 24 hr 50 mg PO DAILY Digestive Advantage Probiotic 2 billion cell- 140 mg capsule 1 cap PO DAILY peg 3350-electrolytes [Golytely] 236-22.74-6.74 -5.86 gram recon soln 240 ml PO Q10M Qty: 4000 0RF Rx Instructions: as per split prep instructions, until fecal effluent is clear Print Language: Other
[2025-05-16 22:00] VITALS: BP 124/63; PULSE 87; RESP 18; TEMP 36.4; O2SAT 98
[2025-05-16] MEDS: Lactated Ringers 1,000 ML 999 ML IV (22:06)
[2025-05-17 00:24] VITALS: BP 147/67; PULSE 73; RESP 16; TEMP 36.8; O2SAT 97
[2025-05-17 00:32] VITALS: BP 147/67; PULSE 73; RESP 16; TEMP 36.8; O2SAT 97
== END 2025-05-17 00:44 | disposition home or self-care (01) ==
PROVIDERS: Emergency Provider Emergency Medicine; PCP Internal Medicine
DX: K52.9 Noninfective gastroenteritis and colitis, unspecified (principal); R10.9 Unspecified abdominal pain; K92.1 Melena; R11.0 Nausea
CPT/HCPCS: 36415; 74177; 80053; 81001; 83690; 83735; 85025; 87086; 96365; 96375; 99284; 99285; J0131; J2405; J7120; Q9967

== ENCOUNTER → 2025-05-16 21:44 | Outpatient (BNV) | payer MEDICARE, SELFPAY | PROVIDERS: Emergency Provider Emergency Medicine; PCP Internal Medicine; Visit Provider Radiology Vascular & Interventional Radiology | DX: K51.50 Left sided colitis without complications (principal) | CPT/HCPCS: 74177 ==

== ENCOUNTER 2025-05-18 13:49 | Outpatient (AMB) | payer MEDICARE, SELFPAY ==
--- OUTSIDE RECORDS SUMMARY | 2025-05-13 09:00 | XMS_ITS | Encounter Summary ---
Author Organization [facility] Address [address] [place] [address] Care Team Providers Care Press Set Up Person Name Role Phone Harsha Wang Primary Care Provide r Reason for Visit * Imaging (Routine) - Closed Specialty Diagnoses / Procedures Referred By Jayla t Referred To Contact Cardiology Diagnoses Heart murmur Procedures Transthoracic echocardiogram (TTE) complete with PRN contrast, bubble, strain, and 3D order panel [place] TTE W 2D IMAGE COMPLETE W DOPPLER ECHO & COLOR FLOW DOPPLER ECHO [place] JAKY 2D COMPLETE W/CONTRAST OR W & WO CONTRAST WITH DOPPLER Harsha Wang [address], [place] Phone: tel: fax: [facility] Referral ID Status Reason Start Date Expiration Date Visits Re quested Visits Authorized [id number] Closed 03/02/2025 03/02/2026 1 1 Encounter Details Date Type Department Care Team (Late st Contact Info) Description 05/13/2025 9:00 AM EDT Ancillary Procedure [facility] [address] [place] [address] Heart murmur Social History Tobacco [...] 12/20/2025 4:00 PM EDT Appointment Radiology Department [address] [address] documented as of this encounter Procedures Procedure Name Priority Date/Time Associated Diagnosis Comments TRANSTHORACIC ECHOCARDIOGRAM (TTE) COMPLETE Routine 05/13/2025 9:44 AM EDT Heart murmur documented in this encounter Results * TRANSTHORACIC ECHOCARDIOGRAM (TTE) COMPLETE (05/13/2025 9:44 AM EDT) Left [facility] [place] 5.2 cm CV PACS Left [facility] [place] 5.1 cm CV PACS LA Area Sys [...] Volume 53 mL CV PACS MV Deceleration [facility] 5.5 m/s2 CV PACS E Wave Deceleration [...] murmurs documented in this encounter Care Teams Press Set Up Person Relationship Specialty Start Date End Date Harsha Wang [address] [place] [id number] PCP - General Internal Medicine 05/13/25 documented as of this encounter
[2025-05-18 13:51] VITALS: BMI 24.8
--- NOTE | 2025-05-18 13:51 | A.OFFVIS_ITS ---
Vital Signs 05/18/25 13:51 Height 5 ft 2.5 in Weight 138 lb BMI 24.8 Intake Visit Reasons: Right shoulder pain Intake Note: Phoebe is a 59 year old female right hand dominant who presents with complaints of progressively worsening right shoulder pain. The patient states that her symptoms began approximately 2 years ago after she underwent cervical spine surgery in [place]. She has failed the last 6 weeks of conservative treatment which has included Tylenol, anti-inflammatory medicines, a home exercise program and physical therapy exercises. The patient states that she recently had an EMG of her right upper extremity. The results are not available today. She reports increased pain when lifting her right hand above shoulder height. Allergies pineapple (Pineapple) Allergy (Intermediate, Verified 05/18/25 13:52) THROAT ITCHES latex (Latex) Allergy (Mild, Verified 05/18/25 13:52) Rash, Hives diphenhydramine (From BENADRYL) Allergy (Unknown, Verified 05/18/25 13:52) UNKNOWN ayanna Allergy (Unknown, Verified 05/18/25 13:52) HIVES ayanna flavor Allergy (Unknown, Verified 05/18/25 13:52) Itching shellfish derived Allergy (Unknown, Verified 05/18/25 13:52) Rash, throat itches Medication List - Last Reconciled 05/18/25 by Michael Huang MD amoxicillin-pot clavulanate 875-125 mg 1 tab PO BID 10 days azelastine 2 sprays intranasal DAILY PRN Bacillus coagulan-calcium carb 2 billion cell- 140 mg (Digestive Advantage Probiotic) 1 cap PO DAILY cetirizine 10 mg PO DAILY cholecalciferol (vitamin D3) 125 mcg PO DAILY cyclobenzaprine 5 mg PO TID PRN dicyclomine 20 mg PO TID ibuprofen 400 mg PO Q4H PRN mirabegron ER (Myrbetriq) 50 mg PO DAILY montelukast 10 mg PO DAILY multivitamin (Daily-Amanuel tablet) 1 tab PO DAILY omeprazole 20 mg PO DAILY ondansetron 4 mg PO Q8H PRN peg 3350-electrolytes 236-22.74-6.74 -5.86 gram (Golytely) 240 mL PO Q10M pilocarpine HCl 5 mg PO BID trospium ER 60 mg PO DAILY PFSH Medical History DVT (deep venous thrombosis) Cervical radiculopathy Early satiety Asthma Surgical History Hx of colonoscopy History of esophagogastroduodenoscopy (EGD) Family History Mother Pancreatic cancer Social History Patient Tobacco Use Status: Never used Tobacco Physical Exam Vital Signs: BMI result Body Mass Index 24.8 Const Other: Well-nourished well-developed very friendly female awake alert and oriented x3 in no acute distress Extrem Other: Right shoulder examination shows slightly decreased range of motion when compared to her left shoulder, 4+ out of 5 strength with supraspinatus testing, positive impingement signs, tenderness over her acromioclavicular joint, no instability Results Reviewed Results Reviewed: MRI of the patient's right shoulder show severe acromioclavicular joint narrowing, a type 2 acromion, no acute bony abnormalities Assessment & Plan Assessment & Plan (1) Right shoulder pain: Code(s): M25.511 - Pain in right shoulder (2) Impingement of right shoulder: Code(s): M25.811 - Other specified joint disorders, right shoulder Category: Medical Plan Ms. Garnett presents with right shoulder pain due to impingement syndrome and acromioclavicular joint arthritis. I had a lengthy discussion with the patient regarding the treatment options. At this point she has failed continued non operative treatments. The risks and benefits of right shoulder surgery were discussed at length with the patient. The patient wishes to proceed with surgery. Surgery will most likely involve right shoulder arthroscopic distal clavicle excision and right shoulder arthroscopic acromioplasty. The patient will be scheduled for next available date. She will follow up as instructed. Feel free to call me at any time should questions regarding her orthopedic management arise. I spent 21 minutes in reviewing the patient's records and imaging studies, seeing the patient and documenting in the medical record. Coding Level of Care Code Est Pt Level 3 (83528) Complex EM visit Add On G2211 Diagnoses Right shoulder pain M25.511 Impingement of right shoulder M25.811
--- OUTSIDE RECORDS SUMMARY | 2025-05-18 19:52 | XMS_ITS | Encounter Summary ---
Author Organization [facility] Address [address] [place] [address] Care Team Providers Care Polisher Hand Name Role Phone Levy Harsha Peace Primary Care Provide r Encounter Details Date Type Department Care Team ([facility] Contact Info) Description 03/14/2025 Lab Requisition [facility] [address] [facility] [place] [address] Patrick Basilio MD [address] [place] [address] Urinary tract infection, site not [...] Upcoming Encounters Date Type Department Care Team ([facility] Contact Info) Description 12/20/2025 4:00 PM EDT Appointment Radiology Department - [address] [phone] documented as of this encounter Procedures Procedure [...] reflex microscopic (03/14/2025 1:42 PM EDT) Specific [place] Urine 1.029 1.003 - 1.030 LAB URINALYSIS [...] l Result Performing Organization Address [facility] Co de Phone Number [facility] [address] [place] [address], [place] [phone] * Culture urine (03/14/2025 1:42 PM EDT) Culture, Urine 10,000-49,000 CFU/mL Mixed urogenital marilynn, no uropathogens present. Suggest repeat specimen if clinically indicated. 03/15/2025 1:14 PM EDT [facility] Urine Urine specimen from urethra / Unknown 03/14/2025 1:42 PM EDT 03/14/2025 6:02 PM EDT Patrick Basilio MD LAB MICROBIOLOGY - GENERA L ORDERABLES Final Result Performing Organization Address [facility] Co de Phone Number [facility] [address] [place] [address], [place] [phone] documented in this encounter Visit Diagnoses Diagnosis Urinary tract infection, site not specified documented in this encounter Care Teams Polisher Hand Relationship Specialty Start Date End Date Harsha Wang [address] [place] [address] PCP - General Internal Medicine 05/13/25 documented as of this encounter
--- OUTSIDE RECORDS SUMMARY | 2025-05-18 19:52 | XMS_ITS | Encounter Summary ---
Author Organization [employer] Address [address] [place] [address] Care Team Providers Care Crutch Maker Name Role Phone Harsha Wang MD Primary Care Prov ider Nikolas Frost MD Primary Care Provider [phone]- [phone] Encounter Details Date Type [facility] Description 01/24/2025 Orders Only [facility] [address] [place] [address] Provider, MD Julianne Social History Tobacco Use [...] Upcoming Encounters Date Type Department [facility] Description 05/24/2025 10:15 AM EDT Office Visit [facility] [address] [place], [place] [phone] Nikolas Frost MD [address] [place], [place] [phone] documented as of this encounter Procedures Procedure [...] documented as of this encounter Care Teams Crutch Maker Relationship Specialty Start Date End Date Harsha Wang MD [address] [place] [address] PCP - General Internal Medicine 11/11/24 04/10/25 Nikolas Frost MD [address] [place] [address] PCP - General Internal Medicine 04/11/25 documented as of this encounter
--- OUTSIDE RECORDS SUMMARY | 2025-05-18 19:52 | XMS_ITS | Encounter Summary ---
Author Organization [employer] Address [address] [facility] [address] [place] [address] Care Team Providers Care Supervisor Lead Burning Name Role Phone Harsha Wang MD Primary Care Prov ider Nikolas Frost MD Primary Care Provider [phone]- [phone] Reason for Visit * Reason Comments Med Refill Encounter Details Date Type Department Care Team ([facility] Contact Info) Description 02/21/2025 Refill [facility] [address] [place], [place] [phone] Harsha Wang MD [address] [place] [address] Social History Tobacco Use Types Packs/Day Years [...] Description 05/24/2025 10:15 AM EDT Office Visit [facility] [address] [place] [address] Nikolas Frost MD [address] [place] [address] documented as of this encounter Visit Diagnoses Not on filedocumented in this encounter Additional Health Concerns Assessment Noted Time PHQ-9 Depression Total Score: 0 11/06/19 9:58 AM EDT documented as of this encounter Care Teams Supervisor Lead Burning Relationship Specialty Start Date End Date Harsha Wang MD [address] [place] [address] PCP - General Internal Medicine 11/11/24 04/10/25 Nikolas Frost MD [address] [place] [address] PCP - General Internal Medicine 04/11/25 documented as of this encounter
--- OUTSIDE RECORDS SUMMARY | 2025-05-18 19:52 | XMS_ITS | Encounter Summary ---
Author Organization [employer] Address [address] [facility] [address] [place] [address] Care Team Providers Care Moving Picture Operator Name Role Phone Harsha Wang MD Primary Care Prov ider Nikolas Frost MD Primary Care Provider [phone]- [phone] Reason for Visit * Reason Onset Date Comments Results 12/23/2024 Encounter Details Date Type Department Care Team (Late st Contact Info) Description 12/23/2024 Telephone [facility] [address] [place] [address] Harsha Wang MD [address] [place] [address] Results Social History Tobacco Use Types Packs/Day [...] - 12/23/2024 10:04 AM EDT Jose from [facility] with [facility] calling in regards to MR Brain results. She was informed pt is unable to receive results until February. Emmy is requesting a call back with results to clearher for TMS and or to deny if pcp feels necessary. Please contact Emmy at [phone]. documented in this encounter Plan of Treatment Upcoming Encounters Date Type Department Care Team ([facility] st Contact Info) Description 05/24/2025 10:15 AM EDT Office Visit [facility] MED [facility] PED[facility] [address] [place] [address] Nikolas Frost MD [address] [place] [address] documented as of this encounter Visit Diagnoses Not on filedocumented in this encounter Additional Health Concerns Assessment Noted Time PHQ-9 Depression Total Score: 0 11/06/19 9:58 AM EDT documented as of this encounter Care Teams Moving Picture Operator Relationship Specialty Start Date End Date Harsha Wang MD [address] [place] [address] PCP - General Internal Medicine 11/11/24 04/10/25 Nikolas Frost MD [address] [place] [address] PCP - General Internal Medicine 04/11/25 documented as of this encounter
--- OUTSIDE RECORDS SUMMARY | 2025-05-18 19:52 | XMS_ITS | Encounter Summary ---
Author Organization [facility] Address [address] [place] [address] Care Team Providers Care Channel Development Manager Name Role Phone Harsha Wang Primary Care Provide r Reason for Visit * Reason Onset Date Comments Results 05/16/2025 Encounter Details Date Type Department Care Team (Late st Contact Info) Description 05/16/2025 Telephone [facility] [address] [place] [address] [place] [address] Davina Perez MD [address] [place] [address] [address] [place] [address] Social History Tobacco Use Types [...] as of this encounter Progress Notes * Bryan Velez - 05/18/2025 1:11 PM EDT Left message on machine for patient to call back to make an appointment. When patient calls back please find slot with care team for 4-6 weeks Care Team; STAS/LSO * Maureen Jiang RN - 05/16/2025 10:54 AM EDT Phoebe Garnett is a 59 y.o. female, followed by Dr. Perez/ PENNY Mike with a history of syncope, cervical [...] appointment. please advise. Best call number is [phone] documented in this encounter Plan of Treatment Upcoming Encounters Date Type Department Care Team (Late st Contact Info) Description 12/20/2025 4:00 PM EDT Appointment Radiology Department - [address] [phone] documented as of this encounter Visit Diagnoses Not on filedocumented in this encounter Care Teams Channel Development Manager Relationship Specialty Start Date End Date Harsha Wang NPNoemi: [id number] [address] [place] [address] PCP - General Internal Medicine 05/13/25 documented as of this encounter
--- OUTSIDE RECORDS SUMMARY | 2025-05-18 19:52 | XMS_ITS | Encounter Summary ---
Author Organization [employer] Address [address] [place] [address] Care Team Providers Care Oracle Ebs Developer Name Role Phone Harsha Wang MD Primary Care Prov ider Nikolas Frost MD Primary Care Provider [phone]- [phone] Encounter Details Date Type Department Care Team ([facility] Contact Info) Description 02/10/2025 Orders Only [facility] [address] [place] [address] Provider, MD Julianne Social History Tobacco Use [...] Upcoming Encounters Date Type Department Care Team ([facility] Contact Info) Description 05/24/2025 10:15 AM EDT Office Visit [facility] PEDS [address] [place], [place] [phone] Nikolas Frost MD [address] [place], [place] [phone] documented as of this encounter Procedures Procedure [...] documented as of this encounter Care Teams Oracle Ebs Developer Relationship Specialty Start Date End Date Levy Harsha Peace MD [address] [facility] [place] [address] PCP - General Internal Medicine 11/11/24 04/10/25 Nikolas Frost MD [address] [facility] [place] [address] PCP - General Internal Medicine 04/11/25 documented as of this encounter
--- OUTSIDE RECORDS SUMMARY | 2025-05-18 19:52 | XMS_ITS | Encounter Summary ---
Author Organization [facility] Address [address] [place] [address] Care Team Providers Care Copy Clerk Name Role Phone Levy Harsha Peace Primary Care Provide r Encounter Details Date Type Department Care Team ([facility] Contact Info) Description 03/17/2025 Lab Requisition [facility] - Main Lab [address] [place] [address] Soto Reddy PA [address] [place] [address] Urge incontinence Social History Tobacco [...] 4:00 PM EDT Appointment Radiology Department - [address] [phone] documented as of this encounter Procedures Procedure [...] Final Result [facility] [address] [place] [address], documented in this encounter Visit Diagnoses Diagnosis Urge incontinence documented in this encounter Care Teams Copy Clerk Relationship Specialty Start Date End Date Harsha Wang [address] [place] [address] PCP - General Internal Medicine 05/13/25 documented as of this encounter
--- OUTSIDE RECORDS SUMMARY | 2025-05-18 19:52 | XMS_ITS | Encounter Summary ---
Author Organization [employer] Address [address] [facility] [address] [address] Care Team Providers Care Truck Crane Operator Helper Name Role Phone Harsha Wang MD Primary Care Prov ider Nikolas Frost MD Primary Care Provider [phone]- [phone] Reason for Referral * Consultation (Routine) - Closed Specialty Diagnoses / Procedures Referred By Contac t Referred To Contact Rheumatology Diagnoses SLE (systemic lupus erythematosus related syndrome) (CMS/HCC) (HCC) Nikolas Frost MD [address] [place] [address] Phone: tel: fax: [facility] [address] [facility] [address]st [place], [place] Phone: tel: fax: Referral ID Status Reason Start Date Expiration Date V isits Requested Visits Authorized [id number] Closed Specialty Services Required 12/03/2024 12/03/2025 1 1 Encounter Details Date Type Department Care Team (Late st Contact Info) Description 12/03/2024 Orders Only [facility] MED & PEDS [address] [place], [place] [phone] Nikolas Frost MD [address] [place], [place] [phone] SLE (systemic lupus erythematosus related syndrome) (CMS/HCC) [...] Upcoming Encounters Date Type Department Care Team ([facility] st Contact Info) Description 05/24/2025 10:15 AM EDT Office Visit [facility]EDS [address] [place] [address] Nikolas Frost MD [address] [place] [address] Scheduled Referrals Name Type Priority Associated Diagnoses Orde r Schedule Referral to Rheumatology Outpatient Referral Routine SLE (systemic lupus erythematosus related syndrome) ([facility]) Expected: 12/03/2024 (Approximate), Expires: 12/03/2025 documented as of this encounter Visit Diagnoses Diagnosis SLE (systemic lupus erythematosus related syndrome) (CMS/HCC) (HCC)- Primary Systemic lupus erythematosus documented in this encounter Additional Health Concerns Assessment Noted Time PHQ-9 Depression Total Score: 0 11/06/19 25 9:58 AM EDT documented as of this encounter Care Teams Truck Crane Operator Helper Relationship Specialty Start Date End Date Harsha Wang MD [address] [place] [address] PCP - General Internal Medicine 11/11/24 04/10/25 Nikolas Frost MD [address] [place] [address] PCP - General Internal Medicine 04/11/25 documented as of this encounter
--- OUTSIDE RECORDS SUMMARY | 2025-05-18 19:53 | XMS_ITS | Encounter Summary ---
Author Organization [employer] Address [address] [facility] 7 [place] [address] Care Team Providers Care Glove Maker Name Role Phone Nikolas Frost MD Primary Care Provider Encounter Details Date Type Department Care Team ([facility] Contact Info) Description 05/16/2025 Orders Only GENERIC [...] with others, in a hotel, in a usp, living outside on the street, on a [...] Upcoming Encounters Date Type Department Care Team ([facility] st Contact Info) Description 05/24/2025 10:15 AM EDT Office Visit [facility] CHC MED & PEDS [address] [place], [place] [phone] Nikolas Frost MD [address] [place] [address] documented as of this encounter Procedures Procedure Name Priority Date/Time Associated Diagnosis Comments CT ABDOMEN PELVIS W CONTRAST Routine 05/16/2025 10:43 PM EDT CULTURE, URINE, ROUTINE Routine 05/16/2025 8:57 PM EDT URINALYSIS, COMPLETE, WITH REFLEX TO CULTURE Routine 05/16/2025 8:41 PM EDT CBC WITH AUTO DIFFERENTIAL Routine 05/16/2025 8:41 PM EDT MAGNESIUM Routine 05/16/2025 8:41 PM EDT LIPASE Routine 05/16/2025 8:41 PM EDT COMPREHENSIVE METABOLIC PANEL Routine 05/16/2025 8:41 PM EDT documented in this encounter Results * CT Abdomen Pelvis w/ Contrast (05/16/2025 10:43 PM EDT) Anatomical Region Laterality Modality Body, Pelvis, Abdomen Computed T omography 05/16/2025 10:4 3 PM EDT Narrative 05/16/2025 10:46 PM EDT [address] [address] [address] Scan Report Signed Patient: Phoebe Garnett MR#: [id number] : 1965 Acct:[id number] Age/Sex: 59 / F ADM Date: 05/16/25 Loc: HO.ED Attending Dr: Ordering Physician: Ivonne Ng DO Date of Service: 05/16/25 Procedure(s): CT abdomen pelvis w IV con Accession Number(s): [id number] cc: Harsha Wang MD; Ivonne Ng DO Report Number: [id number]: Total DLP = 488.00 mGy-cm Reason for Exam: bloody stools, abd pain, hx colitis CLINICAL HISTORY: bloody stools, abd pain, hx colitis CT abdomen and pelvis with contrast Comparison: CT - CT ABDOMEN PELVIS W IV CON - 05/16/25 21:39 EDT Findings: The lung bases are clear. The liver, gallbladder, spleen, adrenal glands and pancreas are unremarkable. Kidneys, ureters and bladder demonstrate no acute process. No bowel obstruction. No free air, free fluid, pneumatosis or abscess. Mild edema involving the descending and sigmoid colon. No acute osseous finding. Impression: Mild colitis involving the descending and sigmoid colon. No pneumatosis, free air or abscess. This document has been electronically signed by: Michael Elizabeth MD on 05/16/2025 22:43:45 Dictated By: Michael Elizabeth MD Signed By: <Electronically signed by Michael Elizabeth MD in OV> 05/16/252244 DD/ 42 TD/TT: 05/16/252242 Kids Activities Coach: Procedure Note Donotuseinterpreter, Image - 05/16/[address] [address] [address] Scan Report Signed Patient: Noemi GarnettR#: [id number] : 1965Acct:[id number] Age/Sex: 59 / FADM Date: 05/16/25 Loc: HO.ED Attending Dr: Ordering Physician: Ivonne Ng DO Date of Service: 05/16/25 Procedure(s): CT abdomen pelvis w IV con Accession Number(s): [id number] cc: Harsha Wang MD; Ivonne Ng DO Report Number: [id number]: Total DLP = 488.00 mGy-cm Reason for Exam: bloody stools, abd pain, hx colitis CLINICAL HISTORY: bloody stools, abd pain, hx colitis CT abdomen and pelvis with contrast Comparison: CT - CT ABDOMEN PELVIS W IV CON - 05/16/25 21:39 EDT Findings: The lung bases are clear. The liver, gallbladder, spleen, adrenal glands and pancreas are unremarkable. Kidneys, ureters and bladder demonstrate no acute process. No bowel obstruction. No free air, free fluid, pneumatosis or abscess. Mild edema involving the descending and sigmoid colon. No acute osseous finding. Impression: Mild colitis involving the descending and sigmoid colon. No pneumatosis, free air or abscess. This document has been electronically signed by: Michale Elizabeth MD on 05/16/2025 22:43:45 Dictated By: Michael Elizabeth MD Signed By: <Electronically signed by Michael Elizabeth MD in OV> 05/16/252244 DD/ 42 TD/TT: 05/16/252242 Kids Activities Coach: [facility] External Provider IMG CT PROCEDURES Edited Result - Final * Culture, Urine, Routine (05/16/2025 8:57 PM EDT) Urine Urine specimen obtained by clean catch procedure / Unknown 05/16/2025 8:57 PM EDT 05/16/2025 8:57 PM EDT Comment:[facility] Narrative [facility] - 05/18/2025 1:22 PM EDT Urine Culture Report Result Urine Culture 10,000 to 50,000 cfu/ml Urine Culture Mixed bacterial marilynn characteristic of Urine Culture urogenital contamination. Specimen Source: Urine clean catch Generic External Data Provider LAB MICROBIOLOGY - GENERAL ORDERABLES Final Result [facility] [address] [place] [phone] * Lipase (05/16/2025 8:41 PM EDT) Pathologist [facility] Lipase 20 8 - 78 U/L [facility] 05/16/2025 8:41 PM EDT 05/16/2025 8:48 PM EDT Generic External Data Provider LAB BLOOD ORDERAB LES Final Result Performing Organization Address [facility] Co de Phone Number [facility] [address] [place] [phone] * Magnesium (05/16/2025 8:41 PM EDT) [facility] Magnesium 2.0 1.6 - 2.6 mg/dL [facility] 05/16/2025 8:41 PM EDT 05/16/2025 8:48 PM EDT Generic External Data Provider LAB BLOOD ORDERAB LES Final Result Performing Organization Address [facility] de Phone Number [facility] [address] [place] [phone] * (ABNORMAL) Comprehensive Metabolic Panel (05/16/2025 8:41 PM EDT) [facility] Sodium 144 135 - 145 mmol/L [facility] Potassium 3.7 3.3 - 5.1 mmol/L [facility] Chloride 110(H) 96 - 108 mmol/L [facility] Carbon Dioxide 27 22 - 29 mmol/L [facility] Anion Gap 11(L) 12 - 20 [facility] Urea Nitrogen (BUN) 20(H) 9 - 16 mg/dL [facility] Creatinine, Serum 0.56 0.5 - 1.4 mg/dL [facility] Creatinine Clr Calc Pharmacy 96.4 [facility] Comment:Provided height and weight: 158.75 cm,62.596 kg.eGFR (calculated from the MDRD study equation) and eCrCl(calculated from the Cockcroft-Gault equation) are based ondifferent parameters and may not yield comparable results.If eCrCl result is absurd, please check patient'sheight/weight. Estimated Glomerular Filt Rate >60 [facility] Comment:Chronic Kidney Disea se: Estimated GFR < 60 mL/min/1.67w7Vpisky Kidney Disease: Estimated GFR < 15 mL/min/1.73m2 Glucose 101 60 - 115 mg/dL [facility] Calcium 8.8 8.4 - 10.2 mg/dL [facility] Bilirubin, Total 0.2 0.0 - 1.0 mg/dL [facility] Aspartate Amino Transferase 19 5 - 31 U/L [facility] Alanine Aminotransferase 13 0 - 31 U/L [facility] Total Protein 7.1 6.5 - 8.0 g/dL [facility] Albumin Level 4.1 3.5 - 5.0 g/dL [facility] Alkaline Phosphatase 76 39 - 117 U/L [facility] 05/16/2025 8:41 PM EDT 05/16/2025 8:48 PM EDT us Generic External Data Provider LAB BLOOD ORDERAB LES Final Result [facility] [address] [place] [phone] * (ABNORMAL) Urinalysis, Complete, with Reflex to Culture (05/16/2025 8:41 PM EDT) Color Urine Yellow [facility] Appearance Urine Clear [facility] PH 5.5 5.0 - 9.0 [facility] Glucose Urine UA Negative Negative mg/dL [facility] Urine Blood Negative Negative [facility] Specific [place] - Urine 1.025 1.005 - 1.025 [facility] Urine Protein Negative Neg-Trace mg/dL [facility] Urine Ketones Negative Negative mg/dL [facility] Nitrite Urine Negative Negative [facility] Leukocyte Esterase Urine Small (1+)(A) Negative [facility] RBC Urine 0-2 0 - 2 /HPF [facility] Urine WBC 6-10(A) 0 - 5 /HPF [facility] Urine Squamous Epithelial Cell 0-2 0 - 2 /HPF [facility] Urine Bacteria None Seen None Seen [facility] Hyaline Casts, Urine 0-2 0 - 2 /LPF [facility] 05/16/2025 8:41 PM EDT 05/16/2025 8:48 PM EDT Narrative [facility] - 05/16/2025 8:57 PM EDT 2037Urine, Clean Catch us Generic External Data Provider LAB URINE ORDERAB LES Final Result [facility] [address] [place] [phone] * (ABNORMAL) CBC auto differential (05/16/2025 8:41 PM EDT) White Blood Count 4.6(L) 4.8 - 10.8 X10*3/uL [facility] Red Blood Count 4.05(L) 4.20 - 5.50 X10*6/uL [facility] Hemoglobin 12.0 12.0 - 16.0 g/dl [facility] Hematocrit 36.0(L) 37.0 - 47.0 % [facility] Mean Corpuscular Volume 88.9 80.0 - 98.0 fL [facility] Mean Corpuscular Hemoglobin 29.6 27.0 - 33.0 pg [facility] Mean Corpuscular HGB Conc 33.3 31.0 - 35.0 g/dl [facility] Red Cell Distribution Width 13.3 11.0 - 16.0 % [facility] Platelet Count 204 160 - 400 X10*3/uL [facility] Mean Platelet Volume 9.7 9.4 - 12.3 fL [facility] Neutrophils Percent Auto 54.0 45 - 73 % [facility] Imm Gran Pct Auto 0.2 0.0 - 0.4 % [facility] Lymphocytes Percent Auto 35.0 20 - 40 % [facility] Monocytes Percent Auto 9.2 2 - 11 % [facility] Eosinophils Percent Auto 0.9 0 - 4 % [facility] Basophils Percent Auto 0.7 0 - 2 % [facility] NRBC Pct Auto 0.0 0.0 - 0.2 /100WBC [facility] Neutrophils Absolute Auto 2.5 2.0 - 8.3 x10*3/uL [facility] Imm Gran Abs Auto 0.01 0.00 - 0.03 X10*3/uL [facility] Lymphocytes Absolute Auto 1.6 1.2 - 4.9 X10*3/uL [facility] Monocytes Absolute Auto 0.4 0.1 - 1.2 X10*3/uL [facility] Eosinophils Absolute Auto 0.0 0.0 - 0.4 X10*3/uL [facility] Basophils Absolute Auto 0.0 0.0 - 0.2 X10*3/uL [facility] NRBC Abs Auto 0.000 0.0 - 0.012 X10*3/uL [facility] 05/16/2025 8:41 PM EDT 05/16/2025 8:48 PM EDT us Generic External Data Provider LAB BLOOD ORDERAB LES Final Result [facility] [address] [place] [phone] documented in this encounter Visit Diagnoses Not on filedocumented in this encounter Additional Health Concerns Assessment Noted Time PHQ-9 Depression Total Score: 0 11/06/19 25 9:58 AM EDT documented as of this encounter Care Teams Glove Maker Relationship Specialty Start Date End Date Nikolas Frost MD [address] [place] [phone] PCP - General Internal Medicine 04/11/25 documented as of this encounter
--- OUTSIDE RECORDS SUMMARY | 2025-05-18 19:53 | XMS_ITS | Data Portability ---
Author Organization [place] [facility], Allergy Address [address] [place] [phone] Care Team Providers Care Construction Administrator Name Role Phone CHERI JARA Primary Care [...] right. MRI brain without contrast 12/09/2024 at [facility] demonstrated nonspecific white matter likely [...] - next available ....IAC protocol 2024 025 [facility] Mri Department, [address] [place] [address], [place], [address], 16:14:50 Medication Orders None recorded. Patient TargetsNo targets recorded. Patient InstructionsNo instructions recorded. Reason for Referral None Reported. Results Created Date Observation Date Name Description Value Unit Range Abnormal Flag Note LastModifiedBy Organization Detail LastModifiedTime 12/28/19 audio gram No observ ation record ed. BARCODE Not Available 2024 15:53:43 12/28/19 25 11/17/2023 audio gram No observ ation record ed. [email or web address] Not Available 2024 15:45:19 12/29/19 25 12/09/2024 MRI, brain , w/o contr ast No observ ation record ed. 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 Problems Name Problem SNOMED Code Status Onset Date Resolution Date Notes Provider Name and Address Organization Details Recorded Time Hypertrop hy of nasal turbinate s 85224682 Active 2016 Hypertrop hy of nasal turbinate s; Note: Date Diagnosed : 12/25/2016 9:15 AM (J34.3) Not Available [facility] 4 02:48:53 Bleeding from nose 871874180 Active 2016 Epistaxis ; Note: Date Diagnosed : 12/25/2016 8:59 AM (R04.0) Not Available [facility] 4 02:48:55 Mild intermitt ent asthma 502101215 Active 2016 Mild intermitt ent asthma, uncomplic ated; Note: Date Diagnosed : 12/25/2016 9:27 AM (J45.20) Not Available [facility] 4 02:48:56 Deviated nasal septum 221333453 Active 2016 Deviated nasal septum; Note: Date Diagnosed : 12/25/2016 9:15 AM (J34.2) Not Available [facility] 4 02:48:57 Allergic rhinitis 67051277 Active 2016 Other allergic rhinitis; Note: Date Diagnosed : 12/25/2016 9:12 AM (J30.89) Erica tobias allergic rhinitis; Note: Date Diagnosed : 12/25/2016 9:12 AM (J30.89) Not Available [facility] 02:48:56 Bilateral disorder of Eustachia n tubes 12064690801 86745 Active 2019 Other specified disorders of Eustachia n tube, bilateral ; Note: Date Diagnosed : 09/20/2019 1:57 PM (H69.83) Not Available [facility] 4 02:48:57 Abnormal auditory perceptio n 07636406 Active 2019 Other abnormal auditory perceptio ns, bilateral ; Note: Date Diagnosed : 09/20/2019 5:10 PM (H93.293) Not Available [facility] 4 02:48:55 Sj gren's syndrome 66647474 Active 2019 Sicca syndrome [Sjogren] ; Note: Date Diagnosed : 03/01/2020 2:13 PM (M35.0) Not Available [facility] 4 02:48:52 Sensorine ural hearing loss 73585004 Active 2023 Sensorine ural hearing loss, unilatera l, left ear, with unrestric everardo hearing on the contralat eral side; Note: Date Diagnosed : 11/17/2023 12:47 PM (H90.42) Not Available [facility] 4 02:48:54 Dizziness and giddiness 643397950 Active 2023 Dizziness and giddiness ; Note: Date Diagnosed : 11/17/2023 12:49 PM (R42) Not Available [facility] 4 02:48:57 Bilateral tinnitus 37354187617 02 Active 2024 PETE LARA PA-C [address] [place] [address], [place], [address] , [facility] - [facility] 5 15:15:08 Problem Notes None recorded. Procedures Surgical History Date Name Laterality Status Provider Name and Address Organization Details Recorded Time 12/27/2024 Air & Speech Audio with Tymps - 66537, 03919 & 52404 completed CINDY MEJÍA, AUD [address] [facility],[place] [address], [place], [address], [facility] - [facility] 12/27/2024 14:05:20 Imaging Results None recorded. Procedure Notes None recorded. Medical Equipment None Reported. Allergies Allergen ID Allergen Name Allergen Category Reaction Reaction Severity Criticality Documentation Date Start Date Code Code System Note Provider Name and Address Organization Details Recorded Time 973348 Benadryl medicatio n hives Not available Not available 02/27/2024 99580 7 RxNorm React ion: hives ; Not Available [facility] 4 00:31:35 65564 latex environme nt,medica tion other Not available Not available 12/09/2023 68943 91 RxNorm React ion: unkno wn, unspe cifie d;; Not Available [facility] 4 01:04:17 Medications Name Sig Start Date [...] mg tablet 11/16 completed Medicati on ID: [id number] D uration Value: 30 Brand Name: quetiapi [...] mg tablet 03/01 completed Medicati on ID: [id number] D uration Value: 30 Reason: () Brand Name: quetiapi ne Send Method: E-Prescr ibed Sub s Allowed: subs OK Speci al Instruct ion: TK 1 T PO Q NIGHT Me dication GenericN anay: quetiapi ne Not Available Not Available Not Available Nortrel (28) 1 mg-35 mcg tablet 03/01 completed Medicati on ID: [id number] D uration Value: 28 Reason: () Brand Name: Nortrel 35 (28) Sen d Method: E-Prescr ibed Sub s Allowed: subs OK Speci al Instruct ion: TK 1 T PO D Medica tionGene ricName: Nortrel (28) Not Available Not Available Not Available trazodone 100 mg tablet 03/01 completed Medicati on ID: [id number] D uration Value: 30 Reason: () Brand Name: trazodon e Send Method: E-Prescr ibed Sub s Allowed: subs OK Speci al Instruct ion: TK 3 TS PO QHS Medi cationGe nericNam e: trazodon e Not Available Not Available Not Available benzonata te 100 mg capsule 12/27 completed Medicati on ID: [id number] B rand Name: benzonat ate Send Method: E-Prescr ibed Sub s Allowed: subs OK Speci al Instruct ion: TAKE 1 CAPSULE BY MOUTH THREE TIMES A DAY FOR 7 DAYS NEEDED FOR COUGH Me dication GenericN anay: benzonat ate Not Available Not Available Not Available lansopraz ole 30 mg capsule,d elayed release 03/01 completed Medicati on ID: [id number] D uration Value: 30 Reason: () Brand Name: lansopra zole Sen d Method: E-Prescr ibed Sub s Allowed: subs OK Speci al Instruct ion: TK 1 C PO D Medica tionGene ricName: lansopra zole Not Available Not Available Not Available prednison e 50 mg tablet 12/27 completed Medicati on ID: [id number] B rand Name: predniso ne Send Method: [...] mg capsule 11/16 completed Medicati on ID: [id number] D uration Value: 35 Brand Name: gabapent [...] tended release 11/16 completed Medicati on ID: [id number] D uration Value: 30 Brand Name: cyanocob [...] auto-inje ctor 11/16 completed Medicati on ID: [id number] D uration Value: 2 Brand Name: epinephr ine Send Method: E-Prescr ibed Sub s Allowed: subs OK Medic ationGen ericName : epinephr ine Not Available Not Available Not Available levofloxa eve 750 mg tablet 12/27 completed Medicati on ID: [id number] B rand Name: levoflox acin Sen d Method: E-Prescr ibed Sub s Allowed: subs OK Medic ationGen ericName : levoflox acin Not Available Not Available Not Available norethind james (contrace ptive) 0.35 mg tablet 11/16 completed Medicati on ID: [id number] D uration Value: 28 Brand Name: norethin drone (contrac eptive) Send Method: E-Prescr ibed Sub s Allowed: subs OK Speci al Instruct ion: TK 1 T PO AT THE SAME TIME QD Medic ationGen ericName : norethin drone (contrac eptive) Not Available Not Available Not Available fluoxetin e 20 mg capsule 03/01 completed Medicati on ID: [id number] D uration Value: 30 Reason: () Brand Name: fluoxeti ne Send Method: E-Prescr ibed Sub s Allowed: subs OK Speci al Instruct ion: TK 3 CS PO QAM Medi cationGe nericNam e: fluoxeti ne Not Available Not Available Not Available fluticaso ne propionat e 50 mcg/actua tion nasal spray,mana pension 11/16 completed Medicati on ID: [id number] D uration Value: 90 Brand Name: fluticas [...] mg tablet 11/16 completed Medicati on ID: [id number] D uration Value: 30 Brand Name: loratadi [...] unit) capsule 11/16 completed Medicati on ID: [id number] D uration Value: 30 Brand Name: Vitamin [...] mg tablet 03/01 completed Medicati on ID: [id number] D uration Value: 30 Reason: () Brand Name: Vesicare Send Method: E-Prescr ibed Sub s Allowed: subs OK Speci al Instruct ion: TK 1 T PO D Medica tionGene ricName: Vesicare Not Available Not Available Not Available Vesicare 10 mg tablet 03/01 completed Medicati on ID: [id number] D uration Value: 30 Reason: () Brand Name: Vesicare Send Method: E-Prescr ibed Sub s Allowed: subs OK Speci al Instruct ion: TK 1 T PO D Medica tionGene ricName: Vesicare Not Available Not Available Not Available ProAir HFA 90 mcg/actua tion aerosol inhaler 2016 active Medicati on ID: [id number] D uration Value: 16 Brand Name: ProAir HFA Send Method: E-Prescr ibed Sub s Allowed: subs OK Speci al Instruct ion: INL 2 PUFFS PO Q 4 H PRF COUGH OR WHEEZING Medicat ionGener icName: ProAir HFA Medi cation ID: [id number] D uration Value: 16 Brand Name: ProAir HFA Send Method: E-Prescr ibed Sub s Allowed: subs OK Speci al Instruct ion: INL 2 PUFFS PO Q 4 H PRF COUGH OR WHEEZING Medicat ionGener icName: ProAir HFA Not Available Not Available Not Available quetiapin e 400 mg tablet 03/01 completed Medicati on ID: [id number] D uration Value: 30 Reason: () Brand Name: quetiapi ne Send Method: E-Prescr ibed Sub s Allowed: subs OK Speci al Instruct ion: TK 1 T PO Q NIGHT Me dication GenericN anay: quetiapi ne Not Available Not Available Not Available ProAir HFA 11/16 completed Medicati on ID: [id number] D uration Value: 16 Brand Name: Rivera [...] Updated DateTime 12/27/2024 157.48 cm 24.5 kg/m2 48790.38 g Bridget Tinoco [place] [facility] 12/27/2024 14:17:39 Social History None recorded. Functional Status None recorded. Mental Status None recorded. Family History Nothing Reported. Medical History No medical history recorded. Gynecological HistoryNo gynecological history recorded. Obstetrics History GPAL:G 0 P 0 0 0 0 Past Encounters Encounter ID Performer Location Encounter Start Date Encounter Closed Date Diagnosis/Indication Diagnosis SNOMED-CT Code Diagnosis ICD10 Code Diagnosis IMO Codes Diagnosis Note [id number] PETE LARA PA-C [facility] [address] [address] 12/27/2024 13:37:11 12/27/2024 15:46:54 Sensorineural hearing loss 18611413 H90.42 Audiologic al evaluation results: Right ear: Normal hearing with excellent word recognitio n. Left ear: Normal hearing with the exception of a moderate SNHL at 8000Hz with excellent word recognitio n. Tympanomet ry: Right Ear:Type A Left Ear:Type As Bilateral tinnitus 44574 76556 102 H93.13 162439 Health Concerns Section Related Observation LastModified by Organization Detai ls LastModified Time None Recorded Concern Status LastModified by Organization Details LastModified Time None Recorded Advance Directives Directive None Recorded Payers Insurance Date Sequence Insurance Name Policy Number Policy Sarabia Covered Member ID Sarabia Member ID Guarantor Name 12/27/2024 1 [facility] (MEDICARE REPLACEMENT/A DVANTAGE - HMO) [employer] Chris Dygon [id number] Chris Dygon 12/27/2024 1 [facility] (MEDICARE REPLACEMENT/A DVANTAGE - POS) [employer]AM[employer] Chris Dygon [id number] Chris Dygon Notes Date Note Type Note [...] hearing. Reports intermittent tinnitus. ADELINA SENA MD [address] [place] [address], [place], [address], [facility] - [facility] 12/27/2024 15:30:27 OBGyn Episode No OBEpisode recorded.
--- OUTSIDE RECORDS SUMMARY | 2025-05-18 19:53 | XMS_ITS | Clinical Summary ---
Author Organization [facility] Address [address] [place] [address] Care Team Providers Care Chemical Production Technician Name Role Phone Rey Galvan MD Primary Care Provider Allergies Active Allergy [...] age to complete this topic Care Teams Chemical Production Technician Relationship Specialty Start Date End Date Rey Galvan MD PCP - General Internal Medicine 06/04/21
--- OUTSIDE RECORDS SUMMARY | 2025-05-18 19:53 | XMS_ITS | Clinical Summary ---
Author Organization [employer] Address [address] [facility] 7[address] [place] [address] Care Team Providers Care Clinical Quality Rn Name Role Phone Nikolas Frost MD Primary [...] SLE (systemic lupus erythema tosus related syndrome) ([facility]) 11/05/2024 Assessment & Plan (11/05/2024 10:36 AM [...] 10:39 AM EDT): Patient wants to see online merchandiser, she is on multiple medications without improvement in symptoms Flexural eczema 11/05/2024 Assessment & Plan (11/05/2024 10:40 AM EDT): Hx of eczema, wants to see a software reverse engineer, will place referral Mixed conductive and sensori [...] Date Resolved Date Encounter for medical examin [facility] to establish care 11/05/2024 02/19/2025 Assessment & Plan (11/05/2024 10:25 AM EDT): Last pcp visit 1 year ER: pneumonia/sepsis October 2023 Hospitalization: October 2023 PMHX: sjrogren, SLE( followed at [facility]), asthma, bipolar disorder, RA, GERD PSHX: cervical [...] Encounters Date Type Department Care Team Description 05/18/2025 Telephone [facility] MEDICINE [address] [place] [phone] Nikolas Frost MD Preop 05/16/2025 Orders Only GENERIC EXTERNAL DATA DEPARTMENT Provider, Generic External Data 05/14/2025 Orders Only [facility] External Provider, [facility] 05/13/2025 Patient Outreach [facility] MEDICINE [address] [place] [address] Nikolas Frost MD 04/08/2025 Telephone [facility] CHC MED & PEDS [address] [place] [address] Harsha Wang MD Chart Prep 04/04/2025 Patient Outreach [facility] MEDICINE [address] [place] [address] Harsha Wang MD Pre-visit Planning (Pre visit planning unable to LVM ) 03/18/2025 Orders Only [facility] MED & PEDS [address] [place] [address] Harsha Wang MD 02/28/2025 1:45 PM EDT Office Visit [facility] MED & PEDS [address] [place] [address] Harsha Wang MD Chronic cough (Primary Dx); Heart murmur; Abdominal panniculus 02/28/2025 Travel 02/21/2025 Patient Outreach [facility] MEDICINE [address] [place] [phone] Harsha Wang MD Care Coordination (CHW outreach for SDOH housing search-referral completed ) 02/21/2025 Patient Outreach [facility] MEDICINE [address] [place] [address] Harsha Wang MD Pre-visit Planning (SDOH screening positive and Tobacco screening negative) 02/21/2025 Results Follow-Up [facility] MEDICINE [address] [place] [phone] Carline Fregoso MD XR Shoulder 2+ Views Right 02/21/2025 Refill [facility] MED & PEDS [address] [place] [address] Harsha Wang MD 02/19/2025 9:00 AM EDT Office Visit [facility] WALK-IN CENTER [address] [place] [address] Carline Fregoso MD Cough, unspecified type (Primary Dx); Chronic right shoulder pain; Costochondritis 02/19/2025 Travel 02/18/2025 Telephone [facility] MED & PEDS [address] [place], [place] [phone] Harsha Wang MD Change PCP from Last [...] [facility] CHC MED & PEDS [address] [place] [address] Nikolas Frost MD [address] [place] [address] Health Maintenance Due Date Last Done Comments [...] URINE, ROUTINE Routine 05/16/2025 8:57 PM EDT LIPASE Routine 05/16/2025 8:41 PM EDT MAGNESIUM Routine 05/16/2025 8:41 PM EDT COMPREHENSIVE METABOLIC PANEL Routine 05/16/2025 8:41 PM EDT URINALYSIS, COMPLETE, WITH REFLEX TO CULTURE Routine 05/16/2025 8:41 PM EDT CBC WITH AUTO DIFFERENTIAL Routine 05/16/2025 8:41 PM EDT MR SHOULDER WO CONTRAST RIGHT Routine 05/14/2025 8:55 AM EDT TRANSTHORACIC ECHO (TTE) COMPLETE Routine 05/13/2025 Heart murmur AMB REFERRAL TO ORTHOPAEDIC SURGERY Routine 04/01/2025 [...] Recently Relevant to Health Maintenance Results * CT Abdomen Pelvis w/ Contrast (05/16/2025 10:43 PM EDT) Anatomical Region Laterality Modality Body, Pelvis, Abdomen Computed T omography 05/16/2025 10:4 3 PM EDT Narrative 05/16/2025 10:46 PM EDT [place] [address] [address] Scan Report Signed Patient: Phoebe Garnett MR#: [id number] : 1965 Acct:[id number] Age/Sex: 59 / F ADM Date: 05/16/25 Loc: .ED Attending Dr: Ordering Physician: Ivonne Ng DO Date of Service: 05/16/25 Procedure(s): CT abdomen pelvis w IV con Accession Number(s): [id number] cc: Harsha Wang MD; Ivonne Ng DO Report Number: [id number]: Total DLP = 488.00 mGy-cm Reason for [...] in OV> 05/16/252244 DD/ 42 TD/TT: 05/16/252242 Staff Occupational Therapist: Procedure Note Donotuseinterpreter, Image - 05/16/[address] [place] [address] [address] Scan Report Signed Patient: Sage Garnett#: [id number] : 1965Acct:[id number] Age/Sex: 59 / FADM Date: 05/16/25 Loc: HO.ED Attending Dr: Ordering Physician: Ivonne Ng DO Date of Service: 05/16/25 Procedure(s): CT abdomen pelvis w IV con Accession Number(s): [id number] cc: Harsha Wang MD; Ivonne Ng DO Report Number: [id number]: Total DLP = 488.00 mGy-cm Reason for [...] in OV> 05/16/252244 DD/ 42 TD/TT: 05/16/252242 Staff Occupational Therapist: [facility] External Provider IMG CT PROCEDURES Edited Result - Final * Culture, Urine, Routine (05/16/2025 8:57 PM EDT) Urine Urine specimen obtained by clean catch procedure / Unknown 05/16/2025 8:57 PM EDT 05/16/2025 8:57 PM EDT Comment:UACC Narrative [facility] - 05/18/2025 1:22 PM EDT Urine Culture Report Result Urine Culture 10,000 to 50,000 cfu/ml Urine Culture Mixed bacterial marilynn characteristic of Urine Culture urogenital contamination. Specimen Source: Urine clean catch Generic External Data Provider LAB MICROBIOLOGY - GENERAL ORDERABLES Final Result [facility] [address] [place] [phone] * (ABNORMAL) Urinalysis, Complete, with Reflex to Culture (05/16/2025 8:41 PM EDT) Color Urine Yellow [facility] Appearance Urine Clear [facility] PH 5.5 5.0 - 9.0 [facility] Glucose Urine UA Negative Negative mg/dL [facility] Urine Blood Negative Negative [facility] Specific [place] - Urine 1.025 1.005 - 1.025 [facility] Urine Protein Negative Neg-Trace mg/dL [facility] Urine Ketones Negative Negative mg/dL [facility] Nitrite Urine Negative Negative [facility] Leukocyte Esterase Urine Small (1+)(A) Negative [facility] RBC Urine 0-2 0 - 2 /HPF [facility] Urine WBC 6-10(A) 0 - 5 /HPF [facility] Urine Squamous Epithelial Cell 0-2 0 - 2 /HPF [facility] Urine Bacteria None Seen None Seen [facility] Hyaline Casts, Urine 0-2 0 - 2 /LPF [facility] 05/16/2025 8:41 PM EDT 05/16/2025 8:48 PM EDT Narrative [facility] - 05/16/2025 8:57 PM EDT 2037Urine, Clean Catch us Generic External Data Provider LAB URINE ORDERAB LES Final Result [facility] [address] [place] [phone] * (ABNORMAL) CBC auto differential (05/16/2025 8:41 PM EDT) White Blood Count 4.6(L) 4.8 - 10.8 X10*3/uL [facility] Red Blood Count 4.05(L) 4.20 - 5.50 X10*6/uL [facility] Hemoglobin 12.0 12.0 - 16.0 g/dl [facility] Hematocrit 36.0(L) 37.0 - 47.0 % [facility] Mean Corpuscular Volume 88.9 80.0 - 98.0 fL [facility] Mean Corpuscular Hemoglobin 29.6 27.0 - 33.0 pg [facility] Mean Corpuscular HGB Conc 33.3 31.0 - 35.0 g/dl [facility] Red Cell Distribution Width 13.3 11.0 - 16.0 % [facility] Platelet Count 204 160 - 400 X10*3/uL [facility] Mean Platelet Volume 9.7 9.4 - 12.3 fL [facility] Neutrophils Percent Auto 54.0 45 - 73 % [facility] Imm Gran Pct Auto 0.2 0.0 - 0.4 % [facility] Lymphocytes Percent Auto 35.0 20 - 40 % [facility] Monocytes Percent Auto 9.2 2 - 11 % [facility] Eosinophils Percent Auto 0.9 0 - 4 % [facility] Basophils Percent Auto 0.7 0 - 2 % [facility] NRBC Pct Auto 0.0 0.0 - 0.2 /100WBC [facility] Neutrophils Absolute Auto 2.5 2.0 - 8.3 x10*3/uL [facility] Imm Gran Abs Auto 0.01 0.00 - 0.03 X10*3/uL [facility] Lymphocytes Absolute Auto 1.6 1.2 - 4.9 X10*3/uL [facility] Monocytes Absolute Auto 0.4 0.1 - 1.2 X10*3/uL [facility] Eosinophils Absolute Auto 0.0 0.0 - 0.4 X10*3/uL [facility] Basophils Absolute Auto 0.0 0.0 - 0.2 X10*3/uL [facility] NRBC Abs Auto 0.000 0.0 - 0.012 X10*3/uL [facility] 05/16/2025 8:41 PM EDT 05/16/2025 8:48 PM EDT Generic External Data Provider LAB BLOOD ORDERAB LES Final Result Performing Organization Address [facility]/ZIP Co de Phone Number [facility] [address] [place] [phone] * Magnesium (05/16/2025 8:41 PM EDT) Magnesium 2.0 1.6 - 2.6 mg/dL [facility] 05/16/2025 8:41 PM EDT 05/16/2025 8:48 PM EDT Generic External Data Provider LAB BLOOD ORDERAB LES Final Result Performing Organization Address [facility]/ZIP Co de Phone Number [facility] [address] [place] [phone] * Lipase (05/16/2025 8:41 PM EDT) Lipase 20 8 - 78 U/L [facility] 05/16/2025 8:41 PM EDT 05/16/2025 8:48 PM EDT us Generic External Data Provider LAB BLOOD ORDERAB LES Final Result [facility] [address] [place], [place] [phone] * (ABNORMAL) Comprehensive Metabolic Panel (05/16/2025 8:41 PM EDT) Sodium 144 135 - 145 mmol/L [facility] Potassium 3.7 3.3 - 5.1 mmol/L [facility] Chloride 110(H) 96 - 108 mmol/L [facility] Carbon Dioxide 27 22 - 29 mmol/L [facility] Anion Gap 11(L) 12 - 20 [facility] Urea Nitrogen (BUN) 20(H) 9 - 16 mg/dL [facility] Creatinine, Serum 0.56 0.5 - 1.4 mg/dL [facility] Creatinine Clr Calc Pharmacy 96.4 [facility] Comment:Provided height and weight: 158.75 cm,62.596 kg.eGFR (calculated from the MDRD study equation) and eCrCl(calculated from the Cockcroft-Gault equation) are based ondifferent parameters and may not yield comparable results.If eCrCl result is absurd, please check patient'sheight/weight. Estimated Glomerular Filt Rate >60 [facility] Comment:Chronic Kidney Disea se: Estimated GFR < 60 mL/min/1.44j4Gbeuht Kidney Disease: Estimated GFR < 15 mL/min/1.73m2 Glucose 101 60 - 115 mg/dL [facility] Calcium 8.8 8.4 - 10.2 mg/dL [facility] Bilirubin, Total 0.2 0.0 - 1.0 mg/dL [facility] Aspartate Amino Transferase 19 5 - 31 U/L [facility] Alanine Aminotransferase 13 0 - 31 U/L [facility] Total Protein 7.1 6.5 - 8.0 g/dL [facility] Albumin Level 4.1 3.5 - 5.0 g/dL [facility] Alkaline Phosphatase 76 39 - 117 U/L [facility] 05/16/2025 8:41 PM EDT 05/16/2025 8:48 PM EDT us Generic External Data Provider LAB BLOOD ORDERAB LES Final Result Performing Organization Address City/State/[facility] Co de Phone Number [facility] [address] [place] [phone] * MR Shoulder w/o Contrast Right (05/14/2025 8:55 AM EDT) Anatomical Region Laterality Modality Upper Extremities, Shoulder Right Magn etic Resonance 05/14/2025 8:55 AM EDT Narrative 05/16/2025 8:34 AM EDT [address] [address] Magnetic Resonance Report Signed Patient: Phoebe Garnett MR#: [id number] : 1965 Acct:[id number] Age/Sex: 59 / F ADM Date: 05/14/25 Loc: HO.MRI Attending Dr: Michael Huang MD Ordering Physician: Michael Huang MD Date of Service: 05/14/25 Procedure(s): MR shoulder RT wo con Accession Number(s): [id number] cc: Harsha Wang MD; Michael Huang MD [...] 05/16/25 0831 DD/ 0855 TD/TT: 05/14/25 0911 Staff Occupational Therapist: LB Procedure Note Donotuseinterpreter, Image - 05/16/2025 [place] [address] Magnetic Resonance Report Signed Patient: Sage Garnett#: [id number] : 1965Acct:[id number] Age/Sex: 59 / FADM Date: 05/14/25 Loc: HO.MRI Attending Dr: Michael Huang MD Ordering Physician: Michael Huang MD Date of Service: 05/14/25 Procedure(s): MR shoulder RT wo con Accession Number(s): [id number] cc: Harsha Wang MD; Michael Huang MD [...] 05/16/25 0831 DD/ 0855 TD/TT: 05/14/25 0911 Staff Occupational Therapist: LB [facility] External Provider IMG MRI PROCEDURES Edited Result - Final * Transthoracic Echo (TTE) Complete (05/13/2025) Harsha Peace MD CV ECHO PROCEDURES Final Result * Referral to Orthopaedic Surgery (04/01/2025) Carline Fregoso MD OUTPATIENT REFERRAL ORDERA BLES Final Result * Pulmonary Function Test (03/17/2025) Harsha Peace MD PFT ORDERABLES Fi nal Result * XR Shoulder 2+ Views Right (02/21/2025 9:01 AM EDT) Anatomical Region Laterality Modality Upper Extremities, Shoulder Right Radi ographic Imaging 02/21/2025 9:01 AM EDT Narrative 02/21/2025 10:01 AM EDT [address] [address] XRay Report Signed Patient: Phoebe Garnett MR#: [id number] : 1965 Acct:[id number] Age/Sex: 59 / F ADM Date: 02/21/25 Loc: HO.HHCX Attending Dr: Carline Fregoso MD Ordering Physician: Carline Fregoso MD Date of Service: 02/21/25 Procedure(s): XR shoulder RT min 2V Accession Number(s): [id number] cc: Carline Fregoso MD EXAMINATION: XR SHOULDER, [...] signed by Abimael Hicks MD in OV> 02/21/2558 DD/ 0 TD/TT: 02/21/25952 Staff Occupational Therapist: Procedure Note Andie, Image - 02/21/2025 [facility] [address] [place] [address] XRay Report Signed Patient: Sage Garnett#: [id number] : 1965Acct:[id number] Age/Sex: 59 / FADM Date: 02/21/25 Loc: HO.HHCX Attending Dr: Carline Fregoso MD Ordering Physician: Carline Fregoso MD Date of Service: 02/21/25 Procedure(s): XR shoulder RT min 2V Accession Number(s): [id number] cc: Carline Fregoso MD EXAMINATION: XR SHOULDER, [...] signed by Abimael Hicks MD in OV> 02/21/2558 DD/ 0 TD/TT: 02/21/25952 Staff Occupational Therapist: Carline Fregoso MD IMG XR PROCEDURES Final Re sult * XR Chest 2 Views (02/21/2025 8:58 AM EDT) Anatomical Region Laterality Modality Chest Radiographic Jennifer ging 02/21/2025 8:58 AM EDT Narrative 02/21/2025 10:03 AM EDT [address] [address] XRay Report Signed Patient: Phoebe aGrnett MR#: [id number] : 1965 Acct:[id number] Age/Sex: 59 / F ADM Date: 02/21/25 Loc: DANI Attending Dr: Carline Fregoso MD Ordering Physician: Carline Fregoso MD Date of Service: 02/21/25 Procedure(s): XR chest 2V Accession Number(s): [id number] cc: Carline Fregoso MD EXAMINATION: XR CHEST CLINICAL INFORMATION: Chronic cough COMPARISON: November 25, 2024 TECHNIQUE: 2 views of the chest were obtained. FINDINGS: No significant abnormality is noted involving the heart, lungs, mediastinum, bony thorax or soft tissues. XR/XR chest 2V IMPRESSION: No acute disease Electronically signed by: Abimael Hicks MD 02/21/2025 10:00 AM EDT Dictated By: Abimael Hicks MD Signed By: <Electronically signed by Abimael Hicks MD in OV> 02/21/25 1000 DD/ 0858 TD/TT: 02/21/25 0900 Staff Occupational Therapist: Procedure Note Donotuseinterpreter, Image - 02/21/[address] [address] XRay Report Signed Patient: Noemi GarnettR#: [id number] : 1965Acct:[id number] Age/Sex: 59 / FADM Date: 02/21/25 Loc: DANI Attending Dr: Carline Fregoso MD Ordering Physician: Carline Fregoso MD Date of Service: 02/21/25 Procedure(s): XR chest 2V Accession Number(s): [id number] cc: Carline Fregoso MD EXAMINATION: XR CHEST [...] 02/21/25 1000 DD/ 0858 TD/TT: 02/21/25 0900 Staff Occupational Therapist: Carline Fregoso MD IMG XR PROCEDURES Final [...] Most Recently Relevant to Health Maintenance Insurance [facility] DUAL COMPLETE Care Teams Clinical Quality Rn Relationship Specialty Start Date End Date Nikolas Frost MD [address] [place] [phone] PCP - General Internal Medicine 04/11/25
--- OUTSIDE RECORDS SUMMARY | 2025-05-18 19:53 | XMS_ITS | Encounter Summary ---
Author Organization [employer] Address [address] [facility] [address] [place] [address] Care Team Providers Care Motorcycle Sales Associate Name Role Phone Nikolas Frost MD Primary Care Provider Reason for Visit * Reason Onset Date Comments Preop 05/18/2025 Encounter Details Date Type Department Care Team ([facility] st Contact Info) Description 05/18/2025 Telephone [facility] MEDICINE [address] [place] [address] Nikolas Frost MD [address] [place] [address] Preop Social History Tobacco Use Types Packs/Day Years [...] encounter Miscellaneous Notes * Telephone Encounter - Caitlin Carmona - 05/18/2025 3:21 PM EDT Date of Surgery: 06/27 Surgical procedure being done: Right Shoulder Arthroscopy Type of anesthesia: general anesthesia Lab needed: Yes EKG: Yes Surgeon's name: Dr. Muniz Facility name: [facility] Surgeon's office number: [phone] Surgeon's office fax number: [phone] Contact name (person you spoke with): Mita Last office note from surgeon requested: Yes Send Message to Omar Adler documented in this encounter Plan of Treatment Upcoming Encounters Date Type Department Care Team ([facility] st Contact Info) Description 05/24/2025 10:15 AM EDT Office Visit [facility] CHC MED & PEDS [address] [place] [address] Nikolas Frost MD [address] [place] [address] documented as of this encounter Visit Diagnoses Not on filedocumented in this encounter Additional Health Concerns Assessment Noted Time PHQ-9 Depression Total Score: 0 11/06/19 25 9:58 AM EDT documented as of this encounter Care Teams Motorcycle Sales Associate Relationship Specialty Start Date End Date Nikolas Frost MD [address] [place] [phone] PCP - General Internal Medicine 04/11/25 documented as of this encounter
--- OUTSIDE RECORDS SUMMARY | 2025-05-18 19:53 | XMS_ITS | Encounter Summary ---
Author Organization [employer] Address [address] [facility] [address] [place] [address] Care Team Providers Care Patch Setter Name Role Phone Nikolas Frost MD Primary Care Provider Encounter Details Date Type Department Care Team (Late st Contact Info) Description 05/13/2025 Patient Outreach [facility] MEDICINE [address] [place] [address] Nikolas Frost MD [address] [place], [place] [phone] Social History Tobacco Use Types Packs/Day Years [...] with others, in a hotel, in a assisted, living outside on the street, on a [...] Upcoming Encounters Date Type Department Care Team ([facility] st Contact Info) Description 05/24/2025 10:15 AM EDT Office Visit [facility] CHC MED & PEDS [address] [place] [address] Nikolas Frost MD [address] [place] [address] documented as of this encounter Visit Diagnoses Not on filedocumented in this encounter Additional Health Concerns Assessment Noted Time PHQ-9 Depression Total Score: 0 11/06/19 25 9:58 AM EDT documented as of this encounter Care Teams Patch Setter Relationship Specialty Start Date End Date Nikolas Frost MD [address] [place] [address] PCP - General Internal Medicine 04/11/25 documented as of this encounter
--- OUTSIDE RECORDS SUMMARY | 2025-05-18 19:53 | XMS_ITS | Encounter Summary ---
Author Organization [employer] Address [address] [facility] [address] [place] [address] Care Team Providers Care Oriental Medicine Practitioner Name Role Phone Nikolas Frost MD Primary Care Provider Encounter Details Date Type Department Care Team ([facility] Contact Info) Description 05/14/2025 Orders Only [facility] External Provider, [facility] Social History Tobacco Use Types Packs/Day Years [...] with others, in a hotel, in a alf, living outside on the street, on a [...] 2:43 PM EST Sexual Orientation Straight 11/04/2024 2 :39 PM EDT documented as of this encounter Plan of Treatment Upcoming Encounters Date Type Department Care Team (Late st Contact Info) Description 05/24/2025 10:15 AM EDT Office Visit [facility] CHC MED & PEDS [address] [place] [address] Nikolas Frost MD [address] [place] [address] documented as of this encounter Procedures Procedure Name Priority Date/Time Associated Diagnosis Comments MR SHOULDER WO CONTRAST RIGHT Routine 05/14/2025 8:55 AM EDT documented in this encounter Results * MR Shoulder w/o Contrast Right (05/14/2025 8:55 AM EDT) Anatomical Region Laterality Modality Upper Extremities, Shoulder Right Magn etic Resonance 05/14/2025 8:55 AM EDT Narrative 05/16/2025 8:34 AM EDT [address] [address] Magnetic Resonance Report Signed Patient: Phoebe Garnett MR#: [id number] : 1965 Acct:[id number] Age/Sex: 59 / F ADM Date: 05/14/25 Loc: HO.MRI Attending Dr: Michael Huang MD Ordering Physician: Michael Huang MD Date of Service: 05/14/25 Procedure(s): MR shoulder RT wo con Accession Number(s): [id number] cc: Harsha Wang MD; Michael Huang MD [...] 05/16/25 0831 DD/ 4 TD/TT: 05/14/25 0911 Piece Meat Trimmer: LB Procedure Note Donotuseinterpreter, Image - 05/16/2025 [place] [address] Magnetic Resonance Report Signed Patient: Sage Garnett#: [id number] : 1965Acct:[id number] Age/Sex: 59 / FADM Date: 05/14/25 Loc: HO.MRI Attending Dr: Michael Huang MD Ordering Physician: Michael Huang MD Date of Service: 05/14/25 Procedure(s): MR shoulder RT wo con Accession Number(s): [id number] cc: Harsha Wang MD; Michael Huang MD [...] 05/16/25 0831 DD/ 0855 TD/TT: 05/14/25 0911 Piece Meat Trimmer: LB [facility] External Provider IMG MRI PROCEDURES Edited Result - Final documented in this encounter Visit Diagnoses Not on filedocumented in this encounter Additional Health Concerns Assessment Noted Time PHQ-9 Depression Total Score: 0 11/06/19 9:58 AM EDT documented as of this encounter Care Teams Oriental Medicine Practitioner Relationship Specialty Start Date End Date Nikolas Frost MD [address] [place] [address] PCP - General Internal Medicine 04/11/25 documented as of this encounter
--- OUTSIDE RECORDS SUMMARY | 2025-05-18 19:53 | XMS_ITS | Clinical Summary ---
Author Organization Patient Business Ser [facility] Address [address] [place] [address] Care Team Providers Care Telephone Installer Name Role Phone Harsha Wang Primary Care [...] History of physical and [facility] 11/01/2021 Chlamydia infection 08/25/2021 Overview (07/13/2024): [...] migraine 08/21/2020 Overview (07/13/2024): [place] Sjogren's syndrome with sandeep toconjunctivitis sicca ([facility] V24) 07/05/2020 Chronic rhinitis 02/14/2020 Osteoarthritis of [...] right hand. She underwent an EMG at [facility] on 05/20/2023 which showed chronic denervation [...] 03/17/2014 Anxiety and depression 03/17/2014 Bipolar disorder ([facility] V24, [facility] V28) 02/26 GERD (gastroesophageal reflux disease) 4 DDD (degenerative disc disease), lumbar 03/17/20 14 Insomnia 03/17/2014 Stress incontinence 03/17/2014 Overview (07/13/2024): Since childbirth 1992, had a bad episiotomy Plantar fasciitis 03/17/2014 Panic attacks 03/17/2014 Encounters Date Type Department Care Team Description 05/16/2025 Telephone [facility] [address] [place] [address] Davina Perez MD 05/13/2025 9:00 AM EDT Ancillary Procedure [facility] [address] [place] [address] Heart murmur 03/17/2025 12:13 PM EDT - 03/17/2025 11:59 PM EDT Hospital Encounter [facility] [address] [place] [address] Cough; SOB (shortness of breath) Discharge Disposition: Home or Self Care 03/17/2025 Lab Requisition [facility] - Main Lab [address] [place] [id number] Soto Reddy PA Urge incontinence 03/14/2025 Lab Requisition [facility] - Main Lab [address] [place] [address] Patrick Basilio MD Urinary tract infection, site not specified from Last 3 Months Immunizations Immunization Administration Dates Next Due Hepatitis B (Npkfwkv-E-Kgxcd , Recombivax HB-Adult) 19yo and older 11/05/2005,07/02/2005,05/31/2005 [...] Surgery Date Site/Laterality Comments VAGINOSCOPY 2003 PROCEDURE: [facility] COLPOSCOPY CERVIX VAG LOOP ELTRD BX CERVIX OTHER SURGICAL HISTORY 11/07/2010 PROCEDURE: [facility] OPEN TX METACARPAL FRACTURE SINGLE EA BONE; COMMENT: left 5th metatarsal, treated nonsurgically OTHER SURGICAL HISTORY 01/31/2010 PROCEDURE: [facility] OPEN TREATMENT RADIAL SHAFT FRACTURE; COMMENT: right dital radial fracture, no surgery, casted/splint OTHER SURGICAL HISTORY 03/07/2011 PROCEDURE: OUTSIDE MAMMO; COMMENT: mammo, US, MRI breast/BI_RADS 3 6 mo f/u BREAST REDUCTION 2012 Bilateral PROCEDURE: [facility] BREAST REDUCTION NECK SURGERY 11/21/2022 PROCEDURE: HISTORICAL NECK SURGERY; COMMENT: C4-5, C5-6 ACDF, Dr. Delacruz Medical History Medical History Date Comments DDD (degenerative disc disea se), lumbar 03/17/2014 DX:DDD (degenerative disc di sease), lumbar Panic attacks 03/17/2014 DX:Panic attacks ; COMMENT: community health Bipolar disorder ([facility] V2 4, [facility] V28) 03/17/2014 DX:Bipolar disorder ([facility]) Anxiety and depression 03/17/2014 DX:Anxiet y and depression Allergic rhinitis 03/17/2014 DX:Allergic rh initis Insomnia 03/17/2014 DX:Insomnia GERD (gastroesophageal reflu x disease) 03/17/2014 DX:GERD (gastroesophageal re flux disease) Stress incontinence 03/17/2014 DX:Stress in continence; COMMENT: + nocturia Allergic conjunctivitis 03/17/2014 DX:Aller gic conjunctivitis Plantar fasciitis 03/17/2014 DX:Plantar fas ciitis Historical Medical DX 03/22/2014 DX:History of abnormal Pap smear; COMMENT: LEEP LAYR III 02/01/04 Asthma 03/22/2014 DX:Asthma Elevated LFTs [...] 12/20/2025 4:00 PM EDT Appointment Radiology Department [address] [address] Health Maintenance Due Date Last Done Comments [...] (05/13/2025 9:44 AM EDT) Left Atrium Minor [place] 5.2 cm CV PACS Left Atrium Major [place] 5.1 cm CV PACS LA Area Sys [...] Volume 53 mL CV PACS MV Deceleration [place] 5.5 m/s2 CV PACS E Wave Deceleration [...] from the original result were not included. [facility] [address] [place] [id number] Pulmonary Functions Report Date of service: 03/17/25 [...] consistent with mild restrictive lung disease. us Harsha Peace PFT ORDERABLES Final Result * Culture urine (03/17/2025 12:00 AM EDT) Only the most recent of2 resultswithin the time period is included. Culture, Urine 10,000-49,000 CFU/mL Mixed urogenital marilynn, no uropathogens present. Suggest repeat specimen if clinically indicated. 03/18/2025 1:24 PM EDT [facility] Urine Urine specimen obtained by clean catch procedure / Unknown 03/17/2025 03/17/2025 6:09 PM EDT us Soto RUBIO LAB MICROBIOLOGY - GENERAL ORD ERABLES Final Result [facility] [address] [place] [address], [place] [phone] * Urinalysis with reflex microscopic (03/14/2025 1:42 PM EDT) Specific [place] Urine 1.029 1.003 - 1.030 LAB URINALYSIS - AUTOMATED METHOD 03/14/2025 6:26 PM T [facility] pH, Urine 5.5 5.0 - 8.0 pH LAB URINALYSIS - AUTOMATED METHOD 03/14/2025 6:26 PM [facility] Leukocytes, Urine Negative Negative LAB URINALYSIS - AUTOMATED METHOD 03/14/2025 6:26 PM [facility] Nitrite, Urine Negative Negative LAB URINALYSIS - AUTOMATED METHOD 03/14/2025 6:26 PM [facility] Protein, Urine Negative <=Trace mg/dL LAB URINALYSIS - AUTOMATED METHOD 03/14/2025 6:26 PM [facility] Glucose, Urine Negative Negative mg/dL LAB URINALYSIS - AUTOMATED METHOD 03/14/2025 6:26 PM [facility] Ketones, Urine Negative Negative mg/dL LAB URINALYSIS - AUTOMATED METHOD 03/14/2025 6:26 PM [facility] Urobilinogen, Urine 1.0 0.2 - 1.0 mg/dL LAB URINALYSIS - AUTOMATED METHOD 03/14/2025 6:26 PM [facility] Bilirubin, Urine Negative Negative LAB URINALYSIS - AUTOMATED METHOD 03/14/2025 6:26 PM EDT [facility] Blood, Urine Negative Negative LAB URINALYSIS - AUTOMATED METHOD 03/14/2025 6:26 PM EDT [facility] Urine Urine specimen from urethra / Unknown 03/14/2025 1:42 PM EDT 03/14/2025 6:02 PM EDT us Patrick Basilio MD LAB URINE ORDERABLES Sybil nell Result [facility] [address] [place] [address], [place] [phone] * MG Mammo Digital Screening w Vinny bilat (12/17/2024 2:21 PM EDT) Anatomical Region Laterality Modality Breast Bilateral Mammography 12/21/2024 7:44 AM EDT Impressions 12/21/2024 7:47 AM EDT Benign. BI-RADS CATEGORY: 1 - NEGATIVE RECOMMENDATION: Screening bilateral mammogram is recommended in 1 year. Mammo Location: [facility], [address] [place] [address], [id number], . -------- FINAL REPORT -------- Dictated By: Jannette Ricks Dictated Date: 12/21/2024 07:44 ET Assigned Physician: Jannette Ricks Reviewed and Electronically Signed By: Jannette Ricks Signed Date: 12/21/2024 07:47 ET Workstation ID: [id number] Transcribed By: Self Edit Transcribed Date: 12/21/2024 [...] is recommended in 1 year. Mammo Location: [facility], [address] [place] [address], [id number], . -------- FINAL REPORT -------- Dictated By: Jannette Ricks Dictated Date: 12/21/2024 07:44 ET Assigned Physician: Jannette Ricks Reviewed and Electronically Signed By: Jannette Ricks Signed Date: 12/21/2024 07:47 ET Workstation ID: [id number] Transcribed By: Self Edit Transcribed Date: 12/21/2024 07:44 ET Marisol Pablo MD IMG BI PROCEDURES Final Result * HIV Screening (07/15/2022) Pathologist [facility] HIV Screening abstracted Historical Provider HEALTH MAINTENANCE Final Result * Hepatitis C Screening (07/15/2022) Pathologist [facility] Hepatitis C Screening abstracted Historical Provider HEALTH MAINTENANCE Final Result * (ABNORMAL) Lipid panel (07/11/2021) Pathologist [facility] LDL/HDL Ratio 3 0 - 4 Triglycerides [...] RESULTING AGENCY - 07/02/2018 1:06 PM EST [id number] THINPREP PAP, IMAGED: NEGATIVE FOR SQUAMOUS INTRAEPITHELIAL [...] Documents on File Type Date Recorded Patient Flamer After Lasting Expl [facility] Health Care Decision (hx) 11/27/2022 BRIDGETTE ROLAND DIRECTIVE Care Teams Telephone Installer Relationship Specialty Start Date End Date Harsha Wang [address] [place] [id number] PCP - General Internal Medicine 05/13/25
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
== END 2025-05-18 14:12 | disposition home or self-care (01) ==
LOC: HO.HOS 13:49
PROVIDERS: PCP Internal Medicine; Visit Provider Orthopaedic Surgery
DX: M25.511 Pain in right shoulder (principal); M25.811 Other specified joint disorders, right shoulder
CPT/HCPCS: 99213; G2211

== ENCOUNTER → 2025-05-18 13:49 | Outpatient (BNVA) | payer MEDICARE, SELFPAY | PROVIDERS: PCP Internal Medicine; Visit Provider Orthopaedic Surgery | DX: M25.511 Pain in right shoulder (principal); M25.811 Other specified joint disorders, right shoulder | CPT/HCPCS: 99212 ==

== ENCOUNTER 2025-05-27 09:50 | Outpatient (REF) | payer MEDICARE, SELFPAY ==
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
--- OUTSIDE RECORDS SUMMARY | 2025-05-27 11:02 | XMS_ITS | Encounter Summary ---
Author Organization [facility] Address [address] [place] [address] Care Team Providers Care Hand Tire Trimmer Name Role Phone Levy Harsha Peace Primary Care Provide r Encounter Details Date Type Department Care Team ([facility] Contact Info) Description 03/14/2025 Lab Requisition [facility] - Main Lab [address] [facility] [place] [address] Patrick Basilio MD [address] [place] [address] Urinary tract infection, site not [...] Upcoming Encounters Date Type Department Care Team ([facility] Contact Info) Description 12/20/2025 4:00 PM EDT Appointment Radiology Department - [address] [phone] documented as of this encounter Procedures Procedure [...] reflex microscopic (03/14/2025 1:42 PM EDT) Specific [place] Urine 1.029 1.003 - 1.030 LAB URINALYSIS - AUTOMATED METHOD 03/14/2025 6:26 PM [facility] pH, Urine 5.5 5.0 - 8.0 pH LAB URINALYSIS - AUTOMATED METHOD 03/14/2025 6:26 PM [facility] Leukocytes, Urine Negative Negative LAB URINALYSIS - AUTOMATED METHOD 03/14/2025 6:26 PM [facility] Nitrite, Urine Negative Negative LAB URINALYSIS - AUTOMATED METHOD 03/14/2025 6:26 PM [facility] Protein, Urine Negative <=Trace mg/dL LAB URINALYSIS - AUTOMATED METHOD 03/14/2025 6:26 PM [facility] Glucose, Urine Negative Negative mg/dL LAB URINALYSIS - AUTOMATED METHOD 03/14/2025 6:26 PM [facility] Ketones, Urine Negative Negative mg/dL LAB URINALYSIS - AUTOMATED METHOD 03/14/2025 6:26 PM [facility] Urobilinogen, Urine 1.0 0.2 - 1.0 mg/dL LAB URINALYSIS - AUTOMATED METHOD 03/14/2025 6:26 PM [facility] Bilirubin, Urine Negative Negative LAB URINALYSIS - AUTOMATED METHOD 03/14/2025 6:26 PM [facility] Blood, Urine Negative Negative LAB URINALYSIS - AUTOMATED METHOD 03/14/2025 6:26 PM [facility] Urine Urine specimen from urethra / Unknown 03/14/2025 1:42 PM EDT 03/14/2025 6:02 PM EDT Patrick Basilio MD LAB URINE ORDERABLES Sybil l Result Performing Organization Address [facility] Co de Phone Number [facility] [address] [place] [address], [place] [phone] * Culture urine (03/14/2025 1:42 PM EDT) Culture, Urine 10,000-49,000 CFU/mL Mixed urogenital marilynn, no uropathogens present. Suggest repeat specimen if clinically indicated. 03/15/2025 1:14 PM EDT [facility] Urine Urine specimen from urethra / Unknown 03/14/2025 1:42 PM EDT 03/14/2025 6:02 PM EDT Patrick Basilio MD LAB MICROBIOLOGY - GENERA L ORDERABLES Final Result Performing Organization Address [facility] Co de Phone Number [facility] [address] [place] [address], [place] [phone] documented in this encounter Visit Diagnoses Diagnosis Urinary tract infection, site not specified documented in this encounter Care Teams Hand Tire Trimmer Relationship Specialty Start Date End Date Harsha Wang [address] [place] [address] PCP - General Internal Medicine 05/13/25 documented as of this encounter
--- OUTSIDE RECORDS SUMMARY | 2025-05-27 11:02 | XMS_ITS | Encounter Summary ---
Author Organization [employer] Address [address] [facility] [address] [place] [address] Care Team Providers Care Outsewer Name Role Phone Nikolas Frost MD Primary Care Provider [phone]- [phone] Reason for Visit * Reason Onset Date Comments Preop 05/18/2025 Encounter Details Date Type Department Care Team (Late st Contact Info) Description 05/18/2025 Telephone [facility] MEDICINE [address] [place] [address] Nikolas Frost MD [address] [place] [address] Preop Social History Tobacco Use Types Packs/Day [...] Yes Surgeon's name: Dr. Muniz Facility name: [facility] Surgeon's office number: [phone] Surgeon's office fax number: [phone] Contact name (person you spoke with): Mita [...] documented as of this encounter Care Teams Outsewer Relationship Specialty Start Date End Date Nikolas Frost MD [address] [place] [address] PCP - General Internal Medicine 04/11/25 documented as of this encounter
--- OUTSIDE RECORDS SUMMARY | 2025-05-27 11:02 | XMS_ITS | Encounter Summary ---
Author Organization [employer] Address [address] [place] [address] [address] [place] [address] Care Team Providers Care Shake Cutter Name Role Phone Harsha Wang MD Primary Care Prov ider Nikolas Frost MD Primary Care Provider [phone]- [phone] Encounter Details Date Type Department Care Team ([facility] st Contact Info) Description 01/24/2025 Orders Only [facility] [address] [place], [place] [phone] Provider, MD Julianne Social History Tobacco Use [...] documented as of this encounter Care Teams Shake Cutter Relationship Specialty Start Date End Date Harsha Wang MD [address] [place] [address] PCP - General Internal Medicine 11/11/24 04/10/25 Nikolas Frost MD [address] [place] [address] PCP - General Internal Medicine 04/11/25 documented as of this encounter
--- OUTSIDE RECORDS SUMMARY | 2025-05-27 11:02 | XMS_ITS | Encounter Summary ---
Author Organization [employer] [facility] Address [address] [place] [address] [address] [place] [address] Care Team Providers Care Shirt Closer Name Role Phone Harsha Wang MD Primary Care Prov ider Nikolas Frost MD Primary Care Provider [phone] Encounter Details Date Type Department Care Team ([facility] Contact Info) Description 02/10/2025 Orders Only [facility] [address] [place], [place] [phone] Provider, Historical, Social History Tobacco Use Types [...] documented as of this encounter Care Teams Shirt Closer Relationship Specialty Start Date End Date Harsha Wang MD [address] [place] [address] PCP - General Internal Medicine 11/11/24 04/10/25 Nikolas Frost MD [address] [place] [address] PCP - General Internal Medicine 04/11/25 documented as of this encounter
--- OUTSIDE RECORDS SUMMARY | 2025-05-27 11:02 | XMS_ITS | Encounter Summary ---
Author Organization [employer] Address [address] [facility] [address] [place] [address] Care Team Providers Care Assembly Line Brazer Name Role Phone Nikolas Frost MD Primary Care Provider [phone] Reason for Visit * Reason Onset Date Comments Results 05/19/2025 Encounter Details Date Type Department Care Team ([facility] Contact Info) Description 05/19/2025 Telephone [facility]S [address] [place] [address] Nikolas Frost MD [address] [place] [address] Results Social History Tobacco Use Types Packs/Day [...] 05/19/2025 12:00 PM EDT Echo faxed to [facility] ortho as requested. * Telephone Encounter - Dalila Langford - 05/19/2025 10:24 AM EDT Tc from Aurea at [facility] orthopedics requesting echo results done on 05/13 Contact Aurea at [phone] documented in this encounter Plan of Treatment Not on file documented as of this encounter Visit Diagnoses Not on filedocumented in this encounter Additional Health Concerns Assessment Noted Time PHQ-9 Depression Total Score: 0 11/06/19 25 9:58 AM EDT documented as of this encounter Care Teams Assembly Line Brazer Relationship Specialty Start Date End Date Nikolas Frost MD [address] [place] [address] PCP - General Internal Medicine 04/11/25 documented as of this encounter
--- OUTSIDE RECORDS SUMMARY | 2025-05-27 11:02 | XMS_ITS | Encounter Summary ---
Author Organization [employer] Address [address] [facility] [address]t [place] [address] Care Team Providers Care Cnc Operator Machinist Name Role Phone Harsha Wang MD Primary Care Prov ider Nikolas Frost MD Primary Care Provider [phone]- [phone] Reason for Visit * Reason Comments Med Refill Encounter Details Date Type Department Care Team ([facility] st Contact Info) Description 02/21/2025 Refill C [facility] MED [facility] PEDS [address] [place] [address] Harsha Wang MD [address] [place] [address] Social History Tobacco Use Types Packs/Day Years [...] with others, in a hotel, in a jail, living outside on the street, on a [...] documented as of this encounter Care Teams Cnc Operator Machinist Relationship Specialty Start Date End Date Harsha Wang MD [address] [place] [address] PCP - General Internal Medicine 11/11/24 04/10/25 Nikolas Frost MD [address] [place] [address] PCP - General Internal Medicine 04/11/25 documented as of this encounter
--- OUTSIDE RECORDS SUMMARY | 2025-05-27 11:02 | XMS_ITS | Encounter Summary ---
Author Organization [employer] Address [address] [facility] 7 [place] [address] Care Team Providers Care Coal Pulverizing Operator Name Role Phone Harsha Wang MD Primary Care Prov ider Nikolas Frost MD Primary Care Provider [phone]- [phone] Reason for Visit * Reason Onset Date Comments Results 12/23/2024 Encounter Details Date Type Department Care Team (Late st Contact Info) Description 12/23/2024 Telephone [facility] MEDICINE [address] [place] [address] Harsha Wang MD [address] [place] [address] Results Social History Tobacco Use Types Packs/Day [...] - 12/23/2024 10:04 AM EDT Tc from [facility] calling in regards to MR Brain results. She was informed pt is unable to receive results until February. Emmy is requesting a call back with results to clearher for TMS and or to deny if pcp feels necessary. Please contact Emmy at [phone]. documented in this encounter Plan of Treatment Not on file documented as of this encounter Visit Diagnoses Not on filedocumented in this encounter Additional Health Concerns Assessment Noted Time PHQ-9 Depression Total Score: 0 11/06/19 9:58 AM EDT documented as of this encounter Care Teams Coal Pulverizing Operator Relationship Specialty Start Date End Date LevyHarsha Hitchcock MD [address] [place] [address] PCP - General Internal Medicine 11/11/24 04/10/25 Nikolas Frost MD [address] [place] [address] PCP - General Internal Medicine 04/11/25 documented as of this encounter
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
--- OUTSIDE RECORDS SUMMARY | 2025-05-27 11:02 | XMS_ITS | Encounter Summary ---
Author Organization [employer] Address [address] [facility] 7t [place] [address] Care Team Providers Care Vacuum Tester Cans Name Role Phone Harsha Wang MD Primary Care Prov ider Nikolas Frost MD Primary Care Provider [phone] Reason for Referral * Consultation (Routine) - Closed Specialty Diagnoses / Procedures Referred By Contac t Referred To Contact Rheumatology Diagnoses SLE (systemic lupus erythematosus related syndrome) (CMS/HCC) ([facility]) Nikolas Frost MD [address] [place] [address] Phone: tel: fax: [facility] [address] Phone: tel: fax: Referral ID Status Reason Start Date Expiration Date V isits Requested Visits Authorized [id number] Closed Specialty Services Required 12/03/2024 12/03/2025 1 1 Encounter Details Date Type Department Care Team ([facility] st Contact Info) Description 12/03/2024 Orders Only [facility] [address] [place], [place] [phone] Nikolas Frost MD [address] [place] [address] SLE (systemic lupus erythematosus related syndrome) (CMS/HCC) [...] Routine SLE (systemic lupus erythematosus related syndrome) ([facility]) Expected: 12/03/2024 (Approximate), Expires: 12/03/2025 documented as of this encounter Visit Diagnoses Diagnosis SLE (systemic lupus erythematosus related syndrome) ([facility]) (HCC)- Primary Systemic lupus erythematosus documented in this encounter Additional Health Concerns Assessment Noted Time PHQ-9 Depression Total Score: 0 11/06/19 9:58 AM EDT documented as of this encounter Care Teams Vacuum Tester Cans Relationship Specialty Start Date End Date Harsha Wang MD [address] [place] [address] PCP - General Internal Medicine 11/11/24 04/10/25 Nikolas Frost MD [address] [place] [address] PCP - General Internal Medicine 04/11/25 documented as of this encounter
--- OUTSIDE RECORDS SUMMARY | 2025-05-27 11:02 | XMS_ITS | Data Portability ---
Author Organization [place] [facility], Allergy Address [address] [place] [address] Care Team Providers Care Ukrainian Folk Arts Instructor Name Role Phone CHERI JARA Primary Care [...] right. MRI brain without contrast 12/09/2024 at [facility] demonstrated nonspecific white matter likely sequela of [...] - next available ....IAC protocol 2024 025 [facility] Mri Department, [address] [place] [address], [place], [address], 16:14:50 Medication Orders None recorded. Patient TargetsNo targets recorded. Patient InstructionsNo instructions recorded. Reason for Referral None Reported. Results Created Date Observation Date Name Description Value Unit Range Abnormal Flag Note LastModifiedBy Organization Detail LastModifiedTime 12/28/19 audio gram No observ ation record ed. BARCODE Not Available 2024 15:53:43 12/28/19 25 11/17/2023 audio gram No observ ation record ed. [email or web address] Not Available 2024 15:45:19 12/29/19 25 12/09/2024 MRI, brain , w/o contr ast No observ ation record ed. [email or web address] Not Available 09/2024 13:58:53 01/25/20 25 01/24/2025 MR brain wo and W contr ast See Note [facility] , a member of [facility] Name: CHRIS QUINN Date of : 1965 Reason for Exam: snhl Exam Date: 2024 [id number] EST Report Status : Final Orderi ng [...] Thin images perfor med throug h the r d intern al audito ry canals bilate rally [...] Edit Transc ribed Date: 2024 15:21 ET [email or web address] [facility] U/S Dept [address] [place], [address], 01/24/2025 15:56:59 Result Notes None recorded. Problems Name Problem SNOMED Code Status Onset Date Resolution Date Notes Provider Name and Address Organization Details Recorded Time Hypertrop hy of nasal turbinate s 62748122 Active 2016 Hypertrop hy of nasal turbinate s; Note: Date Diagnosed : 12/25/2016 9:15 AM (J34.3) Not Available [facility] 4 02:48:53 Bleeding from nose 586625104 Active 2016 Epistaxis ; Note: Date Diagnosed : 12/25/2016 8:59 AM (R04.0) Not Available [facility] 4 02:48:55 Mild intermitt ent asthma 896518270 Active 2016 Mild intermitt ent asthma, uncomplic ated; Note: Date Diagnosed : 12/25/2016 9:27 AM (J45.20) Not Available [facility] 4 02:48:56 Deviated nasal septum 227876631 Active 2016 Deviated nasal septum; Note: Date Diagnosed : 12/25/2016 9:15 AM (J34.2) Not Available [facility] 4 02:48:57 Allergic rhinitis 41975631 Active 2016 Other allergic rhinitis; Note: Date Diagnosed : 12/25/2016 9:12 AM (J30.89) Erica tobias allergic rhinitis; Note: Date Diagnosed : 12/25/2016 9:12 AM (J30.89) Not Available [facility] 4 02:48:56 Bilateral disorder of Eustachia n tubes 99370812868 57043 Active 2019 Other specified disorders of Eustachia n tube, bilateral ; Note: Date Diagnosed : 09/20/2019 1:57 PM (H69.83) Not Available [facility] 4 02:48:57 Abnormal auditory perceptio n 55129340 Active 2019 Other abnormal auditory perceptio ns, bilateral ; Note: Date Diagnosed : 09/20/2019 5:10 PM (H93.293) Not Available [facility] 4 02:48:55 Sj gren's syndrome 00443913 Active 2019 Sicca syndrome [Sjogren] ; Note: Date Diagnosed : 03/01/2020 2:13 PM (M35.0) Not Available [facility] 4 02:48:52 Sensorine ural hearing loss 18551016 Active 2023 Sensorine ural hearing loss, unilatera l, left ear, with unrestric everardo hearing on the contralat eral side; Note: Date Diagnosed : 11/17/2023 12:47 PM (H90.42) Not Available [facility] 4 02:48:54 Dizziness and giddiness 150745659 Active 2023 Dizziness and giddiness ; Note: Date Diagnosed : 11/17/2023 12:49 PM (R42) Not Available [facility] 4 02:48:57 Bilateral tinnitus 67952301271 02 Active 2024 PETE LARA PA-C [address] [place] [address], [place], [address] , [facility] - [facility] 5 15:15:08 Problem Notes None recorded. Procedures Surgical History Date Name Laterality Status Provider Name and Address Organization Details Recorded Time 12/27/2024 Air & Speech Audio with Tymps - 83330, 53602 & 37271 completed CINDY MEJÍA, AUD [address] [facility],[place] [address], [place], [address], [facility] - [facility] 12/27/2024 14:05:20 Imaging Results None recorded. Procedure Notes None recorded. Medical Equipment None Reported. Allergies Allergen ID Allergen Name Allergen Category Reaction Reaction Severity Criticality Documentation Date Start Date Code Code System Note Provider Name and Address Organization Details Recorded Time 774710 Benadryl medicatio n hives Not available Not available 02/27/2024 73907 7 RxNorm React ion: hives ; Not Available [facility] 4 00:31:35 89907 latex environme nt,medica tion other Not available Not available 12/09/2023 94317 91 RxNorm React ion: unkno wn, unspe cifie d;; Not Available [facility] 4 01:04:17 Medications Name Sig Start Date [...] mg tablet 11/16 completed Medicati on ID: [id number] D uration Value: 30 Brand Name: quetiapi [...] mg tablet 03/01 completed Medicati on ID: [id number] D uration Value: 30 Reason: () Brand Name: quetiapi ne Send Method: E-Prescr ibed Sub s Allowed: subs OK Speci al Instruct ion: TK 1 T PO Q NIGHT Me dication GenericN anay: quetiapi ne Not Available Not Available Not Available Nortrel (28) 1 mg-35 mcg tablet 03/01 completed Medicati on ID: [id number] D uration Value: 28 Reason: () Brand Name: Nortrel 35 (28) Sen d Method: E-Prescr ibed Sub s Allowed: subs OK Speci al Instruct ion: TK 1 T PO D Medica tionGene ricName: Nortrel (28) Not Available Not Available Not Available trazodone 100 mg tablet 03/01 completed Medicati on ID: [id number] D uration Value: 30 Reason: () Brand Name: trazodon e Send Method: E-Prescr ibed Sub s Allowed: subs OK Speci al Instruct ion: TK 3 TS PO QHS Medi cationGe nericNam e: trazodon e Not Available Not Available Not Available benzonata te 100 mg capsule 12/27 completed Medicati on ID: [id number] B rand Name: benzonat ate Send Method: E-Prescr ibed Sub s Allowed: subs OK Speci al Instruct ion: TAKE 1 CAPSULE BY MOUTH THREE TIMES A DAY FOR 7 DAYS NEEDED FOR COUGH Me dication GenericN anay: benzonat ate Not Available Not Available Not Available lansopraz ole 30 mg capsule,d elayed release 03/01 completed Medicati on ID: [id number] D uration Value: 30 Reason: () Brand Name: lansopra zole Sen d Method: E-Prescr ibed Sub s Allowed: subs OK Speci al Instruct ion: TK 1 C PO D Medica tionGene ricName: lansopra zole Not Available Not Available Not Available prednison e 50 mg tablet 12/27 completed Medicati on ID: [id number] B rand Name: predniso ne Send Method: [...] mg capsule 11/16 completed Medicati on ID: [id number] D uration Value: 35 Brand Name: gabapent [...] tended release 11/16 completed Medicati on ID: [id number] D uration Value: 30 Brand Name: cyanocob [...] auto-inje ctor 11/16 completed Medicati on ID: [id number] D uration Value: 2 Brand Name: epinephr ine Send Method: E-Prescr ibed Sub s Allowed: subs OK Medic ationGen ericName : epinephr ine Not Available Not Available Not Available levofloxa eve 750 mg tablet 12/27 completed Medicati on ID: [id number] B rand Name: levoflox acin Sen d Method: E-Prescr ibed Sub s Allowed: subs OK Medic ationGen ericName : levoflox acin Not Available Not Available Not Available norethind james (contrace ptive) 0.35 mg tablet 11/16 completed Medicati on ID: [id number] D uration Value: 28 Brand Name: norethin drone (contrac eptive) Send Method: E-Prescr ibed Sub s Allowed: subs OK Speci al Instruct ion: TK 1 T PO AT THE SAME TIME QD Medic ationGen ericName : norethin drone (contrac eptive) Not Available Not Available Not Available fluoxetin e 20 mg capsule 03/01 completed Medicati on ID: [id number] D uration Value: 30 Reason: () Brand Name: fluoxeti ne Send Method: E-Prescr ibed Sub s Allowed: subs OK Speci al Instruct ion: TK 3 CS PO QAM Medi cationGe nericNam e: fluoxeti ne Not Available Not Available Not Available fluticaso ne propionat e 50 mcg/actua tion nasal spray,mana pension 11/16 completed Medicati on ID: [id number] D uration Value: 90 Brand Name: fluticas [...] mg tablet 11/16 completed Medicati on ID: [id number] D uration Value: 30 Brand Name: loratadi [...] unit) capsule 11/16 completed Medicati on ID: [id number] D uration Value: 30 Brand Name: Vitamin [...] mg tablet 03/01 completed Medicati on ID: [id number] D uration Value: 30 Reason: () Brand Name: Vesicare Send Method: E-Prescr ibed Sub s Allowed: subs OK Speci al Instruct ion: TK 1 T PO D Medica tionGene ricName: Vesicare Not Available Not Available Not Available Vesicare 10 mg tablet 03/01 completed Medicati on ID: [id number] D uration Value: 30 Reason: () Brand Name: Vesicare Send Method: E-Prescr ibed Sub s Allowed: subs OK Speci al Instruct ion: TK 1 T PO D Medica tionGene ricName: Vesicare Not Available Not Available Not Available ProAir HFA 90 mcg/actua tion aerosol inhaler 2016 active Medicati on ID: [id number] D uration Value: 16 Brand Name: ProAir HFA Send Method: E-Prescr ibed Sub s Allowed: subs OK Speci al Instruct ion: INL 2 PUFFS PO Q 4 H PRF COUGH OR WHEEZING Medicat ionGener icName: ProAir HFA Medi cation ID: [id number] D uration Value: 16 Brand Name: ProAir HFA Send Method: E-Prescr ibed Sub s Allowed: subs OK Speci al Instruct ion: INL 2 PUFFS PO Q 4 H PRF COUGH OR WHEEZING Medicat ionGener icName: ProAir HFA Not Available Not Available Not Available quetiapin e 400 mg tablet 03/01 completed Medicati on ID: 197530 D uration Value: 30 Reason: () Brand Name: quetiapi ne Send Method: E-Prescr ibed Sub s Allowed: subs OK Speci al Instruct ion: TK 1 T PO Q NIGHT Me dication GenericN anay: quetiapi ne Not Available Not Available Not Available ProAir HFA 11/16 completed Medicati on ID: [id number] D uration Value: 16 Brand Name: Rivera [...] Updated DateTime 12/27/2024 157.48 cm 24.5 kg/m2 94012.38 g Bridget Tinoco [place] [facility] 12/27/2024 14:17:39 Social History None recorded. Functional Status None recorded. Mental Status None recorded. Family History Nothing Reported. Medical History No medical history recorded. Gynecological HistoryNo gynecological history recorded. Obstetrics History GPAL:G 0 P 0 0 0 0 Past Encounters Encounter ID Performer Location Encounter Start Date Encounter Closed Date Diagnosis/Indication Diagnosis SNOMED-CT Code Diagnosis ICD10 Code Diagnosis IMO Codes Diagnosis Note [id number] PETE LARA PA-C [facility] [address] [address] 12/27/2024 13:37:11 12/27/2024 15:46:54 Sensorineural hearing loss 08105608 H90.42 Audiologic al evaluation results: Right ear: Normal hearing with excellent word recognitio n. Left ear: Normal hearing with the exception of a moderate SNHL at 8000Hz with excellent word recognitio n. Tympanomet ry: Right Ear:Type A Left Ear:Type As Bilateral tinnitus 34690 91834 102 H93.13 663656 Health Concerns Section Related Observation LastModified by Organization Detai ls LastModified Time None Recorded Concern Status LastModified by Organization Details LastModified Time None Recorded Advance Directives Directive None Recorded Payers Insurance Date Sequence Insurance Name Policy Number Policy Sarabia Covered Member ID Sarabia Member ID Guarantor Name 12/27/2024 1 [facility] (MEDICARE REPLACEMENT/A DVANTAGE - HMO) MAMMP Chris Dygon [id number] Chris Dygon 12/27/2024 1 [facility] (MEDICARE REPLACEMENT/A DVANTAGE - POS) MAMMP Chris Dygon [id number] Chris Dygon Notes Date Note Type Note [...] in her hearing. Reports intermittent tinnitus. ADELINA SNEA MD [address] [place] [address], [place], [address], [facility] - [facility] 12/27/2024 15:30:27 OBGyn Episode No OBEpisode recorded.
--- OUTSIDE RECORDS SUMMARY | 2025-05-27 11:02 | XMS_ITS | Encounter Summary ---
Author Organization [facility] Address [address] [place] [address] Care Team Providers Care Final Inspector Motorcyles Name Role Phone Levy Harsha Peace Primary Care Provide r Encounter Details Date Type Department Care Team ([facility] Contact Info) Description 03/17/2025 Lab Requisition [facility] - Main Lab [address] [facility] [place] [address] Soto Reddy PA [address] [place] [address] Urge incontinence Social History Tobacco [...] 4:00 PM EDT Appointment Radiology Department - [address] [phone] documented as of this encounter Procedures Procedure Name Priority Date/Time Associated Diagnosis Comments CULTURE URINE Routine 03/17/2025 12:00 AM EDT Urge incontinence documented in this encounter Results * Culture urine (03/17/2025 12:00 AM EDT) Culture, Urine 10,000-49,000 CFU/mL Mixed urogenital marilynn, no uropathogens present. Suggest repeat specimen if clinically indicated. 03/18/2025 1:24 PM EDT [facility] Urine Urine specimen obtained by clean catch procedure / Unknown 03/17/2025 03/17/2025 6:09 PM EDT us Soto RUBIO [facility] MICROBIOLOGY - GENERAL ORD ERABLES Final Result [facility] [address] [place] [address], documented in this encounter Visit Diagnoses Diagnosis Urge incontinence documented in this encounter Care Teams Final Inspector Motorcyles Relationship Specialty Start Date End Date Harsha Wang [address] [place] [address] PCP - General Internal Medicine 05/13/25 documented as of this encounter
--- OUTSIDE RECORDS SUMMARY | 2025-05-27 11:02 | XMS_ITS ---
Author Name Orestes ARNOLD, MRS. Cohen Address [address] [place] [address] Phone [phone] [facility] Team Providers Care Video Coordinator Name Role Phone Vicki Carlisle Unavailable [phone] Sanjana Li Unavailable [phone] Unavailable Unavailable [phone] Reason for Referral Not Available Allergies, adverse [...] more withdrawn Planned intervention: Transfer member to [address] [place] [address]/ Trazodone 50mg at bedtime/ Remind member of [...] plating on 11/21/2022She underwent an EMG at [facility] on 05/20/2023 which showed chronic denervation changes in the right arm muscles within the C5-6 myotome -reports secondary weakness in arms which makes it difficult to carry out some ADLs such as dress, bathe, shop, do groceries, lift items. -she has had PT, but not much help-she had clinical evaluator, but felt they were not helpful.-she was [...] today, but discussed with her to contact [facility] and get in contact with sample case porter to help get appt with PCP sooner.-Reduce [...] modifier 95 for video, modifier 93 for [facility] 11/02/2024 Bipolar disorder, unspecifiedDepression, unspecifiedPersonal history of [...] modifier 95 for video, modifier 93 for [facility] 11/02/2024 New patient, 30-44min 1 stable chronic or 2 minor; add modifier 95 for video, modifier 93 for [facility] 11/02/2024 New patient, 30-44min 1 stable chronic or 2 minor; add modifier 95 for video, modifier 93 for [facility] 11/02/2024 Estab. patient 10-29min; 1 minor problem; add add modifier 95 for video, modifier 93 for [facility] 11/09/2024 Bipolar disorder, unspecifiedDepression, unspecifiedPersonal history of [...] 95 for video, modifier 93 for phone [facility] 11/09/2024 Vital Signs Date of Collection Vitals 2024-11-02 08:05:57 Height - 157.48 cmWe ight - 58.97 kgBody Mass Index (BMI) - 23.78 kg/m2 Social History Social History Social History Observation Description Effec tive Time Current Smoking Status Former smoker 2025-04-29 1 Sex Female History of Procedures Procedures Service Procedure code Service date Servicing provider Phone# New patient, 30-44min 1 stable chronic or 2 minor; add modifier 95 for video, modifier 93 for phone [id number] 2024-11-02 No Data Available No Data Available [...] 95 for video, modifier 93 for phone [id number] 2024-11-09 No Data Available No Data Availa [...] today, but discussed with her to contact [facility] and get in contact with sample case porter to help get appt with PCP sooner.-Reduce [...] plating on 11/21/2022She underwent an EMG at [facility] on 05/20/2023 which showed chronic denervation changes in the right arm muscles within the C5-6 myotome -reports secondary weakness in arms which makes it difficult to carry out some ADLs such as dress, bathe, shop, do groceries, lift items. -she has had PT, but not much help-she had clinical evaluator, but felt they were not helpful.-she was [...] more withdrawn Planned intervention: Transfer member to [address] [place] [address]/ Trazodone 50mg at bedtime/ Remind member of breathing exercises/ Encourage member to journal feelings/ Limit extra stimulation 2024-11-09 10:18:15 Estab. patient 10-29 min; 1 minor problem; add add modifier 95 for video, modifier 93 for phoneContinue to see PCP. Follow-up with [facility] as needed for any acute or [...] today, but discussed with her to contact [facility] and get in contact with sample case porter to help get appt with PCP sooner.-Reduce [...] plating on 11/21/2022She underwent an EMG at [facility] on 05/20/2023 which showed chronic denervation changes in the right arm muscles within the C5-6 myotome -reports secondary weakness in arms which makes it difficult to carry out some ADLs such as dress, bathe, shop, do groceries, lift items. -she has had PT, but not much help-she had clinical evaluator, but felt they were not helpful.-she was [...] more withdrawn Planned intervention: Transfer member to [address] [place] [address]/ Trazodone 50mg at bedtime/ Remind member of [...]
--- OUTSIDE RECORDS SUMMARY | 2025-05-27 11:02 | XMS_ITS | Encounter Summary ---
Author Organization [employer] Address [address] [facility] [address] [place] [address] Care Team Providers Care Carrier Packer Name Role Phone Nikolas Frost MD Primary Care Provider [phone] Encounter Details Date Type Department Care Team [...] documented as of this encounter Care Teams Carrier Packer Relationship Specialty Start Date End Date Nikolas Frost MD [address] [place] [address] PCP - General Internal Medicine 04/11/25 documented as of this encounter
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
--- OUTSIDE RECORDS SUMMARY | 2025-05-27 11:03 | XMS_ITS | Clinical Summary ---
Author Organization [facility] Address [address] [place] [address] Care Team Providers Care Refrigeration Houseman Name Role Phone Rey Galvan MD Primary Care Provider [phone] Allergies Active Allergy Reactions Criticality Noted Date [...] age to complete this topic Care Teams Refrigeration Houseman Relationship Specialty Start Date End Date Rey Galvan MD PCP - General Internal Medicine 06/04/21
--- OUTSIDE RECORDS SUMMARY | 2025-05-27 11:03 | XMS_ITS | Encounter Summary ---
Author Organization [facility] Address [address] [place] [address] Care Team Providers Care Underground Heavy Equipment Operator Name Role Phone Harsha Wang Primary Care Provide r Reason for Visit * Reason Onset Date Comments Clearance for Surgery 05/20/2025 Encounter Details Date Type Department Care Team (Late st Contact Info) Description 05/20/2025 Telephone [facility] [address] [place] [address] [place] [phone] Davina Perez MD [address] [place] [address] [address] [place] [phone] Social History Tobacco Use Types Packs/Day Years [...] Progress Notes * Bonita Page MA - 05/25/2025 9:38 AM EDT Attempted to call patient again and left a voicemail to call the office back. * Bonita Page MA - 05/23/2025 1:35 [...] she is having a colonoscopy done at [facility], with Dr. Carla Hernandez in their GI department. Patient stated that she has been arguing with the officeover who is supposed to be calling to get cardiac clearance. I asked Angelika Lopez and she statedthat there office is [...] need clearance? Patient can be reached at [phone] documented in this encounter Plan of Treatment Upcoming Encounters Date Type Department Care Team (Late st Contact Info) Description 12/20/2025 4:00 PM EDT Appointment Radiology Department - [address] [phone] documented as of this encounter Visit Diagnoses Not on filedocumented in this encounter Care Teams Underground Heavy Equipment Operator Relationship Specialty Start Date End Date Harsha Wang [address] [place] [address] PCP - General Internal Medicine 05/13/25 documented as of this encounter
[2025-05-27 14:31] LABS: Cholesterol 159 mg/dL (<200); HDL Cholesterol 68 mg/dL (>40); Triglycerides 64 mg/dL (<150)
[2025-05-28 07:49] LABS: HIV Num 1 0.07 S/CO (0.00-0.99); ~HepC Num1 0.17 S/CO (0.00-0.79); ~Hepatitis C Antibody Nonreactive (Nonreactive)
[2025-06-01 21:47] LABS: Venous Lead <1.0 mcg/dL (<3.5)
== END 2025-05-27 09:51 | disposition home or self-care (01) ==
LOC: HO.CHCLDS 09:50
PROVIDERS: Visit Provider Internal Medicine
DX: Z11.4 Encounter for screening for human immunodeficiency virus [HIV] (principal); Z13.6 Encounter for screening for cardiovascular disorders; Z11.59 Encounter for screening for other viral diseases; M35.01 Sjogren syndrome with keratoconjunctivitis; R01.1 Cardiac murmur, unspecified; K52.9 Noninfective gastroenteritis and colitis, unspecified; Y24.9XXA Unspecified firearm discharge, undetermined intent, initial encounter
CPT/HCPCS: 36415; 80061; 83655; 84443; 86803; 87389

== ENCOUNTER 2025-06-09 15:43 | Outpatient (REF) | payer MEDICARE, SELFPAY ==
--- OUTSIDE RECORDS SUMMARY | 2025-06-09 10:00 | XMS_ITS | Encounter Summary ---
Author Organization [email or web address] Address [address] [place] [address] 7 [place] [address] Care Team Providers Care Coal Tower Operator Name Role Phone Nikolas Frost MD Primary Care Provider [phone] Reason for Referral * Medications - Closed Specialty Diagnoses / Procedures Referred By Jayla aragon Referred To Contact Diagnoses Nausea Jacquelyn Cadena ANP [address] [place] [address] Phone: tel: fax: Referral ID Status Reason Start Date Expiration Date Visits Re quested Visits Authorized [id number] Closed 1 1 Encounter Details Date Type Department Care Team (Late st Contact Info) Description 06/09/2025 10:00 AM EST Office Visit [facility] [address] [place] [address] Jacquelyn Cadena ANP [address] [place] [address] Diarrhea, unspecified type (Primary Dx); Nausea Social History Tobacco Use Types Packs/Day Years Used Date Smoking Tobacco: Never Smokeless Tobacco: Never Tobacco Cessation:Counseling Given: Not Answered Alcohol Use Standard Drinks/Week Comments Never 0 (1 standard drink = 0.6 oz pur e alcohol) Depression Answer Date Recorded Patient Health Questionnaire-9 Score 21 06/09/2025 Patient Health Questionnaire-9 Score 21 06/09/2025 Last PHQ-9: Questionnaire Data Not on file 1 08/09/2024 Housing Stability Answer Date Recorded What is [...] Answer Date Recorded Patient Health Questionnaire-2 Score 3 06/09/2025 Internet Access Answer Date Recorded Internet Access [...] Sign Reading Time Taken Comments Blood Pressure 120/78 06/09/2025 10:17 AM EST Pulse 103 06/09/2025 10:17 AM EST Temperature 35.6 C (96.1 F) 06/09/2025 10:17 AM EST Respiratory Rate 16 06/09/2025 10:17 AM EST Oxygen Saturation 97% 06/09/2025 10:17 AM EST Inhaled Oxygen Concentration - - Weight 61.2 kg (135 lb) 06/09/2025 10:17 AM EST Height 157.5 cm (5' 2 ) 06/09/2025 10:17 AM EST Body Mass Index 24.69 06/09/2025 10:17 AM EST documented in this encounter Functional Status * Over the past 2 weeks, how often have you been bothered by any of the following problems? Question Answer Date of Assessment Author Patient Health Questionnaire-2 Score 3 06/09/2025 2:14 PM Anand Burton LMHC * Little interest or pleasure in doing things Answer Date of Assessment Author Nearly every day 06/09/2025 2:14 PM Anand Kennedy LMHC * Feeling down, depressed, or hopeless Answer Date of Assessment Author Not at all 06/09/2025 2:14 PM Anand Gomez LMHC * Trouble falling or staying asleep, or sleeping too much Answer Date of Assessment Author Nearly every day 06/09/2025 2:14 PM Anand Kennedy LMHC * Feeling tired or having little energy Answer Date of Assessment Author Nearly every day 06/09/2025 2:14 PM Anand Kennedy LMHC * Poor appetite or overeating Answer Date of Assessment Author Nearly every day 06/09/2025 2:14 PM Anand Kennedy LMHC * Feeling bad about yourself - or that you are a failure or have let yourself or your family down Answer Date of Assessment Author Nearly every day 06/09/2025 2:14 PM Anand Kennedy LMHC * Trouble concentrating on things, such as reading the newspaper or watching television Answer Date of Assessment Author Nearly every day 06/09/2025 2:14 PM Anand Kennedy LMHC * Moving or speaking so slowly that other people could have noticed? Or the opposite - being so fidgety or restless that you have been moving around a lot more than usual. Answer Date of Assessment Author Nearly every day 06/09/2025 2:14 PM Anand Kennedy LMHC * Thoughts that you would be better off or hurting yourself in some way Answer Date of Assessment Author Not at all 06/09/2025 2:14 PM Anand Gomez LMHC * Patient Health Questionnaire-9 Score Answer Date of Assessment Author 21 06/09/2025 2:14 PM Anand Gomez LMHC * Over the last 2 weeks, how often have you been bothered by any of the following problems? Question Answer Date of Assessment Author Feeling nervous, anxious, or on edge 3 06/09/2025 2:15 PM Anand Squires LMHC Not being able to stop or control worrying 3 06/09/2025 2:15 PM Anand Squires LMHC Worrying too much about different things 3 06/09/2025 2:15 PM Anand Squires LMHC Trouble relaxing 3 06/09/2025 2:15 PM EST Anand Reinoso LMHC Being so restless that it is hard to sit still 3 06/09/2025 2:15 PM Anand Squires LMHC Becoming easily annoyed or irritable 3 06/09/2025 2:15 PM Anand Squires LMHC Feeling afraid as if something awful might happen 3 06/09/2025 2:15 PM Anand Kennedy LMHC NIK-7 Total Score 21 06/09/2025 2:15 PM Anand Squires LMHC * How difficult have these problems made it for you to do your work, take care of things at home, or get along with other people? Answer Date of Assessment Author Very difficult 06/09/2025 2:14 PM Anand Gomez LMHC documented as of this encounter Patient Instructions * Patient Instructions* YESSICA Rico - 06/09/2025 10:00 AM EST Please hydrate well. You can sip chicken broth, pedialyte (or similar), or make your own Oral rehydration solution (ORS) with the recipe below. Sports drinks like regular Gatorade and Powerade can sometimes worsen diarrhea. Call clinic if your symptoms worsen or if you are not feeling better within 24 hours. If you are unable to keep down any liquids, please go to the emergency room. Recipe for Making a 1 litre ORS solution using Sugar, Salt and Water Clean Water - 1 litre - 5 cupfuls (each cup about 200 ml.) Sugar - Six level teaspoons Salt - Half level teaspoon Stir the mixture till the sugar dissolves. If your symptoms continue for more than 5 days, you develop a fever or you experience dizziness or bloody diarrhea, please go to the emergency room. documented in this encounter Progress Notes * YESSICA Rico - 06/09/2025 10:00 AM EST Subjective Phoebe is 59 yo here today w/ abdominal pain, diarrhea x1d. Had episode of colitis seen at [facility] ED 05/16/25 PMH incl Sjorgren's syndrome, possible SLE following w/ rheum, asthma, eczema Specialists incl Dr. Hernandez [facility] treatment c[facility] Plan per ED CT showing evidence of colitis. Uncomplicated. Patient feeling improved after Tylenol and fluids. Will plan for Augmentin, Bentyl and Zofran outpatient. Using shared decision making, plan for discharge home to follow-up with primary care and/or specialist. Per PCP note 05/24/25 she is scheduled for colonoscopy in July. From note same DOS - Acute abdominal pain and rectal bleeding on May 17, 2025, diagnosed with colitis at hospital visit - Started amoxicillin-clavulanic acid, dicyclomine, and ondansetron for colitis; antibiotics causing diarrhea - Developed vaginal yeast infection with itching starting May 23, 2025, attributed to antibiotics Does have h/o sjogren's and drinks pedialyte often for hydration Acute Diarrhea and Associated Symptoms - Onset of diarrhea at 4:30 AM on June 09, 2025, following consumption of rice and salad the previous day - Initial episodes: large volume, brown, watery stool; subsequent episodes: traffic safety administrator, light-colored,minimal debris - Seven bowel movements since onset - Noted bleeding on tissue when wiping - Last bowel movement at 7:30 AM, watery consistency - Nausea began after eating on June 08, 2025, persisted through the night and into the morning of June 09, 2025 - Ongoing nausea at time of encounter - Reports sharp, intense pain in the groin after seventh bowel movement, described as worse than labor contractions, now resolved - Denies other urinary or symptoms Colitis - Developed colitis a few days after recent gastroenterology visit - Severe cramping during colitis episode, pain radiating to lower pelvis and back - History of similar pain during colitis, but current groin pain described as different - Treated with amoxicillin (amox-clav per chart) for colitis Yeast Infection - Developed yeast infection following antibiotic treatment for colitis - Treated with two doses of Diflucan - Colonoscopy scheduled for July 29, 2025 Irritable Bowel Syndrome (IBS) - Suspects IBS as underlying cause of symptoms - Reports sensitivity to certain foods Homelessness - Homeless for almost 3 years, reports decline in health related to living situation Non-smoker Review of Systems Constitutional: Negative for chills and fever. HENT: Negative for sore throat. Respiratory: Negative for cough and shortness of breath. Cardiovascular: Negative for chest pain and palpitations. Gastrointestinal: Positive for abdominal pain, diarrhea and nausea. Negative for abdominal distention, anal bleeding, blood in stool, constipation, rectal pain and vomiting. Endocrine: Negative for polydipsia, polyphagia and polyuria. Genitourinary: Negative for dysuria. Objective Blood pressure 120/78, pulse 103, temperature 96.1 ??F (35.6 ??C), temperature source Oral, resp. rate 16, height 5' 2 (1.575 m), weight 135 lb (61.2 kg), SpO2 97%. Physical Exam Constitutional: General: She is not in acute distress. Appearance: Normal appearance. She is not ill-appearing. HENT: Head: Normocephalic and atraumatic. Eyes: Extraocular Movements: Extraocular movements intact. Pulmonary: Effort: Pulmonary effort is normal. No accessory muscle usage or respiratory distress. Abdominal: General: Bowel sounds are increased. Palpations: Abdomen is soft. Tenderness: There is generalized abdominal tenderness. There is no guarding or rebound. Hernia: No hernia is present. Comments: Tenderness worse in LLQ Neurological: Mental Status: She is alert and oriented to person, place, and time. Psychiatric: Mood and Affect: Mood normal. Behavior: Behavior normal. - CARDIOVASCULAR: Heart sounds normal, heart rate normal. - ABDOMEN: Bowel sounds hyperactive, discomfort on palpation. - SKIN: Skin is well-hydrated. Assessment & Plan Diarrhea, unspecified type: - Acute diarrheal illness; concern for infectious diarrhea including antibiotic- associated etiology. She appears well though uncomfortable on abdominal exam. - Ordered stool studies for infectious pathogens including antibiotic-associated causes. Recommended oral rehydration with clear liquids and DIY electrolyte solution (regular table salt and sugar in water). Advised bland diet (bananas, applesauce, toast; avoid fatty foods and dairy). Provided return precautions for worsening symptoms, fever, dizziness, or blood in stool. BMP, stool studies ordered Nausea: - Nausea associated with current GI illness. - Prescribed ondansetron (Zofran) for symptomatic relief. Will monitor response; use as needed per prescription. Prescription - Zofran prescribed for nausea Appointments - Stool testing kit pick-up at the lab here Please hydrate well. You can sip chicken broth, pedialyte (or similar), or make your own Oral rehydration solution (ORS) with the recipe below. Sports drinks like regular Gatorade and Powerade can sometimes worsen diarrhea. Call clinic if your symptoms worsen or if you are not feeling better within 24 hours. If you are unable to keep down any liquids, please go to the emergency room. This note was drafted using Ambient (AI) technology. The patient/patient's guardian has been informed and has consented to the use of this technology: Yes documented in this encounter Plan of Treatment Upcoming Encounters Date Type Department Care Team ([facility] Contact Info) Description 06/20/2025 2:00 PM EST Office Visit [facility] [address] [place] [address] Nikolas Frost MD [address] [place] [address] Scheduled Orders Name Type Priority Associated Diagnoses Orde r Schedule Basic Metabolic Panel Lab Routine Diarrhea, unspecified type Expected: 06/09/2025 (Approximate), Expires: 06/09/2026 CDiff Gene PCR Lab Routine Diarrhea, unspecified type Expected: 06/09/2025 (Approximate), Expires: 06/09/2026 Stool - Gastrointestinal panel Microbiology Routine Diarrhea, unspecified type Expected: 06/09/2025 (Approximate), Expires: 06/09/2026 documented as of this encounter Visit Diagnoses Diagnosis Diarrhea, unspecified type- Primary Nausea Nausea alone documented in this encounter Additional Health Concerns Assessment Noted Time PHQ-9 Depression Total Score: 21 025 2:14 PM EST documented as of this encounter Care Teams Coal Tower Operator Relationship Specialty Start Date End Date Nikolas Frost MD [address] [place] [address] PCP - General Internal Medicine 04/11/25 documented as of this encounter
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
--- OUTSIDE RECORDS SUMMARY | 2025-06-09 18:36 | XMS_ITS | Data Portability ---
Author Organization [place] - [facility], Allergy Address [address] [place] [address] Care Team Providers Care Cribbing Setter Name Role Phone CHERI JARA Primary Care [...] - next available ....IAC protocol 2024 025 [facility] Mri Department, [address] [place] [address], [place], [address], 16:14:50 Medication Orders None recorded. Patient TargetsNo targets recorded. Patient InstructionsNo instructions recorded. Reason for Referral None Reported. Results Created Date Observation Date Name Description Value Unit Range Abnormal Flag Note LastModifiedBy Organization Detail LastModifiedTime 12/28/19 audio gram No observ ation record ed. BARCODE Not Available 2024 15:53:43 12/28/19 25 11/17/2023 audio gram No observ ation record ed. [email or web address] Not Available 2024 15:45:19 12/29/19 25 12/09/2024 MRI, brain , w/o contr ast No observ ation record ed. [email or web address] Not Available 09/2024 13:58:53 01/25/20 25 01/24/2025 MR brain wo and W contr ast See Note [facility] , a member of [email or web address] Name: CHRIS QUINN Date of : 1965 Reason for Exam: snhl Exam Date: 2024 [id number] EST Report Status : Final Orderi ng [...] Thin images perfor med throug h the multicultural internship al audito ry canals bilate rally demons [...] Edit Transc ribed Date: 2024 15:21 ET [email or web address] [facility] [address] [place], [address], 01/24/2025 15:56:59 Result Notes None recorded. Problems Name Problem SNOMED Code Status Onset Date Resolution Date Notes Provider Name and Address Organization Details Recorded Time Hypertrop hy of nasal turbinate s 55820934 Active 2016 Hypertrop hy of nasal turbinate s; Note: Date Diagnosed : 12/25/2016 9:15 AM (J34.3) Not Available [facility] 4 02:48:53 Bleeding from nose 973180430 Active 2016 Epistaxis ; Note: Date Diagnosed : 12/25/2016 8:59 AM (R04.0) Not Available [facility] 4 02:48:55 Mild intermitt ent asthma 240714349 Active 2016 Mild intermitt ent asthma, uncomplic ated; Note: Date Diagnosed : 12/25/2016 9:27 AM (J45.20) Not Available [facility] 4 02:48:56 Deviated nasal septum 315286602 Active 2016 Deviated nasal septum; Note: Date Diagnosed : 12/25/2016 9:15 AM (J34.2) Not Available [facility] 4 02:48:57 Allergic rhinitis 87591010 Active 2016 Other allergic rhinitis; Note: Date Diagnosed : 12/25/2016 9:12 AM (J30.89) Erica tobisa allergic rhinitis; Note: Date Diagnosed : 12/25/2016 9:12 AM (J30.89) Not Available [facility] 4 02:48:56 Bilateral disorder of Eustachia n tubes 56203460293 94822 Active 2019 Other specified disorders of Eustachia n tube, bilateral ; Note: Date Diagnosed : 09/20/2019 1:57 PM (H69.83) Not Available [facility] 4 02:48:57 Abnormal auditory perceptio n 31097676 Active 2019 Other abnormal auditory perceptio ns, bilateral ; Note: Date Diagnosed : 09/20/2019 5:10 PM (H93.293) Not Available [facility] 4 02:48:55 Sj gren's syndrome 31224998 Active 2019 Sicca syndrome [Sjogren] ; Note: Date Diagnosed : 03/01/2020 2:13 PM (M35.0) Not Available [facility] 4 02:48:52 Sensorine ural hearing loss 78992620 Active 2023 Sensorine ural hearing loss, unilatera l, left ear, with unrestric everardo hearing on the contralat eral side; Note: Date Diagnosed : 11/17/2023 12:47 PM (H90.42) Not Available [facility] 4 02:48:54 Dizziness and giddiness 423031282 Active 2023 Dizziness and giddiness ; Note: Date Diagnosed : 11/17/2023 12:49 PM (R42) Not Available [facility] 4 02:48:57 Bilateral tinnitus 32365313486 02 Active 2024 PETE LARA PA-C [address] [place] [address], [place], [address] , [facility] - [facility] 5 15:15:08 Problem Notes None recorded. Procedures Surgical History Date Name Laterality Status Provider Name and Address Organization Details Recorded Time 12/27/2024 Air & Speech Audio with Tymps - 23238, 01385 & 93160 completed CINDY MEJÍA, AUD [address] [facility],[place] [address], [place], [address], [facility] - [facility] 12/27/2024 14:05:20 Imaging Results None recorded. Procedure Notes None recorded. Medical Equipment None Reported. Allergies Allergen ID Allergen Name Allergen Category Reaction Reaction Severity Criticality Documentation Date Start Date Code Code System Note Provider Name and Address Organization Details Recorded Time 626234 Benadryl medicatio n hives Not available Not available 02/27/2024 68199 7 RxNorm React ion: hives ; Not Available [facility] 4 00:31:35 11110 latex environme nt,medica tion other Not available Not available 12/09/2023 79672 91 RxNorm React ion: unkno wn, unspe cifie d;; Not Available [facility] 4 01:04:17 Medications Name Sig Start [...] mg tablet 11/16 completed Medicati on ID: [id number] D uration Value: 30 Brand Name: quetiapi [...] mg tablet 03/01 completed Medicati on ID: [id number] D uration Value: 30 Reason: () Brand Name: quetiapi ne Send Method: E-Prescr ibed Sub s Allowed: subs OK Speci al Instruct ion: TK 1 T PO Q NIGHT Me dication GenericN anay: quetiapi ne Not Available Not Available Not Available Nortrel (28) 1 mg-35 mcg tablet 03/01 completed Medicati on ID: [id number] D uration Value: 28 Reason: () Brand Name: Nortrel 35 (28) Sen d Method: E-Prescr ibed Sub s Allowed: subs OK Speci al Instruct ion: TK 1 T PO D Medica tionGene ricName: Nortrel (28) Not Available Not Available Not Available trazodone 100 mg tablet 03/01 completed Medicati on ID: [id number] D uration Value: 30 Reason: () Brand Name: trazodon e Send Method: E-Prescr ibed Sub s Allowed: subs OK Speci al Instruct ion: TK 3 TS PO QHS Medi cationGe nericNam e: trazodon e Not Available Not Available Not Available benzonata te 100 mg capsule 12/27 completed Medicati on ID: [id number] B rand Name: benzonat ate Send Method: E-Prescr ibed Sub s Allowed: subs OK Speci al Instruct ion: TAKE 1 CAPSULE BY MOUTH THREE TIMES A DAY FOR 7 DAYS NEEDED FOR COUGH Me dication GenericN anay: benzonat ate Not Available Not Available Not Available lansopraz ole 30 mg capsule,d elayed release 03/01 completed Medicati on ID: [id number] D uration Value: 30 Reason: () Brand Name: lansopra zole Sen d Method: E-Prescr ibed Sub s Allowed: subs OK Speci al Instruct ion: TK 1 C PO D Medica tionGene ricName: lansopra zole Not Available Not Available Not Available prednison e 50 mg tablet 12/27 completed Medicati on ID: [id number] B rand Name: predniso ne Send Method: [...] mg capsule 11/16 completed Medicati on ID: [id number] D uration Value: 35 Brand Name: gabapent [...] tended release 11/16 completed Medicati on ID: [id number] D uration Value: 30 Brand Name: cyanocob [...] auto-inje ctor 11/16 completed Medicati on ID: [id number] D uration Value: 2 Brand Name: epinephr ine Send Method: E-Prescr ibed Sub s Allowed: subs OK Medic ationGen ericName : epinephr ine Not Available Not Available Not Available levofloxa eve 750 mg tablet 12/27 completed Medicati on ID: [id number] B rand Name: levoflox acin Sen d Method: E-Prescr ibed Sub s Allowed: subs OK Medic ationGen ericName : levoflox acin Not Available Not Available Not Available norethind james (contrace ptive) 0.35 mg tablet 11/16 completed Medicati on ID: [id number] D uration Value: 28 Brand Name: norethin drone (contrac eptive) Send Method: E-Prescr ibed Sub s Allowed: subs OK Speci al Instruct ion: TK 1 T PO AT THE SAME TIME QD Medic ationGen ericName : norethin drone (contrac eptive) Not Available Not Available Not Available fluoxetin e 20 mg capsule 03/01 completed Medicati on ID: [id number] D uration Value: 30 Reason: () Brand Name: fluoxeti ne Send Method: E-Prescr ibed Sub s Allowed: subs OK Speci al Instruct ion: TK 3 CS PO QAM Medi cationGe nericNam e: fluoxeti ne Not Available Not Available Not Available fluticaso ne propionat e 50 mcg/actua tion nasal spray,mana pension 11/16 completed Medicati on ID: [id number] D uration Value: 90 Brand Name: fluticas [...] mg tablet 11/16 completed Medicati on ID: [id number] D uration Value: 30 Brand Name: loratadi [...] unit) capsule 11/16 completed Medicati on ID: [id number] D uration Value: 30 Brand Name: Vitamin [...] mg tablet 03/01 completed Medicati on ID: [id number] D uration Value: 30 Reason: () Brand Name: Vesicare Send Method: E-Prescr ibed Sub s Allowed: subs OK Speci al Instruct ion: TK 1 T PO D Medica tionGene ricName: Vesicare Not Available Not Available Not Available Vesicare 10 mg tablet 03/01 completed Medicati on ID: [id number] D uration Value: 30 Reason: () Brand Name: Vesicare Send Method: E-Prescr ibed Sub s Allowed: subs OK Speci al Instruct ion: TK 1 T PO D Medica tionGene ricName: Vesicare Not Available Not Available Not Available ProAir HFA 90 mcg/actua tion aerosol inhaler 2016 active Medicati on ID: [id number] D uration Value: 16 Brand Name: ProAir HFA Send Method: E-Prescr ibed Sub s Allowed: subs OK Speci al Instruct ion: INL 2 PUFFS PO Q 4 H PRF COUGH OR WHEEZING Medicat ionGener icName: ProAir HFA Medi cation ID: [id number] D uration Value: 16 Brand Name: ProAir HFA Send Method: E-Prescr ibed Sub s Allowed: subs OK Speci al Instruct ion: INL 2 PUFFS PO Q 4 H PRF COUGH OR WHEEZING Medicat ionGener icName: ProAir HFA Not Available Not Available Not Available quetiapin e 400 mg tablet 03/01 completed Medicati on ID: [id number] D uration Value: 30 Reason: () Brand Name: quetiapi ne Send Method: E-Prescr ibed Sub s Allowed: subs OK Speci al Instruct ion: TK 1 T PO Q NIGHT Me dication GenericN anay: quetiapi ne Not Available Not Available Not Available ProAir HFA 11/16 completed Medicati on ID: [id number] D uration Value: 16 Brand Name: Rivera [...] Updated DateTime 12/27/2024 157.48 cm 24.5 kg/m2 54046.38 g Bridget Tinoco [place] [facility] 12/27/2024 14:17:39 Social History None recorded. Functional Status None recorded. Mental Status None recorded. Family History Nothing Reported. Medical History No medical history recorded. Gynecological HistoryNo gynecological history recorded. Obstetrics History GPAL:G 0 P 0 0 0 0 Past Encounters Encounter ID Performer Location Encounter Start Date Encounter Closed Date Diagnosis/Indication Diagnosis SNOMED-CT Code Diagnosis ICD10 Code Diagnosis IMO Codes Diagnosis Note [id number] PETE LARA PA-C [facility] [address] [address] 12/27/2024 13:37:11 12/27/2024 15:46:54 Sensorineural hearing loss 67243979 H90.42 Audiologic al evaluation results: Right ear: Normal hearing with excellent word recognitio n. Left ear: Normal hearing with the exception of a moderate SNHL at 8000Hz with excellent word recognitio n. Tympanomet ry: Right Ear:Type A Left Ear:Type As Bilateral tinnitus 64174 61870 102 H93.13 375775 Health Concerns Section Related Observation LastModified by Organization Detai ls LastModified Time None Recorded Concern Status LastModified by Organization Details LastModified Time None Recorded Advance Directives Directive None Recorded Payers Insurance Date Sequence Insurance Name Policy Number Policy Sarabia Covered Member ID Sarabia Member ID Guarantor Name 12/27/2024 1 [facility] (MEDICARE REPLACEMENT/A DVANTAGE - HMO) [employer] Chris Dygon [id number] Chris Dygon 12/27/2024 1 [facility] (MEDICARE REPLACEMENT/A DVANTAGE - POS) [employer]AM[employer] Chris Dygon [id number] Chris Dygon Notes Date Note Type Note [...] hearing. Reports intermittent tinnitus. ADELINA SENA MD [address] [place] [address], [place], [address], [facility] - [facility] 12/27/2024 15:30:27 OBGyn Episode No OBEpisode recorded.
--- OUTSIDE RECORDS SUMMARY | 2025-06-09 18:36 | XMS_ITS | Encounter Summary ---
Author Organization [employer] [facility] Address [address] [place] [address] Care Team Providers Care Stock Taker Name Role Phone Harsha Wang MD Primary Care Prov ider Nikolas Frost MD Primary Care Provider [phone] Encounter Details Date Type Department Care Team (Late Contact Info) Description 01/24/2025 Orders Only [facility] [address] [place], [place] [phone] Provider, MD Julianne Social History Tobacco Use [...] Department Care Team (Late Contact Info) Description 06/20/2025 2:00 PM EST Office Visit [facility] MED & PEDS [address] [place], [place] [phone] Nikolas Frost MD [address] [place], [place] [phone] documented as of this encounter Procedures Procedure [...] documented as of this encounter Care Teams Stock Taker Relationship Specialty Start Date End Date Harsha Wang MD [address] [place] [address] PCP - General Internal Medicine 11/11/24 04/10/25 Nikolas Frost MD [address] [place] [address] PCP - General Internal Medicine 04/11/25 documented as of this encounter
--- OUTSIDE RECORDS SUMMARY | 2025-06-09 18:36 | XMS_ITS | Encounter Summary ---
Author Organization [employer] Address [address] [facility] 7 [place] [address] Care Team Providers Care Card Checker Name Role Phone Harsha Wang MD Primary Care Prov ider Nikolas Frost MD Primary Care Provider [phone] Reason for Visit * Reason Onset Date Comments Results 12/23/2024 Encounter Details Date Type Department Care Team (Late st Contact Info) Description 12/23/2024 Telephone [facility] [address] [place] [address] Harsha Wang MD [address] [place] [address] Results Social History Tobacco Use Types Packs/Day [...] - 12/23/2024 10:04 AM EDT Tc from [facility] with [facility] calling in regards to MR Brain results. She was informed pt is unable to receive results until February. Emmy is requesting a call back with results to clearher for TMS and or to deny if pcp feels necessary. Please contact Emmy at [phone]. documented in this encounter Plan of Treatment Upcoming Encounters Date Type Department Care Team (Late st Contact Info) Description 06/20/2025 2:00 PM EST Office Visit [facility] MED & PEDS [address] [place] [address] Nikolas Frost MD [address] [place] [address] documented as of this encounter Visit Diagnoses Not on filedocumented in this encounter Additional Health Concerns Assessment Noted Time PHQ-9 Depression Total Score: 0 11/06/19 9:58 AM EDT documented as of this encounter Care Teams Card Checker Relationship Specialty Start Date End Date Harsha Wang MD [address] [place] [address] PCP - General Internal Medicine 11/11/24 04/10/25 Nikolas Frost MD [address] [place] [address] PCP - General Internal Medicine 04/11/25 documented as of this encounter
--- OUTSIDE RECORDS SUMMARY | 2025-06-09 18:36 | XMS_ITS | Encounter Summary ---
Author Organization [employer] Address [address] [facility] 7t [place] [address] Care Team Providers Care Volcanology Professor Name Role Phone Harsha Wang MD Primary Care Prov ider Nikolas Frost MD Primary Care Provider [phone] Reason for Referral * Consultation (Routine) - Closed Specialty Diagnoses / Procedures Referred By Contac t Referred To Contact Rheumatology Diagnoses SLE (systemic lupus erythematosus related syndrome) (CMS/HCC) ([facility]) Nikolas Frost MD [address] [place] [address] Phone: tel: fax: [facility] [address] Phone: tel: fax: Referral ID Status Reason Start Date Expiration Date V isits Requested Visits Authorized [id number] Closed Specialty Services Required 12/03/2024 12/03/2025 1 1 Encounter Details Date Type Department Care Team ([facility] st Contact Info) Description 12/03/2024 Orders Only [facility] CHC MED & PEDS [address] [place], [place] [phone] Nikolas Frost MD [address] [place] [address] SLE (systemic lupus erythematosus related syndrome) (CMS/HCC) [...] Upcoming Encounters Date Type Department Care Team ([facility] st Contact Info) Description 06/20/2025 2:00 PM EST Office Visit [facility] MED & PEDS [address] [place] [address] Nikolas Frost MD [address] [place] [address] Scheduled Referrals Name Type Priority Associated Diagnoses Orde r Schedule Referral to Rheumatology Outpatient Referral Routine SLE (systemic lupus erythematosus related syndrome) (CMS/[facility]) Expected: 12/03/2024 (Approximate), Expires: 12/03/2025 documented as of this encounter Visit Diagnoses Diagnosis SLE (systemic lupus erythematosus related syndrome) (CMS/HCC) (HCC)- Primary Systemic lupus erythematosus documented in this encounter Additional Health Concerns Assessment Noted Time PHQ-9 Depression Total Score: 0 11/06/19 9:58 AM EDT documented as of this encounter Care Teams Volcanology Professor Relationship Specialty Start Date End Date Harsha Wang MD [address] [place] [address] PCP - General Internal Medicine 11/11/24 04/10/25 Nikolas Frost MD [address] [place] [address] PCP - General Internal Medicine 04/11/25 documented as of this encounter
--- OUTSIDE RECORDS SUMMARY | 2025-06-09 18:36 | XMS_ITS | Encounter Summary ---
Author Organization [employer] [facility] Address [address] [place] [address] Care Team Providers Care Dealer Sales Manager Name Role Phone Harsha Wang MD Primary Care Prov ider Nikolas Frost MD Primary Care Provider [phone] Encounter Details Date Type Department Care Team (Late Contact Info) Description 02/10/2025 Orders Only [facility] [address] [place], [place] [phone] Provider, MD Julianne Social History Tobacco Use [...] Description 06/20/2025 2:00 PM EST Office Visit [facility] CHC MED & PEDS [address] [place], [place] [phone] Nikolas Frost MD [address] [place], [place] [phone] documented as of this encounter Procedures Procedure [...] documented as of this encounter Care Teams Dealer Sales Manager Relationship Specialty Start Date End Date LevyHarsha Hitchcock MD [address] [place] [address] PCP - General Internal Medicine 11/11/24 04/10/25 Nikolas Frost MD [address] [place] [address] PCP - General Internal Medicine 04/11/25 documented as of this encounter
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
--- OUTSIDE RECORDS SUMMARY | 2025-06-09 18:37 | XMS_ITS | Encounter Summary ---
Author Organization [employer] Address [address] [facility] [address] [place] [address] Care Team Providers Care Wardrobe Stylist Name Role Phone Nikolas Frost MD Primary Care Provider [phone]- [phone] Encounter Details Date Type Department Care Team ([facility] st Contact Info) Description 05/27/2025 Results Follow-Up [facility] MED [facility]EDS [address] [place] [address] Nikolas Frost MD [address] [place] [address] Lipid Panel, Standard, Lead, Venous, Hepatitis C Antibody with Reflex to HCV, RNA, Quantitative, Real-Time PCR, HIV-1/2 Antigen and Antibodies, Fourth Generation, with Reflexes Social History Tobacco Use Types Packs/Day Years [...] Description 06/20/2025 2:00 PM EST Office Visit [facility] [address] [place] [address] Nikolas Frost MD [address] [place] [address] documented as of this encounter Visit Diagnoses Not on filedocumented in this encounter Additional Health Concerns Assessment Noted Time PHQ-9 Depression Total Score: 0 11/06/19 9:58 AM EDT documented as of this encounter Care Teams Wardrobe Stylist Relationship Specialty Start Date End Date Nikolas Frost MD [address] [place] [address] PCP - General Internal Medicine 04/11/25 documented as of this encounter
--- OUTSIDE RECORDS SUMMARY | 2025-06-09 18:37 | XMS_ITS | Encounter Summary ---
Author Organization [employer] Address [address] [facility] 7[address] [place] [address] Care Team Providers Care Pensionholder Information Clerk Name Role Phone Nikolas Frost MD Primary Care Provider [phone]- [phone] Encounter Details Date Type Department Care Team (Latest Contact Info) Description 06/09/2025 Travel Social History Tobacco Use Types Packs/Day [...] PM EDT documented as of this encounter Functional Status * Over the past 2 weeks, how often have you been bothered by any of the following problems? Question Answer Date of Assessment Author Patient Health Questionnaire-2 Score 3 06/09/2025 2:14 PM EST Anand Jacobo LMHC * Little interest or pleasure in doing things Answer Date of Assessment Author Nearly every day 06/09/2025 2:14 PM EST Anand Enamorado LMHC * Feeling down, depressed, or hopeless Answer Date of Assessment Author Not at all 06/09/2025 2:14 PM EST Anand Appiah LMHC * Trouble falling or staying asleep, or sleeping too much Answer Date of Assessment Author Nearly every day 06/09/2025 2:14 PM EST Anand Enamorado LMHC * Feeling tired or having little energy Answer Date of Assessment Author Nearly every day 06/09/2025 2:14 PM EST Anand Enamorado LMHC * Poor appetite or overeating Answer Date of Assessment Author Nearly every day 06/09/2025 2:14 PM EST Anand Enamorado LMHC * Feeling bad about yourself - or that you are a failure or have let yourself or your family down Answer Date of Assessment Author Nearly every day 06/09/2025 2:14 PM EST Anand Enamorado LMHC * Trouble concentrating on things, such as reading the newspaper or watching television Answer Date of Assessment Author Nearly every day 06/09/2025 2:14 PM EST Anand Enamorado LMHC * Moving or speaking so slowly [...] Author Not at all 06/09/2025 2:14 PM EST Anand Appiah LMHC * Patient Health Questionnaire-9 Score Answer Date of Assessment Author 21 06/09/2025 2:14 PM Anand Gomez LMHC * Over the last 2 weeks, how often have you been bothered by any of the following problems? Question Answer Date of Assessment Author Feeling nervous, anxious, or on edge 3 06/09/2025 2:15 PM EST Anand Cartagena LMHC Not being able to stop or [...] annoyed or irritable 3 06/09/2025 2:15 PM EST Anand Cartagena LMHC Feeling afraid as if something awful [...] Gomez LMHC documented as of this encounter Plan of Treatment Upcoming Encounters Date Type Department Care Team (Late st Contact Info) Description 06/20/2025 2:00 PM EST Office Visit [facility] MED & PEDS [address] [place] [address] Nikolas Frost MD [address] [place] [address] documented as of this encounter Visit Diagnoses Not on filedocumented in this encounter Additional Health Concerns Assessment Noted Time PHQ-9 Depression Total Score: 21 025 2:14 PM EST documented as of this encounter Care Teams Pensionholder Information Clerk Relationship Specialty Start Date End Date Nikolas Frost MD [address] [place] [address] PCP - General Internal Medicine 04/11/25 documented as of this encounter
--- OUTSIDE RECORDS SUMMARY | 2025-06-09 18:37 | XMS_ITS | Encounter Summary ---
Author Organization [employer] Address [address] [facility] 7[address] [place] [address] Care Team Providers Care Clay Artist Name Role Phone Harsha Wang MD Primary Care Prov ider Nikolas Frost MD Primary Care Provider [phone]- [phone] Reason for Visit * Reason Comments Med Refill Encounter Details Date Type Department Care Team ([facility] st Contact Info) Description 02/21/2025 Refill C [facility]S [address] [place] [address] Harsha Wang MD [address] [place] [address] Social History Tobacco Use Types Packs/Day Years [...] with others, in a hotel, in a long term, living outside on the street, on a [...] 2:00 PM EST Office Visit [facility] MED [facility]EDS [address] [place] [address] Nikolas Frost MD [address] [place] [address] documented as of this encounter Visit Diagnoses Not on filedocumented in this encounter Additional Health Concerns Assessment Noted Time PHQ-9 Depression Total Score: 0 11/06/19 9:58 AM EDT documented as of this encounter Care Teams Clay Artist Relationship Specialty Start Date End Date Harsha Wang MD [address] [place] [address] PCP - General Internal Medicine 11/11/24 04/10/25 Nikolas Frost MD [address] [place] [address] PCP - General Internal Medicine 04/11/25 documented as of this encounter
--- OUTSIDE RECORDS SUMMARY | 2025-06-09 18:37 | XMS_ITS | Encounter Summary ---
Author Organization [facility] Address [address] [place] [address] Care Team Providers Care Cash Application Representative Name Role Phone Levy Harsha Peace Primary Care Provide r Encounter Details Date Type Department Care Team ([facility] Contact Info) Description 03/14/2025 Lab Requisition [facility] Lab [address] [facility] [place] [address] Patrick Basilio MD [address] [place] [address] Urinary tract infection, site not [...] Upcoming Encounters Date Type Department Care Team ([facility] Contact Info) Description 12/20/2025 4:00 PM EDT Appointment Radiology Department - [address] [phone] documented as of this encounter Procedures Procedure [...] reflex microscopic (03/14/2025 1:42 PM EDT) Specific [place] Urine 1.029 1.003 - 1.030 LAB URINALYSIS - AUTOMATED METHOD 03/14/2025 6:26 PM [facility] pH, Urine 5.5 5.0 - 8.0 pH LAB URINALYSIS - AUTOMATED METHOD 03/14/2025 6:26 PM [facility] Leukocytes, Urine Negative Negative LAB URINALYSIS - AUTOMATED METHOD 03/14/2025 6:26 PM [facility] Nitrite, Urine Negative Negative LAB URINALYSIS - AUTOMATED METHOD 03/14/2025 6:26 PM [facility] Protein, Urine Negative <=Trace mg/dL LAB URINALYSIS - AUTOMATED METHOD 03/14/2025 6:26 PM [facility] Glucose, Urine Negative Negative mg/dL LAB URINALYSIS - AUTOMATED METHOD 03/14/2025 6:26 PM [facility] Ketones, Urine Negative Negative mg/dL LAB URINALYSIS - AUTOMATED METHOD 03/14/2025 6:26 PM [facility] Urobilinogen, Urine 1.0 0.2 - 1.0 mg/dL LAB URINALYSIS - AUTOMATED METHOD 03/14/2025 6:26 PM [facility] Bilirubin, Urine Negative Negative LAB URINALYSIS - AUTOMATED METHOD 03/14/2025 6:26 PM [facility] Blood, Urine Negative Negative LAB URINALYSIS - AUTOMATED METHOD 03/14/2025 6:26 PM [facility] Urine Urine specimen from urethra / Unknown 03/14/2025 1:42 PM EDT 03/14/2025 6:02 PM EDT Patrick Basilio MD LAB URINE ORDERABLES Sybil l Result Performing Organization Address [facility] Co de Phone Number [facility] [address] [place] [address], [place] [phone] * Culture urine (03/14/2025 1:42 PM EDT) Culture, Urine 10,000-49,000 CFU/mL Mixed urogenital marilynn, no uropathogens present. Suggest repeat specimen if clinically indicated. 03/15/2025 1:14 PM EDT [facility] Urine Urine specimen from urethra / Unknown 03/14/2025 1:42 PM EDT 03/14/2025 6:02 PM EDT Patrick Basilio MD LAB MICROBIOLOGY - GENERA L ORDERABLES Final Result Performing Organization Address [facility] Co de Phone Number [facility] [address] [place] [address], [place] [phone] documented in this encounter Visit Diagnoses Diagnosis Urinary tract infection, site not specified documented in this encounter Care Teams Cash Application Representative Relationship Specialty Start Date End Date Harsha Wang [address] [place] [address] PCP - General Internal Medicine 05/13/25 documented as of this encounter
--- OUTSIDE RECORDS SUMMARY | 2025-06-09 18:37 | XMS_ITS | Encounter Summary ---
Author Organization [facility] Address [address] [place] [address] Care Team Providers Care Scow Hand Name Role Phone Levy Harsha Peace Primary Care Provide r Encounter Details Date Type Department Care Team ([facility] Contact Info) Description 03/17/[address] [facility] - Main Lab [address] [facility] [place] [address] Soto Reddy PA [address] [place] [address] Urge incontinence Social History Tobacco [...] 4:00 PM EDT Appointment Radiology Department - [address] [phone] documented as of this encounter Procedures Procedure [...] Final Result [facility] [address] [place] [address], documented in this encounter Visit Diagnoses Diagnosis Urge incontinence documented in this encounter Care Teams Scow Hand Relationship Specialty Start Date End Date Harsha Wang [address] [place] [address] PCP - General Internal Medicine 05/13/25 documented as of this encounter
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
--- OUTSIDE RECORDS SUMMARY | 2025-06-09 18:37 | XMS_ITS | Encounter Summary ---
Author Organization [employer] Address [address] [facility] [address] [place] [address] Care Team Providers Care Air Brake Man Name Role Phone Nikolas Frost MD Primary Care Provider [phone] Reason for Visit * Reason Onset Date Comments Results 05/19/2025 Encounter Details Date Type Department Care Team ([facility] Contact Info) Description 05/19/2025 Telephone [facility] PEDS [address] [place] [address] Nikolas Frost MD [address] [place] [address] Results Social History Tobacco Use Types Packs/Day [...] with others, in a hotel, in a custodial, living outside on the street, on a [...] 05/19/2025 12:00 PM EDT Echo faxed to [facility] ortho as requested. * Telephone Encounter - Dalila Langford - 05/19/2025 10:24 AM EDT Tc from Aurea at [facility] orthopedics requesting echo results done on 05/13 Contact Aurea at [phone] documented in this encounter Plan of Treatment Upcoming Encounters Date Type Department Care Team (Late st Contact Info) Description 06/20/2025 2:00 PM EST Office Visit [facility]EDS [address], [place] [phone] Nikolas Frost MD [address] [place] [address] documented as of this encounter Visit Diagnoses Not on filedocumented in this encounter Additional Health Concerns Assessment Noted Time PHQ-9 Depression Total Score: 0 11/06/19 9:58 AM EDT documented as of this encounter Care Teams Air Brake Man Relationship Specialty Start Date End Date Nikolas Frost MD [address] [place] [phone] PCP - General Internal Medicine 04/11/25 documented as of this encounter
--- OUTSIDE RECORDS SUMMARY | 2025-06-09 18:37 | XMS_ITS | Encounter Summary ---
Author Organization [employer] Address [address] [facility] [address] [place] [address] Care Team Providers Care Pond Supervisor Name Role Phone Nikolas Frost MD Primary Care Provider Reason for Visit * Reason Onset Date Comments Nurse Triage 06/09/2025 Encounter Details Date Type Department Care Team ([facility] st Contact Info) Description 06/09/2025 Telephone [facility]EDS [address] [place] [address] Nikolas Frost MD [address] [place] [address] Nurse Triage Social History Tobacco Use Types [...] encounter Miscellaneous Notes * Telephone Encounter - Ruthie Mancini RN - 06/09/2025 8:43 AM EST TC placed to pt for triage. Pt reports they woke up at 4:30 AM with diarrhea. Pt reports they have had 6-7 episodes of severe watery diarrhea since 4:30 this morning. Pt reports nausea at time of call that began yesterday. Pt denies vomiting, fever, chills. Pt reports after their last episode of diarrhea, they developed a sharp pelvic pain. Pt reports it was 10/10 pain. Pt reports since sitting and resting pain has decreased to 4/10. Pt reports pain and burning with last episode of diarrhea. Ptreports they have seen some blood on the toilet paper but denies blood in toilet. Pt concerned about eating or drinking due to the nausea and diarrhea. Pt concerned as they recently had colitis. Pt booked for sick on site at [facility] today 06/09/25 at 10:00 AM. Pt agreeable to appointment and denies questions at this time. Protocol Used: Diarrhea (Adult) Protocol-Based Disposition: See in Office or Video Visit Today Video visit offer not recorded Positive Triage Question: * Severe diarrhea (e.g., 7 or more times / day more than normal) and present > 24 hours (1 day) * All higher-acuity triage questions were negative. Care Advice Discussed: * Reasons To Call Back - Signs of dehydration occur (such as no urine over 12 hours, very dry mouth, lightheaded, etc.) - Severe diarrhea lasts more than a day - Diarrhea lasts over 7 days - You become worse * Telephone Encounter - Dalila Langford - 06/09/2025 8:08 AM EST Symptoms: Abdominal Pain - Female - Not , Diarrhea Outcome: Schedule an urgent appointment (within 4 hours) or talk to a nurse or provider soon Reason: Started within the past 3 days The caller accepted this outcome. Contact pt at [phone] documented in this encounter Plan of Treatment Upcoming Encounters Date Type Department Care Team (Late st Contact Info) Description 06/20/2025 2:00 PM EST Office Visit [facility] MED [facility] PEDS [address] [place] [address] Nikolas Frost MD [address] [place] [address] documented as of this encounter Visit Diagnoses Not on filedocumented in this encounter Additional Health Concerns Assessment Noted Time PHQ-9 Depression Total Score: 21 025 2:14 PM EST documented as of this encounter Care Teams Pond Supervisor Relationship Specialty Start Date End Date Nikolas Frost MD [address] [place] [address] PCP - General Internal Medicine 04/11/25 documented as of this encounter
--- OUTSIDE RECORDS SUMMARY | 2025-06-09 18:37 | XMS_ITS | Clinical Summary ---
Author Organization [facility] Address [address] [place] [address] Care Team Providers Care Dictaphone Mechanic Name Role Phone Rey Galvan MD Primary Care Provider [phone] Allergies Active Allergy Reactions Criticality Noted Date [...] age to complete this topic Care Teams Dictaphone Mechanic Relationship Specialty Start Date End Date Rey Galvan MD PCP - General Internal Medicine 06/04/21
--- OUTSIDE RECORDS SUMMARY | 2025-06-09 18:37 | XMS_ITS | Encounter Summary ---
Author Organization [employer] Address [address] [facility] [address] [place] [address] Care Team Providers Care Cab Station Attendant Name Role Phone Nikolas Frost MD Primary Care Provider [phone] Encounter Details Date Type Department Care Team ([facility] st Contact Info) Description 05/27/2025 Results Follow-Up [facility] [address] [place], [place] [id number] Nikolas Frost MD [address] [place] [address] TSH W/Reflex to FT4 Social History Tobacco Use Types Packs/Day Years [...] with others, in a hotel, in a fpc, living outside on the street, on a [...] Encounters Date Type Department Care Team ([facility] st Contact Info) Description 06/20/2025 2:00 PM EST Office Visit [facility] MED & PEDS [address] [place] [address] Nikolas Frost MD [address] [place] [address] documented as of this encounter Visit Diagnoses Not on filedocumented in this encounter Additional Health Concerns Assessment Noted Time PHQ-9 Depression Total Score: 0 11/06/19 9:58 AM EDT documented as of this encounter Care Teams Cab Station Attendant Relationship Specialty Start Date End Date Nikolas Frost MD [address] [place] [address] PCP - General Internal Medicine 04/11/25 documented as of this encounter
[2025-06-09 20:33] LABS: CDiff Gene PCR NEGATIVE (Negative)
[2025-06-10 12:14] LABS: E. coli EAEC Not Detected (Not Detect.); E. coli EPEC Not Detected (Not Detect.); E. coli ETEC Not Detected (Not Detect.); E. coli STEC Not Detected (Not Detect.); Shigella sp./EIEC Not Detected (Not Detect.)
== END 2025-06-09 15:44 | disposition home or self-care (01) ==
LOC: HO.CHCLNP 15:43
PROVIDERS: Visit Provider Nurse Practitioner Primary Care
DX: R19.7 Diarrhea, unspecified (principal)
CPT/HCPCS: 87493; 87507

== ENCOUNTER 2025-06-20 15:21 | Outpatient (REF) | payer OTHER, SELFPAY ==
--- OUTSIDE RECORDS SUMMARY | 2025-06-20 14:00 | XMS_ITS | Encounter Summary ---
Author Organization [employer] Address [address] [facility] 7 [place] [address] Care Team Providers Care Balance And Hairspring Assembler Name Role Phone Nikolas Frost MD Primary Care Provider Reason for Visit * Reason Comments Pre op evaluation Encounter Details Date Type Department Care Team ([facility] Contact Info) Description 06/20/2025 2:00 PM EST Office Visit [facility] MED [facility] PEDS [address] [place] [address] Nikolas Frost MD [address] [place] [address] Pre-op evaluation (Primary Dx) Social History Tobacco Use Types [...] Sign Reading Time Taken Comments Blood Pressure 147/78 06/20/2025 2:02 PM EST Pulse 74 06/20/2025 2:02 PM EST Temperature 36.8 C (98.3 F) 06/20/2025 2:02 PM EST Respiratory Rate 20 06/20/2025 2:02 PM EST Oxygen Saturation 96% 06/20/2025 2:02 PM EST Inhaled Oxygen Concentration - - Weight 64 kg (141 lb) 06/20/2025 2:02 PM EST Height 157.5 cm (5' 2 ) 06/20/2025 2:02 PM EST Body Mass Index 25.79 06/20/2025 2:02 PM EST documented in this encounter Progress Notes * Nikolas Frost MD - 06/20/2025 2:00 PM EST SUBJECTIVE Phoebe Garnett is a 59 y.o. female who presents for Pre op evaluation. Pre op evaluation: Date of Surgery: 06/27 Surgical procedure being done: Right Shoulder Arthroscopy Type of anesthesia: general anesthesia Lab needed: Yes EKG: Yes Phoebe Garnett, 59-year-old female - History of sleep apnea diagnosed by sleep study, no CPAP obtained due to insurance change - Reports snoring, occasionally wakes up from snoring - Recent colitis and food poisoning prior to this visit - History of heart murmur diagnosis - Reports always feeling cold - History of anemia, hemoglobin consistently around 12, taking multivitamin for a couple of years, previously took B12 - No current diarrhea - Denies shortness of breath - No prolonged bleeding episodes - Scheduled for right shoulder arthroplasty on June 27, 2025 -ET>METS. Problem List[1] Allergies[2] Medications Ordered Prior to Encounter[3] Review of Systems Constitutional: Negative for activity change, appetite change, chills and diaphoresis. HENT: Negative for dental problem, drooling, ear discharge, ear pain and hearing loss. Eyes: Negative for pain, discharge and itching. Respiratory: Negative for cough, choking and chest tightness. Cardiovascular: Negative for chest pain and leg swelling. Gastrointestinal: Negative for blood in stool and diarrhea. Genitourinary: Negative for difficulty urinating, dyspareunia, dysuria, enuresis, flank pain, frequency and genital sores. Musculoskeletal: Negative for arthralgias, gait problem and joint swelling. Skin: Negative for pallor. Neurological: Negative for dizziness, seizures, speech difficulty, light- headedness and numbness. Psychiatric/Behavioral: Negative for behavioral problems, confusion and decreased concentration. OBJECTIVE Vitals: 06/20/25 1402 BP: (!) 147/78 BP Location: Left arm Patient Position: Sitting BP Cuff Size: Adult long Pulse: 74 Resp: 20 Temp: 98.3 ??F (36.8 ??C) TempSrc: Oral SpO2: 96% Weight: 141 lb (64 kg) Height: 5' 2 (1.575 m) Physical Exam Constitutional: General: She is not in acute distress. Appearance: Normal appearance. She is not ill-appearing, toxic-appearing or diaphoretic. Cardiovascular: Rate and Rhythm: Normal rate. Pulmonary: Effort: Pulmonary effort is normal. Abdominal: Palpations: Abdomen is soft. Neurological: Mental Status: She is alert. Psychiatric: Mood and Affect: Mood normal. Assessment/Plan Assessment/Plan Diagnoses and all orders for this visit: Pre-op evaluation - CBC auto differential; Future - Basic Metabolic Panel; Future - Iron And Total Iron Binding Capacity; Future - Ferritin; Future - Reticulocyte Count; Future Pre-op evaluation: - Cleared for right shoulder arthroplasty scheduled for June 27, 2025. Cardiac risk is low (0.5%) per revised cardiac index. EKG is normal sinus rhythm, no sign of ischemia. No contraindications identified for surgery. - Ordered CBC and pre-operative labs as requested by surgical team. Advised to discontinue naproxenand ibuprofen 5-7 days prior to surgery. Advised to continue omeprazole on the morning of surgery with water. Lidocaine patch may be used as needed. One month post-operative follow-up planned. Sleep apnea: - Diagnosis of sleep apnea confirmed by prior polysomnography. No CPAP device in use due to insurance change. - Referral for repeat polysomnography to be placed after surgery. Anemia: - Borderline anemia with hemoglobin of 12 g/dL, normocytic (MCV 88). Possible etiologies include anemia of inflammation or iron deficiency. - Ordered iron panel and ferritin to further evaluate anemia. Podiatry referral: - Toe pain requiring podiatric evaluation. - Referral to high climber to be placed. This note was drafted using Ambient (AI) technology. 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 90 capsule 3 [] ciprofloxacin (Cipro) 500 MG tablet Take 1 tablet (500 mg) by mouth 2 times daily for 5 days. 10 tablet 0 cyclobenzaprine (Flexeril) 10 MG tablet Take 10 [...] 90 tablet 3 Multiple Vitamin (multivitamin) tablet Take 1 tablet by mouth Once per day. 30 tablet 3 naproxen (Naprosyn) 500 MG tablet Take 1 tablet (500 mg) by mouth 2 times daily. 20 tablet 0 omeprazole (PriLOSEC) [address] capsule TAKE 1 CAPSULE BY MOUTH EVERY DAY 90 capsule 3 ondansetron (Zofran) 4 MG tablet 1-2 tabs as needed for nausea up to every 8 hours 20 tablet 0 pilocarpine (Salagen) 5 MG tablet Take 1 tablet by mouth 2 times daily. Probiotic Product (Digestive Advantage) capsule One capsule daily 30 capsule 3 tiZANidine (Zanaflex) 2 MG tablet Take 1 tablet (2 mg) by mouth every 6 (six) hours if needed for muscle spasms for up to 10 days. 30 tablet 0 Vibegron (Gemtesa) 75 MG tablet Take 1 tablet (75 mg) by mouth Once per day. 90 tablet 3 No current facility-administered medications on file prior to visit. documented in this encounter Plan of Treatment Not on file documented as of this encounter Procedures Procedure Name Priority Date/Time Associated Diagnosis Comments CBC WITH AUTO DIFFERENTIAL Routine 06/20/2025 3:52 PM EST Pre-op evaluation IRON AND TOTAL IRON BINDING CAPACITY Routine 06/20/2025 3:52 PM EST Pre-op evaluation RETICULOCYTE COUNT Routine 06/20/2025 3: 52 PM EST Pre-op evaluation FERRITIN Routine 06/20/2025 3:52 PM EST Pre-op evaluation BASIC METABOLIC PANEL Routine 06/20/2025 3:52 PM EST Pre-op evaluation ECG 12-LEAD Routine 06/20/2025 3:09 PM EST Pre-op evaluation documented in this encounter Results * (ABNORMAL) Reticulocyte Count (06/20/2025 3:52 PM EST) Reticulocytes Absolute 0.029 0.026 - 0.095 X10*6/uL [facility] Immature Retic Fraction 2.4(L) 3.0 - 15.9 % [facility] Retic HGB Equivalent 32.7 30.0 - 35.0 pg [facility] Reticulocyte Percent 0.7 0.5 - 1.8 % [facility] Blood Venous blood specimen / Unknown 06/20/2025 3:52 PM EST 06/20/2025 3:52 PM EST us Nikolas Frost MD LAB BLOOD ORDERABLES Final Result [facility] [address] [place] [address] [phone] * Ferritin (06/20/2025 3:52 PM EST) Pathologist [facility] Ferritin 47 10 - 250 ng/mL [facility] Blood Venous blood specimen / Unknown 06/20/2025 3:52 PM EST 06/20/2025 3:52 PM EST us Nikolas Frost MD LAB BLOOD ORDERABLES Final Result Performing Organization Address City/[facility]/ZIP Co de Phone Number [facility] [address] [place] [phone] * (ABNORMAL) Iron And Total Iron Binding Capacity (06/20/2025 3:52 PM EST) [facility] Iron 33 30 - 160 mcg/dL [facility] Total Iron Binding Capacity 211(L) 228 - 428 mcg/dL [facility] Percent Iron Saturation 16 15 - 50 % [facility] Unsaturated Iron Binding 178 ug/dL [facility] Blood Venous blood specimen / Unknown 06/20/2025 3:52 PM EST 06/20/2025 3:52 PM EST us Nikolas Frost MD LAB BLOOD ORDERABLES Final Result [facility] [address] [place] [phone] * (ABNORMAL) Basic Metabolic Panel (06/20/2025 3:52 PM EST) [facility] Sodium 142 135 - 145 mmol/L [facility] Potassium 3.6 3.3 - 5.1 mmol/L [facility] Chloride 110(H) 96 - 108 mmol/L [facility] Carbon Dioxide 25 22 - 29 mmol/L [facility] Anion Gap 11(L) 12 - 20 [facility] Urea Nitrogen (BUN) 16 9 - 16 mg/dL [facility] Creatinine, Serum 0.58 0.5 - 1.4 mg/dL [facility] Estimated Glomerular Filt Rate >60 [facility] Comment:Chronic Kidney Disea se: Estimated GFR < 60 mL/min/1.58m8Ooefoc Kidney Disease: Estimated GFR < 15 mL/min/1.73m2 Glucose 111 60 - 115 mg/dL [facility] Calcium 8.8 8.4 - 10.2 mg/dL [facility] Blood Venous blood specimen / Unknown 06/20/2025 3:52 PM EST 06/20/2025 3:52 PM EST us Nikolas Frost MD LAB BLOOD ORDERABLES Final Result [facility] [address] [place] [phone] [phone] * (ABNORMAL) CBC auto differential (06/20/2025 3:52 PM EST) White Blood Count 5.0 4.8 - 10.8 X10*3/uL [facility] Red Blood Count 4.02(L) 4.20 - 5.50 X10*6/uL [facility] Hemoglobin 12.1 12.0 - 16.0 g/dl [facility] Hematocrit 36.4(L) 37.0 - 47.0 % [facility] Mean Corpuscular Volume 90.5 80.0 - 98.0 fL [facility] Mean Corpuscular Hemoglobin 30.1 27.0 - 33.0 pg [facility] Mean Corpuscular HGB Conc 33.2 31.0 - 35.0 g/dl [facility] Red Cell Distribution Width 13.2 11.0 - 16.0 % [facility] Platelet Count 218 160 - 400 X10*3/uL [facility] Mean Platelet Volume 10.1 9.4 - 12.3 fL [facility] Neutrophils Percent Auto 63.2 45 - 73 % [facility] Imm Gran Pct Auto 0.2 0.0 - 0.4 % [facility] Lymphocytes Percent Auto 30.0 20 - 40 % [facility] Monocytes Percent Auto 5.4 2 - 11 % [facility] Eosinophils Percent Auto 0.6 0 - 4 % [facility] Basophils Percent Auto 0.6 0 - 2 % [facility] NRBC Pct Auto 0.0 0.0 - 0.2 /100WBC [facility] Neutrophils Absolute Auto 3.2 2.0 - 8.3 x10*3/uL [facility] Imm Gran Abs Auto 0.01 0.00 - 0.03 X10*3/uL [facility] Lymphocytes Absolute Auto 1.5 1.2 - 4.9 X10*3/uL [facility] Monocytes Absolute Auto 0.3 0.1 - 1.2 X10*3/uL [facility] Eosinophils Absolute Auto 0.0 0.0 - 0.4 X10*3/uL [facility] Basophils Absolute Auto 0.0 0.0 - 0.2 X10*3/uL [facility] NRBC Abs Auto 0.000 0.0 - 0.012 X10*3/uL [facility] Blood Venous blood specimen / Unknown 06/20/2025 3:52 PM EST 06/20/2025 3:52 PM EST Nikolas Frost MD LAB BLOOD ORDERABLES Final Result Performing Organization Address City/State/[facility] Co de Phone Number [facility] [address] [place] [phone] * ECG 12 lead (06/20/2025 3:09 PM EST) Narrative Nikolas Frost MD - 06/20/2025 3:09 PM EST NSR. [place]: 41 degrees. HR: 71 bpm. No Sign of LAE/HARLEY. No sign of hypertrophy. NO ST elevation or Depression. Normal EKG> Nikolas Frost MD ECG ORDERABLES Final Resul t documented in this encounter Visit Diagnoses Diagnosis Pre-op evaluation- Primary documented in this encounter Additional Health Concerns Assessment Noted Time PHQ-9 Depression Total Score: 21 025 2:14 PM EST documented as of this encounter Care Teams Balance And Hairspring Assembler Relationship Specialty Start Date End Date Nikolas Frost MD [address] [place] [phone] PCP - General Internal Medicine 04/11/25 documented as of this encounter
[2025-06-20 15:52] LABS: MANUAL DIFF FLAG NO
[2025-06-20 16:27] LABS: Hematocrit 36.4 % (37.0-47.0); Hemoglobin 12.1 g/dl (12.0-16.0); Imm Gran Abs Auto 0.01 X10*3/uL (0.00-0.03); Imm Gran Pct Auto 0.2 % (0.0-0.4); Lymphocytes Absolute Auto 1.5 X10*3/uL (1.2-4.9); Mean Corpuscular HGB Conc 33.2 g/dl (31.0-35.0); Mean Corpuscular Hemoglobin 30.1 pg (27.0-33.0); Mean Corpuscular Volume 90.5 fL (80.0-98.0); NRBC Abs Auto 0.000 X10*3/uL (0.0-0.012); NRBC Pct Auto 0.0 /100WBC (0.0-0.2); Platelet Count 218 X10*3/uL (160-400); Red Blood Count 4.02 X10*6/uL (4.20-5.50); Reticulocytes Absolute 0.029 X10*6/uL (0.026-0.095); White Blood Count 5.0 X10*3/uL (4.8-10.8)
[2025-06-20 17:24] LABS: Ferritin 47 ng/mL (10-250)
[2025-06-20 17:29] LABS: Anion Gap 11 (12-20)
[2025-06-20 17:34] LABS: Blood Urea Nitrogen 16 mg/dL (9-16); Calcium 8.8 mg/dL (8.4-10.2); Carbon Dioxide 25 mmol/L (22-29); Chloride 110 mmol/L (96-108); Estimated Glomerular Filt Rate > 60; Iron 33 mcg/dL (30-160); Percent Iron Saturation 16 % (15-50); Potassium 3.6 mmol/L (3.3-5.1); Sodium 142 mmol/L (135-145); Total Iron Binding Capacity 211 mcg/dL (228-428); Unsaturated Iron Binding 178 ug/dL
--- OUTSIDE RECORDS SUMMARY | 2025-06-20 20:01 | XMS_ITS | Encounter Summary ---
Author Organization [employer] [facility] Address [address] [place] [address] [address] [place] [address] Care Team Providers Care Clinical Biostatistics Director Name Role Phone Harsha Wang MD Primary Care Prov ider Nikolas Frost MD Primary Care Provider [phone]- [phone] Encounter Details Date Type Department [facility] Description 02/10/2025 Orders Only [facility] [address] [place], [place] [phone] Provider, Historical, Social History Tobacco Use Types [...] documented as of this encounter Care Teams Clinical Biostatistics Director Relationship Specialty Start Date End Date Harsha Wang MD [address] [place] [address] PCP - General Internal Medicine 11/11/24 04/10/25 Nikolas Frost MD [address] [place] [address] PCP - General Internal Medicine 04/11/25 documented as of this encounter
--- OUTSIDE RECORDS SUMMARY | 2025-06-20 20:01 | XMS_ITS | Encounter Summary ---
Author Organization [employer] Address [address] [facility] 7t [place] [address] Care Team Providers Care Apprenticeship Training Representative Name Role Phone Nikolas Frost MD Primary Care Provider [phone] Encounter Details Date Type Department Care Team (Latest Contact Info) Description 06/10/2025 Results Follow-Up [facility] [address] [place] [address] Jacquelyn Cadena ANP [address] [place] [address] CDiff Gene PCR, Stool - Gastrointestinal panel Social History Tobacco Use Types Packs/Day Years [...] as of this encounter Miscellaneous Notes * Result Encounter Note - YESSICA Rico - 06/10/2025 12:59 PM EST Addressed in note in chart documented in this encounter Plan of Treatment Not on file documented as of this encounter Visit Diagnoses Not on filedocumented in this encounter Additional Health Concerns Assessment Noted Time PHQ-9 Depression Total Score: 21 025 2:14 PM EST documented as of this encounter Care Teams Apprenticeship Training Representative Relationship Specialty Start Date End Date Nikolas Frost MD [address] [place] [phone] PCP - General Internal Medicine 04/11/25 documented as of this encounter
--- OUTSIDE RECORDS SUMMARY | 2025-06-20 20:01 | XMS_ITS | Encounter Summary ---
Author Organization [employer] Address [address] [place] [address] 7[address] [place] [address] Care Team Providers Care Spinal Surgeon Name Role Phone Harsha Wang MD Primary Care Prov ider Nikolas Frost MD Primary Care Provider [phone]- [phone] Encounter Details Date Type Department Care Team ([facility] st Contact Info) Description 01/24/2025 Orders Only [facility] [address] [place], [place] [phone] Provider, MD Julianne Social History Tobacco Use [...] documented as of this encounter Care Teams Spinal Surgeon Relationship Specialty Start Date End Date Harsha Wang MD [address] [place] [address] PCP - General Internal Medicine 11/11/24 04/10/25 Nikolas Frost MD [address] [place] [address] PCP - General Internal Medicine 04/11/25 documented as of this encounter
--- OUTSIDE RECORDS SUMMARY | 2025-06-20 20:01 | XMS_ITS | Encounter Summary ---
Author Organization [facility] Address [address] [place] [address] Care Team Providers Care Implementation Project Manager Name Role Phone Levy Harsha Peace Primary Care Provide r Encounter Details Date Type Department Care Team ([facility] Contact Info) Description 03/14/[address] [facility] - Main Lab [address] [facility] [place] [address] Patrick Basilio MD [address] [place] [address] Urinary tract infection, site not [...] Upcoming Encounters Date Type Department Care Team ([facility] Contact Info) Description 12/20/2025 4:00 PM EDT Appointment Radiology Department - [address] [phone] documented as of this encounter Procedures Procedure [...] reflex microscopic (03/14/2025 1:42 PM EDT) Specific May Urine 1.029 1.003 - 1.030 LAB URINALYSIS - AUTOMATED METHOD 03/14/2025 6:[address] [facility] pH, Urine 5.5 5.0 - 8.0 pH LAB URINALYSIS - AUTOMATED METHOD 03/14/2025 6:[address] [facility] Leukocytes, Urine Negative Negative LAB URINALYSIS - AUTOMATED METHOD 03/14/2025 6:[address] [facility] Nitrite, Urine Negative Negative LAB URINALYSIS - AUTOMATED METHOD 03/14/2025 6:[address] [facility] Protein, Urine Negative <=Trace mg/dL LAB URINALYSIS - AUTOMATED METHOD 03/14/2025 6:[address] [facility] Glucose, Urine Negative Negative mg/dL LAB URINALYSIS - AUTOMATED METHOD 03/14/2025 6:[address] [facility] Ketones, Urine Negative Negative mg/dL LAB URINALYSIS - AUTOMATED METHOD 03/14/2025 6:[address] [facility] Urobilinogen, Urine 1.0 0.2 - 1.0 mg/dL LAB URINALYSIS - AUTOMATED METHOD 03/14/2025 6:[address] [facility] Bilirubin, Urine Negative Negative LAB URINALYSIS - AUTOMATED METHOD 03/14/2025 6:[address] [facility] Blood, Urine Negative Negative LAB URINALYSIS - AUTOMATED METHOD 03/14/2025 6:[address] [facility] Urine Urine specimen from urethra / Unknown 03/14/2025 1:42 PM EDT 03/14/2025 6:02 PM EDT Patirck Basilio MD LAB URINE ORDERABLES Sybil l Result Performing Organization Address [facility] Co de Phone Number [facility] [address] [place] [address], [place] [phone] * Culture urine (03/14/2025 1:42 PM EDT) Culture, Urine 10,000-49,000 CFU/mL Mixed urogenital marilynn, no uropathogens present. Suggest repeat specimen if clinically indicated. 03/15/2025 1:14 PM EDT [facility] Urine Urine specimen from urethra / Unknown 03/14/2025 1:42 PM EDT 03/14/2025 6:02 PM EDT Patrick Basilio MD LAB MICROBIOLOGY - GENERA L ORDERABLES Final Result Performing Organization Address [facility] Co de Phone Number [facility] [address] [place] [address], [place] [phone] documented in this encounter Visit Diagnoses Diagnosis Urinary tract infection, site not specified documented in this encounter Care Teams Implementation Project Manager Relationship Specialty Start Date End Date Harsha Wang [address] [place] [address] PCP - General Internal Medicine 05/13/25 documented as of this encounter
--- OUTSIDE RECORDS SUMMARY | 2025-06-20 20:01 | XMS_ITS | Encounter Summary ---
Author Organization [employer] Address [address] [facility] 7 [place] [address] Care Team Providers Care Product Info Specialist Name Role Phone Harsha Wang MD Primary Care Prov ider Nikolas Frost MD Primary Care Provider [phone]- [phone] Reason for Visit * Reason Onset Date Comments Results 12/23/2024 Encounter Details Date Type Department Care Team (Late st Contact Info) Description 12/23/2024 Telephone [facility] [address] [place] [address] Harsha Wang MD [address] [place] [address] Results Social History Tobacco Use Types Packs/Day [...] - 12/23/2024 10:04 AM EDT Tc from [facility] with [facility] calling in regards to MR Brain results. She was informed pt is unable to receive results until February. Emmy is requesting a call back with results to clearher for TMS and or to deny if pcp feels necessary. Please contact Emmy at [phone]. documented in this encounter Plan of Treatment Not on file documented as of this encounter Visit Diagnoses Not on filedocumented in this encounter Additional Health Concerns Assessment Noted Time PHQ-9 Depression Total Score: 0 11/06/19 9:58 AM EDT documented as of this encounter Care Teams Product Info Specialist Relationship Specialty Start Date End Date LevyHarsha Hitchcock MD [address] [place] [address] PCP - General Internal Medicine 11/11/24 04/10/25 Nikolas Frost MD [address] [place] [address] PCP - General Internal Medicine 04/11/25 documented as of this encounter
--- OUTSIDE RECORDS SUMMARY | 2025-06-20 20:01 | XMS_ITS | Encounter Summary ---
Author Organization [employer] Address [address] [facility] 7t [place] [address] Care Team Providers Care Investments Manager Name Role Phone Harsha Wang MD Primary Care Prov ider Nikolas Frost MD Primary Care Provider [phone]- [phone] Reason for Visit * Reason Comments Med Refill Encounter Details Date Type Department Care Team ([facility] st Contact Info) Description 02/21/2025 Refill [facility] [address] [place] [address] Harsha Wang MD [address] [place] [address] Social History Tobacco Use Types Packs/Day Years [...] documented as of this encounter Care Teams Investments Manager Relationship Specialty Start Date End Date Harsha Wang MD [address] [place] [address] PCP - General Internal Medicine 11/11/24 04/10/25 Nikolas Frost MD [address] [place] [address] PCP - General Internal Medicine 04/11/25 documented as of this encounter
--- OUTSIDE RECORDS SUMMARY | 2025-06-20 20:01 | XMS_ITS | Encounter Summary ---
Author Organization [employer] Address [address] [facility] 7t [place] [address] Care Team Providers Care Tile Power Shear Operator Name Role Phone Harsha Wang MD Primary Care Prov ider Nikolas Frost MD Primary Care Provider [phone]- [phone] Reason for Referral * Consultation (Routine) - Closed Specialty Diagnoses / Procedures Referred By Contac t Referred To Contact Rheumatology Diagnoses SLE (systemic lupus erythematosus related syndrome) (CMS/HCC) ([facility]) Nikolas Frost MD [address] [place] [address] Phone: tel: fax: [facility] [address] Phone: tel: fax: Referral ID Status Reason Start Date Expiration Date V isits Requested Visits Authorized [id number] Closed Specialty Services Required 12/03/2024 12/03/2025 1 1 Encounter Details Date Type Department Care Team ([facility] st Contact Info) Description 12/03/2024 Orders Only [facility] [address] [place], [place] [phone] Nikolas Frost MD [address] [place] [address] SLE (systemic lupus erythematosus related syndrome) (CMS/HCC) [...] Date/Time Associated Diagnosis Comments AMB REFERRAL TO RHEUMATOLOGY Routine 06/15/2025 SLE (systemic lupus erythematosus related syndrome) (CMS/HCC) (HCC) documented in this encounter Results * Referral to Rheumatology (06/15/2025) us Nikolas Frost MD OUTPATIENT REFERRAL ORDERAB LES Final Result documented in this encounter Visit Diagnoses Diagnosis SLE (systemic lupus erythematosus related syndrome) (CMS/HCC) (HCC)- Primary Systemic lupus erythematosus documented in this encounter Additional Health Concerns Assessment Noted Time PHQ-9 Depression Total Score: 0 11/06/19 9:58 AM EDT documented as of this encounter Care Teams Tile Power Shear Operator Relationship Specialty Start Date End Date LevyHarsha Watson MD [address] [place] [address] PCP - General Internal Medicine 11/11/24 04/10/25 Nikolas Frost MD [address] [place] [address] PCP - General Internal Medicine 04/11/25 documented as of this encounter
--- OUTSIDE RECORDS SUMMARY | 2025-06-20 20:01 | XMS_ITS | Data Portability ---
Author Organization [place] [facility] Address [address] [place] [address] Care Team Providers Care Lpn Per Diem Name Role Phone CHERI JARA Primary Care Provider [phone] Assessment Encounter Date Assessment Date Assessment LastModified by Organization Details LastModified Time 12/27/2024 12/27/2024 59-year-old female presents for follow-up of asymmetric hearing loss. On exam, bilateral tympanic membranes are intact with well aerated middle ear spaces. Audiometric testing demonstrates an essentially stable high-frequency sensorineural hearing loss on the left and normal hearing on the right. MRI brain without contrast 12/09/2024 at [facility] demonstrated nonspecific white matter likely sequela [...] - next available ....IAC protocol 2024 025 [facility] Mri Department, [address] [place] [address], [place], [address], 16:14:50 Medication Orders None recorded. Patient TargetsNo [...] wo and W contr ast See Note [facility] , a member of [facility] Name: CHRIS QUINN Date of : 1965 Reason for Exam: snhl Exam Date: 2024 [id number] EST Report Status : Final Orderi ng [...] Thin images perfor med throug h the digital intern al audito ry canals bilate rally [...] Edit Transc ribed Date: 2024 15:21 ET [id number] [facility] U/S Dept [address] [place], [address], 01/24/2025 15:56:59 Result Notes None recorded. Problems Name Problem SNOMED Code Status Onset Date Resolution Date Notes Provider Name and Address Organization Details Recorded Time Hypertrop hy of nasal turbinate s 46432567 Active 2016 Hypertrop hy of nasal turbinate s; Note: Date Diagnosed : 12/25/2016 9:15 AM (J34.3) Not Available [facility] 4 02:48:53 Bleeding from nose 364885266 Active 2016 Epistaxis ; Note: Date Diagnosed : 12/25/2016 8:59 AM (R04.0) Not Available [facility] 4 02:48:55 Mild intermitt ent asthma 086124544 Active 2016 Mild intermitt ent asthma, uncomplic ated; Note: Date Diagnosed : 12/25/2016 9:27 AM (J45.20) Not Available [facility] 4 02:48:56 Deviated nasal septum 709965749 Active 2016 Deviated nasal septum; Note: Date Diagnosed : 12/25/2016 9:15 AM (J34.2) Not Available [facility] 4 02:48:57 Allergic rhinitis 67391365 Active 2016 Other allergic rhinitis; Note: Date Diagnosed : 12/25/2016 9:12 AM (J30.89) Erica tobias allergic rhinitis; Note: Date Diagnosed : 12/25/2016 9:12 AM (J30.89) Not Available [facility] 4 02:48:56 Bilateral disorder of Eustachia n tubes 36966667341 57829 Active 2019 Other specified disorders of Eustachia n tube, bilateral ; Note: Date Diagnosed : 09/20/2019 1:57 PM (H69.83) Not Available [facility] 4 02:48:57 Abnormal auditory perceptio n 86721106 Active 2019 Other abnormal auditory perceptio ns, bilateral ; Note: Date Diagnosed : 09/20/2019 5:10 PM (H93.293) Not Available [facility] 4 02:48:55 Sj gren's syndrome 84122872 Active 2019 Sicca syndrome [Sjogren] ; Note: Date Diagnosed : 03/01/2020 2:13 PM (M35.0) Not Available [facility] 4 02:48:52 Sensorine ural hearing loss 30187504 Active 2023 Sensorine ural hearing loss, unilatera l, left ear, with unrestric everardo hearing on the contralat eral side; Note: Date Diagnosed : 11/17/2023 12:47 PM (H90.42) Not Available [facility] 4 02:48:54 Dizziness and giddiness 164428978 Active 2023 Dizziness and giddiness ; Note: Date Diagnosed : 11/17/2023 12:49 PM (R42) Not Available [facility] 4 02:48:57 Bilateral tinnitus 42374600971 02 Active 2024 PETE LARA PA-C [address] [place] [address], [place], [address] , [facility] - [facility] 5 15:15:08 Problem Notes None recorded. Procedures Surgical History Date Name Laterality Status Provider Name and Address Organization Details Recorded Time 12/27/2024 Air & Speech Audio with Tymps - 52169, 03688 & 40980 completed CINDY MEJÍA, AUD [address] [facility] [address], [place], [address], [facility] - [facility] 12/27/2024 14:05:20 Imaging Results None recorded. Procedure Notes None recorded. Medical Equipment None Reported. Allergies Allergen ID Allergen Name Allergen Category Reaction Reaction Severity Criticality Documentation Date Start Date Code Code System Note Provider Name and Address Organization Details Recorded Time 007601 Benadryl medicatio n hives Not available Not available 02/27/2024 81891 7 RxNorm React ion: hives ; Not Available [facility] 4 00:31:35 26472 latex environme nt,medica tion other Not available Not available 12/09/2023 19992 91 RxNorm React ion: unkno wn, unspe cifie d;; Not Available [facility] 4 01:04:17 Medications Name Sig Start [...] mg tablet 11/16 completed Medicati on ID: [id number] D uration Value: 30 Brand Name: quetiapi [...] mg tablet 03/01 completed Medicati on ID: [id number] D uration Value: 30 Reason: () Brand Name: quetiapi ne Send Method: E-Prescr ibed Sub s Allowed: subs OK Speci al Instruct ion: TK 1 T PO Q NIGHT Me dication GenericN anay: quetiapi ne Not Available Not Available Not Available Nortrel (28) 1 mg-35 mcg tablet 03/01 completed Medicati on ID: [id number] D uration Value: 28 Reason: () Brand Name: Nortrel 35 (28) Sen d Method: E-Prescr ibed Sub s Allowed: subs OK Speci al Instruct ion: TK 1 T PO D Medica tionGene ricName: Nortrel (28) Not Available Not Available Not Available trazodone 100 mg tablet 03/01 completed Medicati on ID: [id number] D uration Value: 30 Reason: () Brand Name: trazodon e Send Method: E-Prescr ibed Sub s Allowed: subs OK Speci al Instruct ion: TK 3 TS PO QHS Medi cationGe nericNam e: trazodon e Not Available Not Available Not Available benzonata te 100 mg capsule 12/27 completed Medicati on ID: [id number] B rand Name: benzonat ate Send Method: E-Prescr ibed Sub s Allowed: subs OK Speci al Instruct ion: TAKE 1 CAPSULE BY MOUTH THREE TIMES A DAY FOR 7 DAYS NEEDED FOR COUGH Me dication GenericN anay: benzonat ate Not Available Not Available Not Available lansopraz ole 30 mg capsule,d elayed release 03/01 completed Medicati on ID: [id number] D uration Value: 30 Reason: () Brand Name: lansopra zole Sen d Method: E-Prescr ibed Sub s Allowed: subs OK Speci al Instruct ion: TK 1 C PO D Medica tionGene ricName: lansopra zole Not Available Not Available Not Available prednison e 50 mg tablet 12/27 completed Medicati on ID: [id number] B rand Name: predniso ne Send Method: [...] mg capsule 11/16 completed Medicati on ID: [id number] D uration Value: 35 Brand Name: gabapent [...] tended release 11/16 completed Medicati on ID: [id number] D uration Value: 30 Brand Name: cyanocob [...] auto-inje ctor 11/16 completed Medicati on ID: [id number] D uration Value: 2 Brand Name: epinephr ine Send Method: E-Prescr ibed Sub s Allowed: subs OK Medic ationGen ericName : epinephr ine Not Available Not Available Not Available levofloxa eve 750 mg tablet 12/27 completed Medicati on ID: [id number] B rand Name: levoflox acin Sen d Method: E-Prescr ibed Sub s Allowed: subs OK Medic ationGen ericName : levoflox acin Not Available Not Available Not Available norethind james (contrace ptive) 0.35 mg tablet 11/16 completed Medicati on ID: [id number] D uration Value: 28 Brand Name: norethin drone (contrac eptive) Send Method: E-Prescr ibed Sub s Allowed: subs OK Speci al Instruct ion: TK 1 T PO AT THE SAME TIME QD Medic ationGen ericName : norethin drone (contrac eptive) Not Available Not Available Not Available fluoxetin e 20 mg capsule 03/01 completed Medicati on ID: [id number] D uration Value: 30 Reason: () Brand Name: fluoxeti ne Send Method: E-Prescr ibed Sub s Allowed: subs OK Speci al Instruct ion: TK 3 CS PO QAM Medi cationGe nericNam e: fluoxeti ne Not Available Not Available Not Available fluticaso ne propionat e 50 mcg/actua tion nasal spray,mana pension 11/16 completed Medicati on ID: [id number] D uration Value: 90 Brand Name: fluticas [...] mg tablet 11/16 completed Medicati on ID: [id number] D uration Value: 30 Brand Name: loratadi [...] unit) capsule 11/16 completed Medicati on ID: [id number] D uration Value: 30 Brand Name: Vitamin [...] mg tablet 03/01 completed Medicati on ID: [id number] D uration Value: 30 Reason: () Brand Name: Vesicare Send Method: E-Prescr ibed Sub s Allowed: subs OK Speci al Instruct ion: TK 1 T PO D Medica tionGene ricName: Vesicare Not Available Not Available Not Available Vesicare 10 mg tablet 03/01 completed Medicati on ID: 110625 D uration Value: 30 Reason: () Brand Name: Vesicare Send Method: E-Prescr ibed Sub s Allowed: subs OK Speci al Instruct ion: TK 1 T PO D Medica tionGene ricName: Vesicare Not Available Not Available Not Available ProAir HFA 90 mcg/actua tion aerosol inhaler 2016 active Medicati on ID: [id number] D uration Value: 16 Brand Name: ProAir HFA Send Method: E-Prescr ibed Sub s Allowed: subs OK Speci al Instruct ion: INL 2 PUFFS PO Q 4 H PRF COUGH OR WHEEZING Medicat ionGener icName: ProAir HFA Medi cation ID: [id number] D uration Value: 16 Brand Name: ProAir HFA Send Method: E-Prescr ibed Sub s Allowed: subs OK Speci al Instruct ion: INL 2 PUFFS PO Q 4 H PRF COUGH OR WHEEZING Medicat ionGener icName: ProAir HFA Not Available Not Available Not Available quetiapin e 400 mg tablet 03/01 completed Medicati on ID: [id number] D uration Value: 30 Reason: () Brand Name: quetiapi ne Send Method: E-Prescr ibed Sub s Allowed: subs OK Speci al Instruct ion: TK 1 T PO Q NIGHT Me dication GenericN anay: quetiapi ne Not Available Not Available Not Available ProAir HFA 11/16 completed Medicati on ID: [id number] D uration Value: 16 Brand Name: Rivera [...] Updated DateTime 12/27/2024 157.48 cm 24.5 kg/m2 73981.38 g Bridget Tinoco [place] [facility] 12/27/2024 14:17:39 Social History None recorded. Functional Status None recorded. Mental Status None recorded. Family History Nothing Reported. Medical History No medical history recorded. Gynecological HistoryNo gynecological history recorded. Obstetrics History GPAL:G 0 P 0 0 0 0 Past Encounters Encounter ID Performer Location Encounter Start Date Encounter Closed Date Diagnosis/Indication Diagnosis SNOMED-CT Code Diagnosis ICD10 Code Diagnosis IMO Codes Diagnosis Note [id number] PETE LARA PA-C [facility] [address] [address] 12/27/2024 13:37:11 12/27/2024 15:46:54 Sensorineural hearing loss 59158870 H90.42 Audiologic al evaluation results: Right ear: Normal hearing with excellent word recognitio n. Left ear: Normal hearing with the exception of a moderate SNHL at 8000Hz with excellent word recognitio n. Tympanomet ry: Right Ear:Type A Left Ear:Type As Bilateral tinnitus 43669 37797 102 H93.13 406253 Health Concerns Section Related Observation LastModified by Organization Detai ls LastModified Time None Recorded Concern Status LastModified by Organization Details LastModified Time None Recorded Advance Directives Directive None Recorded Payers Insurance Date Sequence Insurance Name Policy Number Policy Sarabia Covered Member ID Sarabia Member ID Guarantor Name 12/27/2024 1 [facility] (MEDICARE REPLACEMENT/A DVANTAGE - HMO) [employer] Chris Dygon [id number] Chris Dygon 12/27/2024 1 [facility] (MEDICARE REPLACEMENT/A DVANTAGE - POS) [employer] Chris Dygon [id number] Chris Dygon Notes Date Note Type Note [...] hearing. Reports intermittent tinnitus. ADELINA SENA MD [address] [place] [address], [place], [address], [facility] - [facility] 12/27/2024 15:30:27 OBGyn Episode No OBEpisode recorded.
--- OUTSIDE RECORDS SUMMARY | 2025-06-20 20:01 | XMS_ITS | Encounter Summary ---
Author Organization [facility] Address [address] [place] [address] Care Team Providers Care Amusement Ride Inspector Name Role Phone Levy Harsha Peace Primary Care Provide r Encounter Details Date Type Department Care Team ([facility] Contact Info) Description 03/17/2025 Lab Requisition [facility] - Main Lab [address] [facility] [place] [address] Soto Reddy PA [address] [place] [address] Urge incontinence Social History Tobacco [...] 4:00 PM EDT Appointment Radiology Department - [address] [phone] documented as of this encounter Procedures Procedure Name Priority Date/Time Associated Diagnosis Comments CULTURE URINE Routine 03/17/2025 12:00 AM EDT Urge incontinence documented in this encounter Results * Culture urine (03/17/2025 12:00 AM EDT) Culture, Urine 10,000-49,000 CFU/mL Mixed urogenital marilynn, no uropathogens present. Suggest repeat specimen if clinically indicated. 03/18/2025 1:24 PM EDT [facility] Urine Urine specimen obtained by clean catch procedure / Unknown 03/17/2025 03/17/2025 6:09 PM EDT us [facility] MICROBIOLOGY - GENERAL ORD ERABLES Final Result [facility] [address] [place] [address], documented in this encounter Visit Diagnoses Diagnosis Urge incontinence documented in this encounter Care Teams Amusement Ride Inspector Relationship Specialty Start Date End Date Harsha Wang [address] [place] [address] PCP - General Internal Medicine 05/13/25 documented as of this encounter
--- OUTSIDE RECORDS SUMMARY | 2025-06-20 20:02 | XMS_ITS | Encounter Summary ---
Author Organization [employer] Address [address] [employer] [address] 7t [place] [address] Care Team Providers Care Global Vp Creative + Content Marketing Name Role Phone Nikolas Frost MD Primary Care Provider Reason for Visit * Reason Comments Med Refill Encounter Details Date Type Department Care Team ([facility] st Contact Info) Description 06/13/2025 Refill [facility] [address] [place] [address] Nikolas Frost MD [address] [place] [address] Social History Tobacco Use Types Packs/Day Years [...] with others, in a hotel, in a halfway, living outside on the street, on a [...] documented as of this encounter Care Teams Global Vp Creative + Content Marketing Relationship Specialty Start Date End Date Nikolas Frost MD [address] [place] [address] PCP - General Internal Medicine 04/11/25 documented as of this encounter
--- OUTSIDE RECORDS SUMMARY | 2025-06-20 20:02 | XMS_ITS | Encounter Summary ---
Author Organization [facility] Address [address] [place] [address] Care Team Providers Care Apartment Maintenance Supervisor Name Role Phone Harsha Wang Primary Care Provide r Reason for Visit * Reason Onset Date Comments Medical Records 05/13/2025 Encounter Details Date Type Department Care Team ([facility] Contact Info) Description 05/13/2025 Telephone [facility] [address] [place] [address] Provider, Not In System Social History Tobacco Use Types Packs/Day Years [...] as of this encounter Progress Notes * Cecilia Ibarra - 06/20/2025 4:32 PM EST Patient picked up copies of 2021 and 2024 Echo CD's and reports on 05/20/2025 documented in this encounter Plan of Treatment Upcoming Encounters Date Type Department Care Team (Late Contact Info) Description 12/20/2025 4:00 PM EDT Appointment Radiology Department - [address] [phone] documented as of this encounter Visit Diagnoses Not on filedocumented in this encounter Care Teams Apartment Maintenance Supervisor Relationship Specialty Start Date End Date Harsha Wang [address] [place] [id number] PCP - General Internal Medicine 05/13/25 documented as of this encounter
--- OUTSIDE RECORDS SUMMARY | 2025-06-20 20:02 | XMS_ITS | Clinical Summary ---
Author Organization [facility] Address [address] [place] [address] Care Team Providers Care Darkroom Worker Name Role Phone Rey Galavn MD Primary Care Provider [phone] Allergies Active Allergy Reactions Criticality Noted Date [...] age to complete this topic Care Teams Darkroom Worker Relationship Specialty Start Date End Date Rey Galvan MD PCP - General Internal Medicine 06/04/21
--- OUTSIDE RECORDS SUMMARY | 2025-06-20 20:02 | XMS_ITS | Encounter Summary ---
Author Organization [employer] Address [address] [place] [address] Care Team Providers Care Mix House Tender Name Role Phone Nikolas Frost MD Primary Care Provider [phone] Encounter Details Date Type Department Care Team (Latest Contact Info) Description 06/20/2025 Travel Social History Tobacco Use Types Packs/Day [...] documented as of this encounter Care Teams Mix House Tender Relationship Specialty Start Date End Date Nikolas Frost MD [address] [place] [address] PCP - General Internal Medicine 04/11/25 documented as of this encounter
--- OUTSIDE RECORDS SUMMARY | 2025-06-20 20:02 | XMS_ITS | Clinical Summary ---
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 [facility] Urea Nitrogen (BUN) 20(H) 9 - 16 mg/dL [facility] Creatinine, Serum 0.56 0.5 - 1.4 mg/dL [facility] Creatinine Clr Calc Pharmacy 96.4 [facility] Comment:Provided height and weight: 158.75 cm,62.596 kg.eGFR (calculated from the MDRD study equation) and eCrCl(calculated from the Cockcroft-Gault equation) are based ondifferent parameters and may not yield comparable results.If eCrCl result is absurd, please check patient'sheight/weight. Estimated Glomerular Filt Rate >60 [facility] Comment:Chronic Kidney Disea se: Estimated GFR < 60 mL/min/1.38p8Bkxeqv Kidney Disease: Estimated GFR < 15 mL/min/1.73m2 Glucose 101 60 - 115 mg/dL [facility] Calcium 8.8 8.4 - 10.2 mg/dL [facility] Bilirubin, Total 0.2 0.0 - 1.0 mg/dL [facility] Aspartate Amino Transferase 19 5 - 31 U/L [facility] Alanine Aminotransferase 13 0 - 31 U/L [facility] Total Protein 7.1 6.5 - 8.0 g/dL [facility] Albumin Level 4.1 3.5 - 5.0 g/dL [facility] Alkaline Phosphatase 76 39 - 117 U/L [facility] 05/16/2025 8:41 PM EDT 05/16/2025 8:48 PM EDT us Generic External Data Provider LAB BLOOD ORDERAB LES Final Result [facility] [address] [place] [phone] * MR Shoulder w/o Contrast Right (05/14/2025 8:55 AM EDT) Anatomical Region Laterality Modality Upper Extremities, Shoulder Right Magn etic Resonance 05/14/2025 8:55 AM EDT Narrative 05/16/2025 8:34 AM EDT [place] [address] Magnetic Resonance Report Signed Patient: Phoebe Garnett MR#: [id number] : 1965 Acct:[id number] Age/Sex: 59 / F ADM Date: 05/14/25 Loc: HO.MRI Attending Dr: Michael Huang MD Ordering Physician: Michael Huang MD Date of Service: 05/14/25 Procedure(s): MR shoulder RT wo con Accession Number(s): [id number] cc: Harsha Wang MD; Michael Huang MD [...] 05/16/25 0831 DD/ 0855 TD/TT: 05/14/25 0911 Limb Driver: LB Procedure Note Donotuseinterpreter, Image - 05/16/2025 [place] [address] Magnetic Resonance Report Signed Patient: Sage Garnett#: [id number] : 1965Acct:[id number] Age/Sex: 59 / FADM Date: 05/14/25 Loc: HO.MRI Attending Dr: Michael Huang MD Ordering Physician: Michael Huang MD Date of Service: 05/14/25 Procedure(s): MR shoulder RT wo con Accession Number(s): [id number] cc: Harsha Wang MD; Micheal Huang MD Reason for Exam: M25.311 - [...] Mason Hill MD 05/16/2025 08:31 AM EDT RP Dictated By: Mason Hill MD Signed By: <Electronically signed by Mason Hill MD in OV> 05/16/25 0831 DD/ 0855 TD/TT: 05/14/25 0911 Limb Driver: [facility] External Provider IMG MRI PROCEDURES Edited Result - Final * Transthoracic Echo (TTE) Complete (05/13/2025) Harsha Peace MD CV ECHO PROCEDURES Final Result * Referral to Orthopaedic Surgery (04/01/2025) Carline Fregoso MD OUTPATIENT REFERRAL ORDERA BLES Final Result * Mammography (12/17/2024 4:03 PM EDT) Anatomical Region Laterality Modality Other Julianne Provider HEALTH MAINTENANCE Final Result * (ABNORMAL) PAP/HPV (03/18/2023) Pap Smear 1. NILM 1. NILM HPV Detected(A ) Undetected, Indeterminate , Quantitative, Not Detected us Historical Provider HEALTH MAINTENANCE Final Result from Last 3 Months or Most Recently Relevant to Health Maintenance Insurance [facility] [address] Care Teams Dry Ice Machine Operator Relationship Specialty Start Date End Date Nikolas Frost MD [address] [place] [phone] PCP - General Internal Medicine 04/11/25
--- OUTSIDE RECORDS SUMMARY | 2025-06-20 20:02 | XMS_ITS | Encounter Summary ---
Author Organization [employer] Address [address] [facility] 7t [place] [address] Care Team Providers Care Psych Nurse Name Role Phone Nkiolas Frost MD Primary Care Provider [phone]- [phone] Encounter Details Date Type Department Care Team ([facility] st Contact Info) Description 05/27/2025 Results Follow-Up [facility] PEDS [address] [place], [place] [phone] Nikolas Frost MD [address] [place] [address] Lipid Panel, Standard, Lead, Venous, Hepatitis C [...] documented as of this encounter Care Teams Psych Nurse Relationship Specialty Start Date End Date Nikolas Frost MD [address] [place] [address] PCP - General Internal Medicine 04/11/25 documented as of this encounter
--- OUTSIDE RECORDS SUMMARY | 2025-06-20 20:02 | XMS_ITS | Encounter Summary ---
Author Organization [employer] Address [address] [facility] [address]t [place] [address] Care Team Providers Care Occupational Therapy Asst Name Role Phone Nikolas Frost MD Primary Care Provider [phone]- [phone] Reason for Visit * Reason Onset Date Comments Results 05/19/2025 Encounter Details Date Type Department Care Team ([facility] Contact Info) Description 05/19/2025 Telephone [facility] PEDS [address] [place] [address] Nikolas Frost MD [address] [place] [address] Results Social History Tobacco Use Types Packs/Day [...] 05/19/2025 12:00 PM EDT Echo faxed to [facility] [place] [place] as requested. * Telephone Encounter - Dalila Langford - 05/19/2025 10:24 AM EDT Tc from Aurea at [facility] [place] [place] orthopedics requesting echo results done on 05/13 Contact Aurea at [phone] documented in this encounter Plan of Treatment Not on file documented as of this encounter Visit Diagnoses Not on filedocumented in this encounter Additional Health Concerns Assessment Noted Time PHQ-9 Depression Total Score: 0 11/06/19 25 9:58 AM EDT documented as of this encounter Care Teams Occupational Therapy Asst Relationship Specialty Start Date End Date Nikolas Frost MD [address] [place] [phone] PCP - General Internal Medicine 04/11/25 documented as of this encounter
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
--- OUTSIDE RECORDS SUMMARY | 2025-06-20 20:02 | XMS_ITS | Encounter Summary ---
Author Organization [employer] Address [address] [facility] [address] [place] [address] Care Team Providers Care Warehouse Specialist Name Role Phone Nikolas Frost MD Primary Care Provider [phone]- [phone] Encounter Details Date Type Department Care Team ([facility] st Contact Info) Description 05/27/2025 Results Follow-Up [facility] MED & PEDS [address] [place], [place] [phone] Nikolas Frost MD [address] [place] [address] TSH W/Reflex to FT4 Social History Tobacco [...] documented as of this encounter Care Teams Warehouse Specialist Relationship Specialty Start Date End Date Nikolas Frost MD [address] [place] [phone] PCP - General Internal Medicine 04/11/25 documented as of this encounter
== END 2025-06-20 15:22 | disposition home or self-care (01) ==
LOC: HO.LAB 15:21
PROVIDERS: PCP Internal Medicine; Visit Provider Internal Medicine
DX: Z01.818 Encounter for other preprocedural examination (principal); Z13.0 Encounter for screening for diseases of the blood and blood-forming organs and certain disorders involving the immune mechanism
CPT/HCPCS: 36415; 80048; 82728; 83540; 85025; 85045

== ENCOUNTER 2025-06-22 10:02 | Outpatient (AMB) | payer MEDICARE, SELFPAY ==
--- OUTSIDE RECORDS SUMMARY | 2025-06-20 14:00 | XMS_ITS | Encounter Summary ---
Author Organization [employer] Address [address] [facility] 7 [place] [address] Care Team Providers Care Relief Pharmacist Name Role Phone Nikolas Frost MD Primary Care Provider Reason for Visit * Reason Comments Pre op evaluation Encounter Details Date Type Department Care Team ([facility] Contact Info) Description 06/20/2025 2:00 PM EST Office Visit [facility] MED & PEDS [address] [place] [address] Nikolas Frost MD [address] [place] [address] Pre-op evaluation (Primary Dx) Social History Tobacco [...] pain requiring podiatric evaluation. - Referral to tooling manager to be placed. This note was drafted using Ambient (AI) technology. 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 [address] [place] [address] Nikolas Frost MD [address] [place], [place] [phone] documented as of this encounter Procedures Procedure [...] Reticulocytes Absolute 0.029 0.026 - 0.095 X10*6/uL [facility] Immature Retic Fraction 2.4(L) 3.0 - 15.9 % [facility] Retic HGB Equivalent 32.7 30.0 - 35.0 pg [facility] Reticulocyte Percent 0.7 0.5 - 1.8 % [facility] Blood Venous blood specimen / Unknown 06/20/2025 3:52 PM EST 06/20/2025 3:52 PM EST us Nikolas Frost MD LAB BLOOD ORDERABLES Final Result Performing Organization Address [facility] Co de Phone Number [facility] [address] [place] [phone] * Ferritin (06/20/2025 3:52 PM EST) Ferritin 47 10 - 250 ng/mL [facility] Blood Venous blood specimen / Unknown 06/20/2025 3:52 PM EST 06/20/2025 3:52 PM EST us Nikolas Frost MD LAB BLOOD ORDERABLES Final Result Performing Organization Address [facility] Phone Number [facility] [address] [place] [phone] * (ABNORMAL) Iron And Total Iron Binding Capacity (06/20/2025 3:52 PM EST) Pathologist [facility] Iron 33 30 - 160 mcg/dL [facility] Total Iron Binding Capacity 211(L) 228 - 428 mcg/dL [facility] Percent Iron Saturation 16 15 - 50 % [facility] Unsaturated Iron Binding 178 ug/dL [facility] Blood Venous blood specimen / Unknown 06/20/2025 3:52 PM EST 06/20/2025 3:52 PM EST us Nikolas Frost MD LAB BLOOD ORDERABLES Final Result Performing Organization Address [facility] Phone Number [facility] [address] [place] [phone] * (ABNORMAL) Basic Metabolic Panel (06/20/2025 3:52 PM EST) Sodium 142 135 - 145 mmol/L [facility] Potassium 3.6 3.3 - 5.1 mmol/L [facility] Chloride 110(H) 96 - 108 mmol/L [facility] Carbon Dioxide 25 22 - 29 mmol/L [facility] Anion Gap 11(L) 12 - 20 [facility] Urea Nitrogen (BUN) 16 9 - 16 mg/dL [facility] Creatinine, Serum 0.58 0.5 - 1.4 mg/dL [facility] Estimated Glomerular Filt Rate >60 [facility] Comment:Chronic Kidney Disea se: Estimated GFR < 60 mL/min/1.04y1Isppkb Kidney Disease: Estimated GFR < 15 mL/min/1.73m2 Glucose 111 60 - 115 mg/dL [facility] Calcium 8.8 8.4 - 10.2 mg/dL [facility] Blood Venous blood specimen / Unknown 06/20/2025 3:52 PM EST 06/20/2025 3:52 PM EST us Nikolas Frost MD LAB BLOOD ORDERABLES Final Result [facility] [address] [place] [phone] * (ABNORMAL) CBC auto differential (06/20/2025 3:52 PM EST) White Blood Count 5.0 4.8 - 10.8 X10*3/uL [facility] Red Blood Count 4.02(L) 4.20 - 5.50 X10*6/uL [facility] Hemoglobin 12.1 12.0 - 16.0 g/dl [facility] Hematocrit 36.4(L) 37.0 - 47.0 % [facility] Mean Corpuscular Volume 90.5 80.0 - 98.0 fL [facility] Mean Corpuscular Hemoglobin 30.1 27.0 - 33.0 pg [facility] Mean Corpuscular HGB Conc 33.2 31.0 - 35.0 g/dl [facility] Red Cell Distribution Width 13.2 11.0 - 16.0 % [facility] Platelet Count 218 160 - 400 X10*3/uL [facility] Mean Platelet Volume 10.1 9.4 - 12.3 fL [facility] Neutrophils Percent Auto 63.2 45 - 73 % [facility] Imm Gran Pct Auto 0.2 0.0 - 0.4 % [facility] Lymphocytes Percent Auto 30.0 20 - 40 % [facility] Monocytes Percent Auto 5.4 2 - 11 % [facility] Eosinophils Percent Auto 0.6 0 - 4 % [facility] Basophils Percent Auto 0.6 0 - 2 % [facility] NRBC Pct Auto 0.0 0.0 - 0.2 /100WBC [facility] Neutrophils Absolute Auto 3.2 2.0 - 8.3 x10*3/uL [facility] Imm Gran Abs Auto 0.01 0.00 - 0.03 X10*3/uL [facility] Lymphocytes Absolute Auto 1.5 1.2 - 4.9 X10*3/uL [facility] Monocytes Absolute Auto 0.3 0.1 - 1.2 X10*3/uL [facility] Eosinophils Absolute Auto 0.0 0.0 - 0.4 X10*3/uL [facility] Basophils Absolute Auto 0.0 0.0 - 0.2 X10*3/uL [facility] NRBC Abs Auto 0.000 0.0 - 0.012 X10*3/uL [facility] Blood Venous blood specimen / Unknown 06/20/2025 3:52 PM EST 06/20/2025 3:52 PM EST Nikolas Frost MD LAB BLOOD ORDERABLES Final Result [facility] [address] [place] [phone] * ECG 12 lead (06/20/2025 3:09 PM EST) Narrative Nikolas Frost MD - 06/20/2025 3:09 PM EST NSR. [place]: 41 degrees. HR: 71 bpm. No Sign of LAE/HARLEY. No sign of hypertrophy. NO ST elevation or Depression. Normal EKG> us Nikolas Frost MD ECG ORDERABLES Final Resul t documented in this encounter Visit Diagnoses Diagnosis Pre-op evaluation- Primary documented in this encounter Additional Health Concerns Assessment Noted Time PHQ-9 Depression Total Score: 21 025 2:14 PM EST documented as of this encounter Care Teams Relief Pharmacist Relationship Specialty Start Date End Date Nikolas Frost MD [address] [place] [phone] PCP - General Internal Medicine 04/11/25 documented as of this encounter
--- NOTE | 2025-06-22 10:06 | A.OFFVIS_ITS ---
Vital Signs 06/22/25 10:18 Height 5 ft 2 in Weight 135 lb BMI 24.7 BP 131/79 Blood Pressure Location Lt brachial Position Sitting Pulse 77 Pulse Oximetry (%) 97 Handedness Right Intake Visit Reasons: Right shoulder pain Intake Note: Phoebe is a 59 year old female right hand dominant who presents with complaints of progressively worsening right shoulder pain. The patient states that her symptoms began approximately 2 years ago after she underwent cervical spine surgery in [place]. She has failed the last 6 weeks of conservative treatment which has included Tylenol, anti-inflammatory medicines, a home exercise program and physical therapy exercises. The patient states that she recently had an EMG of her right upper extremity. The results are not available today. She reports increased pain when lifting her right hand above shoulder height. Allergies pineapple (Pineapple) Allergy (Intermediate, Verified 06/22/25 10:20) THROAT ITCHES latex (Latex) Allergy (Mild, Verified 06/22/25 10:20) Rash, Hives diphenhydramine (From BENADRYL) Allergy (Unknown, Verified 06/22/25 10:20) UNKNOWN ayanna Allergy (Unknown, Verified 06/22/25 10:20) HIVES ayanna flavor Allergy (Unknown, Verified 06/22/25 10:20) Itching shellfish derived Allergy (Unknown, Verified 06/22/25 10:20) Rash, throat itches Medication List - Last Reconciled 06/22/25 by Michael Huang MD azelastine 2 sprays intranasal DAILY PRN Bacillus coagulan-calcium carb 2 billion cell- 140 mg (Digestive Advantage Probiotic) 1 cap PO DAILY cholecalciferol (vitamin D3) 125 mcg PO DAILY ketotifen fumarate 0.025%(0.035%) 1 drp ophthalmic (eye) QID PRN mirabegron ER (Myrbetriq) 50 mg PO DAILY omeprazole 20 mg PO DAILY ondansetron 4 mg PO Q8H PRN pilocarpine HCl 5 mg PO DAILY tizanidine 4 mg PO BEDTIME PRN trospium ER 60 mg PO DAILY vibegron (Gemtesa) 75 mg PO DAILY PFSH Medical History Incontinence Food poisoning Rheumatoid arthritis Sciatica Anemia Constipation GERD (gastroesophageal reflux disease) Fatty liver Vertigo Migraine Agoraphobia Panic attacks Anxiety Bipolar 1 disorder Sleep apnea Sepsis Pneumonia Emphysema of lung Hearing loss Eczema Rectal bleeding Sjogren's syndrome Allergic rhinitis SLE (systemic lupus erythematosus related syndrome) Cough Murmur DVT (deep venous thrombosis) Cervical radiculopathy Early satiety Asthma Surgical History Hx of hand surgery Hx of fusion of cervical spine (~2021) S/P bilateral breast reduction History of loop electrical excision procedure (LEEP) Hx of colonoscopy History of esophagogastroduodenoscopy (EGD) Family History Mother Pancreatic cancer Social History Are you a primary healthcare marketer to a significant other at home: No Do you presently have visiting nurse or other home services: No Patient Tobacco Use Status: Never used Tobacco Physical Exam Const Other: Well-nourished well-developed very friendly female awake alert and oriented x3 in no acute distress Extrem Other: Right shoulder examination shows almost full range of motion when compared to her left shoulder, 4+ out of 5 strength with supraspinatus testing, positive impingement signs, tenderness over her acromioclavicular joint, no instability Results Reviewed Results Reviewed: MRI of the patient's right shoulder show severe acromioclavicular joint narrowing, a type 2 acromion, no acute bony abnormalities Assessment & Plan Assessment & Plan (1) Right shoulder pain: Code(s): M25.511 - Pain in right shoulder (2) Impingement of right shoulder: Code(s): M25.811 - Other specified joint disorders, right shoulder Category: Medical Plan Ms. Garnett presents with right shoulder pain due to impingement syndrome and acromioclavicular joint arthritis. I had a lengthy discussion with the patient regarding the treatment options. At this point she has failed continued non operative treatments. The risks and benefits of right shoulder surgery were discussed at length with the patient. The patient wishes to proceed with surgery. Surgery will most likely involve right shoulder arthroscopic distal clavicle excision and right shoulder arthroscopic acromioplasty. The patient will be given a prescription for pain medicine at the time of her surgery. She will follow up as instructed. I spent 20 minutes in reviewing the patient's records and imaging studies, seeing the patient and documenting in the medical record. Orders: Referrals Window Air Conditioner Installer Referral Z59.00 - Homelessness unspecified Coding Level of Care Code Est Pt Level 3 (44980) Complex visit Add On G2211 Diagnoses Right shoulder pain M25.511 Impingement of right shoulder M25.811
[2025-06-22 10:18] VITALS: BP 131/79; PULSE 77; O2SAT 97; BMI 24.7
--- OUTSIDE RECORDS SUMMARY | 2025-06-22 11:42 | XMS_ITS | Encounter Summary ---
Author Organization [employer] Address [address] [facility] [address] [place] [address] Care Team Providers Care Automobile Mechanic Helper Name Role Phone Nikolas Frost MD Primary Care Provider [phone]- [phone] Encounter Details Date Type Department Care Team (Latest Contact Info) Description 06/10/2025 Results Follow-Up [facility] [address] [place] [address] Jacquelyn Cadena ANP [address] [place] [address] CDiff Gene PCR, Stool - Gastrointestinal panel [...] Description 08/01/2025 4:00 PM EST Office Visit [facility] [address] [place] [address] Nikolas Frost MD [address] [place] [address] documented as of this encounter Visit Diagnoses Not on filedocumented in this encounter Additional Health Concerns Assessment Noted Time PHQ-9 Depression Total Score: 21 025 2:14 PM EST documented as of this encounter Care Teams Automobile Mechanic Helper Relationship Specialty Start Date End Date Nikolas Frost MD [address] [place] [address] PCP - General Internal Medicine 04/11/25 documented as of this encounter
--- OUTSIDE RECORDS SUMMARY | 2025-06-22 11:42 | XMS_ITS | Encounter Summary ---
Author Organization [employer] [facility] Address [address] [place] [address] Care Team Providers Care Exchange Administrator Name Role Phone Harsha Wang MD Primary Care Prov ider Nikolas Frost MD Primary Care Provider +1- [phone] Encounter Details Date Type Department Care Team (Late Contact Info) Description 01/24/2025 Orders Only [facility] [address] [place], [place] [phone] Provider, MD Julianne Social History Tobacco Use [...] Department Care Team (Late Contact Info) Description 08/01/2025 4:00 PM EST Office Visit [facility] CHC MED & PEDS [address] [place], [place] [phone] Nikolas Frost MD [address] [place], [place] [phone] documented as of this encounter Procedures Procedure [...] documented as of this encounter Care Teams Exchange Administrator Relationship Specialty Start Date End Date Harsha Wang MD [address] [place] [address] PCP - General Internal Medicine 11/11/24 04/10/25 Nikolas Frost MD [address] [place] [address] PCP - General Internal Medicine 04/11/25 documented as of this encounter
--- OUTSIDE RECORDS SUMMARY | 2025-06-22 11:42 | XMS_ITS | Encounter Summary ---
Author Organization [employer] Address [address] [facility] 7t [place] [address] Care Team Providers Care Hay Buckler Name Role Phone Nikolas Frost MD Primary Care Provider +1- [phone] Encounter Details Date Type Department Care Team ([facility] st Contact Info) Description 06/20/2025 Results Follow-Up [facility] CHC MED & PEDS [address] [place] [address] Nikolas Frost MD [address] [place] [address] CBC auto differential, Basic Metabolic Panel, Iron And Total Iron Binding Capacity, Additional followed-up results: 2 Social History Tobacco Use Types Packs/Day Years [...] Miscellaneous Notes * Result Encounter Note - Nikolas Frost MD - 06/20/2025 8:26 PM EST Please call. The blood work result was reviewed and can be due to iron deficiency. I recommend ironsupplementation x 2 months. Repeat CBC and iron panel in 2 months to assess improvement. documented in this encounter Plan of Treatment Upcoming Encounters Date Type Department Care Team ([facility] st Contact Info) Description 08/01/2025 4:00 PM EST Office Visit [facility] MED & PEDS [address] [place] [address] Nikolas Frost MD [address] [place] [address] documented as of this encounter Visit Diagnoses Not on filedocumented in this encounter Additional Health Concerns Assessment Noted Time PHQ-9 Depression Total Score: 21 025 2:14 PM EST documented as of this encounter Care Teams Hay Buckler Relationship Specialty Start Date End Date Nikolas Frost MD [address] [place] [address] PCP - General Internal Medicine 04/11/25 documented as of this encounter
--- OUTSIDE RECORDS SUMMARY | 2025-06-22 11:42 | XMS_ITS | Encounter Summary ---
Author Organization [employer] Address [address] [facility] 7t [place] [address] Care Team Providers Care Bingo Attendant Name Role Phone Harsha Wang MD Primary Care Prov ider Nikolas Frost MD Primary Care Provider [phone]- [phone] Reason for Visit * Reason Comments Med Refill Encounter Details Date Type Department Care Team ([facility] st Contact Info) Description 02/21/2025 Refill C CHC MED & PEDS [address] [place] [address] Harsha Wang MD [address] [place] [address] Social History Tobacco Use Types Packs/Day Years [...] with others, in a hotel, in a correction, living outside on the street, on a [...] 08/01/2025 4:00 PM EST Office Visit [facility] CHC MED & PEDS [address] [place] [address] Nikolas Frost MD [address] [place] [address] documented as of this encounter Visit Diagnoses Not on filedocumented in this encounter Additional Health Concerns Assessment Noted Time PHQ-9 Depression Total Score: 0 11/06/19 9:58 AM EDT documented as of this encounter Care Teams Bingo Attendant Relationship Specialty Start Date End Date Harsha Wang MD [address] [place] [address] PCP - General Internal Medicine 11/11/24 04/10/25 Nikolas Frost MD [address] [place] [address] PCP - General Internal Medicine 04/11/25 documented as of this encounter
--- OUTSIDE RECORDS SUMMARY | 2025-06-22 11:42 | XMS_ITS | Encounter Summary ---
Author Organization [employer] Address [address] [facility] 7t [place] [address] Care Team Providers Care Transitional Care Manager Name Role Phone Harsha Wang MD Primary Care Prov ider Nikolas Frost MD Primary Care Provider +1- [phone] Reason for Referral * Consultation (Routine) - Closed Specialty Diagnoses / Procedures Referred By Contac t Referred To Contact Rheumatology Diagnoses SLE (systemic lupus erythematosus related syndrome) (CMS/HCC) ([facility]) Nikolas Frost MD [address] [place] [address] Phone: tel: fax: [facility] [address] Phone: tel: fax: Referral ID Status Reason Start Date Expiration Date V isits Requested Visits Authorized [id number] Closed Specialty Services Required 12/03/2024 12/03/2025 1 1 Encounter Details Date Type Department Care Team ([facility] st Contact Info) Description 12/03/2024 Orders Only [facility] CHC MED & PEDS [address] [place], [place] [phone] Nikolas Frost MD [address] [place] [address] SLE (systemic lupus erythematosus related syndrome) (CMS/HCC) [...] Upcoming Encounters Date Type Department Care Team ([facility] st Contact Info) Description 08/01/2025 4:00 PM EST Office Visit [facility] MED & PEDS [address] [place] [address] Nikolas Frost MD [address] [place] [address] documented as of this encounter Procedures Procedure Name Priority Date/Time Associated Diagnosis Comments AMB REFERRAL TO RHEUMATOLOGY Routine 06/15/2025 SLE (systemic lupus erythematosus related syndrome) ([facility]) ([facility]) documented in this encounter Results * Referral to Rheumatology (06/15/2025) Nikolas Frost MD OUTPATIENT REFERRAL ORDERAB LES Final Result documented in this encounter Visit Diagnoses Diagnosis SLE (systemic lupus erythematosus related syndrome) (CMS/[facility]) (HCC)- Primary Systemic lupus erythematosus documented in this encounter Additional Health Concerns Assessment Noted Time PHQ-9 Depression Total Score: 0 11/06/19 9:58 AM EDT documented as of this encounter Care Teams Transitional Care Manager Relationship Specialty Start Date End Date Harsha Wang MD [address] [place] [address] PCP - General Internal Medicine 11/11/24 04/10/25 Nikolas Frost MD [address] [place] [address] PCP - General Internal Medicine 04/11/25 documented as of this encounter
--- OUTSIDE RECORDS SUMMARY | 2025-06-22 11:42 | XMS_ITS | Encounter Summary ---
Author Organization [employer] Address [address] [facility] 7 [place] [address] Care Team Providers Care Veterinary Technician Assistant Name Role Phone Harsha Wang MD Primary Care Prov ider Nikolas Frost MD Primary Care Provider [phone]- [phone] Reason for Visit * Reason Onset Date Comments Results 12/23/2024 Encounter Details Date Type Department Care Team (Late st Contact Info) Description 12/23/2024 Telephone [facility] [address] [place] [address] Harsha Wang MD [address] [place] [address] Results Social History Tobacco Use Types Packs/Day [...] 12/23/2024 10:04 AM EDT Tc from [facility] with [facility] calling in regards to MR Brain results. She was informed pt is unable to receive results until February. Emmy is requesting a call back with results to clearher for TMS and or to deny if pcp feels necessary. Please contact Emmy at [phone]. documented in this encounter Plan of Treatment Upcoming Encounters Date Type Department Care Team (Late st Contact Info) Description 08/01/2025 4:00 PM EST Office Visit [facility] MED & PEDS [address] [place] [address] Nikolas Forst MD [address] [place] [address] documented as of this encounter Visit Diagnoses Not on filedocumented in this encounter Additional Health Concerns Assessment Noted Time PHQ-9 Depression Total Score: 0 11/06/19 25 9:58 AM EDT documented as of this encounter Care Teams Veterinary Technician Assistant Relationship Specialty Start Date End Date Harsha Wang MD [address] [place] [address] PCP - General Internal Medicine 11/11/24 04/10/25 Nikolas Frost MD [address] [place] [address] PCP - General Internal Medicine 04/11/25 documented as of this encounter
--- OUTSIDE RECORDS SUMMARY | 2025-06-22 11:42 | XMS_ITS | Encounter Summary ---
Author Organization [employer] Address [address] [facility] 7t [place] [address] Care Team Providers Care Pneumatic Tube Fitter Name Role Phone Nikolas Frost MD Primary Care Provider Encounter Details Date Type Department Care Team ([facility] st Contact Info) Description 06/20/2025 Orders Only [facility] CHC MED & PEDS [address] [place], [place] [phone] Nikolas Frost MD [address] [place] [address] Low ferritin (Primary Dx) Social History Tobacco Use Types [...] Upcoming Encounters Date Type Department Care Team ([facility] st Contact Info) Description 08/01/2025 4:00 PM EST Office Visit [facility] MED & PEDS [address] [place] [address] Nikolas Frost MD [address] [place] [address] documented as of this encounter Visit Diagnoses Diagnosis Low ferritin- Primary Other nonspecific findings on examination of blood documented in this encounter Additional Health Concerns Assessment Noted Time PHQ-9 Depression Total Score: 21 025 2:14 PM EST documented as of this encounter Care Teams Pneumatic Tube Fitter Relationship Specialty Start Date End Date Nikolas Frost MD [address] [place] [address] PCP - General Internal Medicine 04/11/25 documented as of this encounter
--- OUTSIDE RECORDS SUMMARY | 2025-06-22 11:42 | XMS_ITS | Encounter Summary ---
Author Organization [facility] Address [address] [place] [address] Care Team Providers Care Nail Expert Name Role Phone Levy Harsha Peace Primary Care Provide r Encounter Details Date Type Department Care Team ([facility] Contact Info) Description 03/17/2025 Lab Requisition [facility] - Main Lab [address] [facility] [place] [address] Soto Reddy PA [address] [place] [address] Urge incontinence Social History Tobacco [...] 4:00 PM EDT Appointment Radiology Department - [address] [phone] documented as of this encounter Procedures Procedure [...] Final Result [facility] [address] [place] [address], documented in this encounter Visit Diagnoses Diagnosis Urge incontinence documented in this encounter Care Teams Nail Expert Relationship Specialty Start Date End Date Harsha Wang [address] [place] [address] PCP - General Internal Medicine 05/13/25 documented as of this encounter
--- OUTSIDE RECORDS SUMMARY | 2025-06-22 11:42 | XMS_ITS | Encounter Summary ---
Author Organization [employer] [facility] Address [address] [place] [address] Care Team Providers Care Finance Admin Name Role Phone Harsha Wang MD Primary Care Prov ider Nikolas Frost MD Primary Care Provider +1- [phone] Encounter Details Date Type Department Care Team (Late Contact Info) Description 02/10/2025 Orders Only [place] [facility] [address] [place], [place] [phone] Provider, MD Julianne Social History Tobacco Use [...] Description 08/01/2025 4:00 PM EST Office Visit [facility] CHC MED & PEDS [address] [place], [place] [phone] Nikolas Frost MD [address] [place], [place] [phone] documented as of this encounter Procedures Procedure [...] documented as of this encounter Care Teams Finance Admin Relationship Specialty Start Date End Date LevyHarsha Hitchcock MD 505 [place] [address] PCP - General Internal Medicine 11/11/24 04/10/25 Nikolas Frost MD [address] [place] [address] PCP - General Internal Medicine 04/11/25 documented as of this encounter
--- OUTSIDE RECORDS SUMMARY | 2025-06-22 11:43 | XMS_ITS | Encounter Summary ---
Author Organization [employer] Address [address] [facility] 7t [place] [address] Care Team Providers Care Office Manager Name Role Phone Nikolas Frost MD Primary Care Provider +1- [phone] Encounter Details Date Type Department Care Team ([facility] st Contact Info) Description 05/27/2025 Results Follow-Up [facility] CHC MED & PEDS [address] [place], [place] [phone] Nikolas Frost MD [address] [place] [address] Lipid Panel, Standard, Lead, Venous, Hepatitis C [...] with others, in a hotel, in a mcf[facility], living outside on the street, on a [...] Description 08/01/2025 4:00 PM EST Office Visit [facility] MED & PEDS [address] [place] [address] Nikolas Frost MD [address] [place] [address] documented as of this encounter Visit Diagnoses Not on filedocumented in this encounter Additional Health Concerns Assessment Noted Time PHQ-9 Depression Total Score: 0 11/06/19 9:58 AM EDT documented as of this encounter Care Teams Office Manager Relationship Specialty Start Date End Date Nikolas Frost MD [address] [place] [address] PCP - General Internal Medicine 04/11/25 documented as of this encounter
--- OUTSIDE RECORDS SUMMARY | 2025-06-22 11:43 | XMS_ITS | Encounter Summary ---
Author Organization [employer] Address [address] [facility] 7t [place] [address] Care Team Providers Care Mortician Supplies Sales Representative Name Role Phone Nikolas Frost MD Primary Care Provider [phone]- [phone] Encounter Details Date Type Department Care Team ([facility] st Contact Info) Description 05/27/2025 Results Follow-Up [facility] CHC MED & PEDS [address] [place], [place] [phone] Nikolas Frost MD [address] [place] [address] TSH W/Reflex to FT4 Social History Tobacco [...] Upcoming Encounters Date Type Department Care Team ([facility] st Contact Info) Description 08/01/2025 4:00 PM EST Office Visit [facility] MED & PEDS [address] [place] [address] Nikolas Frost MD [address] [place] [address] documented as of this encounter Visit Diagnoses Not on filedocumented in this encounter Additional Health Concerns Assessment Noted Time PHQ-9 Depression Total Score: 0 11/06/19 9:58 AM EDT documented as of this encounter Care Teams Mortician Supplies Sales Representative Relationship Specialty Start Date End Date Nikolas Frost MD [address] [place] [address] PCP - General Internal Medicine 04/11/25 documented as of this encounter
--- OUTSIDE RECORDS SUMMARY | 2025-06-22 11:43 | XMS_ITS | Encounter Summary ---
Author Organization [facility] Address [address] [place] [address] Care Team Providers Care Heating Element Winder Name Role Phone Levy Harsha Peace Primary Care Provide r Encounter Details Date Type Department Care Team ([facility] Contact Info) Description 03/14/[address] [facility] - Main Lab [address] [facility] [place] [address] Patrick Basilio MD [address] [place] [address] Urinary tract infection, site not [...] Upcoming Encounters Date Type Department Care Team ([facility] Contact Info) Description 12/20/2025 4:00 PM EDT Appointment Radiology Department - [address] [phone] documented as of this encounter Procedures Procedure [...] reflex microscopic (03/14/2025 1:42 PM EDT) Specific [place] Urine 1.029 1.003 - 1.030 LAB URINALYSIS - AUTOMATED METHOD 03/14/2025 6:26 PM [facility] pH, Urine 5.5 5.0 - 8.0 pH LAB URINALYSIS - AUTOMATED METHOD 03/14/2025 6:26 PM [facility] Leukocytes, Urine Negative Negative LAB URINALYSIS - AUTOMATED METHOD 03/14/2025 6:26 PM [facility] Nitrite, Urine Negative Negative LAB URINALYSIS - AUTOMATED METHOD 03/14/2025 6:26 PM [facility] Protein, Urine Negative <=Trace mg/dL LAB URINALYSIS - AUTOMATED METHOD 03/14/2025 6:26 PM [facility] Glucose, Urine Negative Negative mg/dL LAB URINALYSIS - AUTOMATED METHOD 03/14/2025 6:26 PM [facility] Ketones, Urine Negative Negative mg/dL LAB URINALYSIS - AUTOMATED METHOD 03/14/2025 6:26 PM [facility] Urobilinogen, Urine 1.0 0.2 - 1.0 mg/dL LAB URINALYSIS - AUTOMATED METHOD 03/14/2025 6:26 PM [facility] Bilirubin, Urine Negative Negative LAB URINALYSIS - AUTOMATED METHOD 03/14/2025 6:26 PM [facility] Blood, Urine Negative Negative LAB URINALYSIS - AUTOMATED METHOD 03/14/2025 6:26 PM [facility] Urine Urine specimen from urethra / Unknown 03/14/2025 1:42 PM EDT 03/14/2025 6:02 PM EDT Patrick Basilio MD LAB URINE ORDERABLES Sybil l Result Performing Organization Address [facility] Co de Phone Number [facility] [address] [place] [address], [place] [phone] * Culture urine (03/14/2025 1:42 PM EDT) Culture, Urine 10,000-49,000 CFU/mL Mixed urogenital marilynn, no uropathogens present. Suggest repeat specimen if clinically indicated. 03/15/2025 1:14 PM EDT [facility] Urine Urine specimen from urethra / Unknown 03/14/2025 1:42 PM EDT 03/14/2025 6:02 PM EDT Patrick Basilio MD LAB MICROBIOLOGY - GENERA L ORDERABLES Final Result Performing Organization Address [facility] Co de Phone Number [facility] [address] [place] [address], [place] [phone] documented in this encounter Visit Diagnoses Diagnosis Urinary tract infection, site not specified documented in this encounter Care Teams Heating Element Winder Relationship Specialty Start Date End Date Harsha Wang [address] [place] [address] PCP - General Internal Medicine 05/13/25 documented as of this encounter
--- OUTSIDE RECORDS SUMMARY | 2025-06-22 11:43 | XMS_ITS | Clinical Summary ---
Author Organization [facility] Address [address] [place] [address] Care Team Providers Care Fire Protection Engineering Technician Name Role Phone Rey Galvan MD Primary Care Provider [phone] Allergies Active Allergy Reactions Criticality Noted Date [...] age to complete this topic Care Teams Fire Protection Engineering Technician Relationship Specialty Start Date End Date Rey Galvan MD PCP - General Internal Medicine 06/04/21
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
--- OUTSIDE RECORDS SUMMARY | 2025-06-22 11:43 | XMS_ITS | Encounter Summary ---
Author Organization [facility] Address [address] [place] [address] Care Team Providers Care Livestock Inspector Name Role Phone Harsha Wang Primary Care Provide r Reason for Visit * Reason Onset Date Comments Medical Records 05/13/2025 Encounter Details Date Type Department Care Team ([facility] Contact Info) Description 05/13/[address] [facility] [address] [facility] [address] [place] [address] Provider, Not In System Social [...] PM EDT Appointment Radiology Department - [address] [phone] documented as of this encounter Visit Diagnoses Not on filedocumented in this encounter Care Teams Livestock Inspector Relationship Specialty Start Date End Date Harsha Wang [address] [place] [address] PCP - General Internal Medicine 05/13/25 documented as of this encounter
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
--- OUTSIDE RECORDS SUMMARY | 2025-06-22 11:43 | XMS_ITS | Encounter Summary ---
Author Organization [employer] Address [address] [facility] 7[address] [place] [address] Care Team Providers Care Medical Insurance Clerk Name Role Phone Nikolas Frost MD Primary Care Provider [phone]- [phone] Reason for Visit * Reason Onset Date Comments Results 05/19/2025 Encounter Details Date Type Department Care Team ([facility] Contact Info) Description 05/19/2025 Telephone [facility] [address] [place] [address] Nikolas Frost MD [address] [place] [address] Results Social History Tobacco Use Types Packs/Day [...] 05/19/2025 12:00 PM EDT Echo faxed to [facility] as requested. * Telephone Encounter - Dalila Langford - 05/19/2025 10:24 AM EDT Tc from Aurea at [facility] requesting echo results done on 05/13 Contact Aurea at [phone] documented in this encounter Plan of Treatment Upcoming Encounters Date Type Department Care Team (Late st Contact Info) Description 08/01/2025 4:00 PM EST Office Visit [facility] [address] [place], [place] [phone] Nikolas Frost MD [address] [place] [address] documented as of this encounter Visit Diagnoses Not on filedocumented in this encounter Additional Health Concerns Assessment Noted Time PHQ-9 Depression Total Score: 0 11/06/19 9:58 AM EDT documented as of this encounter Care Teams Medical Insurance Clerk Relationship Specialty Start Date End Date Nikolas Frost MD [address] [place] [address] PCP - General Internal Medicine 04/11/25 documented as of this encounter
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
--- OUTSIDE RECORDS SUMMARY | 2025-06-22 11:43 | XMS_ITS | Encounter Summary ---
Author Organization [employer] Address [address] [facility] 7t [place] [address] Care Team Providers Care Railroader Name Role Phone Nikolas Frost MD Primary Care Provider Reason for Visit * Reason Comments Med Refill Encounter Details Date Type Department Care Team ([facility] st Contact Info) Description 06/13/2025 Refill [facility] MED[facility] [address] [place] [address] Nikolas Frost MD [address] [place] [address] Social History Tobacco Use Types Packs/Day Years [...] ([facility] st Contact Info) Description 08/01/2025 4:00 PM EST Office Visit [facility] [address] [place] [address] Nikolas Frost MD [address] [place] [address] documented as of this encounter Visit Diagnoses Not on filedocumented in this encounter Additional Health Concerns Assessment Noted Time PHQ-9 Depression Total Score: 21 025 2:14 PM EST documented as of this encounter Care Teams Railroader Relationship Specialty Start Date End Date Nikolas Frost MD [address] [place] [address] PCP - General Internal Medicine 04/11/25 documented as of this encounter
== END 2025-06-22 10:32 | disposition home or self-care (01) ==
LOC: HO.HOS 10:03
PROVIDERS: PCP Internal Medicine; Visit Provider Orthopaedic Surgery
DX: M25.511 Pain in right shoulder (principal); M25.811 Other specified joint disorders, right shoulder
CPT/HCPCS: 99213; G2211

== ENCOUNTER → 2025-06-22 10:02 | Outpatient (BNVA) | payer MEDICARE, SELFPAY | PROVIDERS: PCP Internal Medicine; Visit Provider Orthopaedic Surgery | DX: M25.511 Pain in right shoulder (principal); M25.811 Other specified joint disorders, right shoulder; Z59.00 Homelessness unspecified | CPT/HCPCS: 99212 ==

== ENCOUNTER 2025-06-27 08:26 | Day surgery (SDC) | payer MEDICARE, SELFPAY ==
--- OUTSIDE RECORDS SUMMARY | 2025-05-24 10:15 | XMS_ITS | Encounter Summary ---
Author Organization [employer] [facility] [place] Address [address] [place] [address] Care Team Providers Care Hose Wrapper Name Role Phone Nikolas Frost MD Primary Care Provider Reason for Referral * Consultation (Routine) - Closed Specialty Diagnoses / Procedures Referred By Jayla aragon Referred To Contact Behavioral Health Diagnoses Sleep disturbance Procedures Referral to Behavioral Health Nikolas Frost MD [address] [place] [address] Phone: tel: fax: Referral ID Status Reason Start Date Expiration Date V isits Requested Visits Authorized [id number] Closed Specialty Services Required 05/24/2025 05/24/2026 1 1 Reason for Visit * Reason Comments transfer Encounter Details Date Type Department Care Team ([facility] Contact Info) Description 05/24/2025 10:15 AM EDT Office Visit [facility] CHC MED & PEDS [address] [place] [address] Nikolas Frost MD [address] [place] [address] Colitis (Primary Dx); Vaginitis due to Yani; [...] with others, in a hotel, in a senior care, living outside on the street, on a [...] documented as of this encounter Care Teams Hose Wrapper Relationship Specialty Start Date End Date Nikolas Frost MD [address] [place] [id number] PCP - General Internal Medicine 04/11/25 documented as of this encounter
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
--- OUTSIDE RECORDS SUMMARY | 2025-05-24 19:20 | XMS_ITS | Encounter Summary ---
Author Organization [email or web address] Address [address] [facility] 7[address] [place] [address] Care Team Providers Care Community Engagement Manager Name Role Phone Harsha Wang MD Primary Care Prov ider Nikolas Frost MD Primary Care Provider [phone] Reason for Referral * Consultation (Routine) - Closed Specialty Diagnoses / Procedures Referred By Contac t Referred To Contact Rheumatology Diagnoses SLE (systemic lupus erythematosus related syndrome) (CMS/HCC) ([facility]) Nikolas Frost MD [address] [place] [address] Phone: tel: fax: [facility] [address] Phone: tel: fax: Referral ID Status Reason Start Date Expiration Date V isits Requested Visits Authorized [id number] Closed Specialty Services Required 12/03/2024 12/03/2025 1 1 Encounter Details Date Type Department Care Team ([facility] st Contact Info) Description 12/03/2024 Orders Only [facility] CHC MED & PEDS [address] [place], [place] [phone] Nikolas Frost MD [address] [place] [address] SLE (systemic lupus erythematosus related syndrome) (CMS/HCC) [...] Routine SLE (systemic lupus erythematosus related syndrome) ([facility]) Expected: 12/03/2024 (Approximate), Expires: 12/03/2025 documented as of this encounter Visit Diagnoses Diagnosis SLE (systemic lupus erythematosus related syndrome) ([facility]) (HCC)- Primary Systemic lupus erythematosus documented in this encounter Additional Health Concerns Assessment Noted Time PHQ-9 Depression Total Score: 0 11/06/19 9:58 AM EDT documented as of this encounter Care Teams Community Engagement Manager Relationship Specialty Start Date End Date Harsha Wang MD [address] [place] [address] PCP - General Internal Medicine 11/11/24 04/10/25 Nikolas Frost MD [address] [place] [address] PCP - General Internal Medicine 04/11/25 documented as of this encounter
--- OUTSIDE RECORDS SUMMARY | 2025-05-24 19:20 | XMS_ITS | Encounter Summary ---
Author Organization [email or web address] Address [address] [facility] 7[address] [place] [address] Care Team Providers Care Bouffant Curtain Machine Tender Name Role Phone Harsha Wang MD Primary Care Prov ider Nikolas Frost MD Primary Care Provider [phone] Reason for Visit * Reason Comments Med Refill Encounter Details Date Type Department Care Team ([facility] st Contact Info) Description 02/21/2025 Refill C CHC MED & PEDS [address] [place] [address] Harsha Wang MD [address] [place] [address] Social History Tobacco Use Types Packs/Day Years [...] documented as of this encounter Care Teams Bouffant Curtain Machine Tender Relationship Specialty Start Date End Date Harsha Wang MD [address] [place] [address] PCP - General Internal Medicine 11/11/24 04/10/25 Nikolas Frost MD [address] [place] [address] PCP - General Internal Medicine 04/11/25 documented as of this encounter
--- OUTSIDE RECORDS SUMMARY | 2025-05-24 19:20 | XMS_ITS | Encounter Summary ---
Author Organization [employer] Address [address] [place] [address] 7 [place] [address] Care Team Providers Care Travel Registered Nurse Oncology Name Role Phone Harsha Wang MD Primary Care Prov ider Nikolas Frost MD Primary Care Provider [phone] Encounter Details Date Type Department Care Team ([facility] st Contact Info) Description 01/24/2025 Orders Only [facility] [address] [place], [place] [phone] Provider, MD Julianne Social History Tobacco Use [...] documented as of this encounter Care Teams Travel Registered Nurse Oncology Relationship Specialty Start Date End Date Harsha Wang MD [address] [place] [address] PCP - General Internal Medicine 11/11/24 04/10/25 Nikolas Frost MD [address] [place] [address] PCP - General Internal Medicine 04/11/25 documented as of this encounter
--- OUTSIDE RECORDS SUMMARY | 2025-05-24 19:20 | XMS_ITS | Encounter Summary ---
Author Organization [facility] Address [address] [place] [address] Care Team Providers Care Weapons Mechanic Name Role Phone Levy Harsha Peace Primary Care Provide r Encounter Details Date Type Department Care Team ([facility] Contact Info) Description 03/14/2025 Lab Requisition [facility] - Main Lab [address] [facility] [place] [address] Patrick Basilio MD [address] [place] [address] Urinary tract infection, site not [...] Upcoming Encounters Date Type Department Care Team ([facility] Contact Info) Description 12/20/2025 4:00 PM EDT Appointment Radiology Department - [address] [phone] documented as of this encounter Procedures Procedure [...] reflex microscopic (03/14/2025 1:42 PM EDT) Specific [place] Urine 1.029 1.003 - 1.030 LAB URINALYSIS - AUTOMATED METHOD 03/14/2025 6:26 PM [facility] pH, Urine 5.5 5.0 - 8.0 pH LAB URINALYSIS - AUTOMATED METHOD 03/14/2025 6:26 PM [facility] Leukocytes, Urine Negative Negative LAB URINALYSIS - AUTOMATED METHOD 03/14/2025 6:26 PM [facility] Nitrite, Urine Negative Negative LAB URINALYSIS - AUTOMATED METHOD 03/14/2025 6:26 PM [facility] Protein, Urine Negative <=Trace mg/dL LAB URINALYSIS - AUTOMATED METHOD 03/14/2025 6:26 PM [facility] Glucose, Urine Negative Negative mg/dL LAB URINALYSIS - AUTOMATED METHOD 03/14/2025 6:26 PM [facility] Ketones, Urine Negative Negative mg/dL LAB URINALYSIS - AUTOMATED METHOD 03/14/2025 6:26 PM [facility] Urobilinogen, Urine 1.0 0.2 - 1.0 mg/dL LAB URINALYSIS - AUTOMATED METHOD 03/14/2025 6:26 PM [facility] Bilirubin, Urine Negative Negative LAB URINALYSIS - AUTOMATED METHOD 03/14/2025 6:26 PM [facility] Blood, Urine Negative Negative LAB URINALYSIS - AUTOMATED METHOD 03/14/2025 6:26 PM [facility] Urine Urine specimen from urethra / Unknown 03/14/2025 1:42 PM EDT 03/14/2025 6:02 PM EDT Patrick Basilio MD LAB URINE ORDERABLES Sybil l Result Performing Organization Address [facility] Co de Phone Number [facility] [address] [place] [address], [place] [phone] * Culture urine (03/14/2025 1:42 PM EDT) Culture, Urine 10,000-49,000 CFU/mL Mixed urogenital marilynn, no uropathogens present. Suggest repeat specimen if clinically indicated. 03/15/2025 1:14 PM EDT [facility] Urine Urine specimen from urethra / Unknown 03/14/2025 1:42 PM EDT 03/14/2025 6:02 PM EDT Patrick Basilio MD LAB MICROBIOLOGY - GENERA L ORDERABLES Final Result Performing Organization Address [facility] Co de Phone Number [facility] [address] [place] [address], [place] [phone] documented in this encounter Visit Diagnoses Diagnosis Urinary tract infection, site not specified documented in this encounter Care Teams Weapons Mechanic Relationship Specialty Start Date End Date Harsha Wang [address] [place] [address] PCP - General Internal Medicine 05/13/25 documented as of this encounter
--- OUTSIDE RECORDS SUMMARY | 2025-05-24 19:20 | XMS_ITS | Encounter Summary ---
Author Organization [employer] Address [address] [facility] 7 [place] [address] Care Team Providers Care Aircraft Engine Mechanic Name Role Phone Harsha Wang MD Primary Care Prov ider Nikolas Frost MD Primary Care Provider [phone]- [phone] Reason for Visit * Reason Onset Date Comments Results 12/23/2024 Encounter Details Date Type Department Care Team (Late st Contact Info) Description 12/23/2024 Telephone [facility] [address] [place] [address] Harsha Wang MD [address] [place] [address] Results Social History Tobacco Use Types Packs/Day [...] Ray Urbano - 12/23/2024 10:04 AM EDT Tc from [facility] with [facility] calling in regards to MR Brain results. She was informed pt is unable to receive results until February. Emmy is requesting a call back with results to clearher for TMS and or to deny if pcp feels necessary. Please contact Emmy at [phone]. documented in this encounter Plan of Treatment Not on file documented as of this encounter Visit Diagnoses Not on filedocumented in this encounter Additional Health Concerns Assessment Noted Time PHQ-9 Depression Total Score: 0 11/06/19 9:58 AM EDT documented as of this encounter Care Teams Aircraft Engine Mechanic Relationship Specialty Start Date End Date LevyHarsha Hitchcock MD [address] [place] [address] PCP - General Internal Medicine 11/11/24 04/10/25 Nikolas Frost MD [address] [place] [address] PCP - General Internal Medicine 04/11/25 documented as of this encounter
--- OUTSIDE RECORDS SUMMARY | 2025-05-24 19:20 | XMS_ITS | Encounter Summary ---
Author Organization [facility] Address [address] [place] [address] Care Team Providers Care Kennel Staff Member Name Role Phone Levy Harsha Peace Primary Care Provide r Encounter Details Date Type Department Care Team ([facility] Contact Info) Description 03/17/[address] [facility] - Main Lab [address] [facility] [place] [address] Soto Reddy PA [address] [place] [address] Urge incontinence Social History Tobacco [...] 4:00 PM EDT Appointment Radiology Department - [address] [phone] documented as of this encounter Procedures Procedure Name Priority Date/Time Associated Diagnosis Comments CULTURE URINE Routine 03/17/2025 12:00 AM EDT Urge incontinence documented in this encounter Results * Culture urine (03/17/2025 12:00 AM EDT) Culture, Urine 10,000-49,000 CFU/mL Mixed urogenital marilynn, no uropathogens present. Suggest repeat specimen if clinically indicated. 03/18/2025 1:24 PM EDT [facility] Urine Urine specimen obtained by clean catch procedure / Unknown 03/17/2025 03/17/2025 6:09 PM EDT us S[facility] RUBIO LAB MICROBIOLOGY - GENERAL ORD ERABLES Final Result [facility] [address] [place] [address], documented in this encounter Visit Diagnoses Diagnosis Urge incontinence documented in this encounter Care Teams Kennel Staff Member Relationship Specialty Start Date End Date Harsha Wang [address] [place] [address] PCP - General Internal Medicine 05/13/25 documented as of this encounter
--- OUTSIDE RECORDS SUMMARY | 2025-05-24 19:20 | XMS_ITS | Encounter Summary ---
Author Organization [facility] Address [address] [place] [address] Care Team Providers Care Shear Scrapman Name Role Phone Harsha Wang Primary Care Provide r Reason for Visit * Reason Onset Date Comments Results 05/16/2025 Encounter Details Date Type Department Care Team (Late st Contact Info) Description 05/16/2025 Telephone [facility] [address] [place] [address] Dr Alcaraz [address] [place] [address] Davina Perez MD [address] [place] [address] Dr Braxton [address] [place] [phone] Social History Tobacco Use Types Packs/Day Years [...] as of this encounter Progress Notes * Bambi Vila - 05/19/2025 8:53 AM EDT Spoke to patient and she has 2 upcoming surgeries. She will have her surgeons office call and book her appointment. * Bryan Velez - 05/18/2025 1:11 PM [...] appointment. please advise. Best call number is [phone] documented in this encounter Plan of Treatment Upcoming Encounters Date Type Department Care Team (Late st Contact Info) Description 12/20/2025 4:00 PM EDT Appointment Radiology Department - [address] [phone] documented as of this encounter Visit Diagnoses Not on filedocumented in this encounter Care Teams Shear Scrapman Relationship Specialty Start Date End Date Harsha Wang [address] [place] [address] PCP - General Internal Medicine 05/13/25 documented as of this encounter
--- OUTSIDE RECORDS SUMMARY | 2025-05-24 19:20 | XMS_ITS | Encounter Summary ---
Author Organization [facility] Address [address] [place] [address] 7 [place] [address] Care Team Providers Care Repairer Switchgear Name Role Phone Harsha Wang MD Primary Care Prov ider Nikolas Frost MD Primary Care Provider [phone]- [phone] Encounter Details Date Type Department Care Team ([facility] Contact Info) Description 02/10/2025 Orders Only [facility] [address] [place], [place] [phone] Provider, Historical, Social History Tobacco Use Types Packs/Day Years [...] documented as of this encounter Care Teams Repairer Switchgear Relationship Specialty Start Date End Date Harsha Wang MD [address] [place] [address] PCP - General Internal Medicine 11/11/24 04/10/25 Nikolas Frost MD [address] [place] [address] PCP - General Internal Medicine 04/11/25 documented as of this encounter
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
--- OUTSIDE RECORDS SUMMARY | 2025-05-24 19:21 | XMS_ITS | Encounter Summary ---
Author Organization [employer] Address [address] [facility] 7 [place] [address] Care Team Providers Care Field Radio Technician Name Role Phone Nikolas Frost MD Primary Care Provider [phone]- [phone] Reason for Visit * Reason Onset Date Comments Results 05/19/2025 Encounter Details Date Type Department Care Team ([facility] Contact Info) Description 05/19/2025 Telephone [facility] [address] [place] [address] Nikolas Frost MD [address] [place] [address] Results Social History Tobacco Use Types Packs/Day [...] with others, in a hotel, in a care home, living outside on the street, on [...] encounter Miscellaneous Notes * Telephone Encounter - Edith Green RN - 05/19/2025 12:00 PM EDT Echo faxed to [facility] ortho as requested. * Telephone Encounter - Dalila Langford - 05/19/2025 10:24 AM EDT Tc from Aurea at [facility] orthopedics requesting echo results done on 05/13 Contact Aurea at [phone] documented in this encounter Plan of Treatment Not on file documented as of this encounter Visit Diagnoses Not on filedocumented in this encounter Additional Health Concerns Assessment Noted Time PHQ-9 Depression Total Score: 0 11/06/19 25 9:58 AM EDT documented as of this encounter Care Teams Field Radio Technician Relationship Specialty Start Date End Date Nikolas Frost MD [address] [place] [phone] PCP - General Internal Medicine 04/11/25 documented as of this encounter
--- OUTSIDE RECORDS SUMMARY | 2025-05-24 19:21 | XMS_ITS | Encounter Summary ---
Author Organization [employer] Address [address] [facility] [address] [place] [address] Care Team Providers Care Strapping Machine Tender Name Role Phone Nikolas Frost MD Primary Care Provider [phone] Encounter Details Date Type Department Care Team (Latest Contact Info) Description 05/24/2025 Travel Social History Tobacco Use Types Packs/Day [...] documented as of this encounter Care Teams Strapping Machine Tender Relationship Specialty Start Date End Date Nikolas Frost MD [address] [place] [address] PCP - General Internal Medicine 04/11/25 documented as of this encounter
--- OUTSIDE RECORDS SUMMARY | 2025-05-24 19:21 | XMS_ITS | Encounter Summary ---
Author Organization [facility] Address [address] [place] [address] Care Team Providers Care Flight Radio Operator Name Role Phone Harsha Wang Primary Care Provide r Reason for Visit * Reason Onset Date Comments Clearance for Surgery 05/20/2025 Encounter Details Date Type Department Care Team (Late st Contact Info) Description 05/20/2025 Telephone [facility] [address] [place] [address] [place] [phone] Davina Perez MD [address] [place] [address] Dr Braxton [address] [place] [phone] Social History Tobacco Use Types Packs/Day Years [...] as of this encounter Progress Notes * Bonita Page MA - 05/23/2025 1:35 PM EDT Called patient and left a voicemail for her to call the office back. * Ne Mike NP - 05/23/2025 10:03 AM EDT The patient has not been seen in the office since 2022, if a preoperative cardiovascular clearance is required, she will need a follow-up visit in the office. I do have openings. * Bryan Velez - 05/20/2025 10:27 AM EDT Patient came by office at 154 and stated that she is having a colonoscopy done at [facility], with Dr. Carla Hernandez in their GI department. Patient stated that she has been arguing with the officeover who is supposed to be calling to get cardiac clearance. I asked Angelikaneda Lopez and she statedthat there office is supposed to contact us, and the patient is stating that the GI office is telling her that that's not how they do things, that we need to contact them. I did let the patient know that Angelika told me that colonoscopies do not need cardiac clearance, but the patient was adamant that she did need it as she will be going under anesthesia, can we clarify will the patient if she doesor does not need clearance? Patient can be reached at [phone] documented in this encounter Plan of Treatment Upcoming Encounters Date Type Department Care Team (Late st Contact Info) Description 12/20/2025 4:00 PM EDT Appointment Radiology Department [address] [address] documented as of this encounter Visit Diagnoses Not on filedocumented in this encounter Care Teams Flight Radio Operator Relationship Specialty Start Date End Date Harsha Wang [address] [place] [address] PCP - General Internal Medicine 05/13/25 documented as of this encounter
--- OUTSIDE RECORDS SUMMARY | 2025-05-24 19:21 | XMS_ITS | Encounter Summary ---
Author Organization [employer] Address [address] [facility] 7t [place] [address] Care Team Providers Care Senior Net Architect Name Role Phone Nikolas Frost MD Primary Care Provider Reason for Visit * Reason Onset Date Comments Chart Prep 05/21/2025 Encounter Details Date Type Department Care Team (Late st Contact Info) Description 05/21/2025 Telephone [facility] [address] [place] [address] Nikolas Frost MD [address] [place] [address] Chart Prep Social History Tobacco Use Types Packs/Day Years [...] with others, in a hotel, in a group home, living outside on the street, on [...] encounter Miscellaneous Notes * Telephone Encounter - Paulette Urbano MA - 05/21/2025 11:30 AM EDT Chart Prep Labs: not applicable Images: done Referrals: complete Vaccines due: Covid, Flu, and PCV20 Screenings: colonoscopy and pap smear Overdue care gaps: SBIRT, Disability screen, and Tobacco documented in this encounter Plan of Treatment Not on file documented as of this encounter Visit Diagnoses Not on filedocumented in this encounter Additional Health Concerns Assessment Noted Time PHQ-9 Depression Total Score: 0 11/06/19 9:58 AM EDT documented as of this encounter Care Teams Senior Net Architect Relationship Specialty Start Date End Date Nikolas Frost MD [address] [place] [address] [place] [address] PCP - General Internal Medicine 04/11/25 documented as of this encounter
--- OUTSIDE RECORDS SUMMARY | 2025-05-24 19:21 | XMS_ITS | Encounter Summary ---
Author Organization [employer] Address [address] [facility] 7t [place] [address] Care Team Providers Care Rheumatologist Name Role Phone Nikolas Frost MD Primary Care Provider [phone] Reason for Visit * Reason Onset Date Comments Preop 05/18/2025 Encounter Details Date Type Department Care Team ([facility] st Contact Info) Description 05/18/2025 Telephone [facility] [address] [place] [address] Nikolas Frost MD [address] [place] [address] Preop Social History Tobacco Use Types Packs/Day [...] with others, in a hotel, in a skilled nursing, living outside on the street, on a [...] encounter Miscellaneous Notes * Telephone Encounter - Omar Adler - 05/24/2025 4:02 PM EDT TC placed to pt to return call for scheduling of pre-op . No answer left VM * Telephone Encounter - Caitlin Carmona - 05/18/2025 3:21 PM EDT Date of Surgery: 06/27 Surgical procedure being done: Right Shoulder Arthroscopy Type of anesthesia: general anesthesia Lab needed: Yes EKG: Yes Surgeon's name: Dr. Muniz Facility name: [facility] Surgeon's office number: [phone] Surgeon's office fax number: [phone] Contact name (person you spoke with): Mita Elmore office note from surgeon requested: Yes Send Message to Omar Adler documented in this encounter Plan of Treatment Not on file documented as of this encounter Visit Diagnoses Not on filedocumented in this encounter Additional Health Concerns Assessment Noted Time PHQ-9 Depression Total Score: 0 11/06/19 25 9:58 AM EDT documented as of this encounter Care Teams Rheumatologist Relationship Specialty Start Date End Date Nikoals Frost MD [address] [place] [address] PCP - General Internal Medicine 04/11/25 documented as of this encounter
--- OUTSIDE RECORDS SUMMARY | 2025-05-24 19:21 | XMS_ITS | Data Portability ---
Author Organization [place] [facility] Address [address] [place] [phone] Care Team Providers Care Regional Education Manager Name Role Phone CHERI JARA Primary Care [...] right. MRI brain without contrast 12/09/2024 at [facility] demonstrated nonspecific white matter likely sequela [...] She will follow-up to review the results. [email or web address] Not available 12/27/2024 15:16:48 Plan of Treatment Reminders Order Date Submit Date Provider Last Modified By Organization Details Last Modified Time Details Appointments None recorded. Lab None recorded. Referral None recorded. Procedures None recorded. Surgeries None recorded. Imaging MRI, brain + internal auditory canal, w/wo contrast - next available ....IAC protocol 2024 025 [facility] Department, [address] [place] [address], [place], [address], 16:14:50 Medication Orders None recorded. Patient TargetsNo targets recorded. Patient InstructionsNo instructions recorded. Reason for Referral None Reported. Results Created Date Observation Date Name Description Value Unit Range Abnormal Flag Note LastModifiedBy Organization Detail LastModifiedTime 12/28/19 audio gram No observ ation record ed. BARCODE Not Available 2024 15:53:43 12/28/19 25 11/17/2023 audio gram No observ ation record ed. Not Available 2024 15:45:19 12/29/19 25 12/09/2024 MRI, brain , w/o contr ast No observ ation record ed. [email or web address] Not Available 09/2024 13:58:53 01/25/20 25 01/24/2025 MR brain wo and W contr ast See Note [facility] , a member of [facility] Name: CHRIS QUINN Date of : 1965 Reason for Exam: snhl Exam Date: 2024 [id number] EST Report Status : Final Orderi ng [...] Thin images perfor med throug h the internal controls analyst al audito ry canals bilate rally demons [...] Edit Transc ribed Date: 2024 15:21 ET [email or web address] [facility] U/S Dept [address] [place], [address], 01/24/2025 15:56:59 Result Notes None recorded. Problems Name Problem SNOMED Code Status Onset Date Resolution Date Notes Provider Name and Address Organization Details Recorded Time Hypertrop hy of nasal turbinate s 34849054 Active 2016 Hypertrop hy of nasal turbinate s; Note: Date Diagnosed : 12/25/2016 9:15 AM (J34.3) Not Available [facility] 4 02:48:53 Bleeding from nose 872423625 Active 2016 Epistaxis ; Note: Date Diagnosed : 12/25/2016 8:59 AM (R04.0) Not Available [facility] 4 02:48:55 Mild intermitt ent asthma 877725662 Active 2016 Mild intermitt ent asthma, uncomplic ated; Note: Date Diagnosed : 12/25/2016 9:27 AM (J45.20) Not Available [facility] 4 02:48:56 Deviated nasal septum 936912074 Active 2016 Deviated nasal septum; Note: Date Diagnosed : 12/25/2016 9:15 AM (J34.2) Not Available [facility] 4 02:48:57 Allergic rhinitis 93291557 Active 2016 Other allergic rhinitis; Note: Date Diagnosed : 12/25/2016 9:12 AM (J30.89) Erica toibas allergic rhinitis; Note: Date Diagnosed : 12/25/2016 9:12 AM (J30.89) Not Available [facility] 4 02:48:56 Bilateral disorder of Eustachia n tubes 50987943972 61822 Active 2019 Other specified disorders of Eustachia n tube, bilateral ; Note: Date Diagnosed : 09/20/2019 1:57 PM (H69.83) Not Available [facility] 4 02:48:57 Abnormal auditory perceptio n 72314763 Active 2019 Other abnormal auditory perceptio ns, bilateral ; Note: Date Diagnosed : 09/20/2019 5:10 PM (H93.293) Not Available [facility] 4 02:48:55 Sj gren's syndrome 92561592 Active 2019 Sicca syndrome [Sjogren] ; Note: Date Diagnosed : 03/01/2020 2:13 PM (M35.0) Not Available [facility] 4 02:48:52 Sensorine ural hearing loss 76989470 Active 2023 Sensorine ural hearing loss, unilatera l, left ear, with unrestric everardo hearing on the contralat eral side; Note: Date Diagnosed : 11/17/2023 12:47 PM (H90.42) Not Available [facility] 4 02:48:54 Dizziness and giddiness 841970055 Active 2023 Dizziness and giddiness ; Note: Date Diagnosed : 11/17/2023 12:49 PM (R42) Not Available [facility] 4 02:48:57 Bilateral tinnitus 86406062074 02 Active 2024 PETE LARA PA-C [address] [place] [address], [place], [address] , [facility] - [facility] 5 15:15:08 Problem Notes None recorded. Procedures Surgical History Date Name Laterality Status Provider Name and Address Organization Details Recorded Time 12/27/2024 Air & Speech Audio with Tymps - 93577, 61349 & 72879 completed CINDY MEJÍA, AUD [address] [facility],[place] [address], [place], [address], [facility] - [facility] 12/27/2024 14:05:20 Imaging Results None recorded. Procedure Notes None recorded. Medical Equipment None Reported. Allergies Allergen ID Allergen Name Allergen Category Reaction Reaction Severity Criticality Documentation Date Start Date Code Code System Note Provider Name and Address Organization Details Recorded Time 703131 Benadryl medicatio n hives Not available Not available 02/27/2024 01843 7 RxNorm React ion: hives ; Not Available [facility] 4 00:31:35 92312 latex environme nt,medica tion other Not available Not available 12/09/2023 82369 91 RxNorm React ion: unkno wn, unspe cifie d;; Not Available [facility] 4 01:04:17 Medications Name Sig Start Date [...] mg tablet 11/16 completed Medicati on ID: [id number] D uration Value: 30 Brand Name: quetiapi [...] mg tablet 03/01 completed Medicati on ID: [id number] D uration Value: 30 Reason: () Brand Name: quetiapi ne Send Method: E-Prescr ibed Sub s Allowed: subs OK Speci al Instruct ion: TK 1 T PO Q NIGHT Me dication GenericN anay: quetiapi ne Not Available Not Available Not Available Nortrel (28) 1 mg-35 mcg tablet 03/01 completed Medicati on ID: [id number] D uration Value: 28 Reason: () Brand Name: Nortrel 35 (28) Sen d Method: E-Prescr ibed Sub s Allowed: subs OK Speci al Instruct ion: TK 1 T PO D Medica tionGene ricName: Nortrel (28) Not Available Not Available Not Available trazodone 100 mg tablet 03/01 completed Medicati on ID: [id number] D uration Value: 30 Reason: () Brand Name: trazodon e Send Method: E-Prescr ibed Sub s Allowed: subs OK Speci al Instruct ion: TK 3 TS PO QHS Medi cationGe nericNam e: trazodon e Not Available Not Available Not Available benzonata te 100 mg capsule 12/27 completed Medicati on ID: [id number] B rand Name: benzonat ate Send Method: E-Prescr ibed Sub s Allowed: subs OK Speci al Instruct ion: TAKE 1 CAPSULE BY MOUTH THREE TIMES A DAY FOR 7 DAYS NEEDED FOR COUGH Me dication GenericN anay: benzonat ate Not Available Not Available Not Available lansopraz ole 30 mg capsule,d elayed release 03/01 completed Medicati on ID: [id number] D uration Value: 30 Reason: () Brand Name: lansopra zole Sen d Method: E-Prescr ibed Sub s Allowed: subs OK Speci al Instruct ion: TK 1 C PO D Medica tionGene ricName: lansopra zole Not Available Not Available Not Available prednison e 50 mg tablet 12/27 completed Medicati on ID: [id number] B rand Name: predniso ne Send Method: [...] mg capsule 11/16 completed Medicati on ID: [id number] D uration Value: 35 Brand Name: gabapent [...] tended release 11/16 completed Medicati on ID: [id number] D uration Value: 30 Brand Name: cyanocob [...] auto-inje ctor 11/16 completed Medicati on ID: [id number] D uration Value: 2 Brand Name: epinephr ine Send Method: E-Prescr ibed Sub s Allowed: subs OK Medic ationGen ericName : epinephr ine Not Available Not Available Not Available levofloxa eve 750 mg tablet 12/27 completed Medicati on ID: [id number] B rand Name: levoflox acin Sen d Method: E-Prescr ibed Sub s Allowed: subs OK Medic ationGen ericName : levoflox acin Not Available Not Available Not Available norethind james (contrace ptive) 0.35 mg tablet 11/16 completed Medicati on ID: [id number] D uration Value: 28 Brand Name: norethin drone (contrac eptive) Send Method: E-Prescr ibed Sub s Allowed: subs OK Speci al Instruct ion: TK 1 T PO AT THE SAME TIME QD Medic ationGen ericName : norethin drone (contrac eptive) Not Available Not Available Not Available fluoxetin e 20 mg capsule 03/01 completed Medicati on ID: [id number] D uration Value: 30 Reason: () Brand Name: fluoxeti ne Send Method: E-Prescr ibed Sub s Allowed: subs OK Speci al Instruct ion: TK 3 CS PO QAM Medi cationGe nericNam e: fluoxeti ne Not Available Not Available Not Available fluticaso ne propionat e 50 mcg/actua tion nasal spray,mana pension 11/16 completed Medicati on ID: [id number] D uration Value: 90 Brand Name: fluticas [...] mg tablet 11/16 completed Medicati on ID: [id number] D uration Value: 30 Brand Name: loratadi [...] unit) capsule 11/16 completed Medicati on ID: [id number] D uration Value: 30 Brand Name: Vitamin [...] mg tablet 03/01 completed Medicati on ID: [id number] D uration Value: 30 Reason: () Brand Name: Vesicare Send Method: E-Prescr ibed Sub s Allowed: subs OK Speci al Instruct ion: TK 1 T PO D Medica tionGene ricName: Vesicare Not Available Not Available Not Available Vesicare 10 mg tablet 03/01 completed Medicati on ID: 703246 D uration Value: 30 Reason: () Brand Name: Vesicare Send Method: E-Prescr ibed Sub s Allowed: subs OK Speci al Instruct ion: TK 1 T PO D Medica tionGene ricName: Vesicare Not Available Not Available Not Available ProAir HFA 90 mcg/actua tion aerosol inhaler 2016 active Medicati on ID: 132443 D uration Value: 16 Brand Name: ProAir HFA Send Method: E-Prescr ibed Sub s Allowed: subs OK Speci al Instruct ion: INL 2 PUFFS PO Q 4 H PRF COUGH OR WHEEZING Medicat ionGener icName: ProAir HFA Medi cation ID: [id number] D uration Value: 16 Brand Name: ProAir HFA Send Method: E-Prescr ibed Sub s Allowed: subs OK Speci al Instruct ion: INL 2 PUFFS PO Q 4 H PRF COUGH OR WHEEZING Medicat ionGener icName: ProAir HFA Not Available Not Available Not Available quetiapin e 400 mg tablet 03/01 completed Medicati on ID: 680260 D uration Value: 30 Reason: () Brand Name: quetiapi ne Send Method: E-Prescr ibed Sub s Allowed: subs OK Speci al Instruct ion: TK 1 T PO Q NIGHT Me dication GenericN anay: quetiapi ne Not Available Not Available Not Available ProAir HFA 11/16 completed Medicati on ID: [id number] D uration Value: 16 Brand Name: Rivera [...] Updated DateTime 12/27/2024 157.48 cm 24.5 kg/m2 88671.38 g Bridget Tinoco [place] [facility] 12/27/2024 14:17:39 Social History None recorded. Functional Status None recorded. Mental Status None recorded. Family History Nothing Reported. Medical History No medical history recorded. Gynecological HistoryNo gynecological history recorded. Obstetrics History GPAL:G 0 P 0 0 0 0 Past Encounters Encounter ID Performer Location Encounter Start Date Encounter Closed Date Diagnosis/Indication Diagnosis SNOMED-CT Code Diagnosis ICD10 Code Diagnosis IMO Codes Diagnosis Note [id number] PETE LARA PA-C [facility] [address] [address] 12/27/2024 13:37:11 12/27/2024 15:46:54 Sensorineural hearing loss 58566368 H90.42 Audiologic al evaluation results: Right ear: Normal hearing with excellent word recognitio n. Left ear: Normal hearing with the exception of a moderate SNHL at 8000Hz with excellent word recognitio n. Tympanomet ry: Right Ear:Type A Left Ear:Type As Bilateral tinnitus 11949 77177 102 H93.13 691879 Health Concerns Section Related Observation LastModified by Organization Detai ls LastModified Time None Recorded Concern Status LastModified by Organization Details LastModified Time None Recorded Advance Directives Directive None Recorded Payers Insurance Date Sequence Insurance Name Policy Number Policy Sarabia Covered Member ID Sarabia Member ID Guarantor Name 12/27/2024 1 [facility] (MEDICARE REPLACEMENT/A DVANTAGE - HMO) MAMMP Chris Dygon [id number] Chris Dygon 12/27/2024 1 [facility] (MEDICARE REPLACEMENT/A DVANTAGE - POS) MAMMP Chris Dygon [id number] Chris Dygon Notes Date Note Type Note [...] hearing. Reports intermittent tinnitus. ADELINA SENA MD [address] [place] [address], [place], [address], [facility] - [facility] 12/27/2024 15:30:27 OBGyn Episode No OBEpisode recorded.
--- OUTSIDE RECORDS SUMMARY | 2025-05-24 19:21 | XMS_ITS | Encounter Summary ---
Author Organization [employer] Address [address] [facility] 7t [place] [address] Care Team Providers Care Foreign Banknote Teller Name Role Phone Nikolas Frost MD Primary Care Provider [phone]- [phone] Encounter Details Date Type Department Care Team (Latest Contact Info) Description 05/21/2025 Results Follow-Up [facility] [address] [place], [place] [phone] Ria Bolden, RODDY [address] [place] [address] Transthoracic Echo (TTE) Complete Social History Tobacco Use Types Packs/Day Years [...] encounter Miscellaneous Notes * Telephone Encounter - Ria Bolden RN - 05/21/2025 9:45 AM EDT TC placed to patiaent and the message below was discussed, patient asked if she had a heart murmur is the echo was normal. Advised pt to discuss with PCP at upcoming appointment however did ensure her that there is harmless murmurs without underlying hear abnormality pt states that eases her worry as she just wanted to rule out any physical abnormality of the heart. ----- Message from Nikolas Frost MD sent at 05/19/2025 4:49 PM EDT ----- Please inform Ms Phoebe Garnett that the Echocardiogram ordered by Dr Levy was reviewed and did not reveal any valvular abnormalities. PT is to be reevaluated if having any cardiac symptoms: Chest pain, SOB, palpitation, DE LA TORRE, PND, Lower limb edema etc. ----- Message ----- From: Kristine Lane Sent: 05/17/2025 1:16 PM EDT To: Nikolas Frost MD A new document has been added to this order with description [facility] Cardiology (TTE) Complete 05/13/25. documented in this encounter Plan of Treatment Not on file documented as of this encounter Visit Diagnoses Not on filedocumented in this encounter Additional Health Concerns Assessment Noted Time PHQ-9 Depression Total Score: 0 11/06/19 9:58 AM EDT documented as of this encounter Care Teams Foreign Banknote Teller Relationship Specialty Start Date End Date Nikolas Frost MD [address] [place] [address] PCP - General Internal Medicine 04/11/25 documented as of this encounter
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
--- OUTSIDE RECORDS SUMMARY | 2025-05-24 19:21 | XMS_ITS | Clinical Summary ---
Author Organization [facility] Address [address] [place] [address] Care Team Providers Care Lead Caster Name Role Phone Rey Galvan MD Primary Care Provider [phone] Allergies Active Allergy Reactions Criticality Noted Date [...] age to complete this topic Care Teams Lead Caster Relationship Specialty Start Date End Date Rey Galvan MD PCP - General Internal Medicine 06/04/21
[2025-06-13 10:21] VITALS: BP 150/64; PULSE 70; RESP 16; O2SAT 98
--- NOTE | 2025-06-13 10:41 | HO.ANESPROP2 ---
Documented by User: Angy Cisneros NP 06/22/25 10:54 HPI - Anesthesia Eval Consult details Narrative: 59yo F for Right Shoulder Arthroscopy,distal clavicle excision,acromioplasty, 06/27/25 No recent URI. Food poisoning resolving with abx treatment No cardiac CP. Had slip and fall with L rib injury. No SOB. RA/SLE/Sjogren's: Follows ceter for arthritis. Ketotifen drops, pilocarpine for dry mouth/eye. No steroids KIMMY: Unable to obtain CPAP Asthma: Stable. No inhaler for years DVT: 2021 - AC completed Murmur: Identified by PCP 02/2025. Echo complete 04/2025 and WNL Housing diffulties at this time. Lives in car. Unable to shower, plans to use wipes for post op care. Surgeon made aware. [facility] Active Problems Active Problems: All Active Problems Impingement of right shoulder (Acute) Change in bowel habit (Acute) Bright red rectal bleeding (Acute) Rotator cuff insufficiency of right shoulder (Acute) Acute sinusitis (Acute) Past Medical History Medical History Incontinence Food poisoning Rheumatoid arthritis Sciatica Anemia Constipation GERD (gastroesophageal reflux disease) Fatty liver Vertigo Migraine Agoraphobia Panic attacks Anxiety Bipolar 1 disorder Sleep apnea Sepsis Pneumonia Emphysema of lung Hearing loss Eczema Rectal bleeding Sjogren's syndrome Allergic rhinitis SLE (systemic lupus erythematosus related syndrome) Cough Murmur DVT (deep venous thrombosis) Cervical radiculopathy Early satiety Asthma Family History Family History Mother Pancreatic cancer Family history of problems with anesthesia: No Surgical History Surgical History Hx of hand surgery Hx of fusion of cervical spine (~2021) S/P bilateral breast reduction History of loop electrical excision procedure (LEEP) Hx of colonoscopy History of esophagogastroduodenoscopy (EGD) History of Problems with Anesthesia: No Social History Social History Are you a primary career information specialist to a significant other at home: No Do you presently have visiting nurse or other home services: No Patient Tobacco Use Status: Never used Tobacco Use of substances other than those prescribed or required for medical reasons: No Have you been hit, kicked, punched, or otherwise hurt by someone within the past year? If so, by whom?: No Are you DNR?: No Advance Directives: No Advance Directives Information Provided: No Advance Directives on File: No Patient : No : No Meds Allergies Allergy/AdvReac Type Severity Reaction Status Date / Time pineapple (Pineapple) Allergy Intermediate THROAT Verified 06/22/25 10:20 ITCHES latex (Latex) Allergy Mild Rash, Hives Verified 06/22/25 10:20 diphenhydramine (From Allergy Unknown UNKNOWN Verified 06/22/25 10:20 BENADRYL) ayanna Allergy Unknown HIVES Verified 06/22/25 10:20 ayanna flavor Allergy Unknown Itching Verified 06/22/25 10:20 shellfish derived Allergy Unknown Rash, Verified 06/22/25 10:20 throat itches Home Medications ?Medication ?Instructions ?Recorded ?Confirmed ?Last Taken ?Type Bacillus coagulans 2 billion 1 cap PO DAILY 05/11/25 06/22/25 Unknown History cell-calcium 140 mg capsule (Digestive Advantage Probiotic) azelastine 137 mcg (0.1 %) nasal 2 spray intranasal DAILY PRN 05/11/25 06/22/25 Unknown History spray Allergy Symptoms cholecalciferol (vitamin D3) 125 125 mcg PO DAILY 05/11/25 06/22/25 Unknown History mcg (5,000 unit) capsule mirabegron 50 mg tablet,extended 50 mg PO DAILY 05/11/25 06/22/25 Unknown History release 24 hr (Myrbetriq) omeprazole 20 mg capsule,delayed 20 mg PO DAILY 05/11/25 06/22/25 Unknown History release pilocarpine HCl 5 mg tablet 5 mg PO DAILY 05/11/25 06/22/25 Unknown History trospium 60 mg capsule,extended 60 mg PO DAILY 05/11/25 06/22/25 Unknown History release 24 hr ketotifen fumarate 0.025 % (0.035 1 drp ophthalmic (eye) QID PRN itch 06/13/25 06/22/25 Unknown History %) eye drops tizanidine 4 mg tablet 4 mg PO BEDTIME PRN Muscle Spasm 06/13/25 06/22/25 Unknown History vibegron 75 mg tablet (Gemtesa) 75 mg PO DAILY 06/13/25 06/22/25 Unknown History Exam Height,Weight and Vital Signs: Height 5 ft 2.5 in Last Vital Signs Pulse 70 06/13/25 10:21 Resp 16 06/13/25 10:21 BP 150/64 H 06/13/25 10:21 Pulse Ox 98 06/13/25 10:21 O2 Del Method Room Air 06/13/25 10:21 Pertinent Lab Results Pertinent Lab Results: Laboratory Tests 05/16/25 20:41 WBC 4.6 L Hgb 12.0 Hct 36.0 L Plt Count 204 Sodium 144 Potassium 3.7 Chloride 110 H Carbon Dioxide 27 BUN 20 H Creatinine 0.56 Narrative Narrative: EKG 11/2024 Vent. Rate : 94 BPM Atrial Rate : 94 BPM P-R Int : 130 ms QRS Dur : 70 ms QT Int : 348 ms P-R-T Axes : 61 41 50 degrees QTcB Int : 435 ms Sinus rhythm with Premature atrial complexes Cannot rule out Anterior infarct , age undetermined Abnormal ECG When compared with ECG of 05-Aug-2022 19:59, Premature atrial complexes are now Present T wave inversion no longer evident in Anterior leads ECHO 04/2025 - LV cavity size nml. Wall thickness nml. Sys function nml with EF 55-60%. No regional LV WMA. No diastolic dysfunction - RV cavity nml. RV sys function nml - No Hemodynamically signif valve abn - No signif changes from 2021 Airway Mallampati Class: I TM Dist: >3cm Neck ROM: Limited (s/p c spine fusion 2021) Loose/Missing/Broken Teeth: Yes (missing molars, crowned molars stable) Heart: RRR Lungs: CTAB Assessment and Plan Assessment Anesthesia Assessment: Anesthesia Plan Discussed and PAT Visit Final Anesthetic Review Family History of Problems with Anesthesia: No History of Problems with Anesthesia: No Documented by User: Kassidy Mobley MD 06/27/25 08:52 [facility] Past Medical History Medical History Incontinence Food poisoning Rheumatoid arthritis Sciatica Anemia Constipation GERD (gastroesophageal reflux disease) Fatty liver Vertigo Migraine Agoraphobia Panic attacks Anxiety Bipolar 1 disorder Sleep apnea Sepsis Pneumonia Emphysema of lung Hearing loss Eczema Rectal bleeding Sjogren's syndrome Allergic rhinitis SLE (systemic lupus erythematosus related syndrome) Cough Murmur DVT (deep venous thrombosis) Cervical radiculopathy Early satiety Asthma Family History Family History Mother Pancreatic cancer Surgical History Surgical History Hx of hand surgery Hx of fusion of cervical spine (~2021) S/P bilateral breast reduction History of loop electrical excision procedure (LEEP) Hx of colonoscopy History of esophagogastroduodenoscopy (EGD) Social History Social History Are you a primary career information specialist to a significant other at home: No Do you presently have visiting nurse or other home services: No Patient Tobacco Use Status: Never used Tobacco Use of substances other than those prescribed or required for medical reasons: No Have you been hit, kicked, punched, or otherwise hurt by someone within the past year? If so, by whom?: No Are you DNR?: No Advance Directives: No Advance Directives Information Provided: No Advance Directives on File: No Patient : No : No Meds Allergies Allergy/AdvReac Type Severity Reaction Status Date / Time pineapple (Pineapple) Allergy Intermediate THROAT Verified 06/22/25 10:20 ITCHES latex (Latex) Allergy Mild Rash, Hives Verified 06/22/25 10:20 diphenhydramine (From Allergy Unknown UNKNOWN Verified 06/22/25 10:20 BENADRYL) ayanna Allergy Unknown HIVES Verified 06/22/25 10:20 ayanna flavor Allergy Unknown Itching Verified 06/22/25 10:20 shellfish derived Allergy Unknown Rash, Verified 06/22/25 10:20 throat itches Home Medications ?Medication ?Instructions ?Recorded ?Confirmed ?Last Taken ?Type Bacillus coagulans 2 billion 1 cap PO DAILY 05/11/25 06/22/25 Unknown History cell-calcium 140 mg capsule (Digestive Advantage Probiotic) azelastine 137 mcg (0.1 %) nasal 2 spray intranasal DAILY PRN 05/11/25 06/22/25 Unknown History spray Allergy Symptoms cholecalciferol (vitamin D3) 125 125 mcg PO DAILY 05/11/25 06/22/25 Unknown History mcg (5,000 unit) capsule mirabegron 50 mg tablet,extended 50 mg PO DAILY 05/11/25 06/22/25 Unknown History release 24 hr (Myrbetriq) omeprazole 20 mg capsule,delayed 20 mg PO DAILY 05/11/25 06/22/25 Unknown History release pilocarpine HCl 5 mg tablet 5 mg PO DAILY 05/11/25 06/22/25 Unknown History trospium 60 mg capsule,extended 60 mg PO DAILY 05/11/25 06/22/25 Unknown History release 24 hr ketotifen fumarate 0.025 % (0.035 1 drp ophthalmic (eye) QID PRN itch 06/13/25 06/22/25 Unknown History %) eye drops tizanidine 4 mg tablet 4 mg PO BEDTIME PRN Muscle Spasm 06/13/25 06/22/25 Unknown History vibegron 75 mg tablet (Gemtesa) 75 mg PO DAILY 06/13/25 06/22/25 Unknown History Assessment and Plan Assessment Anesthesia Assessment: Chart Reviewed Final Anesthetic Review NPO: Yes ASA Class: III Final Preanesthetic Review: No Changes in Pt Med Stat, Meds/Allgs Chart Reviewed, Consent Obtained/Reviewed and Anes Risks/Benef Reviewed Patient Risk: Intermediate Procedure Risk: Intermediate Anesthetic Plan Anesthetic Plan: GA, Regional Block and Agree w/ Assess. and Plan Disposition: Standard PACU
[2025-06-27] VITALS (10 sets, daily range): BP systolic 124–158; BP diastolic 56–84; PULSE 65–75; RESP 14–18; TEMP 36.1–37.1; O2SAT 94–100; BMI 25.0
--- NOTE | ~2025-06-27 | XR_ITS ---
EXAMINATION: XR CHEST 1 VIEW HISTORY: chest pain COMPARISON: Comparison is made with the prior examination dated 02/21/2025. FINDINGS: A single AP portable view of the chest performed at 7:12 AM is submitted. The lungs are expanded and clear. There is no pleural effusion, pneumothorax, or pulmonary vascular congestion. The heart is normal in size. There is degenerative disc disease of the spine. A fusion plate is seen in the lower cervical spine. XR/XR chest 1V IMPRESSION: No acute cardiopulmonary abnormality. Electronically signed by: Gurvinder Rosenthal MD 06/29/2025 07:34 AM [facility]
--- NOTE | ~2025-06-27 | CT_ITS ---
EXAMINATION: CT ANGIOGRAM CHEST CLINICAL INFORMATION: Pleuritic chest pain COMPARISON: None available. TECHNIQUE: Multiple axial images were obtained through the chest after the administration of 65 mL of Omnipaque 350 intravenous contrast. Extensive vascular post-processing including two-dimensional and three-dimensional reformatted images were created and reviewed on an independent workstation. SmartPrep technique. This CT examination was performed using dose optimization techniques as appropriate, variously including the following: *Automated exposure control *Adjustment of mA and/or kV according to patient size (this includes techniques or standardized protocols for targeted exams where dose is matched to indication/reason for exam; i.e. extremities or head) *Use of iterative reconstruction technique DLP: 132 mGy-cm FINDINGS: Main pulmonary artery, its main left and right branches and subsegmental pulmonary branches demonstrated normal IV contrast enhancement without intraluminal filling defect. No aneurysm or dissection, thoracic aorta. Patchy pulmonary attenuation, right middle lung lobe. No bronchiectasis. No honeycombing. Atelectasis lung bases. Respiratory airways is patent. No mediastinal or perihilar lymphadenopathy. Small trace volume pericardial effusion. Bilateral small volume pleural effusions. No pneumothorax. No hemothorax. No pneumomediastinum. Punctate calcification left thyroid lobe. Multilevel spondylosis throughout the axial skeleton. Superior endplate compression deformity representing 20% volume loss with Schmorl node at T12 vertebral body. No gross listhesis. No lytic or blastic lesions. Subacute to old fracture with callus formation at the posterior aspect of the left ninth rib. No acute rib fracture. Sternum is intact. CT/CT angio chest PE protocol IMPRESSION: No acute pulmonary artery emboli. No aneurysm or dissection, thoracic aorta. Airspace disease, right middle lung lobe. Recommend follow-up until resolution. Subacute to old fracture posterior, left ninth rib. Multilevel spondylosis with a likely old superior endplate compression deformity at T12.. Fleischner guidelines were followed. Electronically signed by: Quang Purcell MD 06/29/2025 12:23 PM [facility]
[2025-06-27] MEDS: Lactated Ringers 1,000 ML 100 ML IVCONT (09:12)
--- NOTE | 2025-06-27 13:12 | P.BOP_ITS ---
Brief Operative Note Date of Service: 06/27/25 Pre-op diagnosis: Right shoulder impingement syndrome, right shoulder acromioclavicular joint arthritis Post-op diagnosis: same Procedure: Right shoulder arthroscopic distal clavicle excision, right shoulder arthroscopic acromioplasty Implants: None Surgeon: Michael Huang MD Anesthesia: GETA and regional Was an Relocation Commissioner used for this Procedure?: No Estimated blood loss (mL): 10 Pathology: none sent Condition: stable Disposition: PACU
--- NOTE | 2025-06-27 13:12 | W.PM.OPN ---
Operative Note Operative Note Date of Service: 06/27/25 Narrative: After the patient was identified as Phoebe Garnett and her right shoulder was initialed by myself the patient was brought to the holding area where a right shoulder interscalene regional block was performed by the anesthesiologist in routine fashion. The patient was then brought to the operating room where general anesthesia was induced by the anesthesiologist in routine fashion. The patient was given 2 g of IV Ancef preoperatively for infection prophylaxis. Examination under anesthesia of the patient's right shoulder showed full passive range of motion of the patient's left shoulder when compared to the left. The patient was gently positioned in the beach chair position with all bony prominences well padded. The patient's right shoulder region and upper extremity were prepped and draped in sterile fashion. A formal time-out was completed. A #11 scalpel blade was used to make a posterior portal 2 cm inferior and 1 cm medial to the posterolateral corner of the acromion. Blunt trocar technique was used to enter the glenohumeral joint in routine fashion. An anterior portal was made just lateral to the coracoid process after proper positioning was confirmed using a spinal needle. Diagnostic arthroscopy showed minimal degenerative changes of the glenoid and humeral head articular surfaces. There was no evidence of rotator cuff tearing. There was no evidence of injury to the biceps tendon or its insertion onto the glenoid. There was no inflammation of the anterior joint capsule. The arthroscope was then placed from the posterior portal into the subacromial space. A lateral portal was made 2 fingerbreadths lateral to the anterior lateral corner of the acromion. The ArthroCare Wand was used to ablate soft tissues along the undersurface of the acromion as well as to excise the coracoacromial ligament. There was a sharp spur along the undersurface of the acromion which was removed using the hooded bur. The arthroscope was then placed into the lateral portal and the acromioplasty was completed with the bur in the posterior portal using the posterior aspect of the acromion as a cutting block. The ArthroCare Wand was then brought in through the anterior portal and was used to ablate soft tissues along the acromioclavicular joint and distal clavicle. The posterior and superior ligamentous structures were left intact. A distal clavicle excision of 8 mm was performed using the hooded bur. Any remaining bursal tissue was removed using the arthroscopic shaver. The subacromial space was irrigated and then drained. All arthroscopic instruments were removed. The 3 portals were closed with 3-0 nylon interrupted suture. The subacromial space was injected with Marcaine. Dry sterile dressing was placed over all incisions. The patient's right upper extremity was placed into a sling. The patient was awoken and extubated in the operating room. The patient was transferred to the recovery room in stable condition.
[2025-06-27] MEDS: Lactated Ringers 1,000 ML 20 ML IVCONT (15:51)
--- NOTE | 2025-06-27 17:23 | PHA.MEDREC ---
Pharmacy Consult ? Medication Reconciliation Pharmacy has completed the medication reconciliation. Spoke with pt and she confirmed her medications. Pt hasn't started the Iron tablet yet and it is still waiting to be picked up at the pharmacy.
[2025-06-28 03:46] VITALS: BP 133/61; PULSE 63; RESP 16; TEMP 36.5; O2SAT 96
[2025-06-28] MEDS: oxyCODONE HCl Immed Release 5 MG TABLET 10 MG PO ×3 (05:44→20:41)
[2025-06-28 07:42] VITALS: BP 141/65; PULSE 65; RESP 18; TEMP 36.1; O2SAT 96
[2025-06-28 08:00] VITALS: BP 150/68; PULSE 68; RESP 17; O2SAT 95
--- NOTE | 2025-06-28 08:00 | PC.NURSE ---
Pt complaining of 8/10 pain. After administration of PRN IV dilaudid 0.5mg per MAR. Pt reports feeling lightheaded and dizzy, states she feels like she is going to pass out. Pt currently lying semi-fowlers in bed answering questions appropriately with eyes closed. Carlene RUBIO at bedside. VSS BP 150/68, HR 68, O2 95 on room air, RR 18. Pt talking to this RN with eyes closed. Ice pack placed on back of pts neck, pt reports no change in feelings. Ortho PA Meuse aware. Pt complaining of nausea. PRN Zofran given per SEP.
--- NOTE | 2025-06-28 08:35 | HO.POSTANES ---
Post Anesthesia Evaluation Post Anesthesia Evaluation Date of Service: 06/28/25 Vital Signs: Vital Signs Temp Pulse Resp BP Pulse Ox O2 Del Method 06/28/25 08:00 68 17 150/68 H 95 Room Air 06/28/25 07:42 97.0 F 65 18 141/65 H 96 Room Air 06/28/25 03:46 97.7 F 63 16 133/61 96 Room Air 06/27/25 23:33 97.7 F 73 16 133/60 96 Room Air Anesthesia: Nerve Block and General Mental Status: Awake Pain Control: Satisfactory Nausea/Vomiting: None Hydration: Adequate Anesthesia-Related Issues: No Anes. Related Issues
--- NOTE | 2025-06-28 10:40 | PM.PNORT ---
Subjective Subjective Date of Service: 06/28/25 Interval history: POD 1 s/p Rt shoulder 06/27/25 patient feeling lightheaded this AM Nurse at bedside no overnight events Physical Exam Vital Signs: Vital Signs: Last Vital Signs Temp 97.0 F 06/28/25 07:42 Pulse 68 06/28/25 08:00 Resp 17 06/28/25 08:00 BP 150/68 H 06/28/25 08:00 Pulse Ox 95 06/28/25 08:00 O2 Del Method Room Air 06/28/25 08:00 O2 Flow Rate 6 06/27/25 13:15 BMI result Body Mass Index 25.0 Const: General: cooperative, healthy appearing and no acute distress Resp: Effort & Inspection: normal respiratory effort and able to speak in complete sentences Cardio: Rate: regular rate Peripheral pulses: Peripheral pulses 2+ throughout GI: Palpation (GI): Soft to palpation Skin: General skin exam: no rashes or lesions noted Extrem: Other: Rt shoulder bandage c/d/i SHe is able to more the elbow and wrist NVI Procedures Date of Service Date of Service: 06/28/25 Progress Note: A&P Assessment and plan (1) Rotator cuff insufficiency of right shoulder: Status: Acute Assessment and Plan: Sling on for 24 hrs med consult for syncope pain mgmnt CM consult ? rehab PT/OT Time Spent With Patient Time: Total time managing care of this patient today ____ minutes. Quality Stroke Does the patient have a stroke diagnosis?: No VTE Prior VTE?: No VTE Risk Level:: Surgical - low VTE Device Contraindication: Treatment Not Indicated VTE Drug Contraindication: Treatment Not Indicated
--- NOTE | 2025-06-28 12:18 | MHC.CM.PN ---
PT LIVES INHER CAR SHE IS INDEPEDDENT AND WILL RETURN [place] [facility] [place] PR[facility] LISDT WILL BE GIVEN TO PT
[2025-06-28 15:24] VITALS: BP 124/61; PULSE 65; RESP 18; TEMP 36.3; O2SAT 97
[2025-06-28] MEDS: Lactated Ringers 1,000 ML 20 ML IVCONT (16:35)
[2025-06-28 20:00] VITALS: BP 112/58; PULSE 69; RESP 18; TEMP 36.8; O2SAT 95
--- NOTE | 2025-06-29 | ECG_ITS ---
Test Reason : CHEST TIGHTNESS Blood Pressure : */* mmHG Vent. Rate : 60 BPM Atrial Rate : 60 BPM P-R Int : 138 ms QRS Dur : 80 ms QT Int : 408 ms P-R-T Axes : 60 18 27 degrees QTcB Int : 408 ms Sinus rhythm with Premature atrial complexes Cannot rule out Anterior infarct (cited on or before 25-Nov-2024) Abnormal ECG When compared with ECG of 25-Nov-2024 13:10, Vent. rate has decreased by 34 bpm T wave inversion now evident in Anterior leads Referred By: Saskia Varela Electronically Signed By: LIDYA GARCIA
--- NOTE | 2025-06-29 02:17 | HO.PM.IMCN ---
History of Present Illness Data of Consult Service Date: 06/29/25 Requesting physician: Michael Huang Primary Care Provider: Nikolas Frost MD [facility] Reason for consult: med management, syncope Patient is a 59-year-old female with a past medical history significant for RA, GERD, vertigo, migraines, anxiety, Sjogren's, SLE, history DVT and mild intermittent asthma, no s/p right shoulder on 06/27. Hospitalist consult placed for lightheadedness yesterday, no true syncopal episode, felt similar to previous vasovagal syncope episodes but did not sycopize. Patient had just had Dilaudid prior to this lightheadedness/presyncopal episode but reports that she was lightheaded prior to the dialudid. She is now complaining of L chest tightness radiating to the L arm. no fever, chills, nausea, vomiting or SOB. Review of Systems Constitutional: Constitutional: Denies body ache(s), Denies chills, Denies fatigue, Denies fever(s) and Denies headache(s) Eyes: Eyes: Denies change in vision ENT: Denies headache(s), Denies nasal congestion and Denies sore throat Cardiovascular: Cardiovascular: Denies chest pain, Denies rapid heart rate, Denies leg edema, Reports lightheadedness and Denies dyspnea Respiratory: Respiratory: Denies chest congestion, Denies cough, Denies dyspnea and Denies wheezing Gastrointestinal: Gastrointestinal: Denies abdominal pain, Denies diarrhea, Denies nausea and Denies vomiting Genitourinary: Genitourinary: Denies difficulty voiding, Denies dysuria, Denies urinary hesitancy and Denies urinary urgency Musculoskeletal: Musculoskeletal: Denies myalgias Integumentary/Breasts: Skin/Breast: Denies rash Neurologic: Denies confusion and Denies headache(s) Psychiatric: Psychiatric: Denies confusion Endocrine: Endocrine: Denies fatigue Hematologic/Lymphatic: Hematologic/Lymphatic: Denies easy bleeding Allergic/Immunologic: Allergic/Immunologic: Denies wheezing [facility] Medical History Incontinence Food poisoning Rheumatoid arthritis Sciatica Anemia Constipation GERD (gastroesophageal reflux disease) Fatty liver Vertigo Migraine Agoraphobia Panic attacks Anxiety Bipolar 1 disorder Sleep apnea Sepsis Pneumonia Emphysema of lung Hearing loss Eczema Rectal bleeding Sjogren's syndrome Allergic rhinitis SLE (systemic lupus erythematosus related syndrome) Cough Murmur DVT (deep venous thrombosis) Cervical radiculopathy Early satiety Asthma Family History Mother Pancreatic cancer Surgical History Hx of hand surgery Hx of fusion of cervical spine (~2021) S/P bilateral breast reduction History of loop electrical excision procedure (LEEP) Hx of colonoscopy History of esophagogastroduodenoscopy (EGD) Social History Household Members: None Housing: Homeless Are you a primary outdoor emergency care technician to a significant other at home: No Do you presently have visiting nurse or other home services: No Patient Tobacco Use Status: Never used Tobacco Use of substances other than those prescribed or required for medical reasons: No Currently Displaying Signs/Symptoms of Drug Intoxication Withdrawal: No Have you been hit, kicked, punched, or otherwise hurt by someone within the past year? If so, by whom?: No Do you feel safe in your current relationship?: Yes Is there a partner from a previous relationship who is making you feel unsafe now?: No Are you made to feel afraid or neglected: No Are you DNR?: No Advance Directives: No Advance Directives Information Provided: No Advance Directives on File: No Do you have a plan to hurt others: No Plan Recently lost weight without trying: No How much weight loss: Not applicable Eating poorly because of decreased appetite: No Nutrition screen score: 0 Nutrition Risks: No Nutritional Risk Patient : No : No Poor oral hygiene: No service: No Meds Allergies Allergy/AdvReac Type Severity Reaction Status Date / Time pineapple (Pineapple) Allergy Intermediate THROAT Verified 06/27/25 09:03 ITCHES latex (Latex) Allergy Mild Rash, Hives Verified 06/27/25 09:03 diphenhydramine (From Allergy Unknown UNKNOWN Verified 06/27/25 09:03 BENADRYL) ayanna Allergy Unknown HIVES Verified 06/27/25 09:03 ayanna flavor Allergy Unknown Itching Verified 06/27/25 09:03 shellfish derived Allergy Unknown Rash, Verified 06/27/25 09:03 throat itches Active Medications: Current Medications Acetaminophen (Acetaminophen 325 Mg Tablet) 650 mg PO Q6H PRN PRN Reason: Pain, Mild 1-3,fever,headache Albuterol Sulfate (Albuterol Sulfate (0.083%) 2.5 Mg/3 Ml Vial.Neb) 2.5 mg INHALE ONCE PRN PRN Reason: Shortness of Breath/Wheezing Azelastine HCl (Azelastine Hcl Nasal 137 Mcg/[place] 30 Ml) 2 spray NOSTRIL-B DAILY PRN PRN Reason: Allergy Symptoms Calcium Carbonate (Calcium Carbonate 750 Mg Tab.Chew) 750 mg PO Q4H PRN PRN Reason: Heartburn Hydromorphone HCl (Hydromorphone Hcl 1 Mg/Ml Syringe) 0.5 mg IVPUSH Q3H PRN; Protocol PRN Reason: Pain, Severe (Pain Scale 7-10) Last Admin: 06/28/25 07:44 Dose: 0.5 mg Lactated Ringer's (Lr) 1,000 mls @ 20 mls/hr IVCONT .Q24H ANALISA Last Admin: 06/28/25 16:35 Dose: 20 mls/hr Ketotifen Fumarate (Ketotifen Fumarate 0.025% Oph 5 Ml Drpbtl) 1 drop EYE-BOTH QID PRN PRN Reason: itch Magnesium Hydroxide (Milk Of Magnesia 30 Ml Oral.Susp) 30 ml PO DAILY PRN PRN Reason: Constipation Melatonin (Melatonin 3 Mg Tablet) 6 mg PO BEDTIME PRN PRN Reason: Insomnia Last Admin: 06/28/25 20:41 Dose: 6 mg Naloxone HCl (Naloxone Hcl 0.4 Mg/Ml Vial) 0.04 mg IVPUSH Q5M PRN PRN Reason: Excessive sedation or RR < 8 Non-Formulary Medication (Gemtesa) 75 mg PO DAILY [facility] Omeprazole (Omeprazole 20 Mg Capsule.Dr) 20 mg PO DAILY@0630 [facility] Last Admin: 06/28/25 05:44 Dose: 20 mg Ondansetron HCl (Ondansetron Hcl 4 Mg/2 Ml Vial) 4 mg IVPUSH Q6H PRN PRN Reason: Nausea and Vomiting Last Admin: 06/28/25 08:23 Dose: 4 mg Oxycodone HCl (Oxycodone Hcl Immed Release 5 Mg Tablet) 5 mg PO Q4H PRN PRN Reason: Pain, Mild (Pain Scale 1-3) Oxycodone HCl (Oxycodone Hcl Immed Release 5 Mg Tablet) 10 mg PO Q4H PRN PRN Reason: Pain, Moderate(Pain Scale 4-6) Last Admin: 06/28/25 20:41 Dose: 10 mg Promethazine HCl (Promethazine Hcl 25 Mg Tablet) 25 mg PO Q4H PRN PRN Reason: Nausea and Vomiting Sodium Chloride (0.9 % Sodium Chloride Flush 3 Ml Syringe) 3 ml IVFLUSH QSHIFT [facility] Last Admin: 06/29/25 00:28 Dose: Not Given Vitamin D (Cholecalciferol (Vitamin D3) 25 Mcg Tablet) 125 mcg PO DAILY [facility] Last Admin: 06/28/25 08:59 Dose: 125 mcg Home Medications ?Medication ?Instructions ?Recorded ?Confirmed ?Last Taken ?Type Bacillus coagulans 2 billion 1 cap PO DAILY 05/11/25 06/27/25 06/26/25 History cell-calcium 140 mg capsule (Digestive Advantage Probiotic) azelastine 137 mcg (0.1 %) nasal 2 spray intranasal DAILY PRN 05/11/25 06/27/25 Unknown History spray Allergy Symptoms cholecalciferol (vitamin D3) 125 125 mcg PO DAILY 05/11/25 06/27/25 06/26/25 History mcg (5,000 unit) capsule omeprazole 20 mg capsule,delayed 20 mg PO DAILY@0630 05/11/25 06/27/25 06/26/25 History release ketotifen fumarate 0.025 % (0.035 1 drp ophthalmic (eye) BID PRN itch 06/13/25 06/27/25 Unknown History %) eye drops vibegron 75 mg tablet (Gemtesa) 75 mg PO DAILY 06/13/25 06/27/25 06/26/25 History ipratropium bromide 42 mcg (0.06 1 - 2 spray intranasal TID PRN 06/27/25 06/27/25 Unknown History %) nasal spray Nasal Congestion multivitamin 1 tab PO DAILY 06/27/25 06/27/25 06/26/25 History Physical Exam Vital Signs and Narrative: Vital Signs: Last Vital Signs Temp 98.3 F 06/28/25 20:00 Pulse 69 06/28/25 20:00 Resp 18 06/28/25 20:00 BP 112/58 L 06/28/25 20:00 Pulse Ox 95 06/28/25 20:00 O2 Del Method Room Air 06/28/25 20:00 O2 Flow Rate 6 06/27/25 13:15 BMI result Body Mass Index 25.0 General: AOx3, no acute distress Resp: CTA bilaterally, no chest wall pain CVS: S1, S2, RRR GI: +BS, NT, no distention Skin: Warm, dry Neuro: Cranial nerves II-XII grossly intact bilaterally. Motor grossly intact bilaterally Extremities: No pitting edema Psych: Appropriate affect Const: General: No confusion Orientation/consciousness: No confusion Neuro: General: No confusion Assessment and Plan (1) Rotator cuff insufficiency of right shoulder: Status: Acute Plan Patient is a 59-year-old female with a past medical history significant for RA, GERD, vertigo, migraines, anxiety, Sjogren's, SLE, history DVT and mild intermittent asthma, no s/p right shoulder on 06/27. s/p R shoulder - POD2 - plan per ortho - avoid dilaudid due to lightheadedness chest tightness - EKG, trop, CXR, CBC, BMP GERD - PPI Sjogren's - ketotifen gtts PRN mild intermittent asthma, no acute exacerbation - ventolin PRN Thank you for allowing me to participate in the pt's care. Will follow pending chest tightness workup. Please contact the medical team if any questions or concerns.
[2025-06-29] MEDS: oxyCODONE HCl Immed Release 5 MG TABLET 10 MG PO ×4 (03:19→14:35)
[2025-06-29 03:53] VITALS: BP 113/63; PULSE 61; RESP 18; TEMP 36.6; O2SAT 97
--- NOTE | 2025-06-29 07:31 | PM.PNORT ---
Subjective Subjective Date of Service: 06/29/25 Interval history: POD 2 s/p Rt shoulder 06/27/25 patient continues to feel lightheaded this AM C/O CP and left arm pain - Medicine aware and currently obtaining labs, trops, EKG, and EKG Reports pain is not managed Physical Exam Vital Signs: Vital Signs: Last Vital Signs Temp 97.9 F 06/29/25 03:53 Pulse 61 06/29/25 03:53 Resp 18 06/29/25 03:53 BP 113/63 06/29/25 03:53 Pulse Ox 97 06/29/25 03:53 O2 Del Method Room Air 06/29/25 03:53 O2 Flow Rate 6 06/27/25 13:15 BMI result Body Mass Index 25.0 Const: General: cooperative, healthy appearing and no acute distress Resp: Effort & Inspection: normal respiratory effort and able to speak in complete sentences Cardio: Rate: regular rate Peripheral pulses: Peripheral pulses 2+ throughout GI: Palpation (GI): Soft to palpation Skin: General skin exam: no rashes or lesions noted Extrem: Other: Rt shoulder bandage c/d/i She is able to more the elbow and wrist NVI Psych: Appearance: grossly normal Mental Status: mental status grossly normal Attitude: cooperative Procedures Date of Service Date of Service: 06/29/25 Progress Note: A&P Assessment and plan (1) Rotator cuff insufficiency of right shoulder: Status: Acute (2) Impingement of right shoulder: Status: Acute Plan Continue pain mgmnt Sling x 48hours post op and then may discontinue Bandages can be removed today by nursing Medicine working patient up for reported CP -Obtaining labs, trops, EKG, Cest X-ray Dispo planning-Once medically cleared, discharge planning continues due to social issues; patient is homeless and lives out of her vehicle Time Spent With Patient Time: Total time managing care of this patient today ____ minutes. Quality Stroke Does the patient have a stroke diagnosis?: No VTE Prior VTE?: No VTE Risk Level:: Surgical - low VTE Device Contraindication: Treatment Not Indicated VTE Drug Contraindication: Treatment Not Indicated
[2025-06-29 07:57] LABS: MANUAL DIFF FLAG NO
[2025-06-29 07:59] LABS: Hematocrit 34.5 % (37.0-47.0); Hemoglobin 11.5 g/dl (12.0-16.0); Imm Gran Abs Auto 0.01 X10*3/uL (0.00-0.03); Imm Gran Pct Auto 0.2 % (0.0-0.4); Lymphocytes Absolute Auto 2.3 X10*3/uL (1.2-4.9); Mean Corpuscular HGB Conc 33.3 g/dl (31.0-35.0); Mean Corpuscular Hemoglobin 30.3 pg (27.0-33.0); Mean Corpuscular Volume 91.0 fL (80.0-98.0); NRBC Abs Auto 0.000 X10*3/uL (0.0-0.012); NRBC Pct Auto 0.0 /100WBC (0.0-0.2); Platelet Count 193 X10*3/uL (160-400); Red Blood Count 3.79 X10*6/uL (4.20-5.50); White Blood Count 4.9 X10*3/uL (4.8-10.8)
[2025-06-29 08:00] VITALS: BP 121/60; PULSE 57; RESP 18; TEMP 36; O2SAT 96
[2025-06-29 08:25] LABS: Anion Gap 13 (12-20); Blood Urea Nitrogen 18 mg/dL (9-16); Calcium 8.7 mg/dL (8.4-10.2); Carbon Dioxide 27 mmol/L (22-29); Chloride 107 mmol/L (96-108); Creatinine Clr Calc Pharmacy 91.6; Estimated Glomerular Filt Rate > 60; Potassium 3.7 mmol/L (3.3-5.1); Sodium 143 mmol/L (135-145); Troponin-I High Sensitivity < 2.7 ng/L (<3.5-17.0)
--- NOTE | 2025-06-29 10:00 | P.CONCA_ITS ---
History of Present Illness History of Present Illness Date of Service: 06/29/25 Chief complaint: Impingement syndrome of right shoulder Narrative: This is a cardiology consultation regarding chest pain. Patient underwent right shoulder surgery on 06/27. Since yesterday, she has been having pain across the front of the chest. She initially apparently had on the right side and then it progressed to the left side and she also feels it in the left shoulder. Some of this pain is constant and present all the time but some of it is more so with deep breathing. It seems that she has been seen at [facility] in the past for complaints of dizziness and question of cardiac murmur. No clear history of any coronary disease however. She is resting comfortably in bed at this time following therapy. Review of Systems 2 Review of Systems: Yes all other systems are reviewed and are negative Constitutional: Constitutional: Reports as per HPI and Reports no additional constitutional complaints Eyes: Eyes: Reports as per HPI and Denies no additional eye complaints ENT: Denies system reviewed and no additional complaints, except as documented and Reports as per HPI Cardiovascular: Cardiovascular: Reports as per HPI, Reports no additional cardiovascular complaints, Denies acrocyanosis, Denies cool extremities, Reports chest pain, Denies leg edema, Denies lightheadedness, Denies palpitations and Denies dyspnea Respiratory: Respiratory: Reports as per HPI, Denies no additional respiratory complaints and Denies dyspnea Gastrointestinal: Gastrointestinal: Reports as per HPI and Denies no additional gastrointestinal complaints Genitourinary: Genitourinary: Reports as per HPI Musculoskeletal: Musculoskeletal: Reports no additional musculoskeletal complaints and Reports as per HPI Integumentary/Breasts: Skin/Breast: Reports system reviewed and no additional complaints, except as docu Neurologic: Reports system reviewed and no additional complaints, except as documented and Reports as per HPI Psychiatric: Psychiatric: Reports no additional psychiatric complaints and Reports as per HPI Endocrine: Endocrine: Reports no additional endocrine complaints, Reports as per HPI and Denies palpitations Hematologic/Lymphatic: Hematologic/Lymphatic: Reports no additional hematologic/lymphatic complaints and Reports as per HPI Allergic/Immunologic: Allergic/Immunologic: Reports no additional allergic/immunologic complaints and Reports as per HPI [facility] Past Medical History Medical History Incontinence Food poisoning Rheumatoid arthritis Sciatica Anemia Constipation GERD (gastroesophageal reflux disease) Fatty liver Vertigo Migraine Agoraphobia Panic attacks Anxiety Bipolar 1 disorder Sleep apnea Sepsis Pneumonia Emphysema of lung Hearing loss Eczema Rectal bleeding Sjogren's syndrome Allergic rhinitis SLE (systemic lupus erythematosus related syndrome) Cough Murmur DVT (deep venous thrombosis) Cervical radiculopathy Early satiety Asthma Family History Family History Mother Pancreatic cancer Surgical History Surgical History Hx of hand surgery Hx of fusion of cervical spine (~2021) S/P bilateral breast reduction History of loop electrical excision procedure (LEEP) Hx of colonoscopy History of esophagogastroduodenoscopy (EGD) Social History Social History Household Members: None Housing: Homeless Are you a primary foster care worker to a significant other at home: No Do you presently have visiting nurse or other home services: No Patient Tobacco Use Status: Never used Tobacco Use of substances other than those prescribed or required for medical reasons: No Currently Displaying Signs/Symptoms of Drug Intoxication Withdrawal: No Have you been hit, kicked, punched, or otherwise hurt by someone within the past year? If so, by whom?: No Do you feel safe in your current relationship?: Yes Is there a partner from a previous relationship who is making you feel unsafe now?: No Are you made to feel afraid or neglected: No Are you DNR?: No Advance Directives: No Advance Directives Information Provided: No Advance Directives on File: No Do you have a plan to hurt others: No Plan Recently lost weight without trying: No How much weight loss: Not applicable Eating poorly because of decreased appetite: No Nutrition screen score: 0 Nutrition Risks: No Nutritional Risk Patient : No : No Poor oral hygiene: No service: No Meds Allergies Allergy/AdvReac Type Severity Reaction Status Date / Time pineapple (Pineapple) Allergy Intermediate THROAT Verified 06/27/25 09:03 ITCHES latex (Latex) Allergy Mild Rash, Hives Verified 06/27/25 09:03 diphenhydramine (From Allergy Unknown UNKNOWN Verified 06/27/25 09:03 BENADRYL) ayanna Allergy Unknown HIVES Verified 06/27/25 09:03 ayanna flavor Allergy Unknown Itching Verified 06/27/25 09:03 shellfish derived Allergy Unknown Rash, Verified 06/27/25 09:03 throat itches Active Medications: Current Medications Acetaminophen (Acetaminophen 325 Mg Tablet) 650 mg PO Q6H PRN PRN Reason: Pain, Mild 1-3,fever,headache Albuterol Sulfate (Albuterol Sulfate (0.083%) 2.5 Mg/3 Ml Vial.Neb) 2.5 mg INHALE ONCE PRN PRN Reason: Shortness of Breath/Wheezing Azelastine HCl (Azelastine Hcl Nasal 137 Mcg/[place] 30 Ml) 2 spray NOSTRIL-B DAILY PRN PRN Reason: Allergy Symptoms Calcium Carbonate (Calcium Carbonate 750 Mg Tab.Chew) 750 mg PO Q4H PRN PRN Reason: Heartburn Hydromorphone HCl (Hydromorphone Hcl 1 Mg/Ml Syringe) 0.5 mg IVPUSH Q3H PRN; Protocol PRN Reason: Pain, Severe (Pain Scale 7-10) Last Admin: 06/28/25 07:44 Dose: 0.5 mg Ketotifen Fumarate (Ketotifen Fumarate 0.025% Oph 5 Ml Drpbtl) 1 drop EYE-BOTH QID PRN PRN Reason: itch Magnesium Hydroxide (Milk Of Magnesia 30 Ml Oral.Susp) 30 ml PO DAILY PRN PRN Reason: Constipation Melatonin (Melatonin 3 Mg Tablet) 6 mg PO BEDTIME PRN PRN Reason: Insomnia Last Admin: 06/28/25 20:41 Dose: 6 mg Naloxone HCl (Naloxone Hcl 0.4 Mg/Ml Vial) 0.04 mg IVPUSH Q5M PRN PRN Reason: Excessive sedation or RR < 8 Non-Formulary Medication (Gemtesa) 75 mg PO DAILY [facility] Omeprazole (Omeprazole 20 Mg Capsule.Dr) 20 mg PO DAILY@0630 ANALISA Last Admin: 06/29/25 06:31 Dose: 20 mg Ondansetron HCl (Ondansetron Hcl 4 Mg/2 Ml Vial) 4 mg IVPUSH Q6H PRN PRN Reason: Nausea and Vomiting Last Admin: 06/28/25 08:23 Dose: 4 mg Oxycodone HCl (Oxycodone Hcl Immed Release 5 Mg Tablet) 5 mg PO Q4H PRN PRN Reason: Pain, Mild (Pain Scale 1-3) Oxycodone HCl (Oxycodone Hcl Immed Release 5 Mg Tablet) 10 mg PO Q4H PRN PRN Reason: Pain, Moderate(Pain Scale 4-6) Last Admin: 06/29/25 06:31 Dose: 10 mg Promethazine HCl (Promethazine Hcl 25 Mg Tablet) 25 mg PO Q4H PRN PRN Reason: Nausea and Vomiting Sodium Chloride (0.9 % Sodium Chloride Flush 3 Ml Syringe) 3 ml IVFLUSH QSHIFT [facility] Last Admin: 06/29/25 06:32 Dose: Not Given Vitamin D (Cholecalciferol (Vitamin D3) 25 Mcg Tablet) 125 mcg PO DAILY [facility] Last Admin: 06/29/25 06:31 Dose: 125 mcg Home Medications ?Medication ?Instructions ?Recorded ?Confirmed ?Last Taken ?Type Bacillus coagulans 2 billion 1 cap PO DAILY 05/11/25 1 08/28/24 06/26/25 History cell-calcium 140 mg capsule (Digestive Advantage Probiotic) azelastine 137 mcg (0.1 %) nasal 2 spray intranasal DA MARTIN PRN 05/11/25 06/27/25 Unknown History spray Allergy Symptoms cholecalciferol (vitamin D3) 125 125 mcg PO DAILY 04/2706/27/25 06/26/25 History mcg (5,000 unit) capsule omeprazole 20 mg capsule,delayed 20 mg PO DAILY@0630 1 06/27/25 06/26/25 History release ketotifen fumarate 0.025 % (0.035 1 drp ophthalmic (ey e) BID PRN itch 06/13/25 06/27/25 Unknown History %) eye drops vibegron 75 mg tablet (Gemtesa) 75 mg PO DAILY 5 06/27/25 06/26/25 History ipratropium bromide 42 mcg (0.06 1 - 2 spray intranasa l TID PRN 06/27/25 06/27/25 Unknown History %) nasal spray Nasal Congestion multivitamin 1 tab PO DAILY 06/27/25 120 08/2106/26/25 History Physical Exam 2 Vital Signs: Vital Signs: Last Vital Signs Temp 96.8 F 06/29/25 08:00 Pulse 57 06/29/25 08:00 Resp 18 06/29/25 08:00 BP 121/60 06/29/25 08:00 Pulse Ox 96 06/29/25 08:00 O2 Del Method Room Air 06/29/25 08:00 O2 Flow Rate 6 06/27/25 13:15 BMI result Body Mass Index 25.0 Const: General: comfortable and no acute distress O rientation/consciousness: patient oriented x3 HEENT: Other: Unremarkable Head: Yes normal to inspection Neck: Neck: Yes normal visual inspection Chest: Chest palpation & inspection: normal inspection of the chest Resp: Auscultation: clear to auscultation bilaterally Cardio: Palpation: normal PMI Heart sounds: S1 normal heart sound present, S2 normal heart sound present, no gallops, Murmur heart sound present systolic II/ and at the right sternal border and no rubs GI: Palpation (GI): Soft to palpation Back/Spine/Pelvis: Other: unremarkable Skin: General skin exam: no rashes or lesions noted Neuro: General: patient oriented x3 Extrem: General: Yes normal to inspection Psych: Mental Status: mental status grossly normal Objective Labs and Meds 06/29/25 07:30 06/29/25 07:30 Lab results: Laboratory Results - last 24 hr 06/29/25 07:30 WBC 4.9 RBC 3.79 L Hgb 11.5 L Hct 34.5 L MCV 91.0 MCH 30.3 MCHC 33.3 RDW 13.4 Plt Count 193 MPV 9.9 Immature Gran % (Auto) 0.2 Neut % (Auto) 47.3 Lymph % (Auto) 46.0 H [place] % (Auto) 5.5 Eos % (Auto) 0.6 Baso % (Auto) 0.4 Lymph # (Auto) 2.3 [place] # (Auto) 0.3 Eos # (Auto) 0.0 Baso # (Auto) 0.0 Abs Immat Gran (auto) 0.01 Absolute Neuts (auto) 2.3 Absolute Nucleated RBC 0.000 Nucleated RBC % (auto) 0.0 Sodium 143 Potassium 3.7 Chloride 107 Carbon Dioxide 27 Anion Gap 13 BUN 18 H Creatinine 0.59 Estim Creat Clear Calc 91.6 Estimated GFR > 60 Random Glucose 114 Calcium 8.7 Troponin I High Sens < 2.7 ECG Interpretation: EKG with sinus rhythm; 60/Min; supraventricular ectopy; subtle T inversions in the anterior leads. Not seen in the previous EKG but seen in the older EKG from 2022. Imaging Radiologist's impression: Impressions Chest X-Ray 06/29/25 07:12 IMPRESSION: No acute cardiopulmonary abnormality. Electronically signed by: Gurvinder Rosenthal MD 06/29/2025 07:34 AM [facility] Assessment and Plan (1) Precordial chest pain: Status: Acute Plan High sensitivity troponin level is within normal range. EKG shows subtle anterior T-wave changes but these intermittently seen in her EKGs. Overall, low suspicion for ACS. Due to history of DVT, consider evaluation for any pulmonary thromboembolic disease. 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 Discussed with Dr. Loco. Procedures Date of Service Date of Service: 06/29/25
--- NOTE | 2025-06-29 11:52 | PM.EVENT ---
Event Note Date of Service: 06/29/25 Event Note: Follow up for pt with pleuritic chest pain beginning last night. Pt seen and evaluated in her room where she is resting comfortably in bed. Pt states she is continuing to have chest tightness that is worsened with deep inspiration on the right, and sharp and stabbing on the left that radiates to her left arm. Also experiencing lightheadedness and dizziness. Pt reports a hx of pleurisy a few years ago. Workup from last night unremarkable including CBC and BMP. No significant electrolyte abnormalities. High sensitivity troponin negative. EKG showing anterior T-wave inversions, though these have been seen on previous EKGs. Pt did get a cardiology consult who had a very low suspicion for ACS. However, given patient's hx of previous DVT will like to rule out a PE with a CTA of the chest. Time Spent With Patient Time: Total time managing care of this patient today ____ minutes.
[2025-06-29] MEDS: iohexoL 350 MG/ML 100 ML INFUS..BTL IV (11:53)
--- NOTE | 2025-06-29 15:43 | MHC.CM.PN ---
revisited with p[t discvussed dc options reminded her about the assisted and comig outpt for pt
[2025-06-29 15:59] VITALS: BP 134/64; PULSE 75; RESP 18; TEMP 36.2; O2SAT 97
[2025-06-29] MEDS: 0.9 % Sodium Chloride Flush 3 ML SYRINGE IVFLUSH ×2 (16:02→22:25)
[2025-06-29 19:56] VITALS: BP 134/75; PULSE 84; RESP 18; TEMP 37.1; O2SAT 96
[2025-06-30 03:30] VITALS: BP 125/59; PULSE 65; RESP 18; TEMP 36.7; O2SAT 95
[2025-06-30 06:10] VITALS: RESP 16
[2025-06-30 06:40] VITALS: RESP 18
--- NOTE | 2025-06-30 07:52 | PM.PNORT ---
Subjective Subjective Date of Service: 06/30/25 Interval history: POD 3 s/p Rt shoulder 06/27/25 DR patient is feeling well this morning, continues to report pleuritic chest pain C/O CP and left arm pain - Medicine aware and currently obtaining labs, trops, EKG, and EKG CTA performed yesterday was negative Reports chest pain is not managed, reports mild pain in the right shoulder Physical Exam Vital Signs: Vital Signs: Last Vital Signs Temp 98.1 F 06/30/25 03:30 Pulse 65 06/30/25 03:30 Resp 18 06/30/25 06:40 BP 125/59 L 06/30/25 03:30 Pulse Ox 95 06/30/25 03:30 O2 Del Method Room Air 06/30/25 03:30 O2 Flow Rate 6 06/27/25 13:15 BMI result Body Mass Index 25.0 Const: General: cooperative, healthy appearing and no acute distress Resp: Effort & Inspection: normal respiratory effort and able to speak in complete sentences Cardio: Rate: regular rate Peripheral pulses: Peripheral pulses 2+ throughout GI: Palpation (GI): Soft to palpation Skin: General skin exam: no rashes or lesions noted Extrem: Other: Rt shoulder bandage c/d/i She is able to more the elbow and wrist NVI Psych: Appearance: grossly normal Mental Status: mental status grossly normal Attitude: cooperative Procedures Date of Service Date of Service: 06/30/25 Progress Note: A&P Assessment and plan (1) Rotator cuff insufficiency of right shoulder: Status: Acute (2) Impingement of right shoulder: Status: Acute Plan Continue pain mgmnt Sling x 48hours post op and then may discontinue Bandages were removed today by me, however per patient request, a police and fire dispatcher dressing is once again placed over the incision sites Medicine working patient up for reported CP CTA negative, cardiology has cleared the patient, no need for further cardiac workup at this time Oral antibiotics upon discharge per Medicine for pneumonia Per hospitalist team, no further acute inpatient management is indicated for this chest pain or pneumonia Dispo planning-Once medically cleared, discharge planning continues due to social issues; patient is homeless and lives out of her vehicle Time Spent With Patient Time: Total time managing care of this patient today ____ minutes. Quality Stroke Does the patient have a stroke diagnosis?: No VTE Prior VTE?: No VTE Risk Level:: Surgical - low VTE Device Contraindication: Treatment Not Indicated VTE Drug Contraindication: Treatment Not Indicated
[2025-06-30 08:00] VITALS: BP 128/64; PULSE 65; RESP 16; TEMP 36; O2SAT 96
[2025-06-30 10:03] LABS: Glucose, Whole Blood 103 mg/dL (60-115)
[2025-06-30] MEDS: 0.9 % Sodium Chloride Flush 3 ML SYRINGE IVFLUSH ×2 (10:24→17:36)
--- NOTE | 2025-06-30 10:35 | P.PNCA_ITS ---
Subjective Subjective Date of Service: 06/30/25 Interval history: Patient states that the chest discomfort is much better. Review of Systems Review of Systems Yes all other systems are reviewed and are negative Constitutional: Reports as per HPI and Reports no additional constitutional complaints Eyes: Reports as per HPI and Denies no additional eye complaints Denies system reviewed and no additional complaints, except as documented and Reports as per HPI Cardiovascular: Reports as per HPI, Reports no additional cardiovascular complaints, Denies acrocyanosis, Denies cool extremities, Denies chest pain, Denies leg edema, Denies lightheadedness, Denies palpitations and Denies dyspnea Respiratory: Reports as per HPI, Denies no additional respiratory complaints and Denies dyspnea Gastrointestinal: Reports as per HPI and Denies no additional gastrointestinal complaints Genitourinary: Reports as per HPI Musculoskeletal: Reports no additional musculoskeletal complaints and Reports as per HPI Skin/Breast: Reports system reviewed and no additional complaints, except as docu Reports system reviewed and no additional complaints, except as documented and Reports as per HPI Psychiatric: Reports no additional psychiatric complaints and Reports as per HPI Endocrine: Reports no additional endocrine complaints, Reports as per HPI and Denies palpitations Hematologic/Lymphatic: Reports no additional hematologic/lymphatic complaints and Reports as per HPI Allergic/Immunologic: Reports no additional allergic/immunologic complaints and Reports as per HPI Physical Exam Vital Signs: Last Vital Signs Temp 96.8 F 06/30/25 08:00 Pulse 65 06/30/25 08:00 Resp 16 06/30/25 08:00 BP 128/64 06/30/25 08:00 Pulse Ox 96 06/30/25 08:00 O2 Del Method Room Air 06/30/25 08:00 O2 Flow Rate 6 06/27/25 13:15 BMI result Body Mass Index 25.0 Const General: comfortable and no acute distress Orientation/consciousness: patient oriented x3 HEENT Other: Unremarkable Head: Yes normal to inspection Neck Neck: Yes normal visual inspection Chest Chest palpation & inspection: normal inspection of the chest Resp Auscultation: clear to auscultation bilaterally Cardio Palpation: normal PMI Heart sounds: S1 normal heart sound present, S2 normal heart sound present, no gallops, no murmurs and no rubs GI Palpation (GI): Soft to palpation Back/Spine/Pelvis Other: unremarkable Skin General skin exam: no rashes or lesions noted Neuro General: patient oriented x3 Extrem General: Yes normal to inspection Psych Mental Status: mental status grossly normal Objective Labs and Meds 06/29/25 07:30 06/29/25 07:30 Lab results: Laboratory Results - last 24 hr 06/30/25 09:59 POC Glucose 103 Imaging Radiologist's impression: Impressions Chest CTA 06/29/25 11:53 IMPRESSION: No acute pulmonary artery emboli. No aneurysm or dissection, thoracic aorta. Airspace disease, right middle lung lobe. Recommend follow-up until resolution. Subacute to old fracture posterior, left ninth rib. Multilevel spondylosis with a likely old superior endplate compression deformity at T12.. Fleischner guidelines were followed. Electronically signed by: Quang Purcell MD 06/29/2025 12:23 PM [facility] Progress Note: A&P Assessment and plan (1) Precordial chest pain: Status: Acute Plan High sensitivity troponin level is within normal range. EKG shows subtle anterior T-wave changes but these intermittently seen in her EKGs. In the recent outpatient echocardiogram, LVEF 55-60%. No wall motion abnormalities. No significant valvular findings. In the CTA chest, no acute pulmonary emboli, aneurysm dissection. Airspace disease right middle lobe. Left 9th rib fracture. Spondylosis. Overall, no findings to suggest ACS. Her symptoms are also much better. Most likely pleuritic versus musculoskeletal pain. No further inpatient cardiac workup required. She already has an outpatient refrigeration houseman for follow-up. Time Spent With Patient Time: Total time managing care of this patient today ____ minutes. Progress Note: Quality Stroke Does the patient have a stroke diagnosis?: No Procedures Date of Service Date of Service: 06/30/25
--- NOTE | 2025-06-30 11:00 | P.PNIM_ITS ---
Subjective Subjective Date of Service: 06/30/25 Interval History: Pt seen and evaluated for follow up for right and left-sided chest pain CTA of chest yesterday positive for right middle lobe airspace disease concerning for pneumonia Pt reports left-sided chest pain now resolved; right-sided pleuritic chest pain improved Continues to experience right shoulder pain and difficulty moving upper right extremity Denies fever or chills, nausea or vomiting Review of Systems Review of Systems: Yes all other systems are reviewed and are negative Physical Exam 2 Exam: Exam: General: AOx3, no acute distress Resp: CTA bilaterally CVS: S1, S2, RRR Chest: non-tender to palpation GI: +BS, NT, no distention Skin: Warm, dry Neuro: Cranial nerves II-XII grossly intact bilaterally. Motor grossly intact bilaterally Extremities: No edema. Right shoulder in clean and dry dressing. ROM of RUE limited secondary to pain Psych: Anxious Vital Signs: Vital Signs: Last Vital Signs Temp 96.8 F 06/30/25 08:00 Pulse 65 06/30/25 08:00 Resp 16 06/30/25 08:00 BP 128/64 06/30/25 08:00 Pulse Ox 96 06/30/25 08:00 O2 Del Method Room Air 06/30/25 08:00 O2 Flow Rate 6 06/27/25 13:15 BMI result Body Mass Index 25.0 Objective Data Active Medications Acetaminophen (Acetaminophen 325 Mg Tablet) 650 mg PO Q6H PRN PRN Reason: Pain, Mild 1-3,fever,headache Albuterol Sulfate (Albuterol Sulfate (0.083%) 2.5 Mg/3 Ml Vial.Neb) 2.5 mg INHALE ONCE PRN PRN Reason: Shortness of Breath/Wheezing Azelastine HCl (Azelastine Hcl Nasal 137 Mcg/[place] 30 Ml) 2 spray NOSTRIL-B DAILY PRN PRN Reason: Allergy Symptoms Calcium Carbonate (Calcium Carbonate 750 Mg Tab.Chew) 750 mg PO Q4H PRN PRN Reason: Heartburn Ceftriaxone Sodium 1 gm/ (Sodium Chloride) 50 mls @ 100 mls/hr IV Q24H [facility] Last Infusion: 06/29/25 18:54 Dose: Infused Documented By: KHURRAM Azithromycin 500 mg/ Sodium (Chloride) 250 mls @ 125 mls/hr IV Q24H [facility] Last Infusion: 06/29/25 18:50 Dose: Infused Documented By: KHURRAM Ketotifen Fumarate (Ketotifen Fumarate 0.025% Oph 5 Ml Drpbtl) 1 drop EYE-BOTH QID PRN PRN Reason: itch Magnesium Hydroxide (Milk Of Magnesia 30 Ml Oral.Susp) 30 ml PO DAILY PRN PRN Reason: Constipation Melatonin (Melatonin 3 Mg Tablet) 6 mg PO BEDTIME PRN PRN Reason: Insomnia Last Admin: 06/28/25 20:41 Dose: 6 mg Documented By: HERMAN Morphine Sulfate (Morphine Sulfate 4 Mg/Ml Cartridge) 4 mg IVPUSH Q4H PRN; Protocol PRN Reason: Pain, Severe (Pain Scale 7-10) Last Admin: 06/30/25 06:10 Dose: 4 mg Documented By: OLIVER Naloxone HCl (Naloxone Hcl 0.4 Mg/Ml Vial) 0.04 mg IVPUSH Q5M PRN PRN Reason: Excessive sedation or RR < 8 Omeprazole (Omeprazole 20 Mg Capsule.Dr) 20 mg PO DAILY@0630 [facility] Last Admin: 06/30/25 06:03 Dose: 20 mg Documented By: OLIVER Ondansetron HCl (Ondansetron Hcl 4 Mg/2 Ml Vial) 4 mg IVPUSH Q6H PRN PRN Reason: Nausea and Vomiting Last Admin: 06/30/25 09:58 Dose: 4 mg Documented By: BALJEET Oxycodone HCl (Oxycodone Hcl Immed Release 5 Mg Tablet) 5 mg PO Q4H PRN PRN Reason: Pain, Mild (Pain Scale 1-3) Oxycodone HCl (Oxycodone Hcl Immed Release 5 Mg Tablet) 10 mg PO Q4H PRN PRN Reason: Pain, Moderate(Pain Scale 4-6) Last Admin: 06/29/25 14:35 Dose: 10 mg Documented By: NANDA Promethazine HCl (Promethazine Hcl 25 Mg Tablet) 25 mg PO Q4H PRN PRN Reason: Nausea and Vomiting Sodium Chloride (0.9 % Sodium Chloride Flush 3 Ml Syringe) 3 ml IVFLUSH QSHIFT [facility] Last Admin: 06/30/25 10:24 Dose: 3 ml Documented By: BALJEET Vitamin D (Cholecalciferol (Vitamin D3) 25 Mcg Tablet) 125 mcg PO DAILY [facility] Last Admin: 06/30/25 10:24 Dose: 125 mcg Documented By: BALJEET Labs 06/29/25 07:30 06/29/25 07:30 Labs: Laboratory Results - last 24 hr 06/30/25 09:59 POC Glucose 103 Assessment and Plan (1) Community acquired pneumonia: Status: Acute Plan Patient is a 59-year-old female with a past medical history significant for RA, GERD, vertigo, migraines, anxiety, Sjogren's, SLE, history DVT and mild intermittent asthma, no s/p right shoulder on 06/27. s/p R shoulder - POD3 - plan per ortho - avoid dilaudid due to lightheadedness; analgesics switched to morphine 4mg q4h Pleuritic chest pain/tightness - CTA of chest negative for PE but shows airspace disease in right middle lung lobe - EKG showing anterior T-wave inversions intermittently seen on previous EKG is; CXR, CBC, and BMP negative for significant acute abnormalities - cardiology consulted, does not think symptoms are cardiogenic in nature - ceftriaxone and azithromycin, day 2 - can discharge on cefuroxime 500 mg p.o. b.i.d. and azithromycin 500 mg daily for a total of 7 days of antibiotic coverage - pt should follow up with PCP for repeat imaging in 3-6 months' time to monitor for resolution GERD - PPI Sjogren's - ketotifen gtts PRN mild intermittent asthma, no acute exacerbation Thank you for allowing us to participate in the care of this pt. Will sign off for now. Please reach out if any acute issues or need arises. Quality Stroke Does the patient have a stroke diagnosis?: No VTE Prior VTE?: No VTE Risk Level:: Surgical - low VTE Device Contraindication: Treatment Not Indicated VTE Drug Contraindication: Treatment Not Indicated
[2025-06-30 16:00] VITALS: BP 155/78; PULSE 77; RESP 16; TEMP 36.6; O2SAT 98
--- NOTE | 2025-06-30 16:14 | MHC.CM.PN ---
PT SEEN BY OT WITH NO SKILLED NEEDS SHE LIVES IN HER CAR BUT IS UNABLE TO DRIVE AT THIS TIME PER ORTHO, PTS INSURANCE AUTHORIZED A RESPITE STAY AT A SNF PRIOR TO SURGERY REFERRAL BROADCASTED, NO SNF OFFERS AT THIS TIME, CM [facility] SEGUNDO BHAT [phone] CM LEFT A MESSAGE FOR [facility] CM, NO RETURN CALL RECEIVED AT THIS TIME
[2025-06-30] MEDS: oxyCODONE HCl Immed Release 5 MG TABLET PO (17:38)
[2025-06-30 19:31] VITALS: BP 120/56; PULSE 75; RESP 18; TEMP 36.8; O2SAT 97
[2025-06-30] MEDS: oxyCODONE HCl Immed Release 5 MG TABLET 10 MG PO (22:26)
[2025-07-01 03:05] VITALS: BP 117/61; PULSE 59; RESP 15; TEMP 36.7; O2SAT 96
[2025-07-01 07:51] VITALS: BP 118/62; PULSE 72; RESP 16; TEMP 36.9; O2SAT 97
[2025-07-01] MEDS: oxyCODONE HCl Immed Release 5 MG TABLET 10 MG PO ×2 (07:59→20:15)
[2025-07-01] MEDS: 0.9 % Sodium Chloride Flush 3 ML SYRINGE IVFLUSH ×2 (08:03→15:27)
--- NOTE | 2025-07-01 14:25 | P.PNOP_ITS ---
Subjective Subjective Date of Service: 07/01/25 Principal diagnosis: Right shoulder pain Interval history: Ms. Garnett is seen sitting in a chair this afternoon with complaints of mild to moderate right shoulder pain after undergoing right shoulder arthroscopic surge ry on 06/27/2025. She denies any fevers or chills. She denies any shortness of breath, chest pain or dizziness. Physical Exam Vital Signs: Vital Signs: Last Vital Signs Temp 98.5 F 07/01/25 07:51 Pulse 72 07/01/25 07:51 Resp 16 07/01/25 07:51 BP 118/62 07/01/25 07:51 Pulse Ox 97 07/01/25 07:51 O2 Del Method Room Air 07/01/25 07:51 O2 Flow Rate 6 06/27/25 13:15 BMI result Body Mass Index 25.0 Extrem: Other: Right shoulder examination shows that the surgical incisions are healing well, no erythema, mild discomfort with range of motion Procedures Date of Service Date of Service: 07/01/25 Progress Note: A&P Assessment and plan (1) Impingement of right shoulder: Status: Acute Plan Ms. Garnett continues to do well after undergoing right shoulder surgery on 06/27/2025. At this point the patient has been cleared medically for discharge. The patient was initially under the impression that her insurance company would cover an inpatient rehab stay following her surgery. At this point the patient's insurance company has not approved a rehab stay. I had a lengthy discussion with the patient regarding her disposition options. The patient states that she is fine with being discharged from the hospital tomorrow morning. She will continue with her [id number] exercises as instructed. She will follow up with me for her 1st postoperative appointment in 2 weeks as scheduled. She will contact me prior to that time should any questions or concerns arise. Quality Stroke Does the patient have a stroke diagnosis?: No VTE Prior VTE?: No VTE Risk Level:: Surgical - low VTE Device Contraindication: Treatment Not Indicated VTE Drug Contraindication: Treatment Not Indicated
--- NOTE | 2025-07-01 15:12 | MHC.CM.PN ---
Addendum entered by Lidia Adamson 07/02/25 10:57: PT DISCHARGED TODAY WITH NO SERVICES CM CALLED [facility], THEY CONFIRMED THEY STILL HAVE NO [facility] BED OPENINGS BUT PT IS ON THE WAITLIST PT RETURNED TO HER VEHICLE, MEDS WERE DELIVERED TO ROOM YESTERDAY IN PREPARATION OF DC TODAY PTS [facility] CM WILL CONTACT HER ON FRIDAY AND CHECK THE STATUS OF PTS M[facility] REFERRALS Original Note: CM SPOKE TO PTS CM AT [place] THIS MORNING SHE STATES SHE HAS SPOKEN TO BOTH THE PT AND ORTHO DEPARTMENT AND WAS CLEAR THAT THE PT WOULD NOT QUALIFY FOR ANY TYPE OF PLACEMENT SHE SAYS THERE IS NO RESPITE BENEFIT ON THE PTS INSURANCE PLAN AND THIS PROCEDURE DOES NOT REQUIRE ANY AFTERCARE SERVICES PER THEIR REGULATIONS CM AND CM SHOPPER'S AIDE MET WITH PT ALONG WITH EXPERIENCE OFFICER PT UPSET STATING SHE WAS NEVER TOLD THIS, AND STATES SEGUNDO AT [facility] DID NOT TELL HER DESPITE SAYING SHE DID. CM OFFERED TO CONTACT [facility] AND PT AGREED, SHE STATES SHE CAN CLIMB TO A TOP BUNK AND UNDERSTANDS THAT IS A REQUIREMENT OF MOST [facility]. CM CALLED [facility], WHO INITIALLY STATED THEY WOULD HAVE A BED, BUT THEN CALLED BACK STATING THEY DID NOT. CM INFORMED PT WILL REMAIN UNTIL TOMORROW CM WILL CALL [facility] AGAIN TOMORROW TO DETERMINE IF THERE IS AN OPENING, HOWEVER PT IS AWARE THIS IS UNLIKELY
[2025-07-01 15:44] VITALS: BP 117/73; PULSE 96; RESP 18; TEMP 36.9; O2SAT 96
[2025-07-01 19:40] VITALS: BP 119/63; PULSE 75; RESP 18; TEMP 36.5; O2SAT 96
[2025-07-02 03:26] VITALS: BP 109/55; PULSE 65; RESP 16; TEMP 36.8; O2SAT 97
[2025-07-02 07:34] VITALS: BP 116/72; PULSE 71; RESP 16; TEMP 36.6; O2SAT 97
[2025-07-02] MEDS: oxyCODONE HCl Immed Release 5 MG TABLET 10 MG PO (09:32)
[2025-07-02] MEDS: 0.9 % Sodium Chloride Flush 3 ML SYRINGE IVFLUSH (09:33)
--- NOTE | 2025-07-02 10:34 | P.DS_ITS ---
DS: Providers Provider Date of Service: 06/27/25 Date of discharge: 07/02/25 Primary care physician: Nikolas Frost MD Consults: 06/28/25 08:00 Consult to Hospitalist Routine Comment: Consulting Provider: [facility] Hospitalists Reason For Exam: s/p shoulder surgery, syncopal episodes 06/29/25 09:29 Consult to Cardiology Routine Consulting Provider: [facility] Cardi[facility] Specialists Reason for consultation: chest pain Has provider been notified: Yes DS: Diagnosis Discharge Diagnosis (1) Impingement of right shoulder: Status: Acute DS: Summary Hospital Course Hospital Course: The patient underwent a successful right shoulder arthroscopy on, was transferred to PACU and then to the floor to recover. Patient received physical therapist services twice a day Physical therapy should include range of motion and gentle strengthening of the right shoulder. Activity as tolerated. Prior to discharge, her dressing was changed, incision clean dry and intact, new dressing applied. Patient may remove dressing to take a shower. Patient may wear sling for comfort, should remove to work on range of motion of the right shoulder, elbow, wrist. While in the hospital, patient was evaluated for chest pain, and there was noted to be some airspace disease concerning for potential pneumonia. Therefore, per hospitalist recommendations, patient was on antibiotics while in the hospital, and we will be discharged on cefuroxime 500 mg b.i.d. and azithromycin 500 mg q.d., please take antibiotics as prescribed and finish course. Follow-up with your primary care provider upon discharge for further evaluation. Of note, prior to discharge, patient is advised on several places she can find places to stay, including homeless shelters, after discharge. Patient states that she is going to try to stay at a 24 [address] stop in [place]. The plan is to be discharged Time Attestation Discharge Coordination Time (in mins): Thirty Quality: Safe Use of Opioids Does Pt have an Active Cancer Diagnosis on the Problem List?: No Quality: Stroke Does the patient have a stroke diagnosis?: No Physical Exam Vital Signs: Vital Signs: Last Vital Signs Temp 97.8 F 07/02/25 07:34 Pulse 71 07/02/25 07:34 Resp 16 07/02/25 07:34 BP 116/72 07/02/25 07:34 Pulse Ox 97 07/02/25 07:34 O2 Del Method Room Air 07/02/25 07:34 O2 Flow Rate 6 06/27/25 13:15 BMI result Body Mass Index 25.0 Extrem: Other: Right shoulder examination shows that the surgical incisions are healing well, no erythema, mild discomfort with range of motion. Dressing in place DS: Data Data Completed and Pending Labs on day of discharge: Preliminary micro results at discharge 06/30/25 11:01 Blood Culture - Preliminary Blood - Venous No growth after 24 hours. 06/30/25 10:00 Blood Culture - Preliminary Blood - Venous No growth after 24 hours. Discharge Plan Discharge Patient Disposition: Home, Self-Care Referrals: Michael Huang MD [Physician, Orthopedics] - 07/12/25 10:45 am Discharge Medications: New acetaminophen 325 mg Tablet 650 mg PO Q6H PRN (Reason: Pain, Mild 1-3,Fever,Headache) 7 Days Qty: 28 0RF oxycodone 5 mg Tablet 5 mg PO Q4H PRN (Reason: Pain, Mild (Pain Scale 1-3)) 7 Days Qty: 42 0RF Rx Instructions: Partial Fill upon patient request. cefuroxime axetil 500 mg tablet 500 mg PO BID Qty: 8 0RF azithromycin 500 mg tablet 500 mg PO DAILY 4 Days Qty: 4 0RF Continued ketotifen fumarate 0.025 % (0.035 %) drops 1 drp ophthalmic (eye) BID PRN (Reason: itch) Gemtesa 75 mg tablet 75 mg PO DAILY ipratropium bromide 42 mcg (0.06 %) spray,non-aerosol 1 - 2 spray intranasal TID PRN (Reason: Nasal Congestion) multivitamin Tablet 1 tab PO DAILY omeprazole 20 mg capsule,delayed release(DR/EC) 20 mg PO DAILY@0630 azelastine 137 mcg (0.1 %) spray,non-aerosol 2 spray intranasal DAILY PRN (Reason: Allergy Symptoms) cholecalciferol (vitamin D3) 125 mcg (5,000 unit) capsule 125 mcg PO DAILY Digestive Advantage Probiotic 2 billion cell- 140 mg capsule 1 cap PO DAILY Discharge Orders: Discharge Order (Routine); Ordered 07/02/25 Ordered By: Slade Fofana Diet: Advance to usual diet Activity on Discharge: Use Splints or Immobilizers Activity Restrictions/Additional Instructions: Call [facility] orthopedics with any questions or concerns Follow up with orthopedics in 7-10 days post op 1. Sling Use * Wear sling for the first 48 hours after surgery-OK to remove for pendulum exercises throughout the day 2. Activity Restrictions * No heavy lifting, pushing, or pulling with your surgical arm. * Avoid sudden or forceful movements. * Ok to move the elbow, hand and wrist. * Do not drive while in a sling or taking narcotic pain medications. * Use your non-surgical arm for daily activities. 3. Pain Management * Take prescribed medications as directed. * Apply ice packs (20 minutes at a time, several times per day) to reduce pain and swelling. 4. Wound Care * Keep your surgical dressing clean and dry. * Remove the dressing on post-op day 3 and cover the sutures with bandaids * You may shower after the dressing is removed, but avoid soaking the incision (no baths, pools, or hot tubs). * Do not apply creams, ointments, or lotions to the incision. 5. Constipation Prevention * Pain medications can cause constipation. * Drink plenty of fluids, eat fiber-rich foods, and consider a stool softener (such as Colace) if needed. * Contact your provider if you go more than 3 days without a bowel movement. 6. When to Call Your Surgeon * Fever above 101.5?F (38.5?C) * Redness, drainage, or worsening swelling at the incision site * Severe pain not controlled by medication * Numbness or tingling that does not improve after loosening the sling * Shortness of breath or chest pain (call 911 immediately) Print Language: Other
--- NOTE | 2025-07-02 10:53 | PC.NURSE ---
States understanding for d/c, no questions, IV Out, w/c down to car outside, re: Homelessness. Will follow up with PCP and Ortho.
== END 2025-07-02 10:53 | disposition home or self-care (01) ==
LOC: HO.SSS 08:26 → HO.S3 13:58
PROVIDERS: Physician Assistant; PCP Internal Medicine; Visit Provider Orthopaedic Surgery
PROC: (CPT 29805; principal; 2025-06-27 10:30)
DX: M75.41 Impingement syndrome of right shoulder (principal); M19.011 Primary osteoarthritis, right shoulder; M25.311 Other instability, right shoulder; M25.811 Other specified joint disorders, right shoulder; G89.18 Other acute postprocedural pain; M25.511 Pain in right shoulder; R07.1 Chest pain on breathing; R07.2 Precordial pain; J18.9 Pneumonia, unspecified organism; Z87.09 Personal history of other diseases of the respiratory system; J98.4 Other disorders of lung; R42 Dizziness and giddiness; J45.20 Mild intermittent asthma, uncomplicated; M47.899 Other spondylosis, site unspecified; G47.33 Obstructive sleep apnea (adult) (pediatric); M32.9 Systemic lupus erythematosus, unspecified; M06.9 Rheumatoid arthritis, unspecified; Z86.718 Personal history of other venous thrombosis and embolism; Z79.899 Other long term (current) drug therapy; Z98.1 Arthrodesis status
CPT/HCPCS: 29824; 29826; 36415; 71045; 71275; 80048; 82947; 84484; 85025; 87040; 93005; 97110; 97161; 97165; 97535; J0131; J0165; J0456; J0665; J0690; J0696; J1100; J1171; J2003; J2250; J2270; J2371; J2405; J2704; J2795; J3010; J7120; Q9967

== ENCOUNTER → 2025-06-27 08:26 | Outpatient (BNV) | payer MEDICARE, SELFPAY | PROVIDERS: PCP Internal Medicine; Visit Provider Orthopaedic Surgery | DX: M75.41 Impingement syndrome of right shoulder (principal); M19.011 Primary osteoarthritis, right shoulder | CPT/HCPCS: 29824; 29826; 99238 ==

== ENCOUNTER → 2025-06-27 08:26 | Outpatient (BNV) | payer MEDICARE, SELFPAY | PROVIDERS: PCP Internal Medicine; Visit Provider Physician Assistant | DX: J18.9 Pneumonia, unspecified organism (principal) | CPT/HCPCS: 99222; 99233; 99499 ==

== ENCOUNTER → 2025-06-27 08:26 | Outpatient (BNV) | payer MEDICARE, SELFPAY | PROVIDERS: PCP Internal Medicine; Visit Provider Internal Medicine | DX: R07.2 Precordial pain (principal) | CPT/HCPCS: 99232 ==

== ENCOUNTER → 2025-06-29 07:12 | Outpatient (BNV) | payer MEDICARE, SELFPAY | PROVIDERS: PCP Internal Medicine; Visit Provider Radiology Diagnostic Radiology | DX: R07.89 Other chest pain (principal); M47.814 Spondylosis without myelopathy or radiculopathy, thoracic region; R07.9 Chest pain, unspecified | CPT/HCPCS: 71045; 71275 ==

== ENCOUNTER → 2025-06-29 07:47 | Outpatient (BNV) | payer MEDICARE, SELFPAY | PROVIDERS: PCP Internal Medicine; Visit Provider Internal Medicine | DX: I49.1 Atrial premature depolarization (principal) | CPT/HCPCS: 93010 ==

== ENCOUNTER 2025-07-12 10:23 | Outpatient (AMB) | payer MEDICARE, SELFPAY ==
--- NOTE | 2025-07-12 10:32 | MHC.OFFVIS ---
Intake Visit Reasons: PO RT shoulder 06/27/25 DR Intake Note: Phoebe is a 59 year old right hand dominant female who presents today for a post operative follow up for her right shoulder status post undergoing a right shoulder arthroscopic distal clavicle excision and right shoulder arthroscopic acromioplasty, 06/27/2025 DR. At today's visit she states that her ROM is still very limited due to the shoulder discomfort. She denies any fevers or chills. She continues with her stretching program. Allergies latex (Latex) Allergy (Mild, Verified 06/27/25 09:03) Rash, Hives diphenhydramine (From BENADRYL) Allergy (Unknown, Verified 06/27/25 09:03) UNKNOWN shellfish derived Allergy (Unknown, Verified 06/27/25 09:03) Rash, throat itches Medication List - Last Reconciled 07/12/25 by Michael Huang MD acetaminophen 650 mg (2 x 325 mg) PO Q6H PRN 7 days azelastine 2 sprays intranasal DAILY PRN azithromycin 500 mg PO DAILY 4 days Bacillus coagulan-calcium carb 2 billion cell- 140 mg (Digestive Advantage Probiotic) 1 cap PO DAILY cefuroxime axetil 500 mg PO BID cholecalciferol (vitamin D3) 125 mcg PO DAILY ipratropium bromide 1 - 2 sprays intranasal TID PRN ketotifen fumarate 0.025%(0.035%) 1 drp ophthalmic (eye) BID PRN multivitamin 1 tab PO DAILY omeprazole 20 mg PO DAILY@0630 oxycodone 5 mg PO Q4H PRN 7 days vibegron (Gemtesa) 75 mg PO DAILY PFSH Medical History Incontinence Food poisoning Rheumatoid arthritis Sciatica Anemia Constipation GERD (gastroesophageal reflux disease) Fatty liver Vertigo Migraine Agoraphobia Panic attacks Anxiety Bipolar 1 disorder Sleep apnea Sepsis Pneumonia Emphysema of lung Hearing loss Eczema Rectal bleeding Sjogren's syndrome Allergic rhinitis SLE (systemic lupus erythematosus related syndrome) Cough Murmur DVT (deep venous thrombosis) Cervical radiculopathy Early satiety Asthma Surgical History Hx of hand surgery Hx of fusion of cervical spine (~2021) S/P bilateral breast reduction History of loop electrical excision procedure (LEEP) Hx of colonoscopy History of esophagogastroduodenoscopy (EGD) Family History Mother Pancreatic cancer Social History Household Members: None Housing: Homeless Are you a primary acute care assistant to a significant other at home: No Do you presently have visiting nurse or other home services: No Patient Tobacco Use Status: Never used Tobacco service: No Physical Exam Extrem Other: Right shoulder examination shows that the surgical incisions are healing well, no erythema, mild to moderate discomfort with range of motion, no instability Assessment & Plan Assessment & Plan (1) Right shoulder pain: Code(s): M25.511 - Pain in right shoulder Category: Medical Plan Ms. Garnett is doing well after undergoing right shoulder arthroscopic surgery on 06/27/2025. Her sutures were removed and Steri-Strips placed over her incisions. I did give the patient a prescription to go to formal physical therapy. The do's and don'ts of lifting were discussed at length with the patient. I also refilled her prescription for oxycodone. She will contact me prior to her follow-up appointment in 2 months should any questions or concerns arise. Feel free to call me at any time should questions regarding her orthopedic management arise. Orders: Orders PT Evaluation and Treatment Today M25.511 - Pain in right shoulder Medications: Changed From oxycodone Partial Fill upon patient request. 5 mg PO Q4H 7 days PRN 42 tabs 0RF Pain, Mild (Pain Scale 1-3) To oxycodone Partial Fill upon patient request. 5 mg PO Q4H PRN 40 tabs 0RF pain Coding Level of Care Code Global (10564) Diagnoses Right shoulder pain M25.511
--- OUTSIDE RECORDS SUMMARY | 2025-07-12 13:05 | XMS_ITS | Encounter Summary ---
Author Organization [employer] [facility] Address [address] [place] [address] Care Team Providers Care Cash Office Worker Name Role Phone Harsha Wang MD Primary Care Prov ider Nikolas Frost MD Primary Care Provider +1- [phone] Encounter Details Date Type Department Care Team (Late Contact Info) Description 02/10/2025 Orders Only [facility] [address] [place], [place] [phone] Provider, MD Julianne Social History Tobacco Use [...] Department Care Team (Late Contact Info) Description 07/13/2025 3:30 PM EST Office Visit [facility] CHC MED & PEDS [address] [place], [place] [phone] Harsha Wang MD [address] [place], [place] [phone] 08/01/2025 4:00 PM EST Office Visit [facility] CHC MED & PEDS [address] [place] [address] Nikolas Frost MD [address] [place] [address] documented as of this encounter Procedures Procedure [...] documented as of this encounter Care Teams Cash Office Worker Relationship Specialty Start Date End Date Harsha Wang MD [address] [place] [address] PCP - General Internal Medicine 11/11/24 04/10/25 Nikolas Frost MD [address] [place] [address] PCP - General Internal Medicine 04/11/25 documented as of this encounter
--- OUTSIDE RECORDS SUMMARY | 2025-07-12 13:05 | XMS_ITS | Encounter Summary ---
Author Organization [employer] Address [address] 7t [place] [address] Care Team Providers Care Salesperson New Cars Name Role Phone Nikolas Frost MD Primary Care Provider +1- [phone] Encounter Details Date Type Department Care Team ([facility] st Contact Info) Description 07/08/2025 Telephone [facility] WALK[facility]IN CENTER [address] [place], [place] [phone] Munira Gonzalez, RN [address] [place] [address] Social History Tobacco Use Types Packs/Day Years [...] Telephone Encounter - Munira Gonzalez RN - 07/08/2025 10:43 AM EST Right third or fourth toe tingling and pain. Hurts to use socks. Not constant but enough to bother her a lot. Pt requesting referral to Podiatry and was advised would need to be seen and evaluated first. Pt then stated i am done with my PCP because he misdiagnosed my condition during my pre op visit pt states that while in the hospital for surgery, it was discovered she may have pneumonia. Pt states had complained about chest pain to PCP who ignored her . Reviewed the pre op visit, and nothing was mentioned about chest pain at that time. Advised that Pneumonia may have developed during hospitalization. Given appointment with [facility] provider Friday at 3:30. Pt understands and agrees with plan. documented in this encounter Plan of Treatment Upcoming Encounters Date Type Department Care Team (Late st Contact Info) Description 07/13/2025 3:30 PM EST Office Visit [facility] [address] [place] [address] Harsha Wang MD [address] [place] [address] 08/01/2025 4:00 PM EST Office Visit [facility] [address] [place] [address] Nikolas Frost MD [address] [place] [address] documented as of this encounter Visit Diagnoses Not on filedocumented in this encounter Additional Health Concerns Assessment Noted Time PHQ-9 Depression Total Score: 21 025 2:14 PM EST documented as of this encounter Care Teams Salesperson New Cars Relationship Specialty Start Date End Date Nikolas Frost MD [address] [place] [address] PCP - General Internal Medicine 04/11/25 documented as of this encounter
--- OUTSIDE RECORDS SUMMARY | 2025-07-12 13:05 | XMS_ITS | Encounter Summary ---
Author Organization [employer] Address [address] [facility] 7t [place] [address] Care Team Providers Care Financing Analyst Name Role Phone Harsha Wang MD Primary Care Prov ider Nikolas Frost MD Primary Care Provider +1- [phone] Reason for Referral * Consultation (Routine) - Closed Specialty Diagnoses / Procedures Referred By Contac t Referred To Contact Rheumatology Diagnoses SLE (systemic lupus erythematosus related syndrome) (CMS/HCC) ([facility]) Nikolas Frost MD [address] [place] [address] Phone: tel: fax: [facility] [address] Phone: tel: fax: Referral ID Status Reason Start Date Expiration Date V isits Requested Visits Authorized [id number] Closed Specialty Services Required 12/03/2024 12/03/2025 1 1 Encounter Details Date Type Department Care Team ([facility] st Contact Info) Description 12/03/2024 Orders Only [facility] CHC MED & PEDS [address] [place], [place] [phone] Nikolas Frost MD [address] [place] [address] SLE (systemic lupus erythematosus related syndrome) (CMS/HCC) [...] Description 07/13/2025 3:30 PM EST Office Visit [facility] MED & PEDS [address] [place] [address] Harsha Wang MD [address] [place] [address] 08/01/2025 4:00 PM EST Office Visit [facility] MED & PEDS [address] [place] [address] Nikolas Frost MD [address] [place] [address] documented as of this encounter Procedures Procedure Name Priority Date/Time Associated Diagnosis Comments AMB REFERRAL TO RHEUMATOLOGY Routine 06/15/2025 SLE (systemic lupus erythematosus related syndrome) ([facility]) ([facility]) documented in this encounter Results * [...] documented as of this encounter Care Teams Financing Analyst Relationship Specialty Start Date End Date Harsha Wang MD [address] [place] [address] PCP - General Internal Medicine 11/11/24 04/10/25 Nikolas Frost MD [address] [place] [address] PCP - General Internal Medicine 04/11/25 documented as of this encounter
--- OUTSIDE RECORDS SUMMARY | 2025-07-12 13:05 | XMS_ITS | Encounter Summary ---
Author Organization [employer] Address [address] [facility] 7t [place] [address] Care Team Providers Care Engine Designer Name Role Phone Nikolas Frost MD Primary Care Provider Encounter Details Date Type Department Care Team ([facility] st Contact Info) Description 06/20/[address] [facility] CHC MED & PEDS [address] [place], [place] [phone] Nikolas Frost MD [address] [place] [address] Low ferritin (Primary Dx) Social History Tobacco [...] 07/13/2025 3:30 PM EST Office Visit [facility] MED & PEDS [address] [place] [address] Harsha Wang MD [address] [place] [address] 08/01/2025 4:00 PM EST Office Visit [facility] MED & PEDS [address] [place] [address] Nikolas Frost MD [address] [place] [address] documented as of this encounter Visit Diagnoses Diagnosis Low ferritin- Primary Other nonspecific findings on examination of blood documented in this encounter Additional Health Concerns Assessment Noted Time PHQ-9 Depression Total Score: 21 025 2:14 PM EST documented as of this encounter Care Teams Engine Designer Relationship Specialty Start Date End Date Nikolas Frost MD [address] [place] [address] PCP - General Internal Medicine 04/11/25 documented as of this encounter
--- OUTSIDE RECORDS SUMMARY | 2025-07-12 13:05 | XMS_ITS | Encounter Summary ---
Author Organization [employer] [facility] Address [address] [place] [address] Care Team Providers Care Pharmacy Coordinator Name Role Phone Harsha Wang MD Primary Care Prov ider Nikolas Frost MD Primary Care Provider +1- [phone] Encounter Details Date Type Department Care Team (Late Contact Info) Description 01/24/2025 Orders Only [facility] [address] [place], [place] [phone] Provider, MD Julianne Social History Tobacco Use [...] Description 07/13/2025 3:30 PM EST Office Visit [facility] CHC MED & PEDS [address] [place], [place] [phone] Harsha Wang MD [address] [place], [place] [phone] 08/01/2025 4:00 PM EST Office Visit [facility] CHC MED & PEDS [address] [place] [address] Nikolas Frost MD [address] [facility] [place] [address] documented as of this encounter Procedures Procedure [...] Spine, C-spine Magnetic Resonan ce Historical Provider [facility] MRI PROCEDURES Final Result * MR Shoulder [...] documented as of this encounter Care Teams Pharmacy Coordinator Relationship Specialty Start Date End Date aHrsha Wang MD [address] [facility] [place] [address] PCP - General Internal Medicine 11/11/24 04/10/25 Nikolas Frost MD [address] [facility] [place] [address] PCP - General Internal Medicine 04/11/25 documented as of this encounter
--- OUTSIDE RECORDS SUMMARY | 2025-07-12 13:06 | XMS_ITS | Encounter Summary ---
Author Organization [employer] Address [address] [facility] 7 [place] [address] Care Team Providers Care Marketing Performance Analyst Name Role Phone Nikolas Frost MD Primary Care Provider Reason for Visit * Reason Onset Date Comments Referral 07/07/2025 Encounter Details Date Type Department Care Team ([facility] st Contact Info) Description 07/07/2025 Telephone [facility] CHC MED & PEDS [address] [place] [address] Nikolas Frost MD [address] [place] [address] Referral Social History Tobacco Use Types Packs/Day Years [...] encounter Miscellaneous Notes * Telephone Encounter - Mathew Shepherd - 07/07/2025 2:41 PM EST Pt requesting new referral to see the analysis lead. documented in this encounter Plan of Treatment Upcoming Encounters Date Type Department Care Team (Late st Contact Info) Description 07/13/2025 3:30 PM EST Office Visit [facility] MED & PEDS [address] [place] [address] Harsha Wang MD [address] [place] [address] 08/01/2025 4:00 PM EST Office Visit [facility] MED & PEDS [address] [place] [address] Nikolas Frost MD [address] [place] [address] documented as of this encounter Visit Diagnoses Not on filedocumented in this encounter Additional Health Concerns Assessment Noted Time PHQ-9 Depression Total Score: 21 025 2:14 PM EST documented as of this encounter Care Teams Marketing Performance Analyst Relationship Specialty Start Date End Date Nikolas Frost MD [address] [place] [address] PCP - General Internal Medicine 04/11/25 documented as of this encounter
--- OUTSIDE RECORDS SUMMARY | 2025-07-12 13:06 | XMS_ITS | Encounter Summary ---
Author Organization [employer] Address [address] [facility] 7t [place] [address] Care Team Providers Care Smt Operator Name Role Phone Nikolas Frost MD Primary Care Provider [phone]- [phone] Reason for Visit * Reason Onset Date Comments Referral 07/07/2025 Encounter Details Date Type Department Care Team ([facility] st Contact Info) Description 07/07/2025 Telephone [facility] WALK[facility]IN C[facility] [address] [place], [place] [phone] Munira Gonzalez RN [address] [place] [address] Referral Social History Tobacco Use Types Packs/Day [...] encounter Miscellaneous Notes * Telephone Encounter - Ena Urbano - 07/07/2025 3:55 PM EST Tc from pt returning call regarding message prior. documented in this encounter Plan of Treatment Upcoming Encounters Date Type Department Care Team (Late st Contact Info) Description 07/13/2025 3:30 PM EST Office Visit [facility] MED & PEDS [address] [place] [address] Harsha Wang MD [address] [place] [address] 08/01/2025 4:00 PM EST Office Visit [facility] MED & PED[facility] [address] [place] [address] Nikolas Frost MD [address] [place] [address] documented as of this encounter Visit Diagnoses Not on filedocumented in this encounter Additional Health Concerns Assessment Noted Time PHQ-9 Depression Total Score: 21 025 2:14 PM EST documented as of this encounter Care Teams Smt Operator Relationship Specialty Start Date End Date Nikolas Frost MD [address] [place] [address] PCP - General Internal Medicine 04/11/25 documented as of this encounter
--- OUTSIDE RECORDS SUMMARY | 2025-07-12 13:06 | XMS_ITS | Encounter Summary ---
Author Organization [employer] Address [address] [facility] 7t [place] [address] Care Team Providers Care Fuel Buyer Name Role Phone Nikolas Frost MD Primary Care Provider +1- [phone] Encounter Details Date Type Department Care Team ([facility] st Contact Info) Description 05/27/2025 Results Follow-Up [facility] CHC MED & PEDS [address] [place], [place] [phone] Nikolas Frost MD [address] [place] [address] TSH W/Reflex to FT4 Social History Tobacco [...] Description 07/13/2025 3:30 PM EST Office Visit [facility] MED & PEDS [address] [place] [address] Harsha Wang MD [address] [place] [address] 08/01/2025 4:00 PM EST Office Visit [facility] MED & PED[facility] [address] [place] [address] Nikolas Frost MD [address] [place] [address] documented as of this encounter Visit Diagnoses Not on filedocumented in this encounter Additional Health Concerns Assessment Noted Time PHQ-9 Depression Total Score: 0 11/06/19 9:58 AM EDT documented as of this encounter Care Teams Fuel Buyer Relationship Specialty Start Date End Date Nikolas Frost MD [address] [place] [address] PCP - General Internal Medicine 04/11/25 documented as of this encounter
--- OUTSIDE RECORDS SUMMARY | 2025-07-12 13:06 | XMS_ITS | Encounter Summary ---
Author Organization [facility] Address [address] [place] [address] Care Team Providers Care Manufacturing Engineering Professor Name Role Phone Levy Harsha Peace Primary Care Provide r Encounter Details Date Type Department Care Team ([facility] Contact Info) Description 03/17/2025 Lab Requisition [facility] - Main Lab [address] [facility] [place] [address] Soto Reddy PA [address] [place] [address] Urge incontinence Social History Tobacco [...] PM EDT Appointment Radiology Department - [address] [phone] documented as of this encounter Procedures Procedure Name Priority Date/Time Associated Diagnosis Comments CULTURE URINE Routine 03/17/2025 12:00 AM EDT Urge incontinence documented in this encounter Results * Culture urine (03/17/2025 12:00 AM EDT) Culture, Urine 10,000-49,000 CFU/mL Mixed urogenital marilynn, no uropathogens present. Suggest repeat specimen if clinically indicated. 03/18/2025 1:24 PM EDT [facility] Urine Urine specimen obtained by clean catch procedure / Unknown 03/17/2025 03/17/2025 6:09 PM EDT us [facility] MICROBIOLOGY - GENERAL ORD ERABLES Final Result [facility] [address] [place] [address], documented in this encounter Visit Diagnoses Diagnosis Urge incontinence documented in this encounter Care Teams Manufacturing Engineering Professor Relationship Specialty Start Date End Date Harsha Wang [address] [place] [address] PCP - General Internal Medicine 05/13/25 documented as of this encounter
--- OUTSIDE RECORDS SUMMARY | 2025-07-12 13:06 | XMS_ITS | Encounter Summary ---
Author Organization [employer] Address [address] [facility] 7t [place] [address] Care Team Providers Care Senior Management Consultant Name Role Phone Nikolas Frost MD Primary Care Provider Encounter Details Date Type Department Care Team (Latest Contact Info) Description 06/10/2025 Results Follow-Up [facility] MEDIC[facility] [address] [place] [address] Jacquelyn Cadena ANP [address] [place] [address] CDiff Gene PCR, Stool - Gastrointestinal panel [...] Description 07/13/2025 3:30 PM EST Office Visit [facility] MED & PEDS [address] [place] [address] Harsha Wang MD [address] [place] [address] 08/01/2025 4:00 PM EST Office Visit [facility] MED & PEDS [address] [place] [address] Nikolas Frost MD [address] [place] [address] documented as of this encounter Visit Diagnoses Not on filedocumented in this encounter Additional Health Concerns Assessment Noted Time PHQ-9 Depression Total Score: 21 025 2:14 PM EST documented as of this encounter Care Teams Senior Management Consultant Relationship Specialty Start Date End Date Nikolas Frost MD [address] [place] [address] PCP - General Internal Medicine 04/11/25 documented as of this encounter
--- OUTSIDE RECORDS SUMMARY | 2025-07-12 13:06 | XMS_ITS | Clinical Summary ---
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 [facility] Enterotoxigenic E. coli (ETEC) lt/st Not Detected Not Detect. [facility] Shiga-like toxin-producing E. coli (STEC) stx1/stx2 Not Detected Not Detect. [facility] E coli O157 Not applicable Not Detect. [facility] Comment:E. coli containing t he O157 antigen are a subset ofShiga-like toxin- producing E. coli (STEC). Shigella/Enteroinvasive E. coli (EIEC) Not Detected Not Detect. [facility] Cryptosporidium Not Detected Not Detect. [facility] Cyclospora cayetanensis Not Detected Not Detect. [facility] Entamoeba histolytica Not Detected Not Detect. [facility] Giardia lamblia Not Detected Not Detect. [facility] Adenovirus F 40/41 Not Detected Not Detect. [facility] Astrovirus Not Detected Not Detect. [facility] Norovirus GI/GII Not Detected Not Detect. [facility] Rotavirus A Not Detected Not Detect. [facility] Sapovirus Not Detected Not Detect. [facility] Comment: All results must be correlated [...] assay is performed by Multiplexed PCR, utilizing theBiofire Film Array. Stool Rectal contents / Unknown 06/09/2025 3:05 PM EST 06/09/2025 5:37 PM EST Jacquelyn JUAN LAB MICROBIOLOGY - GENERAL ORDER KHAI Final Result Performing Organization Address [facility] Co de Phone Number [facility] [address] [place] [phone] * TSH W/Reflex to FT4 (05/27/2025 9:57 AM EDT) TSH reflex Free T4 1.61 0.32 - 4.0 uIU/mL [facility] Blood Venous blood specimen / Unknown 05/27/2025 9:57 AM EDT 05/27/2025 2:00 PM EDT us Nikolas Frost MD LAB BLOOD ORDERABLES Final Result Performing Organization Address [facility] de Phone Number [facility] [address] [place] [phone] * Lead, Venous (05/27/2025 9:57 AM EDT) Venous Lead <1.0 <3.5 mcg/dL [facility] Comment:See Note 1Note 1This test was developed and its analytical performancecharacteristics have been determined by [facility]. It has not been cleared or approved by theA. This assay has been validated pursuant to the CLIAregulations and is used for clinical purposes.THIS TEST WAS PERFORMED AT:[facility] [address] [id number] CAMARILLO MD Blood Venous blood specimen / Unknown 05/27/2025 9:57 AM EDT 05/27/2025 2:00 PM EDT Narrative [facility] - 06/01/2025 9:47 PM EST Venous Nikolas Frost MD LAB BLOOD ORDERABLES Final Result Performing Organization Address [facility] Co de Phone Number [facility] [address] [place] [phone] [phone] * Lipid Panel, Standard (05/27/2025 9:57 AM EDT) Triglycerides 64 <150 mg/dL [facility] Comment:Desirable Triglyceri de: less than 150 mg/dLBorderline High Triglyceride 150-199 mg/dLHigh Triglyceride: 200-499 mg/dLVery High Triglyceride: greater than or equal to 5OO mg/dL Cholesterol 159 <200 mg/dL [facility] Comment:Desirable Cholestero l: less than 200 mg/dLBorderline High Cholesterol: 200-239 mg/dLHigh Cholesterol: greater than 239 mg/dL LDL Cholesterol Calculated 79 <100 mg/dL [facility] Comment:Desirable LDL: less than 100 mg/dLNear Optimal/Above Optimal LDL: 110- 129 mg/dLBorderline High LDL: 130-159 mg/dLHigh LDL: 160-189 mg/dLVery High LDL: greater than or equal to 190 mg/dL HDL Cholesterol 68 >40 mg/dL [facility] Comment:Desirable HDL: great er than 40 mg/dL Note: This HDL assay may give artificially low results in patients with liver disease. Blood Venous blood specimen / Unknown 05/27/2025 9:57 AM EDT 05/27/2025 2:00 PM EDT Nikolas Frost MD LAB BLOOD ORDERABLES Final Result Performing Organization Address [facility] Co de Phone Number [facility] [address] [place] [phone] [phone] * Hepatitis C Antibody with Reflex to HCV, RNA, Quantitative, Real-Time PCR (05/27/2025 9:54 AM EDT) Hepatitis C Antibody Nonreactive Nonreactive [facility] Comment:Antibodies to HCV no t detected; does not exclude early acuteHCV infection. Blood Venous blood specimen / Unknown 05/27/2025 9:54 AM EDT 05/27/2025 2:00 PM EDT us Nikolas Frost MD LAB BLOOD ORDERABLES Final Result Performing Organization Address [facility] Co de Phone Number [facility] [address] [place] [phone] * HIV-1/2 Antigen and Antibodies, Fourth Generation, with Reflexes (05/27/2025 9:54 AM EDT) HIV AB/AG Nonreactive Nonreactive [facility] Comment:HIV-1 p24 Ag and/or HIV-1/HIV-2 Ab not detected.A test result that is nonreactive does not exclude thepossibility of exposure to or infection with HIV-1 and/orHIV-2. Nonreactive results in this assay for individualswith prior exposure to HIV-1 and/or HIV-2 may be due toantigen and antibody levels that are below the limit ofdetection of this assay.The Advisor Client Matchni[employer]ator HIV Ag/Ab Combo assay result andsupplemental assay results should be interpreted inconjunction with the patient's clinical presentation,history and other laboratory results. If the results areinconsistent with clinical evidence, additional testing issuggested to confirm the result. Blood Venous blood specimen / Unknown 05/27/2025 9:54 AM EDT 05/27/2025 2:00 PM EDT us Nikolas Frost MD LAB BLOOD ORDERABLES Final Result Performing Organization Address City/[facility] Co de Phone Number [facility] [address] [place] [phone] * CT Abdomen Pelvis w/ Contrast (05/16/2025 10:43 PM EDT) Anatomical Region Laterality Modality Body, Pelvis, Abdomen Computed T omography 05/16/2025 10:4 3 PM EDT Narrative 05/16/2025 10:46 PM EDT [address] [address] [address] Scan Report Signed Patient: Phoebe Garnett MR#: [id number] : 1965 Acct:[id number] Age/Sex: 59 / F ADM Date: 05/16/25 Loc: HO.ED Attending Dr: Ordering Physician: Ivonne Ng DO Date of Service: 05/16/25 Procedure(s): CT abdomen pelvis w IV con Accession Number(s): [id number] cc: Harsha Wang MD; Ivonne Ng DO Report Number: [id number]: Total DLP = 488.00 mGy-cm Reason for [...] in OV> 05/16/252244 DD/ 42 TD/TT: 05/16/252242 Supervisor Wash House: Procedure Note Donotuseinterpreter, Image - 05/16/[address] [address] [address] Scan Report Signed Patient: Noemi GarnettR#: [id number] : 1965Acct:[id number] Age/Sex: 59 / FADM Date: 05/16/25 Loc: HO.ED Attending Dr: Ordering Physician: Ivonne Ng DO Date of Service: 05/16/25 Procedure(s): CT abdomen pelvis w IV con Accession Number(s): [id number] cc: Harsha Wang MD; HernandezJaylin bryantviv [facility] Report Number: [id number]: Total DLP = 488.00 mGy-cm Reason for [...] in OV> 05/16/252244 DD/ 42 TD/TT: 05/16/252242 Supervisor Wash House: [facility] External Provider IMG CT PROCEDURES Edited Result - Final * Culture, Urine, Routine (05/16/2025 8:57 PM EDT) Urine Urine specimen obtained by clean catch procedure / Unknown 05/16/2025 8:57 PM EDT 05/16/2025 8:57 PM EDT Comment:UACC Narrative [facility] - 05/18/2025 1:22 PM EDT Urine Culture Report Result Urine Culture 10,000 to 50,000 cfu/ml Urine Culture Mixed bacterial marliynn characteristic of Urine Culture urogenital contamination. Specimen Source: Urine clean catch Generic External Data Provider LAB MICROBIOLOGY - GENERAL ORDERABLES Final Result [facility] [address] [place] [phone] * (ABNORMAL) Urinalysis, Complete, with Reflex to Culture (05/16/2025 8:41 PM EDT) Color Urine Yellow [facility] Appearance Urine Clear [facility] PH 5.5 5.0 - 9.0 [facility] Glucose Urine UA Negative Negative mg/dL [facility] Urine Blood Negative Negative [facility] Specific [place] - Urine 1.025 1.005 - 1.025 [facility] Urine Protein Negative Neg-Trace mg/dL [facility] Urine Ketones Negative Negative mg/dL [facility] Nitrite Urine Negative Negative [facility] Leukocyte Esterase Urine Small (1+)(A) Negative [facility] RBC Urine 0-2 0 - 2 /HPF [facility] Urine WBC 6-10(A) 0 - 5 /HPF [facility] Urine Squamous Epithelial Cell 0-2 0 - 2 /HPF [facility] Urine Bacteria None Seen None Seen [facility] Hyaline Casts, Urine 0-2 0 - 2 /LPF [facility] 05/16/2025 8:41 PM EDT 05/16/2025 8:48 PM EDT Narrative [facility] - 05/16/2025 8:57 PM EDT 2038Urine, Clean Catch us Generic External Data Provider LAB URINE ORDERAB LES Final Result Performing Organization Address [facility] de Phone Number [facility] [address] [place] [phone] * Magnesium (05/16/2025 8:41 PM EDT) Magnesium 2.0 1.6 - 2.6 mg/dL [facility] 05/16/2025 8:41 PM EDT 05/16/2025 8:48 PM EDT us Generic External Data Provider LAB BLOOD ORDERAB LES Final Result Performing Organization Address [facility] Co de Phone Number [facility] [address] [place] [phone] [phone] * Lipase (05/16/2025 8:41 PM EDT) Lipase 20 8 - 78 U/L [facility] 05/16/2025 8:41 PM EDT 05/16/2025 8:48 PM EDT us Generic External Data Provider LAB BLOOD ORDERAB LES Final Result [facility] [address] [place] [phone] * (ABNORMAL) Comprehensive Metabolic Panel (05/16/2025 8:41 PM EDT) Sodium 144 135 - 145 mmol/L [facility] Potassium 3.7 3.3 - 5.1 mmol/L [facility] Chloride 110(H) 96 - 108 mmol/L [facility] Carbon Dioxide 27 22 - 29 mmol/L [facility] Anion Gap 11(L) 12 - 20 [facility] Urea Nitrogen (BUN) 20(H) 9 - 16 mg/dL [facility] Creatinine, Serum 0.56 0.5 - 1.4 mg/dL [facility] Creatinine Clr Calc Pharmacy 96.4 [facility] Comment:Provided height and weight: 158.75 cm,62.596 kg.eGFR (calculated from the MDRD study equation) and eCrCl(calculated from the Cockcroft-Gault equation) are based ondifferent parameters and may not yield comparable results.If eCrCl result is absurd, please check patient'sheight/weight. Estimated Glomerular Filt Rate >60 [facility] Comment:Chronic Kidney Disea se: Estimated GFR < 60 mL/min/1.03z0Znpaxn Kidney Disease: Estimated GFR < 15 mL/min/1.73m2 Glucose 101 60 - 115 mg/dL [facility] Calcium 8.8 8.4 - 10.2 mg/dL [facility] Bilirubin, Total 0.2 0.0 - 1.0 mg/dL [facility] Aspartate Amino Transferase 19 5 - 31 U/L [facility] Alanine Aminotransferase 13 0 - 31 U/L [facility] Total Protein 7.1 6.5 - 8.0 g/dL [facility] Albumin Level 4.1 3.5 - 5.0 g/dL [facility] Alkaline Phosphatase 76 39 - 117 U/L [facility] 05/16/2025 8:41 PM EDT 05/16/2025 8:48 PM EDT us Generic External Data Provider LAB BLOOD ORDERAB LES Final Result Performing Organization Address City/State/[facility] Co de Phone Number [facility] [address] [place] [address] [phone] * MR Shoulder w/o Contrast Right (05/14/2025 8:55 AM EDT) Anatomical Region Laterality Modality Upper Extremities, Shoulder Right Magn etic Resonance 05/14/2025 8:55 AM EDT Narrative 05/16/2025 8:34 AM EDT [place] [address] Magnetic Resonance Report Signed Patient: Phoebe Garnett MR#: [id number] : 1965 Acct:[id number] Age/Sex: 59 / F ADM Date: 05/14/25 Loc: HO.MRI Attending Dr: Michael Huang MD Ordering Physician: Michael Huang MD Date of Service: 05/14/25 Procedure(s): MR shoulder RT wo con Accession Number(s): [id number] cc: Harsha Wang MD; Michael Huang MD [...] 05/16/25 0831 DD/ 0855 TD/TT: 05/14/25 0911 Supervisor Wash House: Procedure Note Donotuseinterpreter, Image - 05/16/2025 [place] [address] Magnetic Resonance Report Signed Patient: Sage Garnett#: [id number] : 1965Acct:[id number] Age/Sex: 59 / FADM Date: 05/14/25 Loc: HO.MRI Attending Dr: Michael Huang MD Ordering Physician: Michael Huang MD Date of Service: 05/14/25 Procedure(s): MR shoulder RT wo con Accession Number(s): [id number] cc: Harsha Wang MD; Michael Huang MD [...] 05/16/25 0831 DD/ 0855 TD/TT: 05/14/25 0911 Supervisor Wash House: [facility] External Provider IMG MRI PROCEDURES Edited Result - Final * Transthoracic Echo (TTE) Complete (05/13/2025) Harsha Peace MD CV ECHO PROCEDURES Final Result * Mammography (12/17/2024 4:03 PM EDT) Anatomical Region Laterality Modality Other Historical Provider HEALTH MAINTENANCE Final Result * (ABNORMAL) PAP/HPV (03/18/2023) Pap Smear 1. NILM 1. NILM HPV Detected(A ) Undetected, Indeterminate , Quantitative, Not Detected Historical Provider HEALTH MAINTENANCE Final Result from Last 3 Months or Most Recently Relevant to Health Maintenance Insurance [facility] Member Subscriber Plan / Payer (Ef fective 2024-Present) Name:Phoebe Garnett Relation to Subscriber:Self Name:Phoebe Garnett Payer ID:Not on file Group ID:Not on file Type:Medicaid Address: [facility] [id number] [place] [phone] [place] [address] Care Teams Sanding Machine Buffer Relationship Specialty Start Date End Date Nikolas Frost MD [address] [place] [phone] PCP - General Internal Medicine 04/11/25
--- OUTSIDE RECORDS SUMMARY | 2025-07-12 13:06 | XMS_ITS | Encounter Summary ---
Author Organization [employer] Address [address] [facility] 7t [place] [address] Care Team Providers Care Veneer Stock Grader Name Role Phone Harsha Wang MD Primary Care Prov ider Nikolas Frost MD Primary Care Provider [phone] Reason for Visit * Reason Comments Med Refill Encounter Details Date Type Department Care Team ([facility] st Contact Info) Description 02/21/2025 Refill [facility] [address] [place] [address] Harsha Wang MD [address] [place] [address] Social History Tobacco Use Types Packs/Day Years [...] Description 07/13/2025 3:30 PM EST Office Visit [facility] [address] [place] [address] Harsha Wang MD [address] [place] [address] 08/01/2025 4:00 PM EST Office Visit [facility] [address] [place] [address] Nikolas Frost MD [address] [place] [address] documented as of this encounter Visit Diagnoses Not on filedocumented in this encounter Additional Health Concerns Assessment Noted Time PHQ-9 Depression Total Score: 0 11/06/19 25 9:58 AM EDT documented as of this encounter Care Teams Veneer Stock Grader Relationship Specialty Start Date End Date Harsha Wang MD [address] [place] [address] PCP - General Internal Medicine 11/11/24 04/10/25 Nikolas Frost MD [address] [place] [phone] PCP - General Internal Medicine 04/11/25 documented as of this encounter
--- OUTSIDE RECORDS SUMMARY | 2025-07-12 13:06 | XMS_ITS | Encounter Summary ---
Author Organization [employer] Address [address] [facility] [address] [place] [address] Care Team Providers Care Imaging Clerk Name Role Phone Harsha Wang MD Primary Care Prov ider Nikolas Frost MD Primary Care Provider [phone] Reason for Visit * Reason Onset Date Comments Results 12/23/2024 Encounter Details Date Type Department Care Team (Late st Contact Info) Description 12/23/2024 Telephone [facility] [address] [place] [address] Harsha Wang MD [address] [place] [address] Results Social History Tobacco Use Types Packs/Day [...] - 12/23/2024 10:04 AM EDT Tc from [facility] with [facility] calling in regards to MR Brain results. She was informed pt is unable to receive results until February. Emmy is requesting a call back with results to clearher for TMS and or to deny if pcp feels necessary. Please contact Emmy at [phone]. documented in this encounter Plan of Treatment Upcoming Encounters Date Type Department Care Team (Late st Contact Info) Description 07/13/2025 3:30 PM EST Office Visit [facility] [address] [place] [address] Harsha Wang MD [address] [place] [address] 08/01/2025 4:00 PM EST Office Visit [facility] [address] [place] [address] Nikolas Frost MD [address] [place] [address] documented as of this encounter Visit Diagnoses Not on filedocumented in this encounter Additional Health Concerns Assessment Noted Time PHQ-9 Depression Total Score: 0 11/06/19 9:58 AM EDT documented as of this encounter Care Teams Imaging Clerk Relationship Specialty Start Date End Date Harsha Wang MD [address] [place] [address] PCP - General Internal Medicine 11/11/24 04/10/25 Nikolas Frost MD [address] [place] [address] PCP - General Internal Medicine 04/11/25 documented as of this encounter
--- OUTSIDE RECORDS SUMMARY | 2025-07-12 13:06 | XMS_ITS | Clinical Summary ---
Author Organization [facility] Prior to 12/25/[address] [place] [address] Care Team Providers Care Nutrition Teacher Name Role Phone Rey Galvan MD Primary Care Provider [phone] Allergies Active Allergy Reactions Criticality Noted Date [...] age to complete this topic Care Teams Nutrition Teacher Relationship Specialty Start Date End Date Rey Galvan MD PCP - General Internal Medicine 06/04/21
--- OUTSIDE RECORDS SUMMARY | 2025-07-12 13:06 | XMS_ITS | Encounter Summary ---
Author Organization [employer] Address [address] [facility] [address] [place] [address] Care Team Providers Care Blasting Contract Miner Name Role Phone Nikolas Frost MD Primary Care Provider [phone] Reason for Visit * Reason Onset Date Comments Results 05/19/2025 Encounter Details Date Type Department Care Team ([facility] Contact Info) Description 05/19/2025 Telephone [facility] [address] [place] [address] Nikolas Frost MD [address] [place] [address] Results Social History Tobacco Use Types Packs/Day [...] Questionnaire-9 Score Answer Date of Assessment Author 06/09/2025 2:14 PM Anand Gomez LMHC * [...] LMHC Trouble relaxing 3 06/09/2025 2:15 PM Anand David LMHC Being so restless that it is [...] Assessment Author Very difficult 06/09/2025 2:14 PM EST Anand Appiah, [facility] documented as of this encounter Miscellaneous Notes * Telephone Encounter - Edith Green RN - 05/19/2025 12:00 PM EDT Echo faxed to [facility] ortho as requested. * Telephone Encounter - Dalila Langford - 05/19/2025 10:24 AM EDT Tc from [facility] at [facility] orthopedics requesting echo results done on 05/13 Contact Aurea at [phone] documented in this encounter Plan of Treatment Upcoming Encounters Date Type Department Care Team (Late st Contact Info) Description 07/13/2025 3:30 PM EST Office Visit [facility] [address] [place] [address] Harsha Wang MD [address] [place] [address] 08/01/2025 4:00 PM EST Office Visit [facility] [address] [place] [address] Nikolas Frost MD [address] [place] [address] documented as of this encounter Visit Diagnoses Not on filedocumented in this encounter Additional Health Concerns Assessment Noted Time PHQ-9 Depression Total Score: 0 11/06/19 9:58 AM EDT documented as of this encounter Care Teams Blasting Contract Miner Relationship Specialty Start Date End Date Nikolas Frost MD [address] [place] [address] PCP - General Internal Medicine 04/11/25 documented as of this encounter
--- OUTSIDE RECORDS SUMMARY | 2025-07-12 13:06 | XMS_ITS | Encounter Summary ---
Author Organization [facility] Address [address] [place] [address] Care Team Providers Care Death Claim Examiner Name Role Phone Levy Harsha Peace Primary Care Provide r Encounter Details Date Type Department Care Team ([facility] Contact Info) Description 03/14/[address] [facility] - Main Lab [address] [facility] [place] [address] Patrick Basilio MD [address] [place] [address] Urinary tract infection, site not [...] Upcoming Encounters Date Type Department Care Team ([facility] Contact Info) Description 12/20/2025 4:00 PM EDT Appointment Radiology Department - [address] [phone] documented as of this encounter Procedures Procedure [...] reflex microscopic (03/14/2025 1:42 PM EDT) Specific [place] Urine 1.029 1.003 - 1.030 LAB URINALYSIS - AUTOMATED METHOD 03/14/2025 6:26 PM [facility] pH, Urine 5.5 5.0 - 8.0 pH LAB URINALYSIS - AUTOMATED METHOD 03/14/2025 6:26 PM [facility] Leukocytes, Urine Negative Negative LAB URINALYSIS - AUTOMATED METHOD 03/14/2025 6:26 PM [facility] Nitrite, Urine Negative Negative LAB URINALYSIS - AUTOMATED METHOD 03/14/2025 6:26 PM [facility] Protein, Urine Negative <=Trace mg/dL LAB URINALYSIS - AUTOMATED METHOD 03/14/2025 6:26 PM [facility] Glucose, Urine Negative Negative mg/dL LAB URINALYSIS - AUTOMATED METHOD 03/14/2025 6:26 PM [facility] Ketones, Urine Negative Negative mg/dL LAB URINALYSIS - AUTOMATED METHOD 03/14/2025 6:26 PM [facility] Urobilinogen, Urine 1.0 0.2 - 1.0 mg/dL LAB URINALYSIS - AUTOMATED METHOD 03/14/2025 6:26 PM [facility] Bilirubin, Urine Negative Negative LAB URINALYSIS - AUTOMATED METHOD 03/14/2025 6:26 PM [facility] Blood, Urine Negative Negative LAB URINALYSIS - AUTOMATED METHOD 03/14/2025 6:26 PM [facility] Urine Urine specimen from urethra / Unknown 03/14/2025 1:42 PM EDT 03/14/2025 6:02 PM EDT Patrick Basilio MD LAB URINE ORDERABLES Sybil l Result Performing Organization Address [facility] Co de Phone Number [facility] [address] [place] [address], [place] [phone] * Culture urine (03/14/2025 1:42 PM EDT) Culture, Urine 10,000-49,000 CFU/mL Mixed urogenital marilynn, no uropathogens present. Suggest repeat specimen if clinically indicated. 03/15/2025 1:14 PM EDT [facility] Urine Urine specimen from urethra / Unknown 03/14/2025 1:42 PM EDT 03/14/2025 6:02 PM EDT Patrick Basilio MD LAB MICROBIOLOGY - GENERA L ORDERABLES Final Result Performing Organization Address [facility] Co de Phone Number [facility] [address] [place] [address], [place] [phone] documented in this encounter Visit Diagnoses Diagnosis Urinary tract infection, site not specified documented in this encounter Care Teams Death Claim Examiner Relationship Specialty Start Date End Date Harsha Wang [address] [place] [address] PCP - General Internal Medicine 05/13/25 documented as of this encounter
--- OUTSIDE RECORDS SUMMARY | 2025-07-12 13:06 | XMS_ITS | Encounter Summary ---
Author Organization [employer] Address [address] [facility] 7t [place] [address] Care Team Providers Care Insurance Advisor Name Role Phone Nikolas Frost MD Primary Care Provider Reason for Visit * Reason Comments Med Refill Encounter Details Date Type Department Care Team ([facility] st Contact Info) Description 06/13/2025 Refill [facility] MEDICINE [address] [place] [address] Nikolas Frost MD [address] [place] [address] Social History Tobacco Use Types Packs/Day Years [...] 3:30 PM EST Office Visit [facility] MED & PEDS [address] [place] [address] Harsha Wang MD [address] [place] [address] 08/01/2025 4:00 PM EST Office Visit [facility] MED & PEDS [address] [place] [address] Nikolas Frost MD [address] [place] [address] documented as of this encounter Visit Diagnoses Not on filedocumented in this encounter Additional Health Concerns Assessment Noted Time PHQ-9 Depression Total Score: 21 025 2:14 PM EST documented as of this encounter Care Teams Insurance Advisor Relationship Specialty Start Date End Date Nikolas Frost MD [address] [place] [address] PCP - General Internal Medicine 04/11/25 documented as of this encounter
--- OUTSIDE RECORDS SUMMARY | 2025-07-12 13:06 | XMS_ITS | Encounter Summary ---
Author Organization [employer] Address [address] [facility] 7t [place] [address] Care Team Providers Care Mortgage Loan Underwriter Name Role Phone Nikolas Frost MD Primary Care Provider [phone] Encounter Details Date Type Department Care Team ([facility] st Contact Info) Description 06/29/2025 Results Follow-Up [facility] MED & PEDS [address] [place] [address] Nikolas Frost MD [address] [place] [address] XR Chest 1 View Social History Tobacco Use Types Packs/Day Years [...] 07/13/2025 3:30 PM EST Office Visit [facility] [address] [place] [address] Harsha Wang MD [address] [place] [address] 08/01/2025 4:00 PM EST Office Visit [facility] [address] [place] [address] Nikolas Frost MD [address] [place] [address] documented as of this encounter Visit Diagnoses Not on filedocumented in this encounter Additional Health Concerns Assessment Noted Time PHQ-9 Depression Total Score: 21 025 2:14 PM EST documented as of this encounter Care Teams Mortgage Loan Underwriter Relationship Specialty Start Date End Date Nikolas Frost MD [address] [place] [address] PCP - General Internal Medicine 04/11/25 documented as of this encounter
--- OUTSIDE RECORDS SUMMARY | 2025-07-12 13:06 | XMS_ITS | Encounter Summary ---
Author Organization [employer] Address [address] [facility] 7t [place] [address] Care Team Providers Care Account Manager Forest Service Name Role Phone Nikolas Frost MD Primary Care Provider Encounter Details Date Type Department Care Team (Late st Contact Info) Description 06/29/2025 Telephone [facility] MEDICINE [address] [place] [address] Nikolas Frost MD [address] [place], [place] [phone] Social History Tobacco Use Types Packs/Day Years [...] encounter Miscellaneous Notes * Telephone Encounter - Priyanka Roldan - 06/29/2025 10:51 AM EST Tc from pt stated received a Call on 06/27 pt returning call. No Notes on profile PCP Dr. Frost documented in this encounter Plan of Treatment Upcoming Encounters Date Type Department Care Team (Late st Contact Info) Description 07/13/2025 3:30 PM EST Office Visit [facility] MED & PEDS [address] [place] [address] Harsha Wang MD [address] [place] [address] 08/01/2025 4:00 PM EST Office Visit [facility] MED & PEDS [address] [place] [address] Nikolas Frost MD [address] [place] [address] documented as of this encounter Visit Diagnoses Not on filedocumented in this encounter Additional Health Concerns Assessment Noted Time PHQ-9 Depression Total Score: 21 025 2:14 PM EST documented as of this encounter Care Teams Account Manager [employer] Relationship Specialty Start Date End Date Nikolas Frost MD [address] [place] [address] PCP - General Internal Medicine 04/11/25 documented as of this encounter
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
--- OUTSIDE RECORDS SUMMARY | 2025-07-12 13:06 | XMS_ITS | Encounter Summary ---
Author Organization [facility] Address [address] [place] [address] Care Team Providers Care Import Manager Name Role Phone Harsha Wang Primary Care Provide r Reason for Visit * Reason Onset Date Comments Pre-operative Clearance 07/08/2025 Cardiac clearance needed Encounter Details Date Type Department Care Team (Late st Contact Info) Description 07/08/2025 Telephone [facility] [address] [facility] [address] [place] [address] Davina Perez MD [address] [place] [address] [place] [phone] Social History Tobacco Use Types Packs/Day Years [...] as of this encounter Progress Notes * Khloe uCriel MA - 07/11/2025 4:35 PM EST Ashleigh from [facility] [phone] called to check on the status of this matter. I informed Ashleigh The provider is currently out of the office and will respond once he is able. Ashleigh reiterated patient is scheduled for a coloscopy on 07/29/2025. Please call ashleigh and the patient with update when available. * Chad Akers - 07/11/2025 2:14 PM EST Patient is very adamant that Dr Perez get back to her as soon as possible in regards to this clearance. Patient was informed Dr Perez is in the director geophysical laboratory and when he is able to respond to this messagehe will do so. Patient was made aware message from surgery office went to him as high priority. * Danelle Mujica MA - 07/08/2025 1:54 PM EST Ashleigh from [facility] called. The patient is scheduled to have a colonoscopy on 08.21.24. She was in the hospital for shoulder surgery and expressed chest pain and syncope. They would like clearance forher due to these things. I informed Ashleigh that she hasn't been seen in two years so she would have to be seen in the office. Due to the time frame it is a little tight and she is well aware. Please advise documented in this encounter Plan of Treatment Upcoming Encounters Date Type Department Care Team (Late st Contact Info) Description 12/20/2025 4:00 PM EDT Appointment Radiology Department - [address] [address] documented as of this encounter Visit Diagnoses Not on filedocumented in this encounter Care Teams Import Manager Relationship Specialty Start Date End Date Harsha Wang [address] [place] [address] PCP - General Internal Medicine 05/13/25 documented as of this encounter
--- OUTSIDE RECORDS SUMMARY | 2025-07-12 13:06 | XMS_ITS | Encounter Summary ---
Author Organization [employer] Address [address] [place] [address] Care Team Providers Care Gas Tender Name Role Phone Nikolas Frost MD Primary Care Provider Reason for Visit * Reason Onset Date Comments Med Refill 07/11/2025 Encounter Details Date Type Department Care Team ([facility] st Contact Info) Description 07/11/2025 Telephone [facility] [address] [place] [address] Nikolas Frost MD [address] [place] [address] Med Refill Social History Tobacco Use Types Packs/Day Years [...] encounter Miscellaneous Notes * Telephone Encounter - Tri Dodson LPN - 07/11/2025 11:19 AM EST Multivitamin 90 day supply has refills on file.Pilocarpine 5 mg is not prescribed by pcp * Telephone Encounter - Mathew Shepherd - 07/11/2025 11:14 AM EST Pt requesting a med refill on the following: Multivitamin 90 day supply Pilocarpine 5 mg 90 day supply documented in this encounter Plan of Treatment Upcoming Encounters Date Type Department Care Team (Late st Contact Info) Description 07/13/2025 3:30 PM EST Office Visit [facility] MED [facility]ED[facility] [address] [place] [address] Harsha Wang MD [address] [place] [address] 08/01/2025 4:00 PM EST Office Visit [facility] MED [facility] PED[facility] [address] [place] [address] Nikolas Frost MD [address] [place] [address] documented as of this encounter Visit Diagnoses Not on filedocumented in this encounter Additional Health Concerns Assessment Noted Time PHQ-9 Depression Total Score: 21 06/09/ 025 2:14 PM EST documented as of this encounter Care Teams Gas Tender Relationship Specialty Start Date End Date Nikolas Frost MD [address] [place] [address] PCP - General Internal Medicine 04/11/25 documented as of this encounter
--- OUTSIDE RECORDS SUMMARY | 2025-07-12 13:06 | XMS_ITS | Encounter Summary ---
Author Organization [employer] Address [address] [facility] [facility] [address] [place] [address] Care Team Providers Care Tire Builder Operator Name Role Phone Nikolas Frost MD Primary Care Provider [phone] Encounter Details Date Type Department Care Team ([facility] st Contact Info) Description 05/27/2025 Results Follow-Up [facility] [address] [place], [place] [phone] Nikolas Frost MD [address] [place] [address] Lipid Panel, Standard, Lead, Venous, Hepatitis C [...] Description 07/13/2025 3:30 PM EST Office Visit [facility] [address] [place] [address] Harsha Wang MD [address] [place] [address] 08/01/2025 4:00 PM EST Office Visit [facility] [address] [place] [address] Nikolas Frost MD [address] [place] [address] documented as of this encounter Visit Diagnoses Not on filedocumented in this encounter Additional Health Concerns Assessment Noted Time PHQ-9 Depression Total Score: 0 11/06/19 25 9:58 AM EDT documented as of this encounter Care Teams Tire Builder Operator Relationship Specialty Start Date End Date Nikolas Frost MD [address] [place] [address] PCP - General Internal Medicine 04/11/25 documented as of this encounter
== END 2025-07-12 10:57 | disposition home or self-care (01) ==
LOC: HO.HOS 10:23
PROVIDERS: PCP Internal Medicine; Visit Provider Orthopaedic Surgery
DX: M25.511 Pain in right shoulder (principal)
CPT/HCPCS: 99024

== ENCOUNTER → 2025-07-12 10:23 | Outpatient (BNVA) | payer MEDICARE, SELFPAY | PROVIDERS: PCP Internal Medicine; Visit Provider Orthopaedic Surgery | DX: Z47.89 Encounter for other orthopedic aftercare (principal); M25.511 Pain in right shoulder | CPT/HCPCS: 99212 ==